=== PATIENT | male | born 1955 | race Caucasian/White ===

== ENCOUNTER 2020-03-17 09:44 | Observation (INO) | payer MEDICARE, SELFPAY ==
[2020-03-17] VITALS (9 sets, daily range): BP systolic 127–152; BP diastolic 69–90; PULSE 78–94; RESP 18–22; TEMP 36.3–37.2; O2SAT 97–100
--- NOTE | ~2020-03-17 | CT_ITS ---
EXAMINATION: CT brain wo con EXAM DATE: 03/18/2020 16:52 INDICATION: Intractable headache. TECHNIQUE: Spiral CT of the head was performed without contrast. Axial, coronal and sagittal images were reviewed. The dose-length product (DLP) for this examination was 605.33 mGy-cm. The exposure w as tailored according to patient size, and iterative reconstruction (ASIR) was used as additional dos e reduction technique. There is no prior study for comparison. FINDINGS: There is no acute intraparenchymal hemorrhage. No evidence of intraparenchymal brain mass lesion. No evidence of acute infarction. There is no mass effect or midline shift. The ventricles are normal in size. There are no extra-axial collections. There are no acute calvarial fractures. T he orbits are unremarkable. Soft tissue is unremarkable. The visualized sinuses and mastoid air rasheed ls are well aerated. IMPRESSION: 1. Unremarkable head CT examination. Reviewed, dictated and finalized at location A.
--- NOTE | ~2020-03-17 | CT_ITS ---
EXAMINATION: CT abdomen pelvis w con DATE: 03/21/2020 12:23 INDICATION: Abdominal pain and nausea TECHNIQUE: Computed tomography (CT) of the abdomen and pelvis was performed with 100 mL Omnipaque-350 intravenous contrast. Automated exposure control and iterative reconstruction technique were employe d. The dose-length product was 780.40 mGy-cm. COMPARISON: 03/20/2020 FINDINGS: Emphysema at the lung bases diffuse bronchial wall thickening. No pneumonia, pulmonary edema or other pulmonary infiltrates. Heart size is normal. No pericardial or pleural effusion. Liver, gallbladder, spleen, pancreas, bilateral adrenal glands and right kidney are normal. 1.5 cm left renal cyst. Agai n seen is edematous-appearing wall thickening involving the second and third portion of the duodenum. Mild small amount of nonloculated retroperitoneal fluid extending caudally from the duodenum along t he right pararenal space. The more distal small bowel is normal. Normal appendix. There is mild colon ic diverticulosis with a sigmoid predominance. There is no adjacent inflammatory change to suggest d iverticulitis. Excreted contrast within the bladder likely related related to the earlier contrast-en hanced brain and carotid CT angiogram. No free intraperitoneal gas or fluid. No pathologically enlarg ed abdominal or pelvic lymphadenopathy. Fat-containing umbilical hernia measuring up to 4.5 cm in max imal diameter. Additional small fat-containing left inguinal hernia. Moderate to severe lumbar spondy losis. IMPRESSION: 1. Persistent edematous duodenal wall thickening consistent with duodenitis which could be infectious or inflammatory in etiology differential would include reactive edema related to acute interstitial pancreatitis. 2. Emphysema. 3. Mild diverticulosis. Reviewed, dictated and finalized at location A. IMPRESSION: 1. Persistent edematous duodenal wall thickening consistent with duodenitis whi ch could be infectious or inflammatory in etiology differential would include r eactive edema related to acute interstitial pancreatitis. 2. Emphysema. 3. Mild diverticulosis.
--- NOTE | ~2020-03-17 | US_ITS ---
EXAMINATION: US venous doppler [facility] DATE: 03/18/2020 11:12 INDICATION: Lower limb edema. TECHNIQUE: Grayscale ultrasound images without and with compression and Doppler ultrasound images of the bilateral lower extremity veins were obtained. COMPARISON: None. FINDINGS: The visualized portions of right common femoral vein, profunda (deep) femoral vein, femoral vein, pop liteal vein, posterior tibial veins, and greater saphenous vein outflow are patent. The visualized portions of left common femoral vein, profunda femoral vein, femoral vein, popliteal v ein, peroneal veins, posterior tibial veins, and greater saphenous vein outflow are patent. IMPRESSION: 1. No deep venous thrombosis. Reviewed, dictated and finalized at location A.
--- NOTE | ~2020-03-17 | XR_ITS ---
XR chest 1V portable 03/17/2020 10:43 Indication: Shortness of breath. COPD. Procedure: AP portable chest Comparison: Comparison to multiple prior studies sequentially, with oldest reviewed study dated 06/22. Findings: Heart size normal. No focal air space disease, pulmonary edema, pleural effusion or suspect ed pneumothorax. No acute osseous abnormality. The lungs are hyperinflated which is consistent with, but not diagnostic of chronic obstructive pulmo nary disease. Impression: 1: No acute cardiopulmonary disease. Reviewed, dictated and finalized at location A. Impression: 1: No acute cardiopulmonary disease.
--- NOTE | ~2020-03-17 | XR_ITS ---
EXAMINATION: XR abdomen/kub 1V DATE: 03/20/2020 05:54 INDICATION: Nausea. Abdominal distention. TECHNIQUE: A supine view of the abdomen was obtained. COMPARISON: Abdomen radiographs 03/18/2020 FINDINGS: There are no dilated loops of bowel. There is a paucity of stool in the colon. There is no visible urolithiasis. IMPRESSION: 1. Nonobstructive bowel gas pattern. Reviewed, dictated and finalized at location A.
--- NOTE | ~2020-03-17 | XR_ITS ---
EXAMINATION: XR abdomen obstructive series DATE: 03/18/2020 13:07 INDICATION: Abdominal distention and pain TECHNIQUE: Supine and upright views of the abdomen. FINDINGS: No prior studies for comparison. The visualized lung parenchyma is normal.. There is a nonobstructive bowel gas pattern. Gas and stool are seen throughout the colon to the level of the rectum. There is no free air. IMPRESSION: 1. No acute abdominal abnormality. Reviewed, dictated and finalized at location A.
--- NOTE | ~2020-03-17 | CT_ITS ---
EXAMINATION: CT abdomen pelvis wo con DATE: 03/20/2020 10:16 INDICATION: Persistent abdominal pain TECHNIQUE: Computed tomography (CT) of the abdomen and pelvis was performed without intravenous contr ast. The dose-length product (DLP) was 601.44 mGy-cm. Automated exposure control and iterative recons truction technique were employed. COMPARISON: None FINDINGS: There is moderate emphysema of the visualized lung bases. There is persistent but improved bronchial wall thickening in the left lower lobe, consistent with resolving pneumonia. The heart size is normal. Within the limitations of noncontrast examination, the liver, spleen, pancreas, gallbladd er, and adrenal glands are normal. The right kidney is unremarkable. There is a 1.2 cm cyst in the le ft kidney. There appears to be mild wall thickening involving the second/third portion of the duodenu m. A small amount of ascites tracks in the retroperitoneum. No pathologically enlarged abdominal or p elvic lymph nodes are identified. There is no free intraperitoneal gas or evidence of bowel obstructi on. A moderate volume of colonic stool is present. There is calcified atherosclerosis of the aorta an d many of the other arteries. There is a fat-containing umbilical hernia. Moderate to severe lumbar s pondylosis is noted. The bladder is distended. IMPRESSION: 1. Apparent mild wall thickening of the duodenum which could reflect duodenitis, exam limited without intravenous contrast. Reviewed, dictated and finalized at location A. IMPRESSION: 1. Apparent mild wall thickening of the duodenum which could reflect duodenitis , exam limited without intravenous contrast.
--- NOTE | ~2020-03-17 | CT_ITS ---
EXAMINATION: CTA chest PE protocol DATE: 03/17/2020 11:59 CDT INDICATION: Shortness of breath. History of COPD. TECHNIQUE: Computed tomographic angiography (CTA) of the chest was performed with 100 mL Omnipaque-35 0 intravenous contrast. The dose-length product was 481.15 mGy-cm. Maximum intensity projection 3D-re constructions of the aorta and other arteries were constructed by the technologist on a separate work station. Automated exposure control and iterative reconstruction technique were employed. COMPARISON: CT dated 03/31/2017 FINDINGS: The study is technically adequate without evidence for pulmonary embolism. No significant p leural or pericardial effusion. Heart size normal. No thoracic lymphadenopathy. There is severe bullo us emphysema. There is left basilar atelectasis. No focal pneumonia. There is a left renal cyst. Othe rwise, upper abdomen is unremarkable. IMPRESSION: 1. No evidence for pulmonary embolism. No acute cardiopulmonary disease. 2: Severe emphysema. Reviewed, dictated and finalized at location A.
--- NOTE | ~2020-03-17 | CT_ITS ---
EXAMINATION: CTA brain carotid DATE: 03/20/2020 19:01 CDT INDICATION: Green headaches. Tremors. TECHNIQUE: Computed tomographic angiography (CTA) of the head was performed without and with 100 mL O mnipaque-350 intravenous contrast. CTA of the neck was performed with intravenous contrast. The dose- length product was 1634.82 mGy-cm. Maximum intensity projection and volume rendered 3D-reconstruction s were created by the technologist on a separate workstation. COMPARISON: CT dated 03/18/2020. FINDINGS: HEAD CTA: Brain parenchymal volume is normal. No acute intracranial hemorrhage, infarction, mass or m ass effect. No ventriculomegaly or midline shift. Basilar cisterns are patent. There is a dominant le ft vertebral artery. No evidence for significant intracranial stenosis or aneurysm. The anterior, mid dle and posterior cerebral arteries are relatively symmetric. NECK CTA: There is severe emphysema of the lung apices. Minimal atherosclerosis of the carotid bulb o n the left. No significant stenosis in either carotid artery. No evidence for carotid dissection. The re is normal contrast opacification of the external carotid arteries. No significant cervical lymphad enopathy. No significant abnormality of the mucosal or parapharyngeal spaces. There is 0% stenosis of the proximal right internal carotid artery relative to normal distal artery l umen diameter (NASCET criteria). There is 0% stenosis of the proximal left internal carotid artery re lative to normal distal artery lumen diameter. IMPRESSION: 1. No hemodynamically significant stenosis in either carotid artery. 2: No significant abnormality of the intracranial arteries. No evidence for significant stenosis or a neurysm. 3: Severe emphysema. 4: No acute intracranial abnormality. Reviewed, dictated and finalized at location A. IMPRESSION: 1. No hemodynamically significant stenosis in either carotid artery. 2: No significant abnormality of the intracranial arteries. No evidence for sig nificant stenosis or aneurysm. 3: Severe emphysema. 4: No acute intracranial abnormality.
--- NOTE | 2020-03-17 10:14 | ECG_ITS ---
Measurements Intervals [place] Rate: 83 P: 37 SD: 157 QRS: 166 QRSD: 106 T: 72 QT: 375 QTc: 441 Interpretive Statements SINUS RHYTHM RIGHT AXIS DEVIATION INCOMPLETE RIGHT BUNDLE BRANCH BLOCK BASELINE ARTIFACT- I, II, III, AVL, V1 BORDERLINE ECG Electronically Signed On 03-17-2020 10:39:59 CDT by Larry Watson D.O.
--- NOTE | 2020-03-17 10:15 | ED.SOB ---
HPI - SOB/Dyspnea General Chief Complaint: Shortness of Breath/Dyspnea Stated Complaint: SOB Source: RN notes reviewed History of Present Illness HPI Narrative: Patient presents emergency department from home for shortness of breath. Patient states he has a history of COPD and is chronically on oxygen at approximately 2 to 3 L nasal cannula. Patient states that over the past month he has had progressively worsening shortness of breath to the point where over the past 2 weeks has been able to get up and do anything because he becomes so dyspneic with exertion he states that sitting he does feel better he denies any fevers or chills chest pain abdominal pain. He states that he has a minimal cough that is nonproductive. He denies any tobacco use Related Data Home Medications Medication Instructions Recorded Confirmed azelastine-fluticasone 137 mcg-50 1 spray NASAL BID 02/18/20 02/18/20 mcg/spray nasal spray ipratropium 0.5 mg-albuterol 3 mg 3 ml INHALATION QID PRN 02/18/20 02/18/20 (2.5 mg base)/3 mL nebulization soln hydrochlorothiazide 03/17/20 Allergies Allergy/AdvReac Type Severity Reaction Status Date / Time No Known Allergies Allergy Verified 03/17/20 10:14 Review of Systems Review of Systems: Narrative: Gen.: Denies fevers or chills ENT: Denies congestion Respiratory: Reports shortness of breath CV: Denies chest pain or palpitations GI: Denies abdominal pain nausea, emesis or diarrhea Musculoskeletal: Denies back pain or muscle pain Neuro: Denies numbness, tingling, weakness or focal weakness Skin: Denies rash Except as documented, all other systems reviewed and negative [facility] Past Medical History Medical History (Updated 03/17/20 @ 14:27 by Benedict Mera DO) COPD (chronic obstructive pulmonary disease) Family History Family History (Updated 05/20/16 @ 23:21 by DOCTOR UNKNOWN) Sibling Patient's sister is in good health, Onset Age: 52 Patient's brother is in good health, Onset Age: 50 Mother Family history of diabetes mellitus in first degree relative, Onset Age: 68 Patient's mother is Social History Social History Smoking status: Former smoker Smoking end date: 10/23/09 Alcohol intake: never Gender identity (if verbalized by the patient): Male Exam Narrative: Exam Narrative: APPEARANCE: No acute distress, nontoxic, resting in bed EYES: EOMI HEENT: Normocephalic, atraumatic, OMM RESPIRATORY: No respiratory distress decreased breath sounds at the bilateral lung swann, no rhonchi or rales CARDIOVASCULAR: Regular rate and rhythm without murmurs rubs or gallops. ABDOMINAL: Soft, nontender, nondistended, no rebound or guarding MUSCULOSKELETAl: Moves all extremities. No clubbing, cyanosis or edema. NEURO: Awake and alert. Following commands, speech normal, no focal deficits SKIN:: Warm, dry. No rashes lesions or abrasions PSYCHIATRIC: Normal affect/mood, Course Course Emergency Course: Patient was walking pulse ox in ED becomes very short of breath with getting up and ambulating will admit at this time Discussed with BLOGS MANAGER Rosalba presentation work-up agrees with admission at this time Discussed with patient and family results of workup and diagnosis. Discussed need for admission. Patient and family understand and agree to current treatment plan Vital Signs Vital signs: Vital Signs Temperature 98.9 F 03/17/20 10:09 Pulse Rate 84 03/17/20 10:09 Respiratory Rate 22 H 03/17/20 10:09 Blood Pressure 134/75 03/17/20 10:09 Pulse Oximetry 99 03/17/20 10:09 Temperature 98.9 F 03/17/20 10:09 Pulse Rate 78 03/17/20 14:18 Respiratory Rate 20 03/17/20 14:18 Blood Pressure 127/78 03/17/20 14:18 Pulse Oximetry 99 03/17/20 10:13 MDM - SOB/Dyspnea Lab Data Result diagrams: 03/17/20 10:38 03/17/20 10:38 Labs: Lab Results 03/17/20 0
[2020-03-17] MEDS: methylPREDNISolone SOD SUCC 125 MG VIAL IV PUSH (10:20)
[2020-03-17 10:33] LABS: Alveolar/Arterial O2 Gradient 25.6 mmHg; Base Excess ABG 11.1 mEq/l (+/-2.0); Fractional Inspired Oxygen 32 %; HCO3 ABG 37.5 mEq/l (22.0-26.0); Oxygen Saturation ABG 98.8 % (95.0-100.0); Oxyhemoglobin 97.7 % THb (90.0-100.0); PCO2 ABG 56.3 mmHg (35.0-45.0); PO2 ABG 136.7 mmHg (80.0-100.0); PO2 FiO2 Ratio Arterial Blood 4.27 %; Total Hemoglobin 13.7 g/dL (12.0-18.0); pH ABG 7.441 (7.350-7.450)
[2020-03-17 10:34] LABS: Device NASAL CANNULA; Modified Allen's Test Pass; Site Drawn RIGHT RADIAL
[2020-03-17 10:44] LABS: Basophils Percent Auto 0.3 % (0.2-1.2); Eosinophils Absolute Auto 0.2 K/mm3 (0-0.3); Eosinophils Percent Auto 1.5 % (0-4.4); Hemoglobin 13.6 g/dL (14.0-18.0); Immature Granulocyte Absolute 0.02 K/mm3 (0.00-0.031); Immature Granulocyte Percent A 0.2 % (0-0.5); Lymphocytes Absolute Auto 2.07 K/mm3 (0.9-3.2); Lymphocytes Percent Auto 16.1 % (18.3-44.2); Mean Corpuscular HGB Conc 32.4 g/dl (32-36); Mean Corpuscular Hemoglobin 28.7 pg (26-34); Mean Corpuscular Volume 88.6 fl (80-100); Mean Platelet Volume 9.3 fl (7.4-10.4); Monocytes Absolute Auto 0.9 K/mm3 (0.1-0.6); Monocytes Percent Auto 7.2 % (2.6-8.5); Neutrophils Absolute Auto 9.6 K/mm3 (1.3-6.7); Neutrophils Percent Auto 74.7 % (45.5-73.1); Platelet Count Result 281 k/mm3 (150-375); Red Blood Count 4.74 M/mm3 (4.6-6.20); Red Cell Distribution Width 13.3 % (11.5-14.5); White Blood Count 12.9 K/mm3 (4.5-10.0)
[2020-03-17 10:55] LABS: Partial Thromboplastin Time 26.5 SECONDS (22.3-36.8); Prothrombin Time 13.1 Seconds (11.1-14.7)
[2020-03-17 11:03] LABS: Blood Urea Nitrogen 8 mg/dL (9-20); Carbon Dioxide > 40 mmol/L (22-30); Chloride 89 mmol/L (98-107); Estimated CRCL calculation 88 ml/min; Estimated Glomerular Filt Rate > 60; Glucose 127 mg/dL (75-110); Potassium 2.9 mmol/L (3.4-5.0); Sodium 135 mmol/L (137-145)
[2020-03-17 11:10] LABS: NT Pro B Type Natriuretic Pept 30 PG/ML (5-100); Troponin I < 0.012 ng/mL (0.000-0.034)
[2020-03-17] MEDS: POTASSIUM CHLORIDE 20 MEQ TABLET 40 MEQ PO (11:15)
[2020-03-17 11:23] LABS: Magnesium 1.9 mg/dL (1.6-2.3)
[2020-03-17] MEDS: ALBUTEROL SULFATE NEB 2.5 MG/0.5 ML INH 5 MG INHALATION (14:02)
[2020-03-17] MEDS: IPRATROPIUM BR 0.02% INH SOLN 0.5 MG/2.5 ML VIAL INHALATION (14:02)
--- NOTE | 2020-03-17 16:48 | ADMGEN ---
This patient, Raimundo Johnson, was admitted to [facility] Surg Room 330-01. Patient/family oriented to hospital policies and general routines including ID bracelet, bed and alarms, visiting hours, pain management, procedures, bathroom and other care routines, personal items, smoking policy, room service/diet, and visiting hours. Valuables list has been completed. Information on how to activate the Rapid Response Team has been discussed. Patient/Family are encouraged to report perceived risks to care and to ask questions if they do not understand what they are told or what they should do.
[2020-03-17] MEDS: methylPREDNISolone SOD SUCC 125 MG VIAL 60 MG IV PUSH ×2 (18:14→22:23)
[2020-03-18] VITALS (15 sets, daily range): BP systolic 120–157; BP diastolic 69–88; PULSE 64–108; RESP 16–22; TEMP 36.1–36.9; O2SAT 92–100
--- NOTE | 2020-03-18 00:13 | PM.IMHP ---
H&P: HPI History of Present Illness Chief complaint: AE COPD Narrative: Raimundo Johnson is a 64 year old male who has a history of COPD. He has had a pulmonary function test by Dr. Dailey in the past that she was a has severe COPD. The patient has been using his inhalers as necessary. He is typically on oxygen about 2 L per nasal cannula. The patient stated that near the end of his smoking habit he was smoking 2-3 packs of cigarettes a day. The patient stated he typically does not go outside of his home and has not been out in several months. He states that he has a gentleman that comes in at night in bring some groceries and sleeps there in his house and then leads in the morning. He has not had any fever or chills. As med effect he states that the man that lives in his house with him he really ever sees him. The patient mostly stays at home. The patient came to the emergency room for shortness of breath. Patient is chronically on oxygen. Patient has been getting progressively worsened shortness of breath over the last couple weeks. He became very dyspneic upon exertion. He stated that he has been having some edema to his right leg but this is been going on for months. He has no complaints of any discomfort his right leg. Did have a CTA that was read as no evidence of pulmonary embolism. No acute cardiopulmonary disease. Severe emphysema. Chest x-ray was read as no acute cardiopulmonary disease. The patient was swabbed for covid 19. Although the patient has not had any fever. The patient stated that he always has a dry hacky cough. As a matter fact he has a hernia due to coughing so much. The patient stated he he does not go to the physician very often. Rather than saying that he has been diagnosed with COPD he states that the doctor has told him that he has this condition. The patient quit smoking several years ago. His white count is 12.9. Patient CO2 was greater than 40 on his basic metabolic panel. His potassium was 2.9. The patient was given [place] for discomfort, Solu-Medrol, potassium, and albuterol and Atrovent inhalers. The patient stated that he started to feel somewhat better however got worse again when he started talk to much. Patient complained of having a headache and was given Fioricet. Date of service 03/17/2020 Review of Systems Review of Systems: All systems reviewed & are unremarkable except as noted in HPI and below Constitutional: Constitutional: Reports as per HPI and Reports no additional constitutional complaints Eyes: Eyes: Reports as per HPI and Reports no additional eye complaints ENT: Reports system reviewed and no additional complaints, except as documented and Reports Normal hearing present Cardiovascular: Cardiovascular: Reports no additional cardiovascular complaints Respiratory: Respiratory: Reports no additional respiratory complaints and Reports no additional respiratory complaints Gastrointestinal: Gastrointestinal: Reports as per HPI and Reports no additional gastrointestinal complaints Musculoskeletal: Musculoskeletal: Reports no additional musculoskeletal complaints Integumentary/Breasts: Skin/Breast: Reports system reviewed and no additional complaints, except as docu and Reports as per HPI Neurologic: Reports system reviewed and no additional complaints, except as documented, Reports as per HPI and Reports Normal hearing present Psychiatric: Psychiatric: Reports no additional psychiatric complaints and Reports as per HPI Endocrine: Endocrine: Reports no additional endocrine complaints Hematologic/Lymphatic: Hematologic/Lymphatic: Reports no additional hematologic/lymphatic complaints Allergic/Immunologic: Allergic/Immunologic: Reports no additional allergic/immunologic complaints [facility] Past Medical History Medical History (Updated 03/18/20 @ 00:20 by Rosalba Rodriguez NP) COPD (chronic obstructive pulmonary disease) Migraines Surgical History Surgical History (Updated
[2020-03-18 01:11] LABS: Blood Urea Nitrogen 12 mg/dL (9-20); Calcium 9.3 mg/dL (8.4-10.2); Carbon Dioxide 38 mmol/L (22-30); Chloride 91 mmol/L (98-107); Estimated CRCL calculation 99 ml/min; Estimated Glomerular Filt Rate > 60; Glucose 136 mg/dL (75-110); Potassium 4.1 mmol/L (3.4-5.0); Sodium 134 mmol/L (137-145)
[2020-03-18] MEDS: MELATONIN 3 MG TABLET PO ×2 (01:46→20:28)
[2020-03-18] MEDS: methylPREDNISolone SOD SUCC 125 MG VIAL 60 MG IV PUSH ×2 (05:08→11:37)
[2020-03-18 05:59] LABS: Basophils Percent Auto 0.1 % (0.2-1.2); Hematocrit 41.1 % (42.0-52.0); Hemoglobin 13.3 g/dL (14.0-18.0); Immature Granulocyte Absolute 0.07 K/mm3 (0.00-0.031); Immature Granulocyte Percent A 0.5 % (0-0.5); Lymphocytes Absolute Auto 1.13 K/mm3 (0.9-3.2); Lymphocytes Percent Auto 7.9 % (18.3-44.2); Mean Corpuscular HGB Conc 32.4 g/dl (32-36); Mean Corpuscular Hemoglobin 28.9 pg (26-34); Mean Corpuscular Volume 89.3 fl (80-100); Mean Platelet Volume 9.4 fl (7.4-10.4); Monocytes Absolute Auto 0.4 K/mm3 (0.1-0.6); Neutrophils Absolute Auto 12.7 K/mm3 (1.3-6.7); Neutrophils Percent Auto 88.5 % (45.5-73.1); Platelet Count Result 285 k/mm3 (150-375); Red Cell Distribution Width 13.2 % (11.5-14.5); White Blood Count 14.3 K/mm3 (4.5-10.0)
[2020-03-18 06:07] LABS: Blood Urea Nitrogen 13 mg/dL (9-20); Calcium 9.2 mg/dL (8.4-10.2); Carbon Dioxide > 40 mmol/L (22-30); Chloride 90 mmol/L (98-107); Estimated CRCL calculation 99 ml/min; Estimated Glomerular Filt Rate > 60; Glucose 139 mg/dL (75-110); Potassium 4.2 mmol/L (3.4-5.0); Sodium 134 mmol/L (137-145)
--- NOTE | 2020-03-18 06:23 | ECG_ITS ---
Measurements Intervals [place] Rate: 104 P: 77 [place]: 163 QRS: 96 QRSD: 100 T: 67 QT: 352 QTc: 465 Interpretive Statements SINUS TACHYCARDIA ATRIAL COUPLET AND ATRIAL PREMATURE COMPLEX RIGHT AXIS DEVIATION POOR R WAVE PROGRESSION, ANTERIOR LEADS BASELINE ARTIFACT- I, II, III, AVL, V1-V3 ABNORMAL ECG Electronically Signed On 03-18-2020 7:06:11 CDT by Larry Watson D.O.
--- NOTE | 2020-03-18 06:36 | PC.NURSE ---
0627- called to room by patient c/o midsternal chest pain with tightness at level 10. VSS 89-16-139/86. 02 sat 99% on 3 liters/NC. Dr Mani butterfield and status report given. Rapid response called. 0628- Nitro given SL. Pain at level 10 0629- rapid response team here - 0630-Chest pain at level 5. Patient states of feeling better with no c/o SOB at this time. BP 171/79- 96-02 sat 98% on 3 liters.
--- NOTE | 2020-03-18 06:43 | PC.NURSE ---
EKG completed and rev iewed by Dr Singleton - lab here to draw troponin.
--- NOTE | 2020-03-18 06:44 | PM.EVENT ---
Event Note Event Note Event Note: RAPID RESPONSE NOTE This is a 64 year old male who is being treated for possible COVID-19 infection and who suddenly developed 10/10 midsternal chest pain this morning. Rapid Response was called by nursing staff. The patient was given 1 nitroglycerin SL and EKG was obtained. EKG demonstrated sinus tachycardia w/ HR 104. No ST segment elevation or depression on my read. On my arrival to bedside the patient states that his chest pain has improved significantly and his pain is now less than 5/10. He denies any shortness of breath or other symptoms. Troponin is pending. Telemetry is ordered. The patient has no previous history of cardiac disease.
[2020-03-18 06:55] LABS: Troponin I < 0.012 ng/mL (0.000-0.034)
[2020-03-18] MEDS: ENOXAPARIN 40 MG/0.4 ML SYRINGE SUB-Q (07:45)
--- NOTE | 2020-03-18 12:36 | PM.IMPN ---
Progress Note: A&P Assessment and Plan (1) COPD with acute exacerbation: Code(s): J44.1 - Chronic obstructive pulmonary disease with (acute) exacerbation Status: Acute Assessment and Plan: ----CTA shows no current infection but severe emphysema. Continue with albuterol inhalers and Solu-Medrol, now decreased to 40 mg every 12 hours. Leukocytosis likely due to steroids. For some reason, his oxygen was increased to 6L. He does not need this much oxygen and I have asked the nurse to keep his oxygen from 89-92. While in the room he had the oxygen off because it was burning his nose and his O2 sat was 94. He said he always feels short of breath. He said he is allergic to our plastic tubes and uses vinyl to being at home. I called [facility] and they are unable to do humidified oxygen until his COVID-19 test comes back. I have ordered ayr to help as well. His COVID-19 test should come back soon and I will order some humidity for him. It does not appear that he has any symptoms of COVID-19. He might have a bit of anxiety as well, will order Xanax p.r.n.. He also says he has not slept in days. He takes Fioricet quite often, probably worsening his sleep. Will do melatonin tonight. Would benefit from seeing a counselor or psychiatrist outpatient. He sees Dr. Dailey, pulmonology for his respiratory needs. (2) Suspected COVID-19 virus infection: Code(s): Z20.828 - Contact with and (suspected) exposure to other viral communicable diseases Status: Acute Assessment and Plan: ------Patient is in isolation in being tested. He does not have any fever or chills. He has not been outside of his home. Likely will be neg. (3) Migraines: Code(s): G43.909 - Migraine, unspecified, not intractable, without status migrainosus Status: Chronic Assessment and Plan: -----he has a significant migraine today and seems to be intractable. He said the Fioricet helped a little bit yesterday but he continues to have migraine symptoms and is using a face covering to shield the light. His neuro exam appears to be normal. I will give him ketorolac once now, continue the p.r.n. Fioricet, obtain a head CT, and consult Neurology since it is very distressing to the patient. (4) Peripheral edema: Code(s): R60.9 - Edema, unspecified Status: Acute Assessment and Plan: -----no blood clot noted. Will continue hydrochlorothiazide. . (5) Abdominal distension: Code(s): R14.0 - Abdominal distension (gaseous) Status: Acute Assessment and Plan: -----will obtain KUB. Patient has distension but not much pain. He says he battles constipation very regularly and rarely has bowel movements. Time Spent With Patient Time with patient: 25 - 35 minutes Subjective Date/time seen: 03/18/20 12:36 Interval history: Pt is a 64 year old male here for COPD exacerbation. Patient was seen today and states that he is having a lot of burning in his nose from the oxygen. He also has complaints of a migraine that has not gone away. He said he has these migraines very frequently and takes Fioricet pretty regularly at home. He says light makes it worse. This is been going on for years. He denies any numbness, tingling or weakness on any part of his body. He says he feels very short of breath as well. He also has complaints of abdominal distension and constipation that is been going on for a long time as well. He says he has no history of anxiety, depression, or mental illness. With that being said, he has never heard of anxiety and does not know what it means. Review of Systems Review of Systems: All systems reviewed & are unremarkable except as noted in HPI and below Exam Narrative: Exam Narrative: General: Well developed well nourished patient resting in the chair in [facility] HEENT: normocephalic, no lesions on the tongue or throat. No swelling. Neck: supple Neuro: Al
[2020-03-18] MEDS: KETOROLAC 30 MG/ML VIAL (*BKC) IV PUSH (13:31)
[2020-03-18 14:16] LABS: SARS-CoV-2 RNA PCR Negative
--- NOTE | 2020-03-18 14:45 | WPDNEURCNPN ---
Assessment and Plan Assessment and plan (1) Migraines: Code(s): G43.909 - Migraine, unspecified, not intractable, without status migrainosus Status: Chronic (2) COPD with acute exacerbation: Code(s): J44.1 - Chronic obstructive pulmonary disease with (acute) exacerbation Status: Acute (3) COPD (chronic obstructive pulmonary disease): Code(s): J44.9 - Chronic obstructive pulmonary disease, unspecified Status: Acute (4) Chronic respiratory failure: Qualifiers: Respiratory failure complication: hypoxia and hypercapnia Qualified Code(s): J96.11 - Chronic respiratory failure with hypoxia; J96.12 - Chronic respiratory failure with hypercapnia Code(s): J96.10 - Chronic respiratory failure, unspecified whether with hypoxia or hypercapnia Status: Acute Additional Plan patient has migraine are the same he has suffered from for past many years he wants to go to sleep at this point which is appropriate he has been taking Fioricet judiciously I thing in needs to be continued to comfort him and if need be then any further testing will be done otherwise is not necessary at this time Consult date: 03/18/20 Time Seen: 14:00 HPI: Raimundo Johnson is a 64 year old male home I have been consulted for acute exacerbation of his underlying chronic migraine headaches which he has been suffering from several years is primarily admitted because of his respiratory issues which have been outlined quite well in the initial history and physical examination he feels that the headaches are worse because of his oxygen needs and also respiratory illness he is COVID negative at this point denies any change in the character of the headache denies any lateralizing paresthesias he is photophobic and phonophobia can would like to go to sleep as he has not had any much of sleep due to respiratory issues in the previous few days he denies any fever chills sore throat nausea or vomiting he does have shortness of breath and is on nasal cannula oxygen Review of Systems Review of Systems: All systems reviewed & are unremarkable except as noted in HPI and below PMFSH Past Medical History Medical History COPD (chronic obstructive pulmonary disease) Migraines Surgical History Surgical History No pertinent past surgical history Family History Family History Sibling Patient's sister is in good health, Onset Age: 52 Patient's brother is in good health, Onset Age: 50 Mother Family history of diabetes mellitus in first degree relative, Onset Age: 68 Patient's mother is Social History Social History Social History: The patient is and has 1 son. He does not have a durable power tax associate attorney for healthcare and desires to be a full code. The patient is disabled. He owns his own home. 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 He is chronically on oxygen at 2 L per nasal cannula. He has a roommate that sleeps in his house during the night. He smoked marijuana in the past but does not use any illicit drugs or alcohol. Smoking packs per day: 3 Smoking cigarettes per day: 60.0 Smoking status: Former smoker Tobacco type: cigarettes Smoking end date: 11/06/08 Alcohol intake: never Substance use: former Living arrangements: with friend(s) Occupation/Education: other Gender identity (if verbalized by the patient): Male Spiritual care concerns: No Meds Home Medications and Allergies Home Medications Medication Instructions Recorded Confirmed Type tphnidi-hukpwrdmbz-ONB-caffeine 30 1 cap PO Q4-6H PRN #60 cap 02/12/20 03/17/20 Rx mg-50 mg-325 mg-40 mg capsule albuterol sulfate 90 mcg/actuation 2 inhalation INHALATION Q4-6H PRN 01/22
[2020-03-18] MEDS: hydroCHLOROthiazide 25 MG TABLET PO (17:03)
[2020-03-18] MEDS: IPRATROPIUM BR 0.02% INH SOLN 0.5 MG/2.5 ML VIAL INHALATION (20:05)
[2020-03-18] MEDS: ALBUTEROL SULFATE NEB 2.5 MG/0.5 ML INH 5 MG INHALATION (20:05)
[2020-03-18] MEDS: SODIUM CHLORIDE NASAL GEL 14.1 GM 1 APPLIC NASAL (20:27)
[2020-03-18] MEDS: methylPREDNISolone SOD SUCC 40 MG VIAL IV PUSH (20:28)
[2020-03-19] VITALS (19 sets, daily range): BP systolic 124–144; BP diastolic 64–77; PULSE 72–102; RESP 18–26; TEMP 36.7–37.6; O2SAT 90–96
[2020-03-19] MEDS: CALCIUM CARBONATE (TUMS) 500 MG (200 MG ELEMENTAL) PO (01:33)
[2020-03-19] MEDS: IPRATROPIUM BR 0.02% INH SOLN 0.5 MG/2.5 ML VIAL INHALATION ×4 (01:48→19:56)
[2020-03-19] MEDS: ALBUTEROL SULFATE NEB 2.5 MG/0.5 ML INH 5 MG INHALATION ×4 (01:48→19:56)
[2020-03-19 06:13] LABS: Hematocrit 40.3 % (42.0-52.0); Hemoglobin 13.2 g/dL (14.0-18.0); Mean Corpuscular HGB Conc 32.8 g/dl (32-36); Mean Corpuscular Hemoglobin 28.9 pg (26-34); Mean Corpuscular Volume 88.4 fl (80-100); Mean Platelet Volume 10.3 fl (7.4-10.4); Platelet Count Result 233 k/mm3 (150-375); Red Blood Count 4.56 M/mm3 (4.6-6.20); Red Cell Distribution Width 13.4 % (11.5-14.5); White Blood Count 22.9 K/mm3 (4.5-10.0)
[2020-03-19 06:42] LABS: Potassium 3.5 mmol/L (3.4-5.0)
[2020-03-19 06:45] LABS: Blood Urea Nitrogen 27 mg/dL (9-20); Calcium 9.1 mg/dL (8.4-10.2); Carbon Dioxide 35 mmol/L (22-30); Chloride 88 mmol/L (98-107); Estimated CRCL calculation 99 ml/min; Estimated Glomerular Filt Rate > 60; Glucose 125 mg/dL (75-110); Sodium 131 mmol/L (137-145)
[2020-03-19 07:51] LABS: Thyroid Stimulating Hormone Reflex 0.472 uIU/mL (0.465-4.68)
[2020-03-19] MEDS: methylPREDNISolone SOD SUCC 40 MG VIAL IV PUSH (08:42)
[2020-03-19] MEDS: ENOXAPARIN 40 MG/0.4 ML SYRINGE SUB-Q (08:42)
[2020-03-19] MEDS: hydroCHLOROthiazide 25 MG TABLET PO (08:42)
--- NOTE | 2020-03-19 10:24 | PM.IMPN ---
Progress Note: A&P Assessment and Plan (1) COPD with acute exacerbation: Code(s): J44.1 - Chronic obstructive pulmonary disease with (acute) exacerbation Status: Acute Assessment and Plan: ----CTA shows no current infection but severe emphysema. Will continue with breathing treatments And doxycycline has been added this morning since he has a low-grade fever. Leukocytosis likely worse due to steroids. He is not having any hypoxia, at his baseline O2, and not complaining of any shortness of breath so we will change his steroids from IV to oral. Patient is improving he keeps improving he may be able to discharge in 1-2 days. (2) Migraines: Code(s): G43.909 - Migraine, unspecified, not intractable, without status migrainosus Status: Chronic Assessment and Plan: -----migraine from yesterday has improved. Will continue p.r.n. Fioricet. It was likely worsened with nitro yesterday. Head CT is normal. Follow-up with Neurology outpatient since he has such frequent headaches. (3) Peripheral edema: Code(s): R60.9 - Edema, unspecified Status: Acute Assessment and Plan: -----no blood clot noted. Will continue hydrochlorothiazide. . (4) Abdominal distension: Code(s): R14.0 - Abdominal distension (gaseous) Status: Acute Assessment and Plan: -----KUB normal, less distended today. Likely normal body habitus (5) Anxiety: Code(s): F41.9 - Anxiety disorder, unspecified Status: Acute Assessment and Plan: -----patient has significant anxiety and has improved with Xanax p.r.n.. Obviously, this is not the drug of choice for long-term care. I will start BuSpar at this time but he will likely need an SSRI outpatient. He sees Dr. Whipple and I will let him know about that at discharge. (6) Hyponatremia: Code(s): E87.1 - Hypo-osmolality and hyponatremia Status: Acute Assessment and Plan: -----last sodium 131. No confusion noted. He is back on his hydrochlorothiazide and if it is low tomorrow this will be stopped. Will trend Subjective Date/time seen: 03/19/20 10:24 Interval history: Pt is a 64 year old male here for COPD exacerbation. Patient was seen today and doing much better than he was yesterday. He said he is not having any shortness of breath or cough. He has not walked around very much so he is unsure about dyspnea on exertion. He had some diarrhea yesterday but has not had any today. His nose, neck and mouth feel much better with a yr and humidity for his oxygen. He is still feeling a little anxious but the Xanax improved since that. He does not have a headache today. More chest pain Exam Narrative: Exam Narrative: General: Well developed well nourished patient resting in the chair in NAD HEENT: normocephalic, no lesions on the tongue or throat. No swelling. Neck: supple Neuro: Alert and oriented x4. CN 2-12 intact. UE and LE 5/ CV:RRR. Telemetry reviewed, no significant abnormalities. He does have some sinus tachycardia up to 120 but not unexpected with his severe lung disease Resp:Decreased breath sounds, no wheezing or rhonchi Abd: Distended. No pain to palpation. Positive bowel sounds Extremities: right leg 1+ edema. Left normal. No pain to palpation. Objective Data Vital Signs Vital Signs: Vital Signs - 24 hr 03/18/20 12:00 03/18/20 14:00 03/18/20 16:00 Temperature 97.1 F L Pulse Rate 108 H 64 79 Respiratory Rate 22 H Blood Pressure 154/69 H Pulse Oximetry 100 03/18/20 20:00 03/18/20 20:10 03/18/20 20:17 Temperature Pulse Rate 104 H 100 102 H Respiratory Rate 22 H 22 H Blood Pressure Pulse Oximetry 92 03/18/20 20:19 03/18/20 20:20 03/18/20 22:00 Temperature 98.4 F Pulse Rate 102 H 93 Respiratory Rate 22 H 22 H Blood Pressure 120/87 Pulse Oximetry 93 96 03/19/20 00:00 03/19/20 01:51 03/19/20 02:00 Temperature 98.
[2020-03-19] MEDS: DOXYCYCLINE HYCLATE 100 MG TABLET PO ×2 (10:48→20:31)
[2020-03-19] MEDS: BISMUTH SUBSALICYLATE 262 MG CHEWABLE TABLET 524 MG PO ×2 (15:07→22:45)
--- NOTE | 2020-03-19 15:53 | PCPTNOTE ---
Attempted PT evaluation. Pt requests coming back tomorrow secondary to tiredness and upset stomach. Will try again tomorrow.
[2020-03-19] MEDS: MELATONIN 3 MG TABLET PO (20:31)
[2020-03-19] MEDS: busPIRone HCL 2.5 MG, busPIRone HCL 5 MG 7.5 MG PO (20:31)
[2020-03-19] MEDS: ACETAMINOPHEN 325 MG TABLET 650 MG PO (20:34)
[2020-03-19] MEDS: SODIUM CHLORIDE NASAL GEL 14.1 GM 1 APPLIC NASAL (21:30)
[2020-03-20] VITALS (12 sets, daily range): BP systolic 115–170; BP diastolic 55–78; PULSE 88–112; RESP 16–22; TEMP 36.7–36.8; O2SAT 91–96
[2020-03-20] MEDS: IPRATROPIUM BR 0.02% INH SOLN 0.5 MG/2.5 ML VIAL INHALATION ×4 (01:14→19:43)
[2020-03-20] MEDS: ALBUTEROL SULFATE NEB 2.5 MG/0.5 ML INH 5 MG INHALATION ×4 (01:14→19:43)
[2020-03-20] MEDS: BELLADONNA ALK/PHENOB ELIX 10 ML, MAG HYDROX/ALUMINUM HYD/SIMETH 30 ML, LIDOCAINE HCL 2... PO (03:00)
[2020-03-20] MEDS: PANTOPRAZOLE SODIUM IV 40 MG VIAL IV PUSH (03:05)
[2020-03-20] MEDS: MAG HYDROX/AL HYDROX/SIMETH 30 ML UDC (03:05)
[2020-03-20 05:58] LABS: Basophils Percent Auto 0.1 % (0.2-1.2); Eosinophils Percent Auto 0.1 % (0-4.4); Hematocrit 40.3 % (42.0-52.0); Hemoglobin 13.1 g/dL (14.0-18.0); Immature Granulocyte Absolute 0.06 K/mm3 (0.00-0.031); Immature Granulocyte Percent A 0.4 % (0-0.5); Lymphocytes Absolute Auto 1.69 K/mm3 (0.9-3.2); Lymphocytes Percent Auto 10.3 % (18.3-44.2); Mean Corpuscular HGB Conc 32.5 g/dl (32-36); Mean Corpuscular Hemoglobin 28.5 pg (26-34); Mean Corpuscular Volume 87.6 fl (80-100); Mean Platelet Volume 9.8 fl (7.4-10.4); Monocytes Absolute Auto 1.6 K/mm3 (0.1-0.6); Monocytes Percent Auto 9.6 % (2.6-8.5); Neutrophils Absolute Auto 13.1 K/mm3 (1.3-6.7); Neutrophils Percent Auto 79.5 % (45.5-73.1); Platelet Count Result 281 k/mm3 (150-375); Red Cell Distribution Width 13.7 % (11.5-14.5); White Blood Count 16.4 K/mm3 (4.5-10.0)
[2020-03-20 06:00] LABS: Blood Urea Nitrogen 17 mg/dL (9-20); Calcium 8.7 mg/dL (8.4-10.2); Carbon Dioxide 38 mmol/L (22-30); Chloride 85 mmol/L (98-107); Estimated CRCL calculation 88 ml/min; Estimated Glomerular Filt Rate > 60; Glucose 134 mg/dL (75-110); Potassium 2.9 mmol/L (3.4-5.0); Sodium 130 mmol/L (137-145)
[2020-03-20] MEDS: ACETAMINOPHEN 325 MG TABLET 650 MG PO (08:43)
[2020-03-20] MEDS: POTASSIUM CHLORIDE 20 MEQ TABLET 40 MEQ PO (08:45)
[2020-03-20] MEDS: predniSONE 20 MG TABLET 40 MG PO (08:45)
[2020-03-20] MEDS: busPIRone HCL 2.5 MG, busPIRone HCL 5 MG 7.5 MG PO ×2 (08:45→21:33)
[2020-03-20] MEDS: DOXYCYCLINE HYCLATE 100 MG TABLET PO ×2 (08:47→21:17)
[2020-03-20] MEDS: ENOXAPARIN 40 MG/0.4 ML SYRINGE SUB-Q (08:49)
--- NOTE | 2020-03-20 11:45 | PM.IMPN ---
Progress Note: A&P Assessment and Plan (1) COPD with acute exacerbation: Code(s): J44.1 - Chronic obstructive pulmonary disease with (acute) exacerbation Status: Acute Assessment and Plan: ----CTA shows no current infection but severe emphysema. Will continue with breathing treatments and doxycycline. Leukocytosis improving and likely elevated due to steroids. He is not having any additional hypoxia, at his baseline O2, and not complaining of any worsening shortness of breath. Continue oral steroids. Patient is improving he keeps improving he may be able to discharge in 1-2 days. (2) Migraines: Code(s): G43.909 - Migraine, unspecified, not intractable, without status migrainosus Status: Chronic Assessment and Plan: -----No additional issues with his chronic migraines. Will continue p.r.n. Fioricet Head CT is normal. Follow-up with Neurology outpatient since he has such frequent headaches. (3) Peripheral edema: Code(s): R60.9 - Edema, unspecified Status: Acute Assessment and Plan: -----no blood clot noted. hctz stopped d/t hyponatremia. . (4) Abdominal distension: Code(s): R14.0 - Abdominal distension (gaseous) Status: Acute Assessment and Plan: -----KUB normal but bladder was distended. Straight cath got 600mls out and he is feeling much better. flomax started. (5) Anxiety: Code(s): F41.9 - Anxiety disorder, unspecified Status: Acute Assessment and Plan: -----patient has significant anxiety and has improved with Xanax p.r.n.. Obviously, this is not the drug of choice for long-term care. I will start BuSpar at this time but he will likely need an SSRI outpatient. I called Dr. mathew about this and he is going to f/u with him outpt. Will give the patient buspar at discharge. (6) Hyponatremia: Code(s): E87.1 - Hypo-osmolality and hyponatremia Status: Acute Assessment and Plan: -----last sodium 130. No confusion noted. HCTZ stopped. (7) Duodenitis: Code(s): K29.80 - Duodenitis without bleeding Status: Acute Assessment and Plan: -----Could be the cause of his stomach pain along with his bladder distention. Will add flagyl. Advance diet as tolerated. He has not had any diarrhea. Subjective Date/time seen: 03/20/20 11:45 Interval history: Pt is a 64 year old male here for COPD exacerbation. Patient was seen today and has some complaints of abdominal pain and distension. He says he has this abdominal pain from time to time. He also mentions that he has issues with urinating and has been worse since he has been in the hospital. He is having some nausea but no vomiting. He denies chest pain or leg swelling. His shortness of breath is unchanged from his baseline Exam Narrative: Exam Narrative: General: Well developed well nourished patient resting in the chair in NAD HEENT: normocephalic, no lesions on the tongue or throat. No swelling. Neck: supple Neuro: Alert and oriented x4. CN 2-12 intact. UE and LE 5/5 CV:RRR. Resp:Decreased breath sounds, no wheezing or rhonchi Abd: Distended. No pain to palpation. Positive bowel sounds Extremities: right leg 1+ edema. Left normal. No pain to palpation. Objective Data Vital Signs Vital Signs: Vital Signs - 24 hr 03/19/20 14:01 03/19/20 14:09 03/19/20 14:11 Temperature 98.2 F Pulse Rate 90 88 92 Respiratory Rate 20 18 20 Blood Pressure 138/66 Pulse Oximetry 96 03/19/20 17:52 03/19/20 19:57 03/19/20 19:58 Temperature 98.2 F Pulse Rate 102 H 72 Respiratory Rate 22 H 18 Blood Pressure 127/68 Pulse Oximetry 93 94 03/19/20 20:00 03/19/20 20:10 03/19/20 22:00 Temperature 98.1 F Pulse Rate 72 76 99 Respiratory Rate 20 18 22 H Blood Pressure 144/64 H Pulse Oximetry 93 93 03/20/20 01:16 03/20/20 01:26 03/20/20 02:00 Temperature 98.2 F Pulse Rate 88 93 91 Respir
[2020-03-20] MEDS: metroNIDAZOLE 250 MG TABLET 500 MG PO ×2 (15:53→21:17)
[2020-03-20] MEDS: TAMSULOSIN HCL 0.4 MG CAPSULE PO (15:53)
[2020-03-20] MEDS: BISMUTH SUBSALICYLATE 262 MG CHEWABLE TABLET 524 MG PO (15:55)
--- NOTE | 2020-03-20 15:55 | WPDNEUROPN ---
Progress Note: A&P Assessment and Plan (1) Duodenitis: Code(s): K29.80 - Duodenitis without bleeding Status: Acute (2) Hyponatremia: Code(s): E87.1 - Hypo-osmolality and hyponatremia Status: Acute (3) Anxiety: Code(s): F41.9 - Anxiety disorder, unspecified Status: Acute (4) Abdominal distension: Code(s): R14.0 - Abdominal distension (gaseous) Status: Acute (5) Peripheral edema: Code(s): R60.9 - Edema, unspecified Status: Acute (6) Hernia: Code(s): K46.9 - Unspecified abdominal hernia without obstruction or gangrene Status: Acute (7) Migraines: Code(s): G43.909 - Migraine, unspecified, not intractable, without status migrainosus Status: Chronic (8) COPD with acute exacerbation: Code(s): J44.1 - Chronic obstructive pulmonary disease with (acute) exacerbation Status: Acute (9) COPD (chronic obstructive pulmonary disease): Code(s): J44.9 - Chronic obstructive pulmonary disease, unspecified Status: Acute (10) Former smoker: Code(s): Z87.891 - Personal history of nicotine dependence Status: Acute (11) Rhinitis: Qualifiers: Rhinitis type: unspecified Qualified Code(s): J31.0 - Chronic rhinitis Code(s): J31.0 - Chronic rhinitis Status: Acute (12) Chronic respiratory failure: Qualifiers: Respiratory failure complication: hypoxia and hypercapnia Qualified Code(s): J96.11 - Chronic respiratory failure with hypoxia; J96.12 - Chronic respiratory failure with hypercapnia Code(s): J96.10 - Chronic respiratory failure, unspecified whether with hypoxia or hypercapnia Status: Acute (13) Anisocoria: Code(s): H57.02 - Anisocoria Status: Acute Additional Plan I will order the CTA of the brain because of anisocoria rest of the management as before Review of Systems Review of Systems: All systems reviewed & are unremarkable except as noted in HPI and below Neurologic: Comments: does have a tremor more than the upper extremity which is not typically a parkinsonian tremor however he mentions that he however recall for how Exam Const: General: comfortable and no acute distress HENMT: General nose exam: Normal nares present Mouth: Yes moist mucous membranes Eyes: General: appearance normal, both eyes and all related structures Other: The right pupil is 5 millimeter, left is 4 millimeter both reacting and full extraocular movements Neck: Neck: supple and no JVD Resp: Other: bilateral rhonchi Cardio: Rate: regular rate Rhythm: regular rhythm GI: Auscultation: normal bowel sounds Neuro: Other: patient is awake and alert well oriented time place and person he does have a tremor of the left upper extremity more so than the upper extremity which she says that he had it for quite some time he does not have any rigidity and there is no lateraliz Extrem: General: normal to inspection Psych: Mental Status: mental status grossly normal Objective Data Vital Signs Vital Signs: Vital Signs - 24 hr 03/19/20 17:52 03/19/20 19:57 03/19/20 19:58 Temperature 36.8 C Pulse Rate 102 H 72 Respiratory Rate 22 H 18 Blood Pressure 127/68 Pulse Oximetry 93 94 03/19/20 20:00 03/19/20 20:10 03/19/20 22:00 Temperature 36.7 C Pulse Rate 72 76 99 Respiratory Rate 20 18 22 H Blood Pressure 144/64 H Pulse Oximetry 93 93 03/20/20 01:16 03/20/20 01:26 03/20/20 02:00 Temperature 36.8 C Pulse Rate 88 93 91 Respiratory Rate 18 18 22 H Blood Pressure 144/66 H Pulse Oximetry 96 03/20/20 06:00 03/20/20 07:53 03/20/20 08:05 Temperature 36.7 C Pulse Rate 104 H 101 H 92 Respiratory Rate 22 H 18 18 Blood Pressure 153/77 H Pulse Oximetry 93 91 03/20/20 13:54 03/20/20 14:04 Temperature Pulse Rate 96 92 Respiratory Rate 20 20 Blood Pressure Pulse Oximetry Intake/Output Intake/Output: Intake & Outpu
[2020-03-20] MEDS: MELATONIN 3 MG TABLET PO (21:17)
[2020-03-20] MEDS: SODIUM CHLORIDE NASAL GEL 14.1 GM 1 APPLIC NASAL (21:18)
[2020-03-21] VITALS (10 sets, daily range): BP systolic 129–147; BP diastolic 54–77; PULSE 87–105; RESP 18–22; TEMP 36.7–36.9; O2SAT 92–98
[2020-03-21] MEDS: IPRATROPIUM BR 0.02% INH SOLN 0.5 MG/2.5 ML VIAL INHALATION ×4 (01:39→19:37)
[2020-03-21] MEDS: ALBUTEROL SULFATE NEB 2.5 MG/0.5 ML INH 5 MG INHALATION ×4 (01:39→19:37)
[2020-03-21] MEDS: BISMUTH SUBSALICYLATE 262 MG CHEWABLE TABLET 524 MG PO ×2 (05:38→07:58)
[2020-03-21] MEDS: metroNIDAZOLE 250 MG TABLET 500 MG PO ×3 (05:38→21:57)
[2020-03-21] MEDS: DOXYCYCLINE HYCLATE 100 MG TABLET PO ×2 (07:58→21:57)
[2020-03-21] MEDS: busPIRone HCL 2.5 MG, busPIRone HCL 5 MG 7.5 MG PO ×2 (07:58→21:56)
[2020-03-21] MEDS: predniSONE 20 MG TABLET 40 MG PO (07:59)
[2020-03-21 08:04] LABS: Hematocrit 37.6 % (42.0-52.0); Hemoglobin 12.2 g/dL (14.0-18.0); Mean Corpuscular HGB Conc 32.4 g/dl (32-36); Mean Corpuscular Hemoglobin 28.3 pg (26-34); Mean Corpuscular Volume 87.2 fl (80-100); Mean Platelet Volume 9.4 fl (7.4-10.4); Platelet Count Result 238 k/mm3 (150-375); Red Blood Count 4.31 M/mm3 (4.6-6.20); Red Cell Distribution Width 13.6 % (11.5-14.5); White Blood Count 17.4 K/mm3 (4.5-10.0)
[2020-03-21 08:18] LABS: Alanine Aminotransferase 39 U/L (4-50); Albumin Level 3.9 g/dL (3.5-5.1); Alkaline Phosphatase 92 U/L (38-126); Aspartate Amino Transferase 30 U/L (17-59); Bilirubin,Total 0.4 mg/dL (0.2-1.3); Blood Urea Nitrogen 13 mg/dL (9-20); Calcium 8.6 mg/dL (8.4-10.2); Carbon Dioxide > 40 mmol/L (22-30); Chloride 88 mmol/L (98-107); Estimated CRCL calculation 88 ml/min; Estimated Glomerular Filt Rate > 60; Glucose 149 mg/dL (75-110); Potassium 3.1 mmol/L (3.4-5.0); Sodium 131 mmol/L (137-145)
--- NOTE | 2020-03-21 11:41 | PM.IMPN ---
Progress Note: A&P Assessment and Plan (1) COPD with acute exacerbation: Code(s): J44.1 - Chronic obstructive pulmonary disease with (acute) exacerbation Status: Acute Assessment and Plan: ----CTA shows no current infection but severe emphysema. Will continue with breathing treatments and doxycycline. Leukocytosis elevated, likely due to steroids. The steroids will be decreased to 30 mg daily today. He is not having any additional hypoxia, at his baseline O2, and not complaining of any worsening shortness of breath. Continue oral steroids. Patient is improving he keeps improving he may be able to discharge in 1-2 days. (2) Migraines: Code(s): G43.909 - Migraine, unspecified, not intractable, without status migrainosus Status: Chronic Assessment and Plan: -----No additional issues with his chronic migraines. Will continue p.r.n. Fioricet Head CT and CTA is normal. Follow-up with Neurology outpatient since he has such frequent headaches. (3) Peripheral edema: Code(s): R60.9 - Edema, unspecified Status: Acute Assessment and Plan: -----no blood clot noted. hctz stopped d/t hyponatremia. . (4) Abdominal distension: Code(s): R14.0 - Abdominal distension (gaseous) Status: Acute Assessment and Plan: -----improved today, likely a combination of retaining urine and GI issues. (5) Anxiety: Code(s): F41.9 - Anxiety disorder, unspecified Status: Acute Assessment and Plan: -----patient has significant anxiety and has improved with Xanax p.r.n.. This is not the drug of choice for long-term care. Continue BuSpar at this time but he will likely need an SSRI outpatient. I called Dr. mathew about this and he is going to f/u with him outpt. Will give the patient buspar at discharge. (6) Hyponatremia: Code(s): E87.1 - Hypo-osmolality and hyponatremia Status: Acute Assessment and Plan: -----last sodium 131. No confusion noted. HCTZ stopped. (7) Duodenitis: Code(s): K29.80 - Duodenitis without bleeding Status: Acute Assessment and Plan: -----Could be the cause of his stomach pain along with his bladder distention. Patient still having significant nausea and abdominal pain so I will repeat the CT scan with contrast this time. Will continue the Flagyl. Ppi started. Advance diet as tolerated. He has not had any diarrhea. Subjective Date/time seen: 03/21/20 11:41 Interval history: Patient is a 64-year-old male here for her COPD exacerbation and abdominal pain. Patient was seen today and states that he did not sleep over night any still having significant abdominal pain had he has never had before. He said he is very nauseous and any time he eats or drinks, acute upset. He has not had any vomiting. He still says that he feels a little constipated, no diarrhea. His bloating is much better sitting in the chair but laying down he feels like his abdomen is more bloated. He is urinating with these today. He is very anxious about going home. His headache has resolved Exam Narrative: Exam Narrative: General: Well developed well nourished patient resting in the chair in NAD HEENT: normocephalic, no lesions on the tongue or throat. No swelling. Neck: supple Neuro: Alert and oriented x4. CN 2-12 intact. UE and LE 5/5 CV:RRR. Resp:Decreased breath sounds, no wheezing or rhonchi Abd: Soft, nondistended today. Pain to palpation left lower quadrant. Positive bowel sounds Extremities: right leg 1+ edema. Left normal. No pain to palpation. Objective Data Vital Signs Vital Signs: Vital Signs - 24 hr 03/20/20 13:54 03/20/20 14:00 03/20/20 14:04 Temperature 98.1 F Pulse Rate 96 95 92 Respiratory Rate 20 16 20 Blood Pressure 170/78 H Pulse Oximetry 93 03/20/20 19:46 03/20/20 19:54 03/20/20 22:00 Temperature 98.2 F Pulse Rate 100 98 112 H Respiratory R
[2020-03-21] MEDS: IBUPROFEN 400 MG TABLET PO (13:49)
[2020-03-21] MEDS: PANTOPRAZOLE 40 MG TABLET PO ×2 (13:50→21:57)
[2020-03-21 15:22] LABS: Lipase 97 U/L (23-300)
[2020-03-21] MEDS: POTASSIUM CHLORIDE 20 MEQ TABLET 40 MEQ PO (16:12)
--- NOTE | 2020-03-21 16:52 | WPDNEUROPN ---
Progress Note: A&P Assessment and Plan (1) Anisocoria: Code(s): H57.02 - Anisocoria Status: Acute (2) Duodenitis: Code(s): K29.80 - Duodenitis without bleeding Status: Acute (3) Anxiety: Code(s): F41.9 - Anxiety disorder, unspecified Status: Acute (4) Migraines: Code(s): G43.909 - Migraine, unspecified, not intractable, without status migrainosus Status: Chronic (5) COPD with acute exacerbation: Code(s): J44.1 - Chronic obstructive pulmonary disease with (acute) exacerbation Status: Acute (6) Chronic respiratory failure: Qualifiers: Respiratory failure complication: hypoxia and hypercapnia Qualified Code(s): J96.11 - Chronic respiratory failure with hypoxia; J96.12 - Chronic respiratory failure with hypercapnia Code(s): J96.10 - Chronic respiratory failure, unspecified whether with hypoxia or hypercapnia Status: Acute Additional Plan for tremor continues the primidone rest of the medical management as before Review of Systems Review of Systems: All systems reviewed & are unremarkable except as noted in HPI and below Exam Const: General: comfortable and no acute distress HENMT: General nose exam: Normal nares present Mouth: Yes moist mucous membranes Eyes: Other: the anisocoria noted is present and is most likely physiologic Neck: Neck: supple and no JVD Resp: Effort & Inspection: normal respiratory effort Auscultation: clear to auscultation bilaterally Other: the rhonchi asthma are better Cardio: Rate: regular rate Rhythm: regular rhythm GI: Auscultation: normal bowel sounds Neuro: Other: patient's neurological examination is nonfocal and apart from the weakness he has had which also has improved there are no signs of lateralizing deficits Extrem: General: normal to inspection Psych: Mental Status: mental status grossly normal Objective Data Vital Signs Vital Signs: Vital Signs - 24 hr 03/20/20 19:46 03/20/20 19:54 03/20/20 22:00 Temperature 36.8 C Pulse Rate 100 98 112 H Respiratory Rate 20 20 22 H Blood Pressure 115/55 L Pulse Oximetry 92 03/21/20 01:40 03/21/20 01:46 03/21/20 06:00 Temperature 36.9 C Pulse Rate 87 93 105 H Respiratory Rate 20 20 20 Blood Pressure 129/54 L Pulse Oximetry 92 03/21/20 07:29 03/21/20 07:40 03/21/20 13:57 Temperature Pulse Rate 88 91 95 Respiratory Rate 18 18 18 Blood Pressure Pulse Oximetry 95 03/21/20 14:00 Temperature 36.7 C Pulse Rate 92 Respiratory Rate 18 Blood Pressure 134/65 Pulse Oximetry 98 Intake/Output Intake/Output: Intake & Output 03/18/20 03/19/20 03/20/20 03/21/20 23:59 23:59 23:59 23:59 Intake Total 460 1580 1510 540 Output Total 921 781 5291 Balance -240 980 309 540 Meds/Results Medications: Active Medications Generic Name Dose Route Start Last Admin Trade Name Freq PRN Reason Stop Dose Admin Acetaminophen 650 mg 03/19/20 10:21 03/20/20 08:43 Tylenol Tablet PO 650 mg Q4H PRN Administration Pain Albuterol 2 puff 03/18/20 00:24 Proventil Hfa INHALATION QIDRT PRN Shortness Of Breath Albuterol 5 mg 03/18/20 14:00 03/21/20 13:56 Albuterol Sulf Neb 2.5mg/0.5ml INHALATION 5 mg Q6HRT JOSHUA Administration Alprazolam 0.25 mg 03/21/20 11:35 Xanax PO TID PRN Anxiety Bismuth Subsalicylate 524 mg 03/19/20 10:22 03/21/20 07:58 Pepto-Bismol Chewable Tablet PO 524 mg Q1H PRN Administration Abdominal Cramping Budesonide/Formoterol Fumarate 2 puff 03/18/20 20:00 03/21/20 07:36 Symbicort 160-4.5 Mcg (*Sp) Inhaler INHALATION 2 puff Q12HRT JOSHUA Administration Buspirone HCl 2.5 mg/ 7.5 mg 03/19/20 21:00 03/21/20 07:58 Buspirone HCl 5 mg PO 7.5 mg Q12HR JOSHUA Administration Butalbital/Aspirin/Caffeine 1 cap 03/19/20 10:23 03/21/20 00:10 Fioricet Capsule PO 1 cap Q4H PRN Administration headache D
[2020-03-21] MEDS: ALPRAZOLAM 0.25 MG TABLET PO (21:50)
[2020-03-21] MEDS: PRIMIDONE 50 MG TABLET PO (21:57)
[2020-03-21] MEDS: SODIUM CHLORIDE NASAL GEL 14.1 GM 1 APPLIC NASAL (21:57)
[2020-03-21] MEDS: MELATONIN 3 MG TABLET 6 MG PO (21:57)
[2020-03-22] VITALS (12 sets, daily range): BP systolic 101–140; BP diastolic 51–73; PULSE 64–105; RESP 16–24; TEMP 36.4–36.8; O2SAT 94–100
[2020-03-22] MEDS: IPRATROPIUM BR 0.02% INH SOLN 0.5 MG/2.5 ML VIAL INHALATION ×3 (01:55→14:05)
[2020-03-22] MEDS: ALBUTEROL SULFATE NEB 2.5 MG/0.5 ML INH 5 MG INHALATION ×3 (01:55→14:05)
[2020-03-22] MEDS: metroNIDAZOLE 250 MG TABLET 500 MG PO ×3 (05:36→22:00)
[2020-03-22 05:57] LABS: Add Urine Microscopic? YES; Appearance Urine Clear (Clear); Bacteria Urine Trace /hpf; Bilirubin Urine Negative (Negative); Blood Urine 1+ (Negative); Color Urine Yellow (Yellow); Glucose Urine UA Negative (Negative); Ketones Urine Negative (Negative); Leukocyte Esterase Ur Trace LEU/UL (Negative); Nitrate Urine Negative (Negative); Protein Urine Negative (Negative); Squamous Epithelial Cell Urine Few /hpf (Few); Urobilinogen Urine Negative mg/dL (<2.0)
[2020-03-22 06:11] LABS: Specific Grav Ur 1.054 (1.001-1.035)
[2020-03-22 06:18] LABS: Basophils Percent Auto 0.1 % (0.2-1.2); Eosinophils Absolute Auto 0.1 K/mm3 (0-0.3); Eosinophils Percent Auto 0.5 % (0-4.4); Hematocrit 38.3 % (42.0-52.0); Hemoglobin 12.5 g/dL (14.0-18.0); Immature Granulocyte Percent A 0.5 % (0-0.5); Lymphocytes Percent Auto 10.9 % (18.3-44.2); Mean Corpuscular HGB Conc 32.6 g/dl (32-36); Mean Corpuscular Hemoglobin 28.3 pg (26-34); Mean Corpuscular Volume 86.8 fl (80-100); Mean Platelet Volume 9.9 fl (7.4-10.4); Monocytes Absolute Auto 1.3 K/mm3 (0.1-0.6); Neutrophils Absolute Auto 14.8 K/mm3 (1.3-6.7); Platelet Count Result 276 k/mm3 (150-375); Red Blood Count 4.41 M/mm3 (4.6-6.20); Red Cell Distribution Width 13.5 % (11.5-14.5); White Blood Count 18.3 K/mm3 (4.5-10.0)
[2020-03-22 06:39] LABS: Alanine Aminotransferase 42 U/L (4-50); Alkaline Phosphatase 88 U/L (38-126); Aspartate Amino Transferase 30 U/L (17-59); Bilirubin,Total 0.5 mg/dL (0.2-1.3); Blood Urea Nitrogen 12 mg/dL (9-20); Calcium 8.9 mg/dL (8.4-10.2); Carbon Dioxide 33 mmol/L (22-30); Chloride 88 mmol/L (98-107); Estimated CRCL calculation 88 ml/min; Estimated Glomerular Filt Rate > 60; Glucose 119 mg/dL (75-110); Potassium 3.2 mmol/L (3.4-5.0); Sodium 130 mmol/L (137-145)
[2020-03-22] MEDS: POTASSIUM CHLORIDE 20 MEQ TABLET 40 MEQ PO (08:10)
[2020-03-22] MEDS: BISMUTH SUBSALICYLATE 262 MG CHEWABLE TABLET 524 MG PO (08:12)
[2020-03-22] MEDS: PANTOPRAZOLE 40 MG TABLET PO ×2 (08:12→22:00)
[2020-03-22] MEDS: busPIRone HCL 2.5 MG, busPIRone HCL 5 MG 7.5 MG PO ×2 (08:12→22:00)
[2020-03-22] MEDS: predniSONE 10 MG TABLET 30 MG PO (08:13)
[2020-03-22] MEDS: ACETAMINOPHEN 325 MG TABLET 650 MG PO (08:15)
[2020-03-22] MEDS: SODIUM CHLORIDE NASAL GEL 14.1 GM 1 APPLIC NASAL (10:18)
[2020-03-22] MEDS: ALPRAZOLAM 0.25 MG TABLET PO ×2 (10:22→18:02)
--- NOTE | 2020-03-22 15:01 | PM.IMPN ---
Progress Note: A&P Assessment and Plan (1) COPD with acute exacerbation: Code(s): J44.1 - Chronic obstructive pulmonary disease with (acute) exacerbation Status: Acute Assessment and Plan: ----CTA shows no current infection but severe emphysema. Will continue with breathing treatments and abx switched to levaquin d/t possible GI infection. Leukocytosis a little worse today but pt on steroids. The steroids will continue to be decreased. He is not having any additional hypoxia, at his baseline O2, and not complaining of any worsening shortness of breath. Patient is improving he keeps improving he may be able to discharge tomorrow. (2) Migraines: Code(s): G43.909 - Migraine, unspecified, not intractable, without status migrainosus Status: Chronic Assessment and Plan: -----No additional issues with his chronic migraines. Will continue p.r.n. Fioricet Head CT and CTA is normal. Follow-up with Neurology outpatient since he has such frequent headaches. (3) Peripheral edema: Code(s): R60.9 - Edema, unspecified Status: Acute Assessment and Plan: -----no blood clot noted. hctz stopped d/t hyponatremia. . (4) Abdominal distension: Code(s): R14.0 - Abdominal distension (gaseous) Status: Acute Assessment and Plan: -----improved today, likely a combination of retaining urine and GI issues. (5) Anxiety: Code(s): F41.9 - Anxiety disorder, unspecified Status: Acute Assessment and Plan: -----patient has significant anxiety and has improved with Xanax p.r.n.. This is not the drug of choice for long-term care. Continue BuSpar at this time but he will likely need an SSRI outpatient. I called Dr. mathew about this and he is going to f/u with him outpt. Will give the patient buspar at discharge. (6) Hyponatremia: Code(s): E87.1 - Hypo-osmolality and hyponatremia Status: Acute Assessment and Plan: -----last sodium 130. No confusion noted. HCTZ stopped. (7) Duodenitis: Code(s): K29.80 - Duodenitis without bleeding Status: Acute Assessment and Plan: -----Could be the cause of his stomach pain along with his bladder distention. CT shows possible duodneal wall thickness. Plan for an EGD today. Continue abx and PPI. (8) Hypokalemia: Code(s): E87.6 - Hypokalemia Status: Acute Assessment and Plan: -----Will replace again today. Mag to be drawn with tomorrows labs. (9) Paresthesia: Code(s): R20.2 - Paresthesia of skin Status: Acute Assessment and Plan: -----Pt has complaints of this around his lips at times. likely d/t nebs and anxiety. No lesions or cynosis noted. He says its worse when he is 'riled up'. Will check b12, mag and electrolytes tomorrow am. Subjective Date/time seen: 03/22/20 15:01 Interval history: Pt is a 64 y/o male here for COPD exercerbation and N/V. pt was seen today and says he is doing much better with clear liquids. he has still had some nausea but no vomiting. His headache improved. He had some diarrhea this morning which is new. He feels like there is some numbness around his mouth at times and thinks its worse when he is upset and SOB. He also thinks the breathing tx makes it worse and would like to stop them. No CP. Exam Narrative: Exam Narrative: General: Well developed well nourished patient resting in the chair in NAD HEENT: normocephalic, no lesions on the tongue or throat. No swelling. Neck: supple Neuro: Alert and oriented x4. CN 2-12 intact. UE and LE 5/5 CV:RRR. Resp:Decreased breath sounds, no wheezing or rhonchi Abd: Soft, nondistended today. Pain to palpation to the epigastric area. Positive bowel sounds Extremities: right leg 1+ edema. Left normal. No pain to palpation. Objective Data Vital Signs Vital Signs: Vital Signs - 24 hr 03/21/20 19:38 03/21/20 19:47 03/21/20 21:
--- NOTE | 2020-03-22 15:13 | WPDANESEPPF ---
Anes - Initial Pre Proc Eval Procedure: EGD Date/Time: 03/22/20 15:13 Surgeon: Ana Pre Op Diagnosis: AE COPD Patient Data Age: 64 Gender: M Height: 1.8 m Weight: 86.18 kg Last Vital Signs Temp 36.7 C 03/22/20 14:00 Pulse 84 03/22/20 14:05 Resp 20 03/22/20 14:05 BP 130/52 L 03/22/20 14:00 Pulse Ox 95 03/22/20 14:00 Allergies Allergy/AdvReac Type Severity Reaction Status Date / Time No Known Allergies Allergy Verified 03/17/20 10:14 Home Medications Medication Instructions Recorded Confirmed Type [id number]-JSH-caffeine 30 1 cap PO Q4-6H PRN #60 cap 02/12/20 03/17/20 Rx mg-50 mg-325 mg-40 mg capsule albuterol sulfate 90 mcg/actuation 2 inhalation INHALATION Q4-6H PRN 02/18/20 03/17/20 Rx aerosol inhaler #8.5 gm azelastine-fluticasone 137 mcg-50 1 spray NASAL BID 02/18/20 03/17/20 History mcg/spray nasal spray ipratropium 0.5 mg-albuterol 3 mg 3 ml INHALATION QID PRN 02/18/20 03/17/20 History (2.5 mg base)/3 mL nebulization soln hydrochlorothiazide 25 mg PO DAILY 03/17/20 03/17/20 History Laboratory Tests 03/21/20 03/22/20 03/22/20 14:57 05:34 05:43 WBC 18.3 K/mm3 H K/mm3 (4.5-10.0) RBC 4.41 M/mm3 L M/mm3 (4.6-6.20) Hgb 12.5 g/dL L g/dL (14.0-18.0) Hct 38.3 % L % (42.0-52.0) MCV 86.8 fl fl (80-100) MCH 28.3 pg pg (26-34) MCHC 32.6 g/dl g/dl (32-36) RDW 13.5 % % (11.5-14.5) Plt Count 276 k/mm3 k/mm3 (150-375) MPV 9.9 fl fl (7.4-10.4) Immature Gran % (Auto) 0.5 % % (0-0.5) Neut % (Auto) 81.0 % H % (45.5-73.1) Lymph % (Auto) 10.9 % L % (18.3-44.2) [place] % (Auto) 7.0 % % (2.6-8.5) Eos % (Auto) 0.5 % % (0-4.4) Baso % (Auto) 0.1 % L % (0.2-1.2) Lymph # (Auto) 2.00 K/mm3 K/mm3 (0.9-3.2) [place] # (Auto) 1.3 K/mm3 H K/mm3 (0.1-0.6) Eos # (Auto) 0.1 K/mm3 K/mm3 (0-0.3) Baso # (Auto) 0.0 K/mm3 K/mm3 (0.0-0.1) Abs Immat Gran (auto) 0.10 K/mm3 H K/mm3 (0.00-0.031) Absolute Neuts (auto) 14.8 K/mm3 H K/mm3 (1.3-6.7) Absolute Nucleated RBC 0.0 K/mm3 K/mm3 (0.0-0.012) Nucleated RBC % 0.0 % % (0.0-0.2) Sodium Potassium Chloride Carbon Dioxide BUN Creatinine Estim Creat Clear Calc Estimated GFR Glucose Calcium Total Bilirubin Direct Bilirubin AST ALT Alkaline Phosphatase C-Reactive Protein Total Protein Albumin Lipase 97 U/L U/L (23-300) Urine Color Yellow (Yellow) Urine Appearance Clear (Clear) Urine pH 7.0 (5.0-9.0) Ur Specific [place] 1.054 H (1.001-1.035) Urine Protein Negative mg/dL mg/dL (Negative) Urine Glucose (UA) Negative mg/dL mg/dL (Negative) Urine Ketones Negative mg/dL mg/dL (Negative) Ur Blood (Man) 1+ H (Negative) Urine Nitrate Negative (Negative) Urine Bilirubin Negative (Negative) Urine Urobilinogen Negative mg/dL mg/dL (<2.0) Leukocyte Esterase Rfl Trace SHAWNA/UL H SHAWNA/UL (Negative) Urine RBC 3-5 /hpf H /hpf (0-2) Urine WBC 4-6 /hpf H /hpf Ur Squamous Epith Cells Few /hpf /hpf (Few) Urine Bacteria Trace /hpf /hpf 03/22/20 05:43 WBC RBC Hgb Hct MCV MCH MCHC RDW Plt Count MPV Immature Gran % (Auto) Neut % (Auto) Lymph % (Auto) [place] % (Auto) Eos % (Auto) Baso % (Auto) Lymph # (Auto) [place] # (Auto) Eos # (Auto) Baso # (Auto)
[2020-03-22] MEDS: LACTATED RINGERS 1,000 ML 150 ML IV CONT (16:40)
--- NOTE | 2020-03-22 16:49 | SUR.OPER ---
pt transported to endoscopy via pt bed, pt on o2 nc, complaining of sob and no air, o2 tank found to be empty, pt nc changed to wall o2 at 3l, pt feels air immediately. hob elevated, anesthesia in room,
--- NOTE | 2020-03-22 16:54 | CONS_ITS ---
DATE OF CONSULTATION: 03/22/2020 HISTORY OF PRESENT ILLNESS: A 64-year-old male with history of COPD and migraine headaches, who was admitted with shortness of breath and COPD exacerbation. I am now asked to provide GI evaluation at the request of the hospitalist service for abdominal pain and bloating. Primary care provider is Dr. Luiz Whipple. The patient states that he has had bloating for approximately 1 month that is worse since his hospitalization. He has some epigastric discomfort and intermittent nausea, but without vomiting. He has had poor appetite and has had some loose stools since this hospitalization. He otherwise denies heartburn, loss of weight, constipation, hematochezia, melena, fever, jaundice, scleral icterus, dark urine, light stools, itching, hot or cold intolerance, chest pain, shortness of breath at rest, hematuria, dysuria, new cough or visual changes, easy bruising, tingling of the skin, bone pain, or tremors. No endocarditis risk factors. ALLERGIES: NO KNOWN DRUG ALLERGIES. MEDICATIONS: Outpatient medicines include hydrochlorothiazide and as needed inhaler. SOCIAL HISTORY: Ex-smoker, nondrinker. FAMILY HISTORY: Negative for GI malignancy. The patient has never had colonoscopy. PHYSICAL EXAMINATION: GENERAL: Slender male, appears older than his stated age. He has no lower extremity edema, jaundice, spider angioma, palmar erythema. HEENT: Skull is normocephalic, atraumatic. Pupils nonicteric. Oropharynx clear. NECK: Supple without thyromegaly. LUNGS: Clear to auscultation. Bibasilar crackles. HEART: Rate and rhythm regular. S1, S2 normal. ABDOMEN: Normoactive bowel sounds. Soft, nontender, nonrigid, nondistended without hepatosplenomegaly or masses. RECTAL: Deferred. NEUROLOGIC: Conscious and alert x3. LABORATORY DATA: Today hemoglobin 13, hematocrit 38, white count of 18. LFTs are normal. CRP is 5. On March 21, hemoglobin 12, hematocrit 38, white count of 17. LFTs are normal. Lipase is 97. CT scan of the abdomen and pelvis with IV contrast shows wall thickening in the second and third duodenum, which is consistent with noncontrast CT scan done, 03/20, which shows the same thing. On March 17, hematocrit 42, white count of 13. INR is 1, PTT 27. COVID-19 is negative. ASSESSMENT AND PLAN: Epigastric pain, nausea, bloating, anorexia, abnormal imaging digestive. I doubt, patient has acute duodenitis and most likely represents underfilling since no oral contrast on either exam. The patient likely has some gastroparesis and may have some dyspepsia related to steroid use and hospitalization. To get definitive diagnosis, we will perform upper endoscopy and afterwards we will consider addition of acid suppression and motility agents such as Reglan. The procedure of upper endoscopy, its indications, alternatives of barium studies, and risks including perforation, bleeding, infection, reaction to medication as well as possible need for bladder surgery were discussed with the patient. He voices understanding and agrees to proceed and provided informed consent. Thank you for allowing me to share in the care of this patient. Further recommendations will follow endoscopy. BETITO MCCALLUM M.D. [phone] CC:? Luiz Whipple M.D. HANDS AND DIAL INSPECTOR HANDS AND DIAL INSPECTOR D Josue MT: [place]
--- NOTE | 2020-03-22 17:05 | PM.PROC ---
Procedure Note - Detailed Date of procedure: 03/22/20 Pre-op diagnosis: AE COPD Epigastric pain, nausea, bloating, anorexia, abnormal imaging digestive. Post-op diagnosis: other (Duodenal ulcers. Gastric biopsy for JONAH. Duodenal biopsy for pathology. Increased gastric residual.) Procedure performed: EGD Implants: None. Anesthesia: MAC Surgeon: Jude Perez MD Estimated blood loss (mL): 0 Drains: No Complications: No immediate complications Condition: stable Disposition: floor Findings: JUDE PEREZ MD, FACG, FACP UPPER ENDOSCOPY 03-22-2020 INDICATION: Epigastric pain, nausea, bloating, anorexia, abnormal imaging digestive. POST-OP: Duodenal ulcers. Gastric biopsy for JONAH. Duodenal biopsy for pathology. Increased gastric residual 175 cc. SEDATION: Per anesthesia With the patient in the supine position, the [employer] upper endoscope was used to easily intubate the patient?s esophagus and advanced to the third portion of the duodenum. Careful inspection of the mucosa was made upon insertion and withdrawal of the endoscope with retroflexion in the stomach. FINDINGS: Esophagus: SC Jx at 35 cm. Esophagus is normal. No esophagitis, stricture, mass or Ziegler?s. Stomach: Fundus, body and antrum normal. Gastric residual increased @ 175 cc. Biopsies taken throughout the stomach for JONAH. No ulceration, erosion, inflammation, AVM or malignancy. Duodenum: Had shallow, raw, serpiginous/geographic ulcers in the bulb, second and third portion. Biopsies were taken from the edge and center of the ulcers. No complications, blood loss or implants. ASSESSMENT AND PLAN: A. Epigastric pain, nausea, bloating, anorexia, abnormal imaging digestive: - Partially due to Duodenal ulcers - Gastric biopsy for JONAH; If H. pylori positive will treat - Duodenal biopsy for pathology; concern for NSAIDS, CMV, HSV and IBD - Continue PPI - Avoid aspirin or NSAIDS - COnsider repeat EGD in 8-10 weeks B. Increased gastric residual 175 cc: - Likely decrease gastric emptying - Add Reglan (ordered) Jude Perez M.D. [phone]
[2020-03-22] MEDS: METOCLOPRAMIDE HCL INJ 10 MG/2 ML VIAL IV PUSH (18:04)
[2020-03-22] MEDS: ALBUTEROL SULFATE (*SP) AEROSOL 1 PUFF 2 PUFF INHALATION (19:57)
[2020-03-22] MEDS: PRIMIDONE 50 MG TABLET PO (22:00)
[2020-03-22] MEDS: MELATONIN 3 MG TABLET 6 MG PO (22:00)
[2020-03-23] MEDS: METOCLOPRAMIDE HCL INJ 10 MG/2 ML VIAL IV PUSH ×5 (00:15→23:47)
[2020-03-23] MEDS: ALBUTEROL SULFATE NEB 2.5 MG/0.5 ML INH 5 MG INHALATION (03:00)
[2020-03-23] MEDS: IPRATROPIUM BR 0.02% INH SOLN 0.5 MG/2.5 ML VIAL INHALATION (03:00)
[2020-03-23 03:01] VITALS: PULSE 90; RESP 20
[2020-03-23 03:12] VITALS: PULSE 92; RESP 20
[2020-03-23] MEDS: metroNIDAZOLE 250 MG TABLET 500 MG PO ×3 (06:20→21:17)
[2020-03-23 06:24] VITALS: BP 132/58; PULSE 86; RESP 18; TEMP 36.9; O2SAT 98
[2020-03-23 06:26] LABS: Basophils Percent Auto 0.1 % (0.2-1.2); Eosinophils Absolute Auto 0.1 K/mm3 (0-0.3); Eosinophils Percent Auto 0.6 % (0-4.4); Hematocrit 36.2 % (42.0-52.0); Hemoglobin 11.6 g/dL (14.0-18.0); Immature Granulocyte Absolute 0.07 K/mm3 (0.00-0.031); Immature Granulocyte Percent A 0.4 % (0-0.5); Lymphocytes Absolute Auto 1.87 K/mm3 (0.9-3.2); Mean Corpuscular Hemoglobin 28.4 pg (26-34); Mean Corpuscular Volume 88.5 fl (80-100); Monocytes Absolute Auto 1.2 K/mm3 (0.1-0.6); Monocytes Percent Auto 7.9 % (2.6-8.5); Neutrophils Absolute Auto 12.3 K/mm3 (1.3-6.7); Platelet Count Result 270 k/mm3 (150-375); Red Blood Count 4.09 M/mm3 (4.6-6.20); Red Cell Distribution Width 13.8 % (11.5-14.5); White Blood Count 15.6 K/mm3 (4.5-10.0)
[2020-03-23 06:35] LABS: Blood Urea Nitrogen 10 mg/dL (9-20); Calcium 8.3 mg/dL (8.4-10.2); Carbon Dioxide 34 mmol/L (22-30); Chloride 92 mmol/L (98-107); Estimated CRCL calculation 88 ml/min; Estimated Glomerular Filt Rate > 60; Glucose 105 mg/dL (75-110); Magnesium 1.9 mg/dL (1.6-2.3); Phosphorus 4.1 mg/dL (2.5-4.5); Potassium 3.5 mmol/L (3.4-5.0); Sodium 131 mmol/L (137-145)
[2020-03-23 07:39] LABS: Folic Acid 11.5 ng/mL (2.76->20)
[2020-03-23] MEDS: CYANOCOBALAMIN INJ 1,000 MCG/ML VIAL 1000 MCG IM (08:28)
[2020-03-23] MEDS: PANTOPRAZOLE 40 MG TABLET PO ×2 (08:29→21:17)
[2020-03-23] MEDS: ENOXAPARIN 40 MG/0.4 ML SYRINGE SUB-Q (08:29)
[2020-03-23] MEDS: predniSONE 10 MG TABLET 30 MG PO (08:30)
[2020-03-23] MEDS: busPIRone HCL 2.5 MG, busPIRone HCL 5 MG 7.5 MG PO ×2 (08:30→21:16)
[2020-03-23] MEDS: ALBUTEROL SULFATE (*SP) AEROSOL 1 PUFF 2 PUFF INHALATION ×3 (08:44→20:32)
[2020-03-23 08:51] VITALS: O2SAT 91
--- NOTE | 2020-03-23 10:22 | PM.IMPN ---
Progress Note: A&P Assessment and Plan (1) Duodenal ulcer: Code(s): K26.9 - Duodenal ulcer, unspecified as acute or chronic, without hemorrhage or perforation Status: Acute Assessment and Plan: -----patient had an EGD 03/22 which showed multiple serpiginous duodenal ulcers. I spoke to Dr. katie mejias who says they look a little different than the typical ulcer so he took a biopsy. He is concerned for possible CMV, HSV or IBD. He is also tested for H pylori but I have not got the results back yet. Will continue PPI therapy and wean steroids quickly. He had decreased gastric emptying so Reglan was added as well. Will monitor for EPS. (2) COPD with acute exacerbation: Code(s): J44.1 - Chronic obstructive pulmonary disease with (acute) exacerbation Status: Acute Assessment and Plan: ----CTA shows no current infection but severe emphysema. Will continue with breathing treatments and abx switched to levaquin d/t possible GI infection. White blood cell count still elevated, likely due to steroids but with the increasing diarrhea, will test for infectious diarrhea. The steroids will continue to be decreased. He is not having any additional hypoxia, at his baseline O2, and not complaining of any worsening shortness of breath. (3) Migraines: Code(s): G43.909 - Migraine, unspecified, not intractable, without status migrainosus Status: Chronic Assessment and Plan: -----No additional issues with his chronic migraines. Will continue p.r.n. Fioricet Head CT and CTA is normal. Follow-up with Neurology outpatient since he has such frequent headaches. (4) Peripheral edema: Code(s): R60.9 - Edema, unspecified Status: Acute Assessment and Plan: -----no blood clot noted. hctz stopped d/t hyponatremia. . (5) Abdominal distension: Code(s): R14.0 - Abdominal distension (gaseous) Status: Acute Assessment and Plan: -----improved today, likely a combination of retaining urine, decreased gastric emptying and GI issues. (6) Anxiety: Code(s): F41.9 - Anxiety disorder, unspecified Status: Acute Assessment and Plan: -----patient has significant anxiety and has improved with Xanax p.r.n.. This is not the drug of choice for long-term care. Continue BuSpar at this time but he will likely need an SSRI outpatient. I called Dr. mathew about this and he is going to f/u with him outpt and likely add an SSRI. Will give the patient buspar at discharge. (7) Hyponatremia: Code(s): E87.1 - Hypo-osmolality and hyponatremia Status: Acute Assessment and Plan: -----last sodium 131. No confusion noted. HCTZ stopped. (8) Duodenitis: Code(s): K29.80 - Duodenitis without bleeding Status: Acute Assessment and Plan: -----see above. Continue abx, await bx. (9) Hypokalemia: Code(s): E87.6 - Hypokalemia Status: Acute Assessment and Plan: -----WNL today. (10) Paresthesia: Code(s): R20.2 - Paresthesia of skin Status: Acute Assessment and Plan: -----Pt has complaints of this around his lips at times. likely d/t nebs and anxiety. No lesions or cynosis noted. He says its worse when he is 'riled up'. B12 low, supplemented. (11) Leukocytosis: Code(s): D72.829 - Elevated white blood cell count, unspecified Status: Acute Assessment and Plan: -----likely due to steroids but cannot rule out infectious diarrhea since he has had increasing diarrhea. Will add probiotic and get stool cultures. Subjective Date/time seen: 03/23/20 10:22 Interval history: Pt is a 64 y/o male here for COPD exercerbation, duodenal ulcers, diarrhea who was seen today. Patient states that he is having increased diarrhea that has been going on for couple days. He had 3-4 episodes yesterday and again today. He describes this as liquid
--- NOTE | 2020-03-23 11:55 | P.PNAN_ITS ---
Anes - Prog Note Post-Op Date/Time: 03/23/20 11:55 Cardiovascular status: normal Respiratory status: normal Airway patency: baseline Mental status: baseline Post-Op hydration status: normal Vital Signs: Last Vital Signs Temp 36.9 C 03/23/20 06:24 Pulse 86 03/23/20 06:24 Resp 18 03/23/20 06:24 BP 132/58 L 03/23/20 06:24 Pulse Ox 91 03/23/20 08:51 Pain Score (VAS): 0/10. Patient resting up to chair at time of assessment, appears comfortable. I/O: Intake & Output 03/22/20 03/23/20 03/23/20 23:59 07:59 15:59 Intake Total 550 200 Balance 550 200 Laboratory Tests 03/23/20 05:35 03/23/20 05:35 03/23/20 03/23/20 05:35 05:35 WBC 15.6 H RBC 4.09 L Hgb 11.6 L Hct 36.2 L MCV 88.5 MCH 28.4 MCHC 32.0 RDW 13.8 Plt Count 270 MPV 10.0 Immature Gran % (Auto) 0.4 Neut % (Auto) 79.0 H Lymph % (Auto) 12.0 L [place] % (Auto) 7.9 Eos % (Auto) 0.6 Baso % (Auto) 0.1 L Lymph # (Auto) 1.87 [place] # (Auto) 1.2 H Eos # (Auto) 0.1 Baso # (Auto) 0.0 Abs Immat Gran (auto) 0.07 H Absolute Neuts (auto) 12.3 H Absolute Nucleated RBC 0.0 Nucleated RBC % 0.0 Sodium 131 L Potassium 3.5 Chloride 92 L Carbon Dioxide 34 H BUN 10 Creatinine 0.80 Estim Creat Clear Calc 88 Estimated GFR > 60 Glucose 105 Calcium 8.3 L Phosphorus 4.1 Magnesium 1.9 Vitamin B12 302.0 Folate 11.5 Post-procedural complaints: none Patient Feedback: Patient satisfied with anesthetic care.
[2020-03-23] MEDS: SACCHAROMYCES BOULARDII 250 MG CAPSULE PO ×2 (13:25→17:20)
[2020-03-23 14:00] VITALS: BP 132/75; PULSE 89; RESP 20; TEMP 37.1; O2SAT 98
--- NOTE | 2020-03-23 20:59 | WPDGIPROGNO ---
Progress Note: A&P Additional Plan GI Ana 23 Mar 2020 Had 3-5 liquid BM with one episode of incontinence. Abdominal discomfort improved and nausea resolved. Alesia po VSS soft/mild distention/NT Hct 36. B12 302, folate 12 ASSESSMENT AND PLAN: A. Epigastric pain, nausea, bloating, anorexia, abnormal imaging digestive: - Partially due to Duodenal ulcers - JONAH negative - Duodenal biopsy for pathology; concern for NSAIDS, CMV, HSV and IBD pending - Continue PPI - Avoid aspirin or NSAIDS - Consider repeat EGD in 8-10 weeks B. Increased gastric residual 175 cc: - Likely decrease gastric emptying - Add Reglan (ordered) C. Diarrhea: - Was present before hospitalization - May be slightly improving - If present in am please check stool studies - If this persists will consider colonoscopy prior to discharge (patient has never had one) Will discuss with Primary service in am Jude Perez M.D. [phone] Subjective Date/time seen: 03/23/20 20:59 Objective Data Vital Signs Vital Signs: Vital Signs - 24 hr 03/22/20 22:40 03/23/20 03:01 03/23/20 03:12 Temperature 36.4 C Pulse Rate 83 90 92 Respiratory Rate 24 H 20 20 Blood Pressure 118/51 L Pulse Oximetry 100 03/23/20 06:24 03/23/20 08:51 03/23/20 14:00 Temperature 36.9 C 37.1 C Pulse Rate 86 89 Respiratory Rate 18 20 Blood Pressure 132/58 L 132/75 Pulse Oximetry 98 91 98 Intake/Output Intake/Output: Intake & Output 03/20/20 03/21/20 03/22/20 03/23/20 23:59 23:59 23:59 23:59 Intake Total 8124 125 6004 800 Output Total 1201 150 350 Balance 907 231 2489 450 Meds/Results Medications: Active Medications Generic Name Dose Route Start Last Admin Trade Name Freq PRN Reason Stop Dose Admin Acetaminophen 650 mg 03/19/20 10:21 03/22/20 08:15 Tylenol Tablet PO 650 mg Q4H PRN Administration Pain Albuterol 5 mg 03/22/20 15:12 03/23/20 03:00 Albuterol Sulf Neb 2.5mg/0.5ml INHALATION 5 mg Q6HRT PRN Administration shortness of breath Albuterol 2 puff 03/22/20 16:00 03/23/20 20:32 Proventil Hfa INHALATION 2 puff QIDRT JOSHUA Administration Alprazolam 0.25 mg 03/21/20 17:12 03/22/20 18:02 Xanax PO 0.25 mg TID PRN Administration Anxiety Bismuth Subsalicylate 524 mg 03/19/20 10:22 03/22/20 08:12 Pepto-Bismol Chewable Tablet PO 524 mg Q1H PRN Administration Abdominal Cramping Budesonide/Formoterol Fumarate 2 puff 03/18/20 20:00 03/23/20 20:31 Symbicort 160-4.5 Mcg (*Sp) Inhaler INHALATION 2 puff Q12HRT JOSHUA Administration Buspirone HCl 2.5 mg/ 7.5 mg 03/19/20 21:00 03/23/20 08:30 Buspirone HCl 5 mg PO 7.5 mg Q12HR [facility] Administration Butalbital/Aspirin/Caffeine 1 cap 03/19/20 10:23 03/23/20 15:54 Fioricet Capsule PO 1 cap Q4H PRN Administration headache Cyanocobalamin 1,000 mcg 03/24/20 09:00 Vitamin B-12 Tab PO QAM [facility] Enoxaparin Sodium 40 mg 03/18/20 09:00 03/23/20 08:29 Lovenox SUB-Q 40 mg DAILY [facility] Administration Ibuprofen 400 mg 03/20/20 11:43 03/21/20 13:49 Motrin PO 400 mg Q6H PRN Administration pain--alternate w/ tylenol Ipratropium [place] 0.5 mg 03/22/20 15:12 03/23/20 03:00 Atrovent Neb INHALATION 0.5 mg Q6HRT PRN Administration shortness of breath Levofloxacin 500 mg 03/22/20 09:00 03/23/20 08:31 Levaquin Tab PO 500 mg DAILY [facility] Administration Melatonin 6 mg 03/21/20 11:35 03/22/20 22:00 Melatonin PO 6 mg HS JOSHUA Administration Metoclopramide HCl 10 mg 03/22/20 18:00 03/23/20 17:20 Reglan IV PUSH 10 mg Q6HR JOSHUA Administration Metronidazole 500 mg 03/20/20 14:00 03/23/20 15:47 Flagyl PO 500 mg Q8HR JOSHUA Administration Nitroglycerin 0.4 mg 03/18/20 06:28 Nitrostat Subl 0.4 Mg (1/150) SUBLINGUAL Q5MIN PRN Chest Pain Pantoprazole Sodium 40 mg 03/21/20 21:00 03/23/20 08:29 Protonix PO 40 mg
[2020-03-23] MEDS: PRIMIDONE 50 MG TABLET PO (21:17)
[2020-03-23] MEDS: MELATONIN 3 MG TABLET 6 MG PO (21:17)
[2020-03-23] MEDS: SODIUM CHLORIDE NASAL GEL 14.1 GM 1 APPLIC NASAL (21:18)
[2020-03-23 22:00] VITALS: BP 134/69; PULSE 89; RESP 20; TEMP 37.2; O2SAT 97
[2020-03-24] MEDS: ALPRAZOLAM 0.25 MG TABLET PO (03:13)
[2020-03-24] MEDS: metroNIDAZOLE 250 MG TABLET 500 MG PO ×2 (05:22→15:03)
[2020-03-24] MEDS: METOCLOPRAMIDE HCL INJ 10 MG/2 ML VIAL IV PUSH (05:23)
[2020-03-24] MEDS: ACETAMINOPHEN 325 MG TABLET 650 MG PO (05:23)
[2020-03-24 06:00] VITALS: BP 134/68; PULSE 86; RESP 20; TEMP 37.4; O2SAT 97
[2020-03-24 06:07] LABS: Basophils Percent Auto 0.1 % (0.2-1.2); Eosinophils Absolute Auto 0.1 K/mm3 (0-0.3); Eosinophils Percent Auto 0.8 % (0-4.4); Hematocrit 37.4 % (42.0-52.0); Hemoglobin 11.9 g/dL (14.0-18.0); Immature Granulocyte Absolute 0.08 K/mm3 (0.00-0.031); Immature Granulocyte Percent A 0.5 % (0-0.5); Lymphocytes Absolute Auto 2.03 K/mm3 (0.9-3.2); Lymphocytes Percent Auto 13.3 % (18.3-44.2); Mean Corpuscular HGB Conc 31.8 g/dl (32-36); Mean Corpuscular Hemoglobin 28.3 pg (26-34); Monocytes Absolute Auto 1.3 K/mm3 (0.1-0.6); Monocytes Percent Auto 8.3 % (2.6-8.5); Neutrophils Absolute Auto 11.7 K/mm3 (1.3-6.7); Platelet Count Result 272 k/mm3 (150-375); Red Cell Distribution Width 13.7 % (11.5-14.5); White Blood Count 15.2 K/mm3 (4.5-10.0)
[2020-03-24 06:25] LABS: Blood Urea Nitrogen 9 mg/dL (9-20); Calcium 8.4 mg/dL (8.4-10.2); Carbon Dioxide 32 mmol/L (22-30); Chloride 93 mmol/L (98-107); Estimated CRCL calculation 88 ml/min; Estimated Glomerular Filt Rate > 60; Glucose 89 mg/dL (75-110); Potassium 3.7 mmol/L (3.4-5.0); Sodium 131 mmol/L (137-145)
[2020-03-24] MEDS: ALBUTEROL SULFATE (*SP) AEROSOL 1 PUFF 2 PUFF INHALATION ×4 (08:43→16:58)
[2020-03-24] MEDS: TAMSULOSIN HCL 0.4 MG CAPSULE PO (08:53)
[2020-03-24] MEDS: SACCHAROMYCES BOULARDII 250 MG CAPSULE PO ×2 (08:54→15:03)
[2020-03-24] MEDS: predniSONE 10 MG TABLET 30 MG PO (08:55)
[2020-03-24] MEDS: busPIRone HCL 2.5 MG, busPIRone HCL 5 MG 7.5 MG PO (08:56)
[2020-03-24] MEDS: CYANOCOBALAMIN 1,000 MCG TABLET 1000 MCG PO (08:57)
[2020-03-24] MEDS: ENOXAPARIN 40 MG/0.4 ML SYRINGE SUB-Q (08:57)
[2020-03-24] MEDS: PANTOPRAZOLE 40 MG TABLET PO (08:57)
--- NOTE | 2020-03-24 13:25 | CONS_ITS ---
DATE OF CONSULTATION: 03/17/2020 HISTORY OF PRESENT ILLNESS: A 64-year-old has been admitted to [facility] with the ongoing diagnoses: 1. Migraine. 2. Chronic obstructive pulmonary disease and acute exacerbation. 3. Chronic respiratory failure. The patient was seen by Dr. Kimberli Jimenez on 03/18/2020 for Accu-Cheks of his chronic recurrent migraines, which were getting more severe and more frequent. The patient was definitely COVID negative. Former smoker, never alcohol drinker. Evaluation during the hospitalization included the GI consultation also for the abdominal discomfort with the documentation of duodenal ulcer for which the Gastroenterology suggested to avoid aspirin or NSAID. Also has the documentation of decreased gastric emptying for which Raglan has been ordered. Diarrhea was somewhat improving. Neurologically, he has remained stable. PHYSICAL EXAMINATION: GENERAL: He has been documented to have anisocoria also and most recent examination has revealed him to be awake, alert, cooperative, in no obvious acute distress. HEENT: Head normocephalic with no cranial bruit. Ear, nose, throat exam normal. NECK: Supple. HEART: Regular. LUNGS: Clear. ABDOMEN: Soft. NEUROLOGICAL: Normal mental status. Normal speech. Pupils round, regular. Parks of vision full. Extraocular movements full. Face symmetrical. Tongue midline. Motor examination revealed him to have no drift of one side or other side. Reflexes symmetrical. Plantars are downgoing. The pertinent imaging process procedures includes head and neck CTA with documentation of no hemodynamically significant stenosis in either carotid artery. No evidence of fluid stenosis or aneurysm, except severe emphysema and head CT scan has been documented negative. He did have a Doppler studies, which were negative for the venous thrombosis in the lower extremities. Neurologically, he is clear with the diagnosis of migraine and can follow in the office as an outpatient. His present medications include particularly BuSpar, melatonin, and p.r.n. medication of Fiorinal in addition to the alprazolam. GABE SHAY M.D. BRAND COORDINATOR BRAND COORDINATOR D I MT: [place]
[2020-03-24 14:37] VITALS: BP 128/70; PULSE 105; RESP 16; TEMP 36.5; O2SAT 97
--- NOTE | 2020-03-24 17:56 | PM.DS ---
DS: Admitting Diagnosis Admitting Diagnosis Admitting Diagnosis: Chronic obstructive pulmonary disease with (acute) exacerbation DS: Discharge Diagnosis Discharge Diagnosis (1) Duodenal ulcer: Code(s): K26.9 - Duodenal ulcer, unspecified as acute or chronic, without hemorrhage or perforation Status: Acute Assessment and Plan: -----patient had an EGD 03/22 which showed multiple serpiginous duodenal ulcers. Dr. pierce thought they look a little different than the typical ulcer , He was concerned for possible CMV, HSV or IBD(pathology benign, no atypical cells). He is also. Will continue PPI therapy and wean steroids quickly(20 for 3 days and 10 for 2 days on discharge). He had decreased gastric emptying at EGD also but was not sent home on Reglan . Hopefully this will improve once ulcers treated (2) COPD with acute exacerbation: Code(s): J44.1 - Chronic obstructive pulmonary disease with (acute) exacerbation Status: Acute Assessment and Plan: ----CTA shows no current infection but severe emphysema. continue steroids and inhalers at home. Received antibiotics while here also. White blood cell count still elevated, but trending down likely due to steroids The steroids will continue to be decreased as above. He is not having any additional hypoxia, at his baseline O2, and not complaining of any worsening shortness of breath. (3) Migraines: Code(s): G43.909 - Migraine, unspecified, not intractable, without status migrainosus Status: Chronic Assessment and Plan: -----No additional issues with his chronic migraines. Will continue p.r.n. Fioricet Head CT and CTA is normal. Follow-up with Neurology outpatient since he has such frequent headaches. (4) Peripheral edema: Code(s): R60.9 - Edema, unspecified Status: Acute Assessment and Plan: -----no blood clot noted. hctz stopped d/t hyponatremia. And resume to discharge sodium 131 will have basic metabolic profile drawn in 1 week . (5) Abdominal distension: Code(s): R14.0 - Abdominal distension (gaseous) Status: Acute Assessment and Plan: -----improved today, likely a combination of retaining urine, decreased gastric emptying and GI issues. Tamsulosin on discharge also. Emptying bladder well (6) Anxiety: Code(s): F41.9 - Anxiety disorder, unspecified Status: Acute Assessment and Plan: -----patient has significant anxiety and has improved with Xanax p.r.n.. This is not the drug of choice for long-term care. t he will likely need an SSRI outpatient. Dr. mathew was contacted about this and he is going to f/u with him outpt and likely add an SSRI. (7) Hyponatremia: Code(s): E87.1 - Hypo-osmolality and hyponatremia Status: Acute Assessment and Plan: -----last sodium 131. No confusion noted. HCTZ while inpatient and resumed at discharge. (8) Leukocytosis: Code(s): D72.829 - Elevated white blood cell count, unspecified Status: Acute Assessment and Plan: -----likely due to steroids but cannot rule out infectious diarrhea since he has had diarrhea. BC metronidazole here and will discharge on 500 Q 8 hours total of 7 days treatment. GI felt if diarrhea persists would be a candidate for colonoscope also. DS: Summary Hospital Course Hospital Course: 64-year-old white male with COPD admitted with abdominal bloating diarrhea and COPD exacerbation. Treated with updrafts and steroids and respiratory status improved. EGD on 03/22 revealed duodenitis and duodenal ulcers. Placed on PPI which he will continue. Very anxious individual follow with primary care for possible SSRI Has some urinary retention and tamsulosin was added to his medication regime also Seen in consultation by neurology for his chronic migraines and CT negative will follow-up with Neurology outpatient Time Spent with Patient
== END 2020-03-24 18:40 | disposition home health service (06) ==
LOC: ANHED 14:32 → ANH3MEDSUR 03-18 08:07
PROVIDERS: Family Medicine; Internal Medicine Gastroenterology; Nurse Practitioner; Physician Assistant; Admitting Provider Family Medicine; Emergency Provider Emergency Medicine; PCP Family Medicine; Visit Provider Internal Medicine
PROC: 0DJ08ZZ Inspection of Upper Intestinal Tract, Via Natural or Artificial Opening Endoscopic (ICD-10-PCS; CPT 43235; principal; 2020-03-22 16:10)
DX: K26.9 Duodenal ulcer, unspecified as acute or chronic, without hemorrhage or perforation (principal); K29.80 Duodenitis without bleeding; K46.9 Unspecified abdominal hernia without obstruction or gangrene; J44.1 Chronic obstructive pulmonary disease with (acute) exacerbation; J96.12 Chronic respiratory failure with hypercapnia; J96.11 Chronic respiratory failure with hypoxia; D72.829 Elevated white blood cell count, unspecified; E87.1 Hypo-osmolality and hyponatremia; E87.6 Hypokalemia; F41.9 Anxiety disorder, unspecified; G43.909 Migraine, unspecified, not intractable, without status migrainosus; H57.02 Anisocoria; J31.0 Chronic rhinitis; R60.9 Edema, unspecified; R19.7 Diarrhea, unspecified; R41.0 Disorientation, unspecified; R20.2 Paresthesia of skin; R33.9 Retention of urine, unspecified; Z87.891 Personal history of nicotine dependence; Z99.81 Dependence on supplemental oxygen; Z20.828 Contact with and (suspected) exposure to other viral communicable diseases
CPT/HCPCS: 43235; 36415; 36600; 70450; 70496; 70498; 71045; 71275; 74018; 74019; 74176; 74177; 80048; 80076; 81001; 82607; 82746; 82805; 83690; 83735; 83880; 84100; 84443; 84484; 85025; 85027; 85610; 85730; 86140; 87081; 87635; 88305; 93005; 93970; 94640; 96361; 96372; 96374; 96375; 96376; 97161; 97165; 99285; A9270; C9113; C9803; G0378; J1650; J1885; J2704; J2765; J2920; J2930; J3420; J7120; J7512; Q9967; U0003

== ENCOUNTER 2020-04-10 15:24 | Inpatient (IN) | payer MEDICARE, SELFPAY ==
[2020-04-10] VITALS (14 sets, daily range): BP systolic 134–155; BP diastolic 61–93; PULSE 79–110; RESP 18–30; TEMP 36.3–36.7; O2SAT 88–100; BMI 25.3; BMI 26.1
--- NOTE | ~2020-04-10 | XR_ITS ---
EXAMINATION: XR chest 1V portable DATE: 04/10/2020 16:52 INDICATION: COPD presenting with dyspnea TECHNIQUE: frontal view of the chest was obtained. COMPARISON: Chest radiograph and CT dated 03/17/2020 FINDINGS: Again seen is hyperexpansion of the lungs with increased lucency and architectural distortion at the upper lung zones consistent with moderate to severe emphysema better appreciated on CT. Minimal left basilar atelectasis. No pulmonary edema, pleural effusion or pneumothorax. The cardiomediastinal silh ouette is normal. IMPRESSION: 1. Emphysema with minimal left basilar atelectasis. Reviewed, dictated and finalized at location A.
[2020-04-10] MEDS: LORAZEPAM INJ 2 MG/ML VIAL 0.5 MG IV PUSH (15:38)
[2020-04-10] MEDS: methylPREDNISolone SOD SUCC 125 MG VIAL IV PUSH (15:39)
[2020-04-10] MEDS: IPRATROPIUM BR 0.02% INH SOLN 0.5 MG/2.5 ML VIAL INHALATION ×2 (15:51→19:46)
[2020-04-10] MEDS: ALBUTEROL SULFATE NEB 2.5 MG/0.5 ML INH 5 MG INHALATION ×2 (15:51→19:46)
[2020-04-10 15:52] LABS: Fractional Inspired Oxygen 32 %; HCO3 ABG 37.6 mEq/l (22.0-26.0); Oxygen Content ABG 18.3 %vol (16.0-22.0); Oxygen Saturation ABG 93.9 % (95.0-100.0); Oxyhemoglobin 92.9 % THb (90.0-100.0); PO2 ABG 72.2 mmHg (80.0-100.0); PO2 FiO2 Ratio Arterial Blood 2.26 %; pH ABG 7.386 (7.350-7.450)
[2020-04-10 15:54] LABS: Device NASAL CANNULA; Modified Allen's Test Pass; PCO2 ABG 64.1 mmHg (35.0-45.0); Site Drawn RIGHT RADIAL
[2020-04-10 16:20] LABS: Basophils Percent Auto 0.3 % (0.2-1.2); Eosinophils Percent Auto 0.1 % (0-4.4); Hematocrit 39.5 % (42.0-52.0); Immature Granulocyte Absolute 0.03 K/mm3 (0.00-0.031); Immature Granulocyte Percent A 0.3 % (0-0.5); Lymphocytes Absolute Auto 0.58 K/mm3 (0.9-3.2); Lymphocytes Percent Auto 6.3 % (18.3-44.2); Mean Corpuscular HGB Conc 32.9 g/dl (32-36); Mean Corpuscular Hemoglobin 28.4 pg (26-34); Mean Corpuscular Volume 86.4 fl (80-100); Mean Platelet Volume 9.6 fl (7.4-10.4); Monocytes Absolute Auto 0.4 K/mm3 (0.1-0.6); Monocytes Percent Auto 4.5 % (2.6-8.5); Neutrophils Absolute Auto 8.1 K/mm3 (1.3-6.7); Neutrophils Percent Auto 88.5 % (45.5-73.1); Platelet Count Result 238 k/mm3 (150-375); Red Blood Count 4.57 M/mm3 (4.6-6.20); Red Cell Distribution Width 13.3 % (11.5-14.5); White Blood Count 9.1 K/mm3 (4.5-10.0)
[2020-04-10 16:30] LABS: INR 1.1; Prothrombin Time 13.9 Seconds (11.1-14.7)
[2020-04-10 16:31] LABS: Partial Thromboplastin Time 25.5 SECONDS (22.3-36.8)
[2020-04-10 16:32] LABS: Lactic Acid Reflex 0.8 mmol/L (0.7-2.1)
[2020-04-10 16:33] LABS: Alanine Aminotransferase 126 U/L (4-50); Albumin Level 4.1 g/dL (3.5-5.1); Alkaline Phosphatase 97 U/L (38-126); Aspartate Amino Transferase 54 U/L (17-59); Bilirubin,Total 0.6 mg/dL (0.2-1.3); Blood Urea Nitrogen 15 mg/dL (9-20); Calcium 8.9 mg/dL (8.4-10.2); Carbon Dioxide 38 mmol/L (22-30); Chloride 85 mmol/L (98-107); Estimated CRCL calculation 97 ml/min; Estimated Glomerular Filt Rate > 60; Glucose 120 mg/dL (75-110); Potassium 3.5 mmol/L (3.4-5.0); Sodium 131 mmol/L (137-145)
[2020-04-10 16:44] LABS: Troponin I < 0.012 ng/mL (0.000-0.034)
--- NOTE | 2020-04-10 17:22 | ED.GENADULT ---
HPI - General Adult General Chief complaint: Anxiety Stated complaint: sob Source: RN notes reviewed History of Present Illness HPI narrative: Patient presents emergency department from home for shortness of breath. Patient states he has COPD and is chronically on 3 L nasal cannula at all times. States has been more short of breath over the past 2 days. States that he has been taking his medications as prescribed. Denies any fevers or chills or cough. States he does feel tight across his chest with hard time taking a deep breath. Related Data Home Medications Medication Instructions Recorded Confirmed azelastine-fluticasone 137 mcg-50 1 spray NASAL BID 02/18/20 03/17/20 mcg/spray nasal spray ipratropium 0.5 mg-albuterol 3 mg 3 ml INHALATION QID PRN 02/18/20 03/17/20 (2.5 mg base)/3 mL nebulization soln hydrochlorothiazide 25 mg PO DAILY 03/17/20 03/17/20 Allergies Allergy/AdvReac Type Severity Reaction Status Date / Time No Known Allergies Allergy Verified 03/17/20 10:14 Review of Systems Review of Systems: Narrative: Gen.: Denies fevers or chills Eyes: Denies eye pain or visual change ENT: Denies congestion Respiratory: Reports shortness of breath CV: Denies chest pain or palpitations GI: Denies abdominal pain nausea, emesis or diarrhea Musculoskeletal: Denies back pain or muscle pain Neuro: Denies numbness, tingling, weakness or focal weakness Skin: Denies rash Except as documented, all other systems reviewed and negative [facility] [place] Past Medical History Medical History COPD (chronic obstructive pulmonary disease) Migraines Social History Social History Social History: The patient is and has 1 son. 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 The patient is disabled. He owns his own home. The patient used to rebuild [employer] before he became disabled. He is chronically on oxygen at 2 L per nasal cannula. He has a roommate that sleeps in his house during the night. He smoked marijuana in the past but does not use any illicit drugs or alcohol. Smoking packs per day: 3 Smoking cigarettes per day: 60.0 Smoking status: Former smoker Tobacco type: cigarettes Smoking end date: 11/06/08 Alcohol intake: never Substance use: former Gender identity (if verbalized by the patient): Male Spiritual care concerns: No Exam Narrative: Exam Narrative: APPEARANCE: Anxious in appearance, moderate respiratory distress, speaking short phrases EYES: EOMI HEENT: Normocephalic, atraumatic, OMM RESPIRATORY: moderate respiratory distress, wheezing the bilateral upper lung swann decreased breath sounds in the bases no rhonchi CARDIOVASCULAR: Regular rate and rhythm without murmurs rubs or gallops. ABDOMINAL: Soft, nontender, nondistended, no rebound or guarding MUSCULOSKELETAl: Moves all extremities. No clubbing, cyanosis or edema. NEURO: Awake and alert. Following commands, speech normal, no focal deficits SKIN:: Warm, dry. No rashes lesions or abrasions PSYCHIATRIC: Anxious in appearance Course Course Emergency Course: Discussed with JOSSIE Navarrete for Dr. Moreno presentation work-up agrees with admission at this time Discussed with patient and family results of workup and diagnosis. Discussed need for admission. Patient and family understand and agree to current treatment plan patient remains awake and alert x3 Vital Signs Vital signs: Vital Signs Temperature 98.0 F 04/10/20 15:23 Pulse Rate 110 H 04/10/20 15:23 Respiratory Rate 28 H 04/10/20 15:23 Blood Pressure 154/78 H 04/10/20 15:23 Pulse Oximetry 94 04/10/20 15:23 Temperature 98.0 F 04/10/20 15:23 Pulse Rate 92 04/10/20 16:18 Respiratory Rate 26 H 04/10/20 16:18 Blood Pressure 154/78 H 04/10/20 15:23 Pulse Oximetry 92 04/10/20 16:18 Medi
--- NOTE | 2020-04-10 17:25 | ECG_ITS ---
Measurements Intervals [place] Rate: 76 P: 16 [place]: 187 QRS: 59 QRSD: 93 T: 52 QT: 371 QTc: 417 Interpretive Statements SINUS RHYTHM BASELINE ARTIFACT- I, II, III, AVF NORMAL ECG Electronically Signed On 04-11-2020 6:59:22 CDT by Larry Watson D.O.
[2020-04-10 17:31] LABS: Alveolar/Arterial O2 Gradient 140.5 mmHg; Base Excess ABG 9.6 mEq/l (+/-2.0); Fractional Inspired Oxygen 40 %; HCO3 ABG 36.6 mEq/l (22.0-26.0); Oxygen Content ABG 18.2 %vol (16.0-22.0); Oxygen Saturation ABG 94.8 % (95.0-100.0); Oxyhemoglobin 93.7 % THb (90.0-100.0); PO2 ABG 75.6 mmHg (80.0-100.0); PO2 FiO2 Ratio Arterial Blood 1.89 %; Total Hemoglobin 13.8 g/dL (12.0-18.0); pH ABG 7.403 (7.350-7.450)
[2020-04-10 17:33] LABS: Device BIPAP; Modified Allen's Test Pass; PCO2 ABG 60.1 mmHg (35.0-45.0); Site Drawn RIGHT RADIAL
[2020-04-10 17:34] LABS: Expiratory Pressure 6 cmH2O; Inspiratory Pressure 12 cmH2O
--- NOTE | 2020-04-10 19:53 | PC.NURSE ---
This patient, Raimundo Johnson, was admitted to IMU Room 231-01 at 1931. Patient/family oriented to hospital policies and general routines including ID bracelet, bed and alarms, visiting hours, pain management, procedures, bathroom and other care routines, personal items, smoking policy, room service/diet, and visiting hours. Valuables list has been completed. Information on how to activate the Rapid Response Team has been discussed. Patient/Family are encouraged to report perceived risks to care and to ask questions if they do not understand what they are told or what they should do.
--- NOTE | 2020-04-10 20:01 | PM.IMHP ---
H&P: HPI History of Present Illness Chief complaint: allergic reaction? 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 He believed he was having an allergic reaction at home to his oxygen tubing. He experienced burning across his face where his oxygen tubing was touching and believed that he might have had some swelling in his mouth. He also believed that his pulse oximeter at home was registering in the 80s. He reports having a productive cough yesterday although today he denies any significant coughing. The patient describes having a brief episode of chest discomfort this morning at rest which has resolved. On arrival to the ER today the patient was found to be tachypneic and tachycardic. His oxygen saturation was 94% on 3L of oxygen which is what he normally uses at home. ABG was obtained which demonstrated a PO2 of 75.6 but was compensated with a pH of 7.4. The patient was initiated on Bipap. On my encounter with the patient tonight he currently denies any rashes, fevers, coughing, swelling, shortness of breath, difficulty breathing, chest pain, anxiety, abdominal pain, dysuria, hematuria, nausea, vomiting, diarrhea or rectal bleeding. he also denies any significant LE swelling. The patient admits to me that he believes he was having an anxiety attack today. He has Review of Systems Review of Systems: All systems reviewed & are unremarkable except as noted in HPI and below PMFSH Past Medical History Medical History (Updated 04/11/20 @ 04:42 by Amando Singleton MD) COPD (chronic obstructive pulmonary disease) H/O: HTN (hypertension) Migraines PUD (peptic ulcer disease) Surgical History Surgical History No pertinent past surgical history Family History Family History Sibling Patient's sister is in good health, Onset Age: 52 Patient's brother is in good health, Onset Age: 50 Mother Family history of diabetes mellitus in first degree relative, Onset Age: 68 Patient's mother is Social History Social History Social History: The patient is and has 1 son. 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 The patient is disabled. He owns his own home. The patient used to rebuild [employer] before he became disabled. He is chronically on oxygen at 2 L per nasal cannula. He has a roommate that sleeps in his house during the night. He smoked marijuana in the past but does not use any illicit drugs or alcohol. Smoking packs per day: 1 Smoking cigarettes per day: 20.0 Years smoked: 35 Smoking pack-years: 35.00 Smoking status: Former smoker Tobacco type: cigarettes Smoking end date: 11/06/08 Alcohol intake: former Substance use: former Substance use type: marijuana Last use: 10 years ago Gender identity (if verbalized by the patient): Male Spiritual care concerns: No Meds Home Medications and Allergies Home Medications Medication Instructions Recorded Confirmed Type zcqbpzl-onbobutymw-CMR-caffeine 30 1 cap PO Q4-6H PRN #60 cap 02/12/20 04/10/20 Rx mg-50 mg-325 mg-40 mg capsule albuterol sulfate 90 mcg/actuation 2 inhalation INHALATION Q4-6H PRN 02/18/20 04/10/20 Rx aerosol inhaler #8.5 gm ipratropium 0.5 mg-albuterol 3 mg 3 ml INHALATION QID PRN 02/18/20 04/10/20 History (2.5 mg base)/3 mL nebulization soln hydrochlorothiazide 25 mg PO DAILY 03/17/20 04/10/20 History pantoprazole [Protonix] 40 mg PO HS 42 Days #42 tablet 03/24/20 04/10/20 Rx tamsulosin 0.4 mg PO QAM #30 cap 03/24/20 04/10/20 Rx prednisone 10 mg PO DAILY 04/10/20
[2020-04-10] MEDS: PANTOPRAZOLE 40 MG TABLET PO (22:37)
[2020-04-10] MEDS: SODIUM CHLORIDE NASAL GEL 14.1 GM 1 APPLIC NASAL (22:37)
[2020-04-10] MEDS: methylPREDNISolone SOD SUCC 125 MG VIAL 60 MG IV PUSH (22:39)
[2020-04-11] VITALS (11 sets, daily range): BP systolic 134–148; BP diastolic 57–79; PULSE 65–109; RESP 20–26; TEMP 35.7–36.3; O2SAT 88–100
[2020-04-11] MEDS: IPRATROPIUM BR 0.02% INH SOLN 0.5 MG/2.5 ML VIAL INHALATION ×2 (02:31→08:07)
[2020-04-11] MEDS: ALBUTEROL SULFATE NEB 2.5 MG/0.5 ML INH 5 MG INHALATION ×2 (02:31→08:07)
[2020-04-11 05:11] LABS: Basophils Percent Auto 0.1 % (0.2-1.2); Hematocrit 40.6 % (42.0-52.0); Hemoglobin 13.4 g/dL (14.0-18.0); Immature Granulocyte Absolute 0.03 K/mm3 (0.00-0.031); Immature Granulocyte Percent A 0.4 % (0-0.5); Lymphocytes Absolute Auto 0.49 K/mm3 (0.9-3.2); Lymphocytes Percent Auto 5.9 % (18.3-44.2); Mean Corpuscular Hemoglobin 28.2 pg (26-34); Mean Corpuscular Volume 85.3 fl (80-100); Mean Platelet Volume 9.4 fl (7.4-10.4); Monocytes Absolute Auto 0.3 K/mm3 (0.1-0.6); Monocytes Percent Auto 3.5 % (2.6-8.5); Neutrophils Absolute Auto 7.5 K/mm3 (1.3-6.7); Neutrophils Percent Auto 90.1 % (45.5-73.1); Platelet Count Result 227 k/mm3 (150-375); Red Blood Count 4.76 M/mm3 (4.6-6.20); Red Cell Distribution Width 13.2 % (11.5-14.5); White Blood Count 8.4 K/mm3 (4.5-10.0)
[2020-04-11 05:27] LABS: Alanine Aminotransferase 120 U/L (4-50); Albumin Level 4.2 g/dL (3.5-5.1); Alkaline Phosphatase 96 U/L (38-126); Aspartate Amino Transferase 51 U/L (17-59); Bilirubin,Total 0.4 mg/dL (0.2-1.3); Blood Urea Nitrogen 19 mg/dL (9-20); Calcium 9.2 mg/dL (8.4-10.2); Carbon Dioxide 38 mmol/L (22-30); Chloride 86 mmol/L (98-107); Estimated CRCL calculation 90 ml/min; Estimated Glomerular Filt Rate > 60; Glucose 164 mg/dL (75-110); Potassium 3.5 mmol/L (3.4-5.0); Sodium 130 mmol/L (137-145)
--- NOTE | 2020-04-11 06:06 | PC.NURSE ---
PATIENT WITH ANXIETY AND FREQUENTLY ON THE CALL LIGHT FOR NO SIGNIFICANT REASON. VERY DIFFICULT TO COMPREHEND PLAN OF CARE. PATIENT IS REFUSING HIS SOLUMEDROL THIS AM, STATES IT MAKES HIM DIZZY. DOESN'T WANT OXYGEN TITRATED DESPITE AN ORDER TO KEEP O2 SATS GREATER THAN 90%. TAKES O2 OFF TO SEE IF THIS NURSE WILL NOTICE AND COME IN TO THE ROOM. CONTINUING TO REINFORCE PLAN OF CARE AND REASON FOR ADMISSION.
--- NOTE | 2020-04-11 06:13 | PC.NURSE ---
PATIENT NOW DEMANDING HIS OXYGEN BE TURNED BACK DOWN TO 3L FROM 5L. STATES I JUST CAN'T STAND IT! O2 TITRATED BACK DOWN TO 3L. WILL CONTNUE TO FOLLOW O2 SATS CLOSELY.
[2020-04-11] MEDS: hydroCHLOROthiazide 25 MG TABLET PO (08:15)
[2020-04-11] MEDS: TAMSULOSIN HCL 0.4 MG CAPSULE PO (08:15)
--- NOTE | 2020-04-11 17:17 | PM.DS ---
DS: Admitting Diagnosis Admitting Diagnosis Admitting Diagnosis: Anxiety disorder, unspecified DS: Discharge Diagnosis Discharge Diagnosis (1) Anxiety: Code(s): F41.9 - Anxiety disorder, unspecified Status: Resolved Assessment and Plan: The patient appears to have had acute anxiety as he believed he might have been having a panic attack secondary to a possible allergic reaction. Currently he has no symptoms of allergy and no longer has any anxiety. He denies any significant shortness of breath or other discomfort at this time. (2) COPD exacerbation: Code(s): J44.1 - Chronic obstructive pulmonary disease with (acute) exacerbation Status: Acute Assessment and Plan: Possible Mild COPD exacerbation. The patient does not appear to be in any distress whatsoever. His ABG has always been compensated. He received IV steroids in the emergency room and this a.m. is refusing further steroid treatment which I do not feel he actually needs so IV steroids were discontinued and he will continue his usual 10 mg daily home dose. (3) Chronic respiratory failure: Qualifiers: Respiratory failure complication: hypoxia and hypercapnia Qualified Code(s): J96.11 - Chronic respiratory failure with hypoxia; J96.12 - Chronic respiratory failure with hypercapnia Code(s): J96.10 - Chronic respiratory failure, unspecified whether with hypoxia or hypercapnia Status: Chronic Assessment and Plan: The patient is back on his home oxygen of 3L/min and in no acute distress. Saturating normally (4) Chronic anemia: Code(s): D64.9 - Anemia, unspecified Status: Chronic Assessment and Plan: Likely anemia of chronic disease. No signs of acute blood loss at this time. Hemoglobin higher than his previous hospitalization where he had the peptic ulcer disease Continue PPI. (5) H/O: HTN (hypertension): Code(s): Z86.79 - Personal history of other diseases of the circulatory system Status: Chronic Assessment and Plan: Resume home HCTz. And follow-up with primary care DS: Summary Hospital Course Hospital Course: 64-year-old hypertensive white male with COPD chronic respiratory failure on 3 L nasal cannula at home presented to the emergency room with complaints of shortness of breath and fear that he was having allergic reaction to his nasal cannula tubing. He was in no respiratory distress with good saturation and compensated blood gases. Chest x-ray revealed no infiltrates and he had no fever chills or increased cough. He was treated with updraft treatments given its Solu-Medrol x1 reassured and his symptoms all subsided. He + monitored overnight with no further deterioration able to be discharged home on the . He will resume his usual home medications and follow-up with primary care Dr. Whipple within the next 1-2 weeks Time Spent with Patient Time attestation: Total time spent providing and/or coordinating discharge services: 35 minutes Exam Narrative: Exam Narrative: Condition on discharge blood pressure 1 46/56 pulse is 86 regular respirations 18-20 per minute saturating 94% on his usual 3 L nasal cannula afebrile Lungs clear prolonged expiratory phase no evidence of wheezing or consolidation CV regular no murmurs or gallops Abdomen is soft nontender Extremities without edema distal pulses 1+ Neuro alert oriented with no focal deficits DS: Data Data Completed and Pending Labs on day of discharge: Labs from last 24 hours 04/11/20 04/11/20 04/10/20 04:57 04:57 17:25 WBC 8.4 RBC 4.76 Hgb 13.4 L Hct 40.6 L MCV 85.3 MCH 28.2 MCHC 33.0 RDW 13.2 Plt Count 227 MPV 9.4 Immature Gran % (Auto) 0.4 Neut % (Auto) 90.1 H Lymph % (Auto) 5.9 L [place] % (Auto) 3.5 Eos % (Auto) 0.0 Baso % (Auto) 0.1 L Lymph # (Auto) 0.49 L [place] # (Auto) 0.3 Eos # (Auto) 0.0 Baso # (Auto) 0.0 Abs Immat Gran (auto)
== END 2020-04-11 13:01 | disposition home or self-care (01) | DRG 191 ==
LOC: ANHED 17:36 → ANHIMU 20:10
PROVIDERS: Admitting Provider Family Medicine; Emergency Provider Emergency Medicine; PCP Family Medicine; Visit Provider Internal Medicine
DX: J44.1 Chronic obstructive pulmonary disease with (acute) exacerbation (principal); J96.11 Chronic respiratory failure with hypoxia; J96.12 Chronic respiratory failure with hypercapnia; F41.9 Anxiety disorder, unspecified; I10 Essential (primary) hypertension; D63.8 Anemia in other chronic diseases classified elsewhere; G43.909 Migraine, unspecified, not intractable, without status migrainosus; Z91.09 Other allergy status, other than to drugs and biological substances; Z99.81 Dependence on supplemental oxygen; Z79.899 Other long term (current) drug therapy; Z87.11 Personal history of peptic ulcer disease; Z87.891 Personal history of nicotine dependence
CPT/HCPCS: 36415; 36600; 71045; 80053; 82805; 83605; 84484; 85025; 85610; 85730; 87040; 93005; 94002; 94640; 96374; 96375; 99291; A9270; J2060; J2930

== ENCOUNTER 2020-04-14 21:02 | Inpatient (IN) | payer MEDICARE, SELFPAY ==
--- NOTE | ~2020-04-14 | XR_ITS ---
EXAMINATION: XR chest 1V portable DATE: 04/15/2020 06:18 INDICATION: Shortness of breath TECHNIQUE: frontal view of the chest was obtained. COMPARISON: Chest radiograph dated 04/14/2020 FINDINGS: Mild hyperexpansion of lungs consistent with moderate emphysema which is better appreciated on CT reece ed 03/20/2020. Mild streaky opacities at the left lung base and favor atelectasis over pneumonia. No p leural effusion or pneumothorax. The cardiomediastinal silhouette is normal. IMPRESSION: 1. Emphysema. 2. Mild left basilar opacities and favor atelectasis over pneumonia. Reviewed, dictated and finalized at location A.
--- NOTE | ~2020-04-14 | CT_ITS ---
EXAMINATION: CT abdomen pelvis wo con DATE: 04/23/2020 14:55 INDICATION: Leukocytosis, history of duodenitis and duodenal ulcers TECHNIQUE: Computed tomography (CT) of the abdomen and pelvis was performed without intravenous contr ast. The dose-length product (DLP) was 414.86 mGy-cm. Automated exposure control and iterative recons truction technique were employed. COMPARISON: 03/21/2020 FINDINGS: There is moderate emphysema of the visualized lung bases. The heart size is normal. The cornel er, spleen, pancreas, gallbladder, and adrenal glands are normal. The right kidney is unremarkable. T here is a 1.5 cm cyst of the left kidney. Although limited by the absence of intravenous contrast, th e previously described duodenal thickening and inflammation appears to be essentially resolved. No pa thologically enlarged abdominal or pelvic lymph nodes are identified. There is calcified atherosclero sis of the aorta and many of the other arteries. The appendix is normal. There is no free intraperito victor hugo gas or evidence of bowel obstruction. There are fat-containing umbilical and left inguinal herni as. There is severe lumbar spondylosis. IMPRESSION: 1. Apparent interval resolution of previously described duodenal inflammatory change, evaluation some what limited by the absence of intravenous contrast. No acute findings seen. Reviewed, dictated and finalized at location A. IMPRESSION: 1. Apparent interval resolution of previously described duodenal inflammatory c hange, evaluation somewhat limited by the absence of intravenous contrast. No a cute findings seen.
--- NOTE | ~2020-04-14 | CT_ITS ---
EXAMINATION: CTA chest PE protocol EXAM DATE: 04/15/2020 15:34 INDICATION: Dyspnea, elevated d-dimer. TECHNIQUE: Spiral CTA of the chest (pulmonary arteries) was performed with 100 cc Omnipaque 350 intr avenous contrast injection. Images were acquired during the pulmonary arterial phase. Coronal maxi mum intensity projection 3D-reconstructions were created by the technologist on dedicated workstation . Axial, coronal and sagittal reformatted images were reviewed. The dose-length product (DLP) for t his examination was 586.43 mGy-cm. The exposure was tailored according to patient size (auto mA exp osure control), and iterative reconstruction (ASIR) was used as additional dose reduction technique. Comparison is made to prior examination from 03/17/2020. FINDINGS: There are no pulmonary emboli in the 1st through 3rd order (central and interlobar) pulmon sammy arteries. Some loss of attenuation in the segmental pulmonary arteries due to respiratory motion , but no intraluminal filling defects suspected. There is moderate to severe emphysema again noted. No thoracic aortic dissection. There is an aberrant right subclavian artery, congenital finding. The lungs are clear. There are no pleural or pericardial effusions. Tracheobronchial tree is patent. There is no mediastinal, hilar or axillary lymphadenopathy. There is no pneumothorax. Heart nor mal in size. There is mild coronary arterial calcification, arterial sclerosis. Upper abdomen is u nremarkable. There is mild thoracic spondylosis without osteoblastic or osteolytic lesions identifi ed. IMPRESSION: 1. No central pulmonary emboli. Some limitations in segmental vessels from respiratory motion, but n o pulmonary emboli suspected. 2. Moderate to severe emphysema. Reviewed, dictated and finalized at location A. IMPRESSION: 1. No central pulmonary emboli. Some limitations in segmental vessels from res piratory motion, but no pulmonary emboli suspected. 2. Moderate to severe emphysema.
--- NOTE | ~2020-04-14 | XR_ITS ---
EXAMINATION: XR chest 2V DATE: 04/19/2020 14:44 INDICATION: Worsening breath sounds, recent aspiration TECHNIQUE: AP and lateral views of the chest are obtained. COMPARISON: 04/15/2020 FINDINGS: The lungs are hyperinflated but free of acute opacities. There is no pleural effusion or pn eumothorax. The cardiomediastinal silhouette is normal. There is moderate thoracic spondylosis. IMPRESSION: 1. Hyperinflation without acute cardiopulmonary abnormality. Reviewed, dictated and finalized at location A.
--- NOTE | ~2020-04-14 | XR_ITS ---
EXAMINATION: XR chest 2V DATE: 04/22/2020 10:31 INDICATION: Worsening shortness of breath. Increasing crackles. TECHNIQUE: frontal and lateral views of the chest were obtained. COMPARISON: Chest radiograph dated 04/19/2020 FINDINGS: Emphysema with increased lucency and architectural distortion in the upper lung zones and retrosterna l clear space. No focal airspace opacities, edema, pleural effusion or pneumothorax. The cardiomedias tinal silhouette is normal. Mild thoracic spondylosis. IMPRESSION: 1. Emphysema. No acute cardiopulmonary disease. Reviewed, dictated and finalized at location A.
--- NOTE | ~2020-04-14 | US_ITS ---
EXAMINATION: US venous doppler LE EXAM DATE: 04/15/2020 15:59 INDICATION: Elevated d-dimer, recent hospitalization. TECHNIQUE: Multiple grayscale, color flow and Doppler images of the lower extremity deep venous syste ms bilaterally were obtained and reviewed. Comparison is made to prior examination from 03/18/2020. FINDINGS: Right side: The right common femoral, femoral and profunda veins demonstrate normal color flow, respi ratory variation, augmentation and compressibility. Compressibility, color flow confirmed within the right popliteal, posterior tibial, peroneal, and greater saphenous veins. Left side: The left common femoral, femoral and profunda veins demonstrate normal color flow, respira tory variation, augmentation and compressibility. Compressibility, color flow confirmed within the l eft popliteal, posterior tibial, peroneal, and greater saphenous veins. IMPRESSION: 1. No lower extremity deep venous thrombosis bilaterally. Reviewed, dictated and finalized at location A.
--- NOTE | ~2020-04-14 | XR_ITS ---
EXAMINATION: XR chest 1V portable INDICATION: Shortness of breath TECHNIQUE: Portable AP chest at 2300 hours COMPARISON: 04/10/2020 FINDINGS: The lungs are hyperinflated but free of acute opacities. There is no pleural effusion or pn eumothorax. The cardiomediastinal silhouette is normal. IMPRESSION: 1. No acute cardiopulmonary abnormality. Reviewed, dictated and finalized at location A.
[2020-04-14 20:57] VITALS: BP 154/73; PULSE 115; RESP 22; TEMP 36.8; O2SAT 98
[2020-04-14 21:06] VITALS: PULSE 115
--- NOTE | 2020-04-14 21:07 | ECG_ITS ---
Measurements Intervals [place] Rate: 114 P: 79 [place]: 165 QRS: 87 QRSD: 94 T: 51 QT: 290 QTc: 400 Interpretive Statements SINUS TACHYCARDIA ATRIAL PREMATURE COMPLEX POSSIBLE RIGHT ATRIAL ENLARGEMENT BORDERLINE R WAVE PROGRESSION, ANTERIOR LEADS BASELINE ARTIFACT- I, II, III, AVR, AVL, AVF, V1-V6 ABNORMAL ECG Electronically Signed On 04-14-2020 21:56:26 CDT by Larry Watson D.O.
[2020-04-14 21:29] LABS: Basophils Percent Auto 0.3 % (0.2-1.2); Eosinophils Absolute Auto 0.1 K/mm3 (0-0.3); Eosinophils Percent Auto 1.1 % (0-4.4); Hematocrit 43.7 % (42.0-52.0); Hemoglobin 14.1 g/dL (14.0-18.0); Immature Granulocyte Absolute 0.05 K/mm3 (0.00-0.031); Immature Granulocyte Percent A 0.4 % (0-0.5); Lymphocytes Absolute Auto 1.42 K/mm3 (0.9-3.2); Lymphocytes Percent Auto 11.7 % (18.3-44.2); Mean Corpuscular HGB Conc 32.3 g/dl (32-36); Mean Corpuscular Hemoglobin 28.5 pg (26-34); Mean Corpuscular Volume 88.5 fl (80-100); Mean Platelet Volume 9.8 fl (7.4-10.4); Monocytes Percent Auto 8.6 % (2.6-8.5); Neutrophils Absolute Auto 9.4 K/mm3 (1.3-6.7); Neutrophils Percent Auto 77.9 % (45.5-73.1); Platelet Count Result 237 k/mm3 (150-375); Red Blood Count 4.94 M/mm3 (4.6-6.20); Red Cell Distribution Width 13.4 % (11.5-14.5); White Blood Count 12.1 K/mm3 (4.5-10.0)
[2020-04-14 21:32] VITALS: BP 124/78; PULSE 114; RESP 24; O2SAT 97
[2020-04-14] MEDS: LORAZEPAM INJ 2 MG/ML VIAL 0.5 MG IV PUSH (21:32)
[2020-04-14 21:39] LABS: Lactic Acid Reflex 0.8 mmol/L (0.7-2.1)
[2020-04-14 21:43] LABS: Blood Urea Nitrogen 13 mg/dL (9-20); Calcium 9.2 mg/dL (8.4-10.2); Carbon Dioxide > 40 mmol/L (22-30); Chloride 85 mmol/L (98-107); Estimated CRCL calculation 104 ml/min; Estimated Glomerular Filt Rate > 60; Glucose 103 mg/dL (75-110); Potassium 3.4 mmol/L (3.4-5.0); Sodium 132 mmol/L (137-145)
[2020-04-14 22:05] LABS: Alveolar/Arterial O2 Gradient 38.4 mmHg; Base Excess ABG 10.6 mEq/l (+/-2.0); Carboxyhemoglobin 0.3 % THb (0-2.0); Fractional Inspired Oxygen 28 %; Methemoglobin ABG 0.4 %THb (0-1.5); Oxygen Content ABG 18.2 %vol (16.0-22.0); Oxygen Saturation ABG 91.9 % (95.0-100.0); Oxyhemoglobin 91.1 % THb (90.0-100.0); PO2 ABG 69.6 mmHg (80.0-100.0); PO2 FiO2 Ratio Arterial Blood 2.49 %; Reduced Hemoglobin 8.2 %THb (0-5.0); Total Hemoglobin 14.2 g/dL (12.0-18.0)
[2020-04-14 22:08] LABS: Device NASAL CANNULA; Modified Allen's Test Pass; PCO2 ABG 77.7 mmHg (35.0-45.0); Site Drawn LEFT RADIAL
[2020-04-14 23:07] VITALS: BP 118/81; PULSE 110; RESP 25; O2SAT 93
[2020-04-14 23:09] VITALS: PULSE 108; RESP 19; O2SAT 97
[2020-04-15] VITALS (25 sets, daily range): BP systolic 114–165; BP diastolic 61–88; PULSE 95–117; RESP 18–31; TEMP 35.7–37.1; O2SAT 93–99; BMI 27.6
--- NOTE | 2020-04-15 00:02 | ED.SOB ---
HPI - SOB/Dyspnea General Chief Complaint: Shortness of Breath/Dyspnea Stated Complaint: DIFF BREATHING History of Present Illness HPI Narrative: Patient is a 64-year-old male who presents ER with shortness of breath. Patient has history of COPD and wears 3 L of oxygen chronically. He reports he has a oxygen condenser in the regulator may be broken. He attached new tubing to the condenser and states that instead of giving condensed air he gave him higher flow oxygen through his nose like when he is in the hospital. He reports this created a sensation of burning in his lungs and shortness of breath. He also caused burning sensations to his head. Denies anxiety or chest pain. No fevers or chills or sweats. No new productive cough. Related Data Home Medications Medication Instructions Recorded Confirmed ipratropium 0.5 mg-albuterol 3 mg 3 ml INHALATION QID PRN 02/18/20 04/15/20 (2.5 mg base)/3 mL nebulization soln hydrochlorothiazide 25 mg PO DAILY 03/17/20 04/15/20 prednisone 10 mg PO DAILY 04/10/20 04/15/20 Allergies Allergy/AdvReac Type Severity Reaction Status Date / Time No Known Allergies Allergy Verified 04/14/20 21:07 Review of Systems Review of Systems: All systems reviewed & are unremarkable except as noted in HPI and below PMFSH Past Medical History Medical History COPD (chronic obstructive pulmonary disease) H/O: HTN (hypertension) Migraines PUD (peptic ulcer disease) Surgical History Surgical History No pertinent past surgical history Family History Family History Sibling Patient's sister is in good health, Onset Age: 52 Patient's brother is in good health, Onset Age: 50 Mother Family history of diabetes mellitus in first degree relative, Onset Age: 68 Patient's mother is Social History Social History Social History: The patient is and has 1 son. He does not have a durable power insurance defense attorney for healthcare and desires to be a full code. The patient is disabled. He owns his own home. The patient used to rebuild [employer] before he became disabled. He is chronically on oxygen at 2 L per nasal cannula. He has a roommate that sleeps in his house during the night. He smoked marijuana in the past but does not use any illicit drugs or alcohol. Smoking packs per day: 1 Smoking cigarettes per day: 20.0 Years smoked: 35 Smoking pack-years: 35.00 Smoking status: Former smoker Tobacco type: cigarettes Smoking end date: 11/06/08 Alcohol intake: former Substance use: former Substance use type: marijuana Gender identity (if verbalized by the patient): Male Spiritual care concerns: No Exam Narrative: Exam Narrative: GENERAL: Ill and anxious-appearing, well-nourished, and in mild distress. HEAD: Normocephalic, atraumatic. EYES: PERRL and EOMI. ENT: Mucous membranes moist. CHEST: Clear to auscultation. Mild respiratory distress. HEART: Tachycardic and regular. Normal peripheral pulses. ABDOMEN: Soft, nontender, nondistended. EXTREMITIES: Normal range of motion. No edema. SKIN: Warm, dry, no rash. NEURO: Alert and oriented x3. Course Course Emergency Course: Patient with hypercapnia. Placed on BiPAP and he is much more comfortable. Admit for observation. Vital Signs Vital signs: Vital Signs Temperature 98.2 F 04/14/20 20:57 Pulse Rate 115 H 04/14/20 20:57 Respiratory Rate 22 H 04/14/20 20:57 Blood Pressure 154/73 H 04/14/20 20:57 Pulse Oximetry 98 04/14/20 20:57 Temperature 98.6 F 04/15/20 16:00 Pulse Rate 112 H 04/15/20 18:00 Respiratory Rate 20 04/15/20 16:00 Blood Pressure 131/61 04/15/20 16:00 Pulse Oximetry 96 04/15/20 16:00 MDM - SOB/Dyspnea Lab Data Result diagr
[2020-04-15 00:31] LABS: Alveolar/Arterial O2 Gradient 108.8 mmHg; Base Excess ABG 9.1 mEq/l (+/-2.0); Carboxyhemoglobin 0.5 % THb (0-2.0); Fractional Inspired Oxygen 40 %; HCO3 ABG 38.2 mEq/l (22.0-26.0); Methemoglobin ABG 0.4 %THb (0-1.5); Oxygen Content ABG 18.9 %vol (16.0-22.0); Oxygen Saturation ABG 95.9 % (95.0-100.0); PO2 ABG 89.7 mmHg (80.0-100.0); PO2 FiO2 Ratio Arterial Blood 2.24 %; Reduced Hemoglobin 4.1 %THb (0-5.0); Total Hemoglobin 14.1 g/dL (12.0-18.0); pH ABG 7.323 (7.350-7.450)
[2020-04-15 00:33] LABS: PCO2 ABG 75.4 mmHg (35.0-45.0)
--- NOTE | 2020-04-15 01:39 | ADMGEN ---
This patient, Raimundo Johnson, was admitted to IMU Room 210-01. Patient/family oriented to hospital policies and general routines including ID bracelet, bed and alarms, visiting hours, pain management, procedures, bathroom and other care routines, personal items, smoking policy, room service/diet, and visiting hours. Valuables list has been completed. Information on how to activate the Rapid Response Team has been discussed. Patient/Family are encouraged to report perceived risks to care and to ask questions if they do not understand what they are told or what they should do.
--- NOTE | 2020-04-15 03:16 | PM.IMHP ---
H&P: HPI History of Present Illness Chief complaint: burning in his lungs+ Narrative: This is a 64 year old male with known COPD and chronic respiratory failure on 3L of oxygen at home at all times who was just discharged from the hospital four days ago after he was admitted for respiratory distress related to anxiety and hypercapnia. The pateint states that since he has been home he has had difficulty breathing. He began to experience symptoms very similar to his last admission when he believed he was having an allergic reaction to his oxygen tubing. He also reports coughing up chunks . Tonight he put on his oxygen and immediately felt a burning fire in his lungs. He complains he couldn't get enough air and firmly believes he was again having an allergic reaction at home to his oxygen tubing. The patient was evaluated in the ER and found to be anxious, tachypneic and ABG demonstrated hypercapnia. The patient was initiated on Bipap and we have been asked to admit him once more for his respiratory distress and hypercapnia. On my encounter with the patient marcel he currently denies any rashes, fevers, swelling, chest pain, abdominal pain, dysuria, hematuria, nausea, vomiting, diarrhea or rectal bleeding. He also denies any significant LE swelling. The patient appears very anxious. Review of Systems Review of Systems: All systems reviewed & are unremarkable except as noted in HPI and below PMFSH Past Medical History Medical History COPD (chronic obstructive pulmonary disease) H/O: HTN (hypertension) Migraines PUD (peptic ulcer disease) Surgical History Surgical History No pertinent past surgical history Family History Family History Sibling Patient's sister is in good health, Onset Age: 52 Patient's brother is in good health, Onset Age: 50 Mother Family history of diabetes mellitus in first degree relative, Onset Age: 68 Patient's mother is Social History Social History Social History: The patient is and has 1 son. He does not have a durable power security threat analyst for healthcare and desires to be a full code. The patient is disabled. He owns his own home. The patient used to rebuild [employer] before he became disabled. He is chronically on oxygen at 2 L per nasal cannula. He has a roommate that sleeps in his house during the night. He smoked marijuana in the past but does not use any illicit drugs or alcohol. Smoking packs per day: 1 Smoking cigarettes per day: 20.0 Years smoked: 35 Smoking pack-years: 35.00 Smoking status: Former smoker Tobacco type: cigarettes Smoking end date: 11/06/08 Alcohol intake: former Substance use: former Substance use type: marijuana Gender identity (if verbalized by the patient): Male Spiritual care concerns: No Meds Home Medications and Allergies Home Medications Medication Instructions Recorded Confirmed Type vnhsmiz-kocunxvkae-WEK-caffeine 30 1 cap PO Q4-6H PRN #60 cap 02/12/20 04/15/20 Rx mg-50 mg-325 mg-40 mg capsule albuterol sulfate 90 mcg/actuation 2 inhalation INHALATION Q4-6H PRN 02/18/20 04/15/20 Rx aerosol inhaler #8.5 gm ipratropium 0.5 mg-albuterol 3 mg 3 ml INHALATION QID PRN 02/18/20 04/15/20 History (2.5 mg base)/3 mL nebulization soln hydrochlorothiazide 25 mg PO DAILY 03/17/20 04/15/20 History pantoprazole [Protonix] 40 mg PO HS 42 Days #42 tablet 03/24/20 04/15/20 Rx tamsulosin 0.4 mg PO QAM #30 cap 03/24/20 04/15/20 Rx prednisone 10 mg PO DAILY 04/10/20 04/15/20 History Allergies Allergy/AdvReac Type Severity Reaction Status Date / Time No Known Allergies Allergy Verified 04/14/20 21:07 Vital Signs Vital Signs - 24 hr 04/14/20 20:57 04/14/20 21:06 04/14
[2020-04-15] MEDS: LORAZEPAM 0.5 MG TABLET PO ×2 (04:40→21:37)
[2020-04-15 05:22] LABS: Basophils Percent Auto 0.3 % (0.2-1.2); Eosinophils Absolute Auto 0.2 K/mm3 (0-0.3); Hematocrit 44.4 % (42.0-52.0); Immature Granulocyte Absolute 0.04 K/mm3 (0.00-0.031); Immature Granulocyte Percent A 0.3 % (0-0.5); Lymphocytes Percent Auto 13.7 % (18.3-44.2); Mean Corpuscular HGB Conc 31.5 g/dl (32-36); Mean Corpuscular Hemoglobin 27.8 pg (26-34); Mean Corpuscular Volume 88.3 fl (80-100); Monocytes Percent Auto 8.7 % (2.6-8.5); Neutrophils Absolute Auto 8.7 K/mm3 (1.3-6.7); Platelet Count Result 205 k/mm3 (150-375); Red Blood Count 5.03 M/mm3 (4.6-6.20); Red Cell Distribution Width 13.2 % (11.5-14.5); White Blood Count 11.7 K/mm3 (4.5-10.0)
[2020-04-15 05:35] LABS: Blood Urea Nitrogen 14 mg/dL (9-20); Calcium 8.8 mg/dL (8.4-10.2); Carbon Dioxide 38 mmol/L (22-30); Chloride 86 mmol/L (98-107); Estimated CRCL calculation 107 ml/min; Estimated Glomerular Filt Rate > 60; Glucose 89 mg/dL (75-110); Magnesium 1.8 mg/dL (1.6-2.3); Potassium 3.6 mmol/L (3.4-5.0); Sodium 131 mmol/L (137-145)
[2020-04-15 05:38] LABS: Alveolar/Arterial O2 Gradient 49.9 mmHg; Base Excess ABG 11.8 mEq/l (+/-2.0); Device VENTURI MASK; Fractional Inspired Oxygen 30 %; HCO3 ABG 41.3 mEq/l (22.0-26.0); Oxygen Content ABG 18.5 %vol (16.0-22.0); Oxygen Saturation ABG 92.6 % (95.0-100.0); Oxyhemoglobin 92.4 % THb (90.0-100.0); PCO2 ABG 78.7 mmHg (35.0-45.0); PO2 ABG 71.5 mmHg (80.0-100.0); PO2 FiO2 Ratio Arterial Blood 2.38 %; Site Drawn LEFT BRACHIAL; Total Hemoglobin 14.2 g/dL (12.0-18.0); pH ABG 7.338 (7.350-7.450)
[2020-04-15] MEDS: TAMSULOSIN HCL 0.4 MG CAPSULE PO (07:34)
[2020-04-15] MEDS: hydroCHLOROthiazide 25 MG TABLET PO (07:34)
[2020-04-15] MEDS: CODEINE SULFATE 30 MG TABLET PO (09:31)
[2020-04-15] MEDS: predniSONE 10 MG TABLET 60 MG PO (09:34)
[2020-04-15 09:49] LABS: D Dimer 3.15 ug/mL (<0.48)
--- NOTE | 2020-04-15 09:56 | PM.IMPN ---
Progress Note: A&P Assessment and Plan (1) Acute respiratory failure with hypercapnia: Code(s): J96.02 - Acute respiratory failure with hypercapnia Status: Acute Assessment and Plan: -----patient's ABG shows acute respiratory failure and he is acidotic. He was placed on a BiPAP when I got into the room it was not on and he was sleeping with an elevated respiratory rate. He says he does not like the BiPAP but I explained him the importance and he is going to tried again. He understands that if he does not comply with the BiPAP he will need to be intubated. I spoke to the nurse who is going to reapply the BiPAP and we will check a ABG in 2 hours. No infection suspected at this time. It is possible that the patient is over oxygenating at home causing him to retain CO2. He is very anxious and likes to keep his oxygen up. I have explained to him that it is okay for him to be a 89-92 but he does not feel this way. Since this is his 3rd admission in 1 month, I will consult pulmonology. He may qualify for a trilogy set at home. (2) COPD (chronic obstructive pulmonary disease): Qualifiers: COPD type: unspecified COPD Qualified Code(s): J44.9 - Chronic obstructive pulmonary disease, unspecified Code(s): J44.9 - Chronic obstructive pulmonary disease, unspecified Status: Acute Assessment and Plan: ------continue steroids at this time. He had a little lung sounds but they were just now giving him his oral steroids. He may need IV steroids but I will reassess him later this afternoon. I will continue Protonix b.i.d. since he does have a duodenal ulcer (3) Leukocytosis: Code(s): D72.829 - Elevated white blood cell count, unspecified Status: Acute Assessment and Plan: ------Likely secondary to recent steroid use. Monitor CBCd. (4) H/O: HTN (hypertension): Code(s): Z86.79 - Personal history of other diseases of the circulatory system Status: Chronic Assessment and Plan: -----last blood pressure 115/64. Continue home antihypertensives. PRN hydralazine w/ parameters. (5) Anxiety: Code(s): F41.9 - Anxiety disorder, unspecified Status: Acute Assessment and Plan: -----PRN ativan PO. Will continue BuSpar that he had last stay. Time Spent With Patient Time with patient: 25 - 35 minutes Subjective Date/time seen: 04/15/20 09:56 Interval history: Pt is a 64-year-old male here for respiratory failure. Patient was seen today and states he is feeling better than when he came in. He says he still feels short of breath. He says he does not like taking in the steroids because he thinks it makes his heart race. I talked to him about his significant lung disease and that we will monitor him on the riding coach. The patient states he is not having any chest pain. He has a slight headache which is his normal chronic headaches. He is eating and drinking okay and 8 most of his breakfast. He does not like using the BiPAP and when I walked into the room he was sleeping without it. I talked to him about how important it is to continue the BiPAP or he may need to be intubated. He said he will eat a little bit more fits breakfast and but the BiPAP back on. The nurse was at bedside and reassured the patient as well. Review of Systems Review of Systems: All systems reviewed & are unremarkable except as noted in HPI and below Exam Narrative: Exam Narrative: General: Well developed well nourished patient resting in bed in no acute distress with 3 L of oxygen applied HEENT: normocephalic Neck: supple Neuro: Alert and oriented x 4. Cranial nerves 2-12 intact. Equal strength upper lower extremities 5/5 CV:RRR. Telemetry shows occasional sinus tachycardia up to 140 Resp: Patient had an elevated respiratory rate 32 when I walked into the room when he was sleeping. He had no conversational dyspnea but had very min
[2020-04-15 12:53] LABS: Alveolar/Arterial O2 Gradient 107.1 mmHg; Base Excess ABG 12.9 mEq/l (+/-2.0); Fractional Inspired Oxygen 40 %; Oxygen Content ABG 19.1 %vol (16.0-22.0); Oxygen Saturation ABG 96.3 % (95.0-100.0); Oxyhemoglobin 95.9 % THb (90.0-100.0); PO2 ABG 90.9 mmHg (80.0-100.0); PO2 FiO2 Ratio Arterial Blood 2.27 %; Total Hemoglobin 14.1 g/dL (12.0-18.0); pH ABG 7.361 (7.350-7.450)
[2020-04-15 12:56] LABS: Device BIPAP; Expiratory Pressure 8 cmH2O; Inspiratory Pressure 16 cmH2O; Modified Allen's Test Pass; PCO2 ABG 75.8 mmHg (35.0-45.0); Site Drawn LEFT RADIAL
[2020-04-15] MEDS: busPIRone HCL 2.5 MG, busPIRone HCL 5 MG 7.5 MG PO ×2 (12:58→21:05)
--- NOTE | 2020-04-15 13:42 | PM.CNPUL ---
History of Present Illness History of Present Illness Consult date: 04/16/20 Requesting physician: Meera Hargrove PA-C Chief complaint: Hypercapnia Narrative: Thank you for the consult. Date 04/15/2020 see job #[id number] A/P: 1. acute on chronic hypercapnic hypoxemic respiratory failure 2. severe COPD 3. equipment issues: oxygen tubing appears old discolored and he is having some issues with odors and burning with using it 4. severe anxiety which complicates his treatment; he is a bit paranoid and distrustful, crying; nobody is helping me and he wants his O2 tubing sent for analysis; this is not a service we can offer, however it can be replaced and new type may work better for him. [facility] Past Medical History Medical History COPD (chronic obstructive pulmonary disease) H/O: HTN (hypertension) Migraines PUD (peptic ulcer disease) Surgical History Surgical History No pertinent past surgical history Family History Family History Sibling Patient's sister is in good health, Onset Age: 52 Patient's brother is in good health, Onset Age: 50 Mother Family history of diabetes mellitus in first degree relative, Onset Age: 68 Patient's mother is Social History Social History Social History: The patient is and has 1 son. He does not have a durable power lamp wirer for healthcare and desires to be a full code. The patient is disabled. He owns his own home. The patient used to rebuild [employer] before he became disabled. He is chronically on oxygen at 2 L per nasal cannula. He has a roommate that sleeps in his house during the night. He smoked marijuana in the past but does not use any illicit drugs or alcohol. Smoking packs per day: 1 Smoking cigarettes per day: 20.0 Years smoked: 35 Smoking pack-years: 35.00 Smoking status: Former smoker Tobacco type: cigarettes Smoking end date: 11/06/08 Alcohol intake: former Substance use: former Substance use type: marijuana Gender identity (if verbalized by the patient): Male Spiritual care concerns: No Meds Home Medications and Allergies Home Medications Medication Instructions Recorded Confirmed Type puryhvd-efeemhyumb-RXQ-caffeine 30 1 cap PO Q4-6H PRN #60 cap 02/12/20 04/15/20 Rx mg-50 mg-325 mg-40 mg capsule albuterol sulfate 90 mcg/actuation 2 inhalation INHALATION Q4-6H PRN 02/18/20 04/15/20 Rx aerosol inhaler #8.5 gm ipratropium 0.5 mg-albuterol 3 mg 3 ml INHALATION QID PRN 02/18/20 04/15/20 History (2.5 mg base)/3 mL nebulization soln hydrochlorothiazide 25 mg PO DAILY 03/17/20 04/15/20 History pantoprazole [Protonix] 40 mg PO HS 42 Days #42 tablet 03/24/20 04/15/20 Rx tamsulosin 0.4 mg PO QAM #30 cap 03/24/20 04/15/20 Rx prednisone 10 mg PO DAILY 04/10/20 04/15/20 History Allergies Allergy/AdvReac Type Severity Reaction Status Date / Time No Known Allergies Allergy Verified 04/14/20 21:07 Vital Signs Vital Signs - 24 hr 04/14/20 20:57 04/14/20 21:06 04/14/20 21:32 Temperature 36.8 C Pulse Rate 115 H 115 H 114 H Respiratory Rate 22 H 24 H Blood Pressure 154/73 H 124/78 Pulse Oximetry 98 97 04/14/20 23:07 04/14/20 23:09 04/15/20 00:30 Temperature Pulse Rate 110 H 108 H 113 H Respiratory Rate 25 H 19 29 H Blood Pressure 118/81 Pulse Oximetry 93 97 93 04/15/20 01:07 04/15/20 01:42 04/15/20 02:00 Temperature 36.4 C Pulse Rate 106 H 114 H 110 H Respiratory Rate 25 H 22 H Blood Pressure 114/88 163/73 H Pulse Oximetry 97 98 04/15/20 04:00 04/15/20 05:00 04/15/20 06:00 Temperature 36.7 C Pulse Rate 95 109 H 104 H Respiratory Rate 24 H Blood Pressure 150/63 H Pulse Oximetry 99 04/15/20 07:42 04/15/20 07:48 04/15
[2020-04-15] MEDS: PANTOPRAZOLE 40 MG TABLET PO ×2 (14:32→21:05)
[2020-04-16] VITALS (26 sets, daily range): BP systolic 101–135; BP diastolic 53–78; PULSE 79–113; RESP 19–24; TEMP 35.8–37; O2SAT 93–96
[2020-04-16 05:22] LABS: Hemoglobin 13.1 g/dL (14.0-18.0); Mean Corpuscular HGB Conc 32.8 g/dl (32-36); Mean Corpuscular Hemoglobin 28.6 pg (26-34); Mean Corpuscular Volume 87.3 fl (80-100); Mean Platelet Volume 9.7 fl (7.4-10.4); Platelet Count Result 226 k/mm3 (150-375); Red Blood Count 4.58 M/mm3 (4.6-6.20); White Blood Count 13.3 K/mm3 (4.5-10.0)
[2020-04-16 06:06] LABS: Blood Urea Nitrogen 14 mg/dL (9-20); CRP 8.2 mg/dL (<1.0); Carbon Dioxide > 40 mmol/L (22-30); Chloride 84 mmol/L (98-107); Estimated CRCL calculation 107 ml/min; Estimated Glomerular Filt Rate > 60; Glucose 105 mg/dL (75-110); Lactate Dehydrogenase 365 U/L (313-618); Potassium 3.3 mmol/L (3.4-5.0); Sodium 132 mmol/L (137-145)
[2020-04-16 06:36] LABS: Hepatitis B Surface Antigen Negative (Negative)
[2020-04-16 06:42] LABS: HAV RESULT Negative (Negative); Hepatitis B Core IgM Result Negative (Negative)
[2020-04-16 06:53] LABS: Hepatitis C Virus Antibody Negative (Negative)
[2020-04-16] MEDS: POTASSIUM CHLORIDE 20 MEQ TABLET 40 MEQ PO (07:47)
[2020-04-16] MEDS: predniSONE 10 MG TABLET 60 MG PO (07:48)
[2020-04-16] MEDS: busPIRone HCL 2.5 MG, busPIRone HCL 5 MG 7.5 MG PO ×2 (07:48→21:10)
[2020-04-16] MEDS: PANTOPRAZOLE 40 MG TABLET PO ×2 (07:49→17:06)
[2020-04-16] MEDS: TAMSULOSIN HCL 0.4 MG CAPSULE PO (07:49)
[2020-04-16] MEDS: hydroCHLOROthiazide 25 MG TABLET PO (07:49)
--- NOTE | 2020-04-16 08:14 | PM.IMPN ---
Progress Note: A&P Assessment and Plan (1) Acute respiratory failure with hypercapnia: Code(s): J96.02 - Acute respiratory failure with hypercapnia Status: Acute Assessment and Plan: -----patient is not wearing the BiPAP as requested and he understands that this could lead to intubation. patient's ABG yesterday have improved since admission but his CO2 is still elevated but compensated. I am going to redraw one this morning to see where we are at since he is not wearing the bipap. His lungs still sound tight, continue steroids. His RR is much better today and he has no conversational dyspnea or retractions at this time. It is possible that the patient is over oxygenating at home causing him to retain CO2. He is very anxious and likes to keep his oxygen up. I have explained to him that it is okay for him to be a 89-92 but he does not feel this way. Pt has scheduled xopenex treatments but no symbicort ordered. May consider Pulmicort? Will await pulms recs. (2) COPD (chronic obstructive pulmonary disease): Qualifiers: COPD type: unspecified COPD Qualified Code(s): J44.9 - Chronic obstructive pulmonary disease, unspecified Code(s): J44.9 - Chronic obstructive pulmonary disease, unspecified Status: Acute Assessment and Plan: ------continue steroids at this time. See above. (3) Leukocytosis: Code(s): D72.829 - Elevated white blood cell count, unspecified Status: Acute Assessment and Plan: ------Likely secondary to recent steroid use. Monitor CBCd. (4) H/O: HTN (hypertension): Code(s): Z86.79 - Personal history of other diseases of the circulatory system Status: Chronic Assessment and Plan: -----last blood pressure 135/78. Continue home antihypertensives. PRN hydralazine w/ parameters. (5) Anxiety: Code(s): F41.9 - Anxiety disorder, unspecified Status: Acute Assessment and Plan: -----PRN ativan PO. Will continue BuSpar that he had last stay. Subjective Date/time seen: 04/16/20 08:14 Interval history: Pt is a 64-year-old male here for respiratory failure. Patient was seen today with nursing staff and has complaints about the BiPAP. He says it is not comfortable and he does not want to wear it. I talked to him extensively about the reason for the BiPAP to avoid intubation. He seems to understand the consequences of not wearing the BiPAP. He is to wear this any time he is sleeping and depending on his ABG, he may need to wear it again today. The patient does not like taking the steroids because he says it makes him feel funny and his heart race. He denies chest pain, fevers, chills, nausea, vomiting, or leg swelling Exam Narrative: Exam Narrative: General: Well developed well nourished patient resting in bed in no acute distress with 3 L of oxygen applied HEENT: normocephalic Neck: supple Neuro: Alert and oriented x 4. Cranial nerves 2-12 intact. Equal strength upper lower extremities 5/5 CV:RRR. Telemetry shows occasional sinus tachycardia, current rate 98. He shows some desaturations down to 75 at night. Resp: No conversational dyspnea or retractions. Respiratory rate normal. Minimal lung sounds. Abd: Soft, non distended. No pain to palpation. Positive bowel sounds Extremities: No swelling, erythema, or pain to palpation. Objective Data Vital Signs Vital Signs: Vital Signs - 24 hr 04/15/20 09:25 04/15/20 10:00 04/15/20 10:57 Temperature Pulse Rate 99 104 H 112 H Respiratory Rate 24 H Blood Pressure Pulse Oximetry 98 98 04/15/20 12:00 04/15/20 13:24 04/15/20 14:00 Temperature 97.9 F Pulse Rate 97 104 H 110 H Respiratory Rate 26 H 20 Blood Pressure 135/73 Pulse Oximetry 98 98 04/15/20 16:00 04/15/20 18:00 04/15/20 20:00 Temperature 98.6 F Pulse Rate 117 H 112 H 110 H Respiratory Rate 20 Blood Pressure 131/61 Pulse Oximetry 96
[2020-04-16 08:49] LABS: Alveolar/Arterial O2 Gradient 89.3 mmHg; Base Excess ABG 14.7 mEq/l (+/-2.0); Carboxyhemoglobin 0.2 % THb (0-2.0); Fractional Inspired Oxygen 30 %; HCO3 ABG 40.6 mEq/l (22.0-26.0); Methemoglobin ABG 0.4 %THb (0-1.5); Oxygen Content ABG 17.6 %vol (16.0-22.0); Oxygen Saturation ABG 92.4 % (95.0-100.0); Oxyhemoglobin 91.9 % THb (90.0-100.0); PCO2 ABG 54.6 mmHg (35.0-45.0); PO2 ABG 60.4 mmHg (80.0-100.0); PO2 FiO2 Ratio Arterial Blood 2.01 %; Reduced Hemoglobin 7.5 %THb (0-5.0); Total Hemoglobin 13.6 g/dL (12.0-18.0); pH ABG 7.489 (7.350-7.450)
[2020-04-16 08:50] LABS: Device NASAL CANNULA; Modified Allen's Test Pass; Site Drawn LEFT RADIAL
[2020-04-16 08:51] LABS: Liters per Minute 2.5 LPM
--- NOTE | 2020-04-16 08:58 | P.CDI_ITS ---
CDI Query Clarification Request - COPD with acute exacerbation documented by EDP - Dr Singleton documented r/o mild COPD exacerbation - Daily prednisone dose increased from 10mg to 60mg - No further mention of COPD exacerbation Please clarify if COPD is: * Exacerbated * Stable * Unable to determine
--- NOTE | 2020-04-16 12:33 | PM.PNPUL ---
Progress Note: A&P Assessment and Plan (1) COPD exacerbation: Code(s): J44.1 - Chronic obstructive pulmonary disease with (acute) exacerbation Status: Acute Assessment and Plan: - change interval of Xopenex to 1.25 mg Q4h - add ipratropium 0.5 mg Q4h - add pulmicort nebs. 0.5 mg bid and d/c symbicort - d/c prednisone and start solumedrol 60 mg IV Q6h (2) Acute respiratory failure with hypercapnia: Code(s): J96.02 - Acute respiratory failure with hypercapnia Status: Acute Assessment and Plan: Pt is at high risk for intubation given that he's refusing to wear BIPAP. I have changed the settings to 12/4 incase he agrees with back rate of 16. Titrate FiO2 to keep sats > 88%. If he becomes lethargic he may need to be moved to ICU and intubated. ABG's Q12h for the next 1-2 days is recommended. Time Spent With Patient Time with patient: 25 - 35 minutes Subjective Date/time seen: 04/16/20 12:33 Interval history: Pt with severe COPD admitted win acute on chronic hypercapnic respiatory failure. Today he is very anxious, short of breath, can't get comfortable. He was just moved back into bed from bathroom. I instructed him to go back on the BIPAP but he is refusing. He's acting a bit confused as well. Blood gas from this morning appears to be over corrected hypercapnia with acute respiratory alkalosis on top of chronic hypercapnea. Review of Systems Review of Systems: All systems reviewed & are unremarkable except as noted in HPI and below Exam Const: General: in distress and uncomfortable Eyes: General: appearance normal, both eyes and all related structures Neck: Neck: supple and no JVD Resp: Auscultation: no crackles, no rales, no rhonchi, no wheezes and diminished lung sounds Other: No significant air movement Cardio: Rate: tachycardic Rhythm: regular rhythm GI: Auscultation: normal bowel sounds Skin: General skin exam: normal color and no rashes or lesions noted Neuro: Cognition (Neuro): abnormal cognition Extrem: General: normal to inspection, no edema and no pedal edema Psych: Affect: Anxious affect present Objective Data Vital Signs Vital Signs: Vital Signs - 24 hr 04/15/20 13:24 04/15/20 14:00 04/15/20 16:00 Temperature 37.0 C Pulse Rate 104 H 110 H 117 H Respiratory Rate 20 20 Blood Pressure 131/61 Pulse Oximetry 98 96 04/15/20 18:00 04/15/20 20:00 04/15/20 20:07 Temperature 36.8 C Pulse Rate 112 H 110 H 112 H Respiratory Rate 24 H Blood Pressure 165/66 H Pulse Oximetry 93 04/15/20 22:00 04/15/20 22:30 04/15/20 22:37 Temperature Pulse Rate 105 H 104 H 101 H Respiratory Rate 31 H 22 H Blood Pressure Pulse Oximetry 96 04/15/20 22:47 04/15/20 23:27 04/16/20 00:00 Temperature 35.7 C L Pulse Rate 100 105 H 101 H Respiratory Rate 22 H 18 Blood Pressure 128/75 Pulse Oximetry 96 04/16/20 02:00 04/16/20 02:14 04/16/20 02:17 Temperature Pulse Rate 79 94 80 Respiratory Rate 20 20 Blood Pressure Pulse Oximetry 94 04/16/20 03:35 04/16/20 04:00 04/16/20 06:00 Temperature 35.8 C L Pulse Rate 83 86 82 Respiratory Rate 19 Blood Pressure 135/78 Pulse Oximetry 95 04/16/20 07:25 04/16/20 07:41 04/16/20 08:00 Temperature 36.8 C Pulse Rate 99 99 105 H Respiratory Rate 20 22 H Blood Pressure 126/67 Pulse Oximetry 96 93 04/16/20 10:00 04/16/20 11:57 04/16/20 12:00 Temperature 37.0 C Pulse Rate 104 H 96 111 H Respiratory Rate 24 H 24 H Blood Pressure 130/56 L Pulse Oximetry 95 93 Intake/Output Intake/Output: Intake & Output 04/13/20 04/14/20 04/15/20 04/16/20 23:59 23:59 23:59 23:59 Intake Total 535 690 Output Total 775 Balance -240 690 Meds/Results Medications: Active Medications Generic Name Dose Route Start Last Admin Trade Name Freq PRN Reason Stop Dose Admin Acetaminophen 650 mg 04/15/20 00:15 Tylenol Tablet PO Q4H PRN Mild
[2020-04-16] MEDS: methylPREDNISolone SOD SUCC 125 MG VIAL 60 MG IV PUSH ×2 (13:45→17:06)
[2020-04-16] MEDS: IPRATROPIUM BR 0.02% INH SOLN 0.5 MG/2.5 ML VIAL INHALATION ×2 (14:04→20:28)
--- NOTE | 2020-04-16 14:04 | PC.NURSE ---
Patient complaints of not being able to breathe, oxygen saturation 95% on 2.5L nasal cannula. Called respiratory therapy to administer nebulizer treatment. Refusing breathing treatment from respiratory therapist. States will hold my breath til I cannot breathe. Wouldn't allow us to put nebulizer on face. Patients current saturation on 2.5L nasal cannula 96% at 1406.
--- NOTE | 2020-04-16 14:46 | CONS_ITS ---
DATE OF CONSULTATION: 04/15/2020 REASON FOR CONSULTATION: Meera Hargrove consulted me to see this patient for recurrent hypercapnic-hypoxemic respiratory failure, shortness of breath. HISTORY: This patient is a 64-year-old gentleman, known to our practice, his last visit was in 2019. He has been admitted 3 times in the last month with similar complaints, increasing shortness of breath with hypercapnia. He traditionally uses more oxygen than needed. He keeps his saturation in the high 90% range. He has had difficulties using oxygen at home, stating that when he has used some new oxygen tubing, he has felt fire-like burning in his lungs and his head. He said that there were flames coming out from his head and chest. He is extremely anxious at baseline and does not take any controlling medicine for this. At the last discharge, he was prescribed BuSpar, but he is not using it. The patient has a long history of smoking, 35-pack year history and quit in November 06, 2008. The patient says that he feels that he is allergic to the oxygen. He was started on BiPAP when he is in less respiratory distress. He does not want to use it. The patient told me he never plans to use any device like that at home. His blood gases are significant for a baseline hypercapnia and he would be a good candidate for a noninvasive positive-pressure device, but says there is no way that he would use this at home. He has not had fevers, change in his sputum production, nausea, vomiting, or diarrhea. He has not been around any contacts with COVID. He lives with a roommate named, Ren. The patient's son, Tom also comes over to help. ALLERGIES: NO LISTED DRUG ALLERGIES. HOME MEDICATIONS: 1. Codeine with butalbital. 2. Aspirin and caffeine 30 mg, 50 mg, 325 mg, 40 mg 1 daily. 3. Albuterol rescue inhaler 2 puffs q.4 hours p.r.n., shortness of breath. 4. Nebulizer with DuoNeb 3 times a day to 4 times a day p.r.n., shortness of breath. 5. Hydrochlorothiazide 25 mg a day. 6. Pantoprazole 40 mg h.s. 7. Tamsulosin 0.4 mg daily. 8. Prednisone 10 mg a day. PAST MEDICAL HISTORY: 1. Chronic respiratory failure on oxygen for many years. He cannot remember how long. He does have hypercapnia-hypoxemia. 2. Hypertension. 3. Migraine headaches. 4. Peptic ulcer disease. PAST SURGICAL HISTORY: No pertinent surgical history. FAMILY HISTORY: He has 2 siblings in their 50s in good health. Mother , cause is not known. REVIEW OF SYSTEMS: The patient has not had any change in his weight. He is constantly short of breath. He feels anxious. The remainder of the 14-point review of systems is negative, except for recent ankle swelling. PHYSICAL EXAMINATION: VITAL SIGNS: Height 1.75 m, weight 88.6 kg, BMI is 28.8 kg/metered square, temperature is 37.1 Celsius normal, pulse rate 112, sinus tachycardia, respiratory rate 24, blood pressure 115/64, saturation 98% on 40% oxygen. GENERAL: This is a 64-year-old man who appears chronically ill. He is alert and oriented. He is quite anxious. He is cooperative. Speech is clear. HEENT: His pupils are equal and reactive to light. He does not have sinus tenderness. He has moist oral membranes. NECK: Supple. RESPIRATORY EXAM: Reveals equal expansion with hyperinflation, diminished breath sounds. No wheezes, crackles, or rhonchi. CARDIOVASCULAR: Tachycardic, regular S1, S2 without a murmur or gallop. GASTROINTESTINAL: Active bowel sounds. Soft, nontender. EXTREMITIES: 1+ edema both ankles. No clubbing or cyanosis. SKIN: Warm and dry. NEUROLOGIC: Reveals that he is able to position himself in bed, follows commands. He does appear anxious. He is tearful when he describes how much pain he is in and he is begging for something to relieve his pain. H
--- NOTE | 2020-04-16 14:58 | PCRCNOTE ---
1600 respiratory tx will not be given/too close to last tx
[2020-04-16 18:30] LABS: Alveolar/Arterial O2 Gradient 93.9 mmHg; Base Excess ABG 13.8 mEq/l (+/-2.0); Fractional Inspired Oxygen 30 %; HCO3 ABG 38.7 mEq/l (22.0-26.0); Oxygen Content ABG 17.8 %vol (16.0-22.0); Oxygen Saturation ABG 93.7 % (95.0-100.0); Oxyhemoglobin 92.7 % THb (90.0-100.0); PCO2 ABG 48.8 mmHg (35.0-45.0); PO2 ABG 62.7 mmHg (80.0-100.0); PO2 FiO2 Ratio Arterial Blood 2.09 %; Total Hemoglobin 13.7 g/dL (12.0-18.0)
[2020-04-16 18:32] LABS: Device NASAL CANNULA; Liters per Minute 2.5 LPM; Modified Allen's Test Pass; Site Drawn LEFT RADIAL; pH ABG 7.517 (7.350-7.450)
[2020-04-16] MEDS: BUDESONIDE RESPULE NEB 0.5 MG/2 ML AMP INHALATION (20:28)
[2020-04-17] VITALS (27 sets, daily range): BP systolic 100–122; BP diastolic 47–67; PULSE 63–128; RESP 16–22; TEMP 36.2–37.1; O2SAT 93–99
[2020-04-17] MEDS: IPRATROPIUM BR 0.02% INH SOLN 0.5 MG/2.5 ML VIAL INHALATION ×6 (00:03→20:06)
[2020-04-17] MEDS: methylPREDNISolone SOD SUCC 125 MG VIAL 60 MG IV PUSH ×3 (01:05→11:39)
[2020-04-17 04:52] LABS: Hematocrit 36.3 % (42.0-52.0); Hemoglobin 12.1 g/dL (14.0-18.0); Mean Corpuscular HGB Conc 33.3 g/dl (32-36); Mean Corpuscular Hemoglobin 28.5 pg (26-34); Mean Corpuscular Volume 85.4 fl (80-100); Mean Platelet Volume 10.3 fl (7.4-10.4); Platelet Count Result 244 k/mm3 (150-375); Red Blood Count 4.25 M/mm3 (4.6-6.20); Red Cell Distribution Width 13.1 % (11.5-14.5); White Blood Count 11.2 K/mm3 (4.5-10.0)
[2020-04-17 05:22] LABS: Alanine Aminotransferase 72 U/L (4-50); Albumin Level 3.6 g/dL (3.5-5.1); Alkaline Phosphatase 87 U/L (38-126); Aspartate Amino Transferase 33 U/L (17-59); Bilirubin,Total 0.3 mg/dL (0.2-1.3); Blood Urea Nitrogen 18 mg/dL (9-20); Carbon Dioxide > 40 mmol/L (22-30); Chloride 86 mmol/L (98-107); Estimated CRCL calculation 93 ml/min; Estimated Glomerular Filt Rate > 60; Glucose 186 mg/dL (75-110); Potassium 3.2 mmol/L (3.4-5.0); Sodium 133 mmol/L (137-145)
--- NOTE | 2020-04-17 06:41 | PCRCNOTE ---
Patient refused his 0500 ABG stating he just wanted to get some sleep. Patient said he did not mind if an ABG was ordered later in the day.
[2020-04-17] MEDS: BUDESONIDE RESPULE NEB 0.5 MG/2 ML AMP INHALATION (07:34)
[2020-04-17] MEDS: hydroCHLOROthiazide 25 MG TABLET PO (08:19)
[2020-04-17] MEDS: POTASSIUM CHLORIDE 20 MEQ TABLET 40 MEQ PO (08:19)
[2020-04-17] MEDS: busPIRone HCL 2.5 MG, busPIRone HCL 5 MG 7.5 MG PO (08:19)
[2020-04-17] MEDS: TAMSULOSIN HCL 0.4 MG CAPSULE PO (08:20)
[2020-04-17] MEDS: PANTOPRAZOLE 40 MG TABLET PO ×2 (08:20→18:26)
[2020-04-17 11:46] LABS: Alveolar/Arterial O2 Gradient 108.4 mmHg; Base Excess ABG 12.7 mEq/l (+/-2.0); Carboxyhemoglobin 0.3 % THb (0-2.0); Fractional Inspired Oxygen 32 %; HCO3 ABG 37.1 mEq/l (22.0-26.0); Methemoglobin ABG 0.3 %THb (0-1.5); Oxygen Content ABG 17.5 %vol (16.0-22.0); Oxygen Saturation ABG 94.8 % (95.0-100.0); PCO2 ABG 45.8 mmHg (35.0-45.0); PO2 ABG 66.2 mmHg (80.0-100.0); PO2 FiO2 Ratio Arterial Blood 2.07 %; Reduced Hemoglobin 6.4 %THb (0-5.0); Total Hemoglobin 13.4 g/dL (12.0-18.0)
[2020-04-17 11:48] LABS: Device NASAL CANNULA; Modified Allen's Test Pass; Site Drawn RIGHT RADIAL; pH ABG 7.526 (7.350-7.450)
--- NOTE | 2020-04-17 13:45 | PC.NURSE ---
While helping patient to the restroom, the patient had his dentures in his lap. When he stood up from his bed, his dentures hit the floor and split into two. Patient insistent on having dentures super-glued back together. Patient instructed/educated that this is not a practice we provide and to follow up with dentist post discharge.
--- NOTE | 2020-04-17 15:44 | PM.IMPN ---
Progress Note: A&P Assessment and Plan (1) Acute respiratory failure with hypercapnia: Code(s): J96.02 - Acute respiratory failure with hypercapnia Status: Acute Assessment and Plan: -----Patients co2 is better but now alkalotic. His bicarb is trending down. His bipap was adjusted by pulmonology but looks like it may need to be adjusted further. The nurse is going contact pulmonology for further settings. His lungs sound a little better today. His RR is better today and he has no conversational dyspnea or retractions at this time. It is possible that the patient is over oxygenating at home causing him to retain CO2. He is very anxious and likes to keep his oxygen up. I have explained to him that it is okay for him to be a 89-92 but he does not feel this way. Pt has scheduled xopenex treatments but no symbicort ordered. Continue Pulmicort. Patient now on IV steroids per pulmonology. (2) COPD (chronic obstructive pulmonary disease): Qualifiers: COPD type: unspecified COPD Qualified Code(s): J44.9 - Chronic obstructive pulmonary disease, unspecified Code(s): J44.9 - Chronic obstructive pulmonary disease, unspecified Status: Acute Assessment and Plan: ------continue steroids at this time. See above. (3) Leukocytosis: Code(s): D72.829 - Elevated white blood cell count, unspecified Status: Acute Assessment and Plan: ------Likely secondary to recent steroid use. Monitor CBCd. (4) H/O: HTN (hypertension): Code(s): Z86.79 - Personal history of other diseases of the circulatory system Status: Chronic Assessment and Plan: -----last blood pressure 119/63. Continue home antihypertensives. PRN hydralazine w/ parameters. (5) Anxiety: Code(s): F41.9 - Anxiety disorder, unspecified Status: Acute Assessment and Plan: -----PRN ativan PO. Will continue BuSpar that he had last stay. Subjective Date/time seen: 04/17/20 15:44 Interval history: Pt with severe COPD admitted with acute on chronic hypercapnic respiatory failure. Today he is anxious and we had a long discussion about the plan of care. He is worried about his o2 equipment. He does not feel SOB at the time of my exam. He further denies CP,fevers, chills, abdominal pain, leg swelling, nausea or vomiting. Exam Narrative: Exam Narrative: General: Well developed well nourished patient resting in bed in no acute distress with 3 L of oxygen applied HEENT: normocephalic Neck: supple Neuro: Alert and oriented x 4. Cranial nerves 2-12 intact. Equal strength upper lower extremities 5/5 CV:RRR. Telemetry shows occasional sinus tachycardia, current rate 100 Resp: No conversational dyspnea or retractions. Respiratory rate normal. Decreased lung sounds but better compared to yesterday. Abd: Soft, non distended. No pain to palpation. Positive bowel sounds Extremities: No swelling, erythema, or pain to palpation. Objective Data Vital Signs Vital Signs: Vital Signs - 24 hr 04/16/20 16:00 04/16/20 17:30 04/16/20 17:41 Temperature 98.3 F Pulse Rate 107 H 111 H 113 H Respiratory Rate 24 H Blood Pressure 101/66 Pulse Oximetry 95 04/16/20 20:00 04/16/20 20:28 04/16/20 20:46 Temperature 97 F L Pulse Rate 100 104 H 111 H Respiratory Rate 20 20 20 Blood Pressure 120/53 L Pulse Oximetry 94 04/16/20 20:48 04/16/20 22:00 04/17/20 00:00 Temperature 98 F Pulse Rate 103 H 102 H 100 Respiratory Rate 20 22 H Blood Pressure 109/62 Pulse Oximetry 93 96 04/17/20 00:03 04/17/20 00:19 04/17/20 02:00 Temperature Pulse Rate 94 97 86 Respiratory Rate 20 20 Blood Pressure Pulse Oximetry 04/17/20 03:55 04/17/20 04:00 04/17/20 04:04 Temperature 98.7 F Pulse Rate 91 90 93 Respiratory Rate 20 22 H 20 Blood Pressure 115/56 L Pulse Oximetry 95 04/17/20 06:00 04/17/20 07:37 04/17/20 07:48 Temperatur
--- NOTE | 2020-04-17 17:16 | PM.PNPUL ---
Progress Note: A&P Assessment and Plan (1) COPD exacerbation: Code(s): J44.1 - Chronic obstructive pulmonary disease with (acute) exacerbation Status: Acute Assessment and Plan: - maintain Xopenex to 1.25 mg Q4h - continue ipratropium 0.5 mg Q4h - continue pulmicort nebs. 0.5 mg bid and d/c symbicort - decrease solumedrol 40 mg IV Q6h from 60 mg q 6h - add nasal saline spray for crusted blood in his nose - increase Buspar to 15 mg Q 12 hours from 7.5 mg (2) Acute respiratory failure with hypercapnia: Code(s): J96.02 - Acute respiratory failure with hypercapnia Status: Acute Assessment and Plan: Pt is at high risk for intubation given that he's refusing to wear BIPAP. I have changed the settings to 12/4 incase he agrees with back rate of 16. Titrate FiO2 to keep sats > 88%. If he becomes lethargic he may need to be moved to ICU and intubated. ABG's Q12h for the next 1-2 days is recommended. Subjective Date/time seen: 04/17/20 17:16 Interval history: Pt with severe COPD admitted win acute on chronic hypercapnic respiatory failure. Today he is very anxious, short of breath, can't get comfortable. He was just moved back into bed from bathroom. I instructed him to go back on the BIPAP but he is refusing. He's acting a bit confused as well. Blood gas from this morning appears to be over corrected hypercapnia with acute respiratory alkalosis on top of chronic hypercapnea. He is worried about an area that he can feel under his skin; it is his xiphoid. He wants to know why is it there all the sudden. It has been there his whole life. He is anxious, has been without sleep for several days. He is paranoid, pleasant. He wants the O2 tubing from home analyzed for zeolite. This is not an option. He said that his tubing was exposed to light today and went from brown to clear. He has it in his plastic bag, does not want me to get it out to look. Review of Systems Review of Systems: All systems reviewed & are unremarkable except as noted in HPI and below Exam Const: General: in distress and uncomfortable Eyes: General: appearance normal, both eyes and all related structures Neck: Neck: supple and no JVD Resp: Auscultation: no crackles, no rales, no rhonchi, no wheezes and diminished lung sounds Other: No significant air movement Cardio: Rate: tachycardic Rhythm: regular rhythm GI: Auscultation: normal bowel sounds Skin: General skin exam: normal color and no rashes or lesions noted Neuro: Cognition (Neuro): abnormal cognition Extrem: General: normal to inspection, no edema and no pedal edema Psych: Affect: Anxious affect present Objective Data Vital Signs Vital Signs: Vital Signs - 24 hr 04/16/20 17:30 04/16/20 17:41 04/16/20 20:00 Temperature 36.8 C 36.1 C L Pulse Rate 111 H 113 H 100 Respiratory Rate 24 H 20 Blood Pressure 101/66 120/53 L Pulse Oximetry 95 94 04/16/20 20:28 04/16/20 20:46 04/16/20 20:48 Temperature Pulse Rate 104 H 111 H 103 H Respiratory Rate 20 20 20 Blood Pressure Pulse Oximetry 93 04/16/20 22:00 04/17/20 00:00 04/17/20 00:03 Temperature 36.6 C Pulse Rate 102 H 100 94 Respiratory Rate 22 H 20 Blood Pressure 109/62 Pulse Oximetry 96 04/17/20 00:19 04/17/20 02:00 04/17/20 03:55 Temperature Pulse Rate 97 86 91 Respiratory Rate 20 20 Blood Pressure Pulse Oximetry 04/17/20 04:00 04/17/20 04:04 04/17/20 06:00 Temperature 37.1 C Pulse Rate 90 93 94 Respiratory Rate 22 H 20 Blood Pressure 115/56 L Pulse Oximetry 95 04/17/20 07:37 04/17/20 07:48 04/17/20 08:00 Temperature 36.3 C L Pulse Rate 90 94 94 Respiratory Rate 20 20 16 Blood Pressure 122/58 L Pulse Oximetry 93 99 04/17/20 10:11 04/17/20 11:31 04/17/20 11:38 Temperature Pulse Rate 103 H 63 95 Respiratory Rate 20 20 Blood Pressure Pulse Oximetry 04/17/20 11:56 04/17/20 12:00 04/17/20 14:14 Temperature 36.6 C
[2020-04-17] MEDS: methylPREDNISolone SOD SUCC 40 MG VIAL IV PUSH ×2 (18:38→23:49)
[2020-04-17] MEDS: SALINE 0.65% NAS SOLN 44 ML BTL 1 SPRAY NASAL (18:38)
[2020-04-17] MEDS: busPIRone HCL 5 MG TABLET 15 MG PO (20:24)
[2020-04-18] VITALS (27 sets, daily range): BP systolic 103–125; BP diastolic 58–77; PULSE 87–118; RESP 18–22; TEMP 36.2–36.8; O2SAT 92–98
[2020-04-18] MEDS: BUDESONIDE RESPULE NEB 0.5 MG/2 ML AMP INHALATION ×3 (00:46→20:08)
[2020-04-18] MEDS: IPRATROPIUM BR 0.02% INH SOLN 0.5 MG/2.5 ML VIAL INHALATION ×6 (00:46→23:56)
[2020-04-18 04:14] LABS: Hematocrit 36.6 % (42.0-52.0); Mean Corpuscular HGB Conc 32.8 g/dl (32-36); Mean Corpuscular Hemoglobin 28.5 pg (26-34); Mean Corpuscular Volume 86.9 fl (80-100); Platelet Count Result 247 k/mm3 (150-375); Red Blood Count 4.21 M/mm3 (4.6-6.20); Red Cell Distribution Width 13.8 % (11.5-14.5); White Blood Count 17.8 K/mm3 (4.5-10.0)
[2020-04-18 04:30] LABS: Blood Urea Nitrogen 20 mg/dL (9-20); Calcium 9.1 mg/dL (8.4-10.2); Carbon Dioxide > 40 mmol/L (22-30); Chloride 90 mmol/L (98-107); Estimated CRCL calculation 82 ml/min; Estimated Glomerular Filt Rate > 60; Glucose 150 mg/dL (75-110); Magnesium 1.9 mg/dL (1.6-2.3); Potassium 3.5 mmol/L (3.4-5.0); Sodium 132 mmol/L (137-145)
[2020-04-18] MEDS: methylPREDNISolone SOD SUCC 40 MG VIAL IV PUSH ×2 (06:29→17:04)
[2020-04-18 08:10] LABS: Alveolar/Arterial O2 Gradient 98.2 mmHg; Base Excess ABG 13.8 mEq/l (+/-2.0); Carboxyhemoglobin 0.3 % THb (0-2.0); Fractional Inspired Oxygen 32 %; HCO3 ABG 38.9 mEq/l (22.0-26.0); Methemoglobin ABG 0.4 %THb (0-1.5); Oxygen Content ABG 17.7 %vol (16.0-22.0); Oxygen Saturation ABG 95.4 % (95.0-100.0); Oxyhemoglobin 93.9 % THb (90.0-100.0); PCO2 ABG 50.1 mmHg (35.0-45.0); PO2 ABG 71.3 mmHg (80.0-100.0); PO2 FiO2 Ratio Arterial Blood 2.23 %; Reduced Hemoglobin 5.4 %THb (0-5.0); Total Hemoglobin 13.4 g/dL (12.0-18.0); pH ABG 7.508 (7.350-7.450)
[2020-04-18 08:11] LABS: Device NASAL CANNULA; Site Drawn LEFT BRACHIAL
[2020-04-18] MEDS: PANTOPRAZOLE 40 MG TABLET PO ×2 (08:44→17:04)
[2020-04-18] MEDS: busPIRone HCL 5 MG TABLET 15 MG PO ×2 (08:44→20:43)
[2020-04-18] MEDS: hydroCHLOROthiazide 25 MG TABLET PO (08:44)
[2020-04-18] MEDS: TAMSULOSIN HCL 0.4 MG CAPSULE PO (08:44)
--- NOTE | 2020-04-18 09:12 | PM.IMPN ---
Progress Note: A&P Assessment and Plan (1) Acute respiratory failure with hypercapnia: Code(s): J96.02 - Acute respiratory failure with hypercapnia Status: Acute Assessment and Plan: -----the patient refused the BiPAP last night. His CO2 is slightly worse but is actually at his baseline now. His pH is still alkalotic but is trending down. He may need adjustments to his BiPAP since he is alkalotic and his bicarb is high. His baseline CO2 is 55-65 but he got down to 45 with little over correction which I think is why he is alkalotic. This will likely regularly as his bicarb will start to decrease. Overall, the patient is doing better. He did have an aspiration event but recovered well. I am going to decrease his steroids to 40 mg q.12 in hopes that we can get him to oral steroids tomorrow. Hoping we can discharge him tomorrow if he continues to improve. Pt has scheduled xopenex and Pulmicort. (2) COPD (chronic obstructive pulmonary disease): Qualifiers: COPD type: unspecified COPD Qualified Code(s): J44.9 - Chronic obstructive pulmonary disease, unspecified Code(s): J44.9 - Chronic obstructive pulmonary disease, unspecified Status: Acute Assessment and Plan: ------continue steroids at this time. See above. (3) Leukocytosis: Code(s): D72.829 - Elevated white blood cell count, unspecified Status: Acute Assessment and Plan: ------Likely secondary to recent steroid use. Monitor CBCd. (4) H/O: HTN (hypertension): Code(s): Z86.79 - Personal history of other diseases of the circulatory system Status: Chronic Assessment and Plan: -----last blood pressure 115/77. Continue home antihypertensives. PRN hydralazine w/ parameters. (5) Anxiety: Code(s): F41.9 - Anxiety disorder, unspecified Status: Acute Assessment and Plan: -----PRN ativan PO. Will continue BuSpar that he had last stay. Additional Plan Subjective Date/time seen: 04/18/20 09:12 Interval history: Pt with severe COPD admitted with acute on chronic hypercapnic respiatory failure. Patient was seen today and states he choked on some of his toast today. He said he thought it was softer and did not have his dentures in and he ended up aspirating a little. He has been coughing more since then and his heart rates up but he denies chest pain or real shortness of breath. He does not usually choke on food. He predicts that he will have about 3 bowel movements today. His last bowel movement was solid. He is eating and drinking okay without issue. No swelling in his legs nausea, vomiting, fevers or chills. Exam Narrative: Exam Narrative: General: Well developed well nourished patient resting in bed in no acute distress with 3 L of oxygen applied HEENT: normocephalic Neck: supple Neuro: Alert and oriented x 4. Cranial nerves 2-12 intact. Equal strength upper lower extremities 5/5 CV: Patient has sinus tachycardia today after a choking episode rate of 120. It appears regular without any abnormalities. Resp: No conversational dyspnea or retractions. Respiratory rate normal. Decreased lung sounds but stable. No rhonchi or wheezing Abd: Soft, non distended. No pain to palpation. Positive bowel sounds Extremities: No swelling, erythema, or pain to palpation. Objective Data Vital Signs Vital Signs: Vital Signs - 24 hr 04/17/20 10:11 04/17/20 11:31 04/17/20 11:38 Temperature Pulse Rate 103 H 63 95 Respiratory Rate 20 20 Blood Pressure Pulse Oximetry 04/17/20 11:56 04/17/20 12:00 04/17/20 14:14 Temperature 98 F Pulse Rate 106 H 107 H 96 Respiratory Rate 18 Blood Pressure 119/63 Pulse Oximetry 96 04/17/20 16:00 04/17/20 16:35 04/17/20 16:45 Temperature 97.9 F Pulse Rate 95 98 105 H Respiratory Rate 18 20 20 Blood Pressure 103/67 Pulse Oximetry 99 04/17/20 18:36 04/17/20 19:51
--- NOTE | 2020-04-18 13:32 | PM.PNPUL ---
Progress Note: A&P Assessment and Plan (1) COPD exacerbation: Code(s): J44.1 - Chronic obstructive pulmonary disease with (acute) exacerbation Status: Acute Assessment and Plan: - agree with wean systemic steroids. I would recommend slowly weaning over 7-10 days in this case - should go home on Spiriva Respimat 2.5 mcg 2 puffs daily with Symbicort 160/4.5 mcg 2 puffs bid via chamber device - compliance should be monitored at home given his mental illness (2) Acute respiratory failure with hypercapnia: Code(s): J96.02 - Acute respiratory failure with hypercapnia Status: Acute Assessment and Plan: Doing much better than a few days ago. He is less short of breath and more coherent although still has delusions which is probably chronic. 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 The BIPAP settings is not likely contributing to his over correction given that he has woren BIPAP in three days. - The patient will likely not be compliant with BIPAP and hence I would not recommend a home NIV device (3) Delusion: Code(s): F22 - Delusional disorders Status: Acute Assessment and Plan: Delusions seem to be chronic. He describes fire coming out of his oxygen tubing dirt in his tubing and says that dirt and fire are being pumped into his head I'd recommend Psychiatry consult to see if he has underlying schizoaffective disorder or psyhzophrenia. This may affect his compliance with COPD treatment. Subjective Date/time seen: 04/18/20 13:32 Interval history: Doing much better than a few days ago. He is less short of breath and more coherent although still has delusions which is probably chronic. 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 The BIPAP settings is not likely contributing to his over correction given that he has woren BIPAP in three days. Review of Systems Review of Systems: All systems reviewed & are unremarkable except as noted in HPI and below Exam Const: General: comfortable and no acute distress Eyes: General: appearance normal, both eyes and all related structures Neck: Neck: supple and no JVD Resp: Auscultation: no crackles, no rales, no rhonchi, wheezes and diminished lung sounds Other: improved air movement when compared to a couple of days ago. Cardio: Rate: tachycardic Rhythm: regular rhythm GI: Auscultation: normal bowel sounds Skin: General skin exam: normal color and no rashes or lesions noted Neuro: Cognition (Neuro): abnormal cognition Extrem: General: normal to inspection, no edema and no pedal edema Psych: Affect: normal affect Other: delusions. Objective Data Vital Signs Vital Signs: Vital Signs - 24 hr 04/17/20 14:14 04/17/20 16:00 04/17/20 16:35 Temperature 36.6 C Pulse Rate 96 95 98 Respiratory Rate 18 20 Blood Pressure 103/67 Pulse Oximetry 99 04/17/20 16:45 04/17/20 18:36 04/17/20 19:51 Temperature 36.5 C Pulse Rate 105 H 115 H 99 Respiratory Rate 20 20 Blood Pressure 108/47 L Pulse Oximetry 93 04/17/20 20:00 04/17/20 20:07 04/17/20 20:15 Temperature Pulse Rate 99 91 99 Respiratory Rate 20 20 20 Blood Pressure Pulse Oximetry 93 04/17/20 22:00 04/17/20 23:48 04/18/20 00:00 Temperature 36.2 C L Pulse Rate 128 H 110 H 110 H Respiratory Rate 18 18 Blood Pressure 100/60 Pulse Oximetry 94 93 04/18/20 00:46 04/18/20 00:57 04/18/20 02:00 Temperature Pulse Rate 106 H 99 99 Respiratory Rate 20 20 Blood Pressure Pulse Oximetry 92 04/18/20 04:00 04/18/20 06:00 04/18/20 07:54 Temperature 36.2 C L Pulse Rate 94 99 Respiratory Rate 22 H Blood Pressure 115/58 L Pulse Oximetry 94 93 04/18/20 07:55 04/18/20 08:00 04/18/20 08:15 Temperature 36.6 C Pulse Ra
[2020-04-19] VITALS (26 sets, daily range): BP systolic 116–136; BP diastolic 62–80; PULSE 81–135; RESP 18–25; TEMP 35.8–36.5; O2SAT 91–97
[2020-04-19] MEDS: SALINE 0.65% NAS SOLN 44 ML BTL 1 SPRAY NASAL (03:27)
[2020-04-19] MEDS: IPRATROPIUM BR 0.02% INH SOLN 0.5 MG/2.5 ML VIAL INHALATION ×5 (03:50→23:55)
[2020-04-19] MEDS: methylPREDNISolone SOD SUCC 40 MG VIAL IV PUSH (06:02)
[2020-04-19 06:34] LABS: Hematocrit 38.1 % (42.0-52.0); Hemoglobin 12.2 g/dL (14.0-18.0); Mean Corpuscular Hemoglobin 28.2 pg (26-34); Platelet Count Result 230 k/mm3 (150-375); Red Blood Count 4.33 M/mm3 (4.6-6.20); Red Cell Distribution Width 13.8 % (11.5-14.5); White Blood Count 16.7 K/mm3 (4.5-10.0)
[2020-04-19 06:47] LABS: Blood Urea Nitrogen 20 mg/dL (9-20); Calcium 8.8 mg/dL (8.4-10.2); Carbon Dioxide 39 mmol/L (22-30); Chloride 90 mmol/L (98-107); Estimated CRCL calculation 108 ml/min; Estimated Glomerular Filt Rate > 60; Glucose 117 mg/dL (75-110); Potassium 3.6 mmol/L (3.4-5.0); Sodium 133 mmol/L (137-145)
[2020-04-19] MEDS: BUDESONIDE RESPULE NEB 0.5 MG/2 ML AMP INHALATION ×2 (07:38→19:41)
[2020-04-19] MEDS: LORAZEPAM 0.5 MG TABLET PO ×2 (08:43→17:35)
[2020-04-19] MEDS: TAMSULOSIN HCL 0.4 MG CAPSULE PO (08:44)
[2020-04-19] MEDS: hydroCHLOROthiazide 25 MG TABLET PO (08:45)
[2020-04-19] MEDS: busPIRone HCL 5 MG TABLET 15 MG PO ×2 (08:45→21:43)
[2020-04-19] MEDS: PANTOPRAZOLE 40 MG TABLET PO ×2 (08:45→18:17)
--- NOTE | 2020-04-19 10:27 | PM.IMPN ---
Progress Note: A&P Assessment and Plan (1) Acute respiratory failure with hypercapnia: Code(s): J96.02 - Acute respiratory failure with hypercapnia Status: Acute Assessment and Plan: -----Pt appears a bit worse today and has an elevated respiratory rate and heart rate. He had an aspiration event yesterday which may have caused some pneumonitis or start of an infection. CXR reviewed with no change. Will place back on high dose IV steroids and doxy added. Spoke with pulmonology about the plan of care. pt is still having alkolosis due to a quick correction of his Co2. His bicarb will likely trend back down to regulate but pt won't wear the bipap so his co2 may increase as well--thus gradually improving his alkolosis. (2) COPD (chronic obstructive pulmonary disease): Qualifiers: COPD type: unspecified COPD Qualified Code(s): J44.9 - Chronic obstructive pulmonary disease, unspecified Code(s): J44.9 - Chronic obstructive pulmonary disease, unspecified Status: Acute Assessment and Plan: ------continue steroids at this time. See above. (3) Leukocytosis: Code(s): D72.829 - Elevated white blood cell count, unspecified Status: Acute Assessment and Plan: ------Likely secondary to recent steroid use. Monitor CBCd. (4) H/O: HTN (hypertension): Code(s): Z86.79 - Personal history of other diseases of the circulatory system Status: Chronic Assessment and Plan: -----last blood pressure 130/80. Continue home antihypertensives. PRN hydralazine w/ parameters. (5) Anxiety: Code(s): F41.9 - Anxiety disorder, unspecified Status: Acute Assessment and Plan: -----PRN ativan PO. Will continue BuSpar that he had last stay. Pt has exhibited signs of paranoia and this may be causing him not to comply with treatment. Seroquel started. Additional Plan Subjective Date/time seen: 04/19/20 10:27 Interval history: Late entry-Pt with severe COPD admitted with acute on chronic hypercapnic respiatory failure. Pt was seen today and is feeling more SOB and anxious. he has not choked on any more food since the day prior. He denies nausea, vomiting, fevers, chills, abdominal pain, chest pain, or leg swelling. Exam Narrative: Exam Narrative: General: Well developed well nourished patient resting in bed in no acute distress with 3 L of oxygen applied HEENT: normocephalic Neck: supple Neuro: Alert and oriented x 4. Cranial nerves 2-12 intact. Equal strength upper lower extremities 5/5 CV: HR 120, tele shows sinus tachycardia. Resp: No conversational dyspnea or retractions but elevated respiratory rate. Decreased lung sounds but stable. No rhonchi or wheezing Abd: Soft, non distended. No pain to palpation. Positive bowel sounds Extremities: No swelling, erythema, or pain to palpation. Objective Data Vital Signs Vital Signs: Vital Signs - 24 hr 04/19/20 10:00 04/19/20 12:00 04/19/20 13:00 Temperature 96.5 F L Pulse Rate 118 H 128 H 135 H Respiratory Rate 24 H 24 H Blood Pressure 130/80 Pulse Oximetry 91 04/19/20 13:19 04/19/20 14:00 04/19/20 16:00 Temperature 97.0 F L Pulse Rate 123 H 112 H 113 H Respiratory Rate 24 H 18 Blood Pressure 116/74 Pulse Oximetry 94 04/19/20 19:44 04/19/20 19:50 04/19/20 20:00 Temperature Pulse Rate 111 H 108 H 125 H Respiratory Rate 20 24 H Blood Pressure Pulse Oximetry 04/19/20 21:38 04/19/20 22:21 04/19/20 23:50 Temperature 97.5 F L Pulse Rate 118 H 119 H 112 H Respiratory Rate 20 20 22 H Blood Pressure 136/78 Pulse Oximetry 92 94 95 04/20/20 00:00 04/20/20 00:44 04/20/20 01:21 Temperature Pulse Rate 97 125 H 114 H Respiratory Rate 24 H 24 H Blood Pressure Pulse Oximetry 91 92 04/20/20 02:02 04/20/20 04:00 04/20/20 06:28 Temperature 97.1 F L Pulse Rate 112 H 111 H 120 H Respiratory Rate 22 H Blood Pres
--- NOTE | 2020-04-19 11:22 | PM.PNPUL ---
Progress Note: A&P Assessment and Plan (1) COPD exacerbation: Code(s): J44.1 - Chronic obstructive pulmonary disease with (acute) exacerbation Status: Acute Assessment and Plan: - agree with increasing solumedrol back up to 60 mg IV Q6h - hold off on dishcarge for atleast another 48-72 hours - should go home on Spiriva Respimat 2.5 mcg 2 puffs daily with Symbicort 160/4.5 mcg 2 puffs bid via chamber device - compliance should be monitored at home given his mental illness (2) Acute respiratory failure with hypercapnia: Code(s): J96.02 - Acute respiratory failure with hypercapnia Status: Acute Assessment and Plan: Doing much better than a few days ago. He is less short of breath and more coherent although still has delusions which is probably chronic. 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 The BIPAP settings is not likely contributing to his over correction given that he has woren BIPAP in three days. - The patient will likely not be compliant with BIPAP and hence I would not recommend a home NIV device (3) Delusion: Code(s): F22 - Delusional disorders Status: Acute Assessment and Plan: Delusions seem to be chronic. He describes fire coming out of his oxygen tubing dirt in his tubing and says that dirt and fire are being pumped into his head I'd recommend Psychiatry consult to see if he has underlying schizoaffective disorder or psyhzophrenia. This may affect his compliance with COPD treatment. Agree with starting low dose Seroquel at 25-50 mg PO QHS. The systemic steroids is undoubtedly adding to his psychosis but they are necessary now with his severe COPD exacerbation. Subjective Date/time seen: 04/19/20 11:22 Interval history: Feeling more short of breath. Still having delusions of fire coming out of BIPAP and oxygen concentrator and fire is going in his lungs and brain. Review of Systems Review of Systems: All systems reviewed & are unremarkable except as noted in HPI and below Exam Const: General: comfortable and no acute distress Eyes: General: appearance normal, both eyes and all related structures Neck: Neck: supple and no JVD Resp: Auscultation: no crackles, no rales, no rhonchi, wheezes and diminished lung sounds Other: improved air movement when compared to a couple of days ago. Cardio: Rate: tachycardic Rhythm: regular rhythm GI: Auscultation: normal bowel sounds Skin: General skin exam: normal color and no rashes or lesions noted Neuro: Cognition (Neuro): abnormal cognition Extrem: General: normal to inspection, no edema and no pedal edema Psych: Affect: normal affect Other: delusions. Objective Data Vital Signs Vital Signs: Vital Signs - 24 hr 04/18/20 11:57 04/18/20 12:00 04/18/20 13:04 Temperature 36.8 C Pulse Rate 95 95 115 H Respiratory Rate 18 20 Blood Pressure 111/60 Pulse Oximetry 98 94 04/18/20 13:15 04/18/20 14:02 04/18/20 16:00 Temperature 36.6 C Pulse Rate 110 H 118 H 107 H Respiratory Rate 20 22 H Blood Pressure 125/58 L Pulse Oximetry 96 04/18/20 16:11 04/18/20 16:20 04/18/20 18:18 Temperature Pulse Rate 111 H 104 H 94 Respiratory Rate 20 20 Blood Pressure Pulse Oximetry 04/18/20 19:51 04/18/20 20:00 04/18/20 20:08 Temperature 36.6 C Pulse Rate 102 H 96 96 Respiratory Rate 20 20 20 Blood Pressure 103/69 Pulse Oximetry 96 96 04/18/20 20:18 04/18/20 21:57 04/18/20 22:56 Temperature 36.2 C L Pulse Rate 96 99 88 Respiratory Rate 20 20 Blood Pressure 113/64 Pulse Oximetry 96 97 04/18/20 23:59 04/19/20 00:00 04/19/20 00:02 Temperature Pulse Rate 87 81 Respiratory Rate 20 20 Blood Pressure Pulse Oximetry 97 96 04/19/20 00:05 04/19/20 01:35 04/19/20 03:47 Temperature 36.5 C Pulse Rate 85 82 103 H Respiratory Rate 20 20 Blo
[2020-04-19] MEDS: methylPREDNISolone SOD SUCC 125 MG VIAL 60 MG IV PUSH ×2 (12:45→18:17)
[2020-04-19] MEDS: AMOXICILLIN/CLAVULANATE K 500-125 MG TAB 1 TABLET PO ×2 (13:08→21:44)
--- NOTE | 2020-04-19 14:17 | PC.NURSE ---
This patient, Raimundo Johnson, was transferred to [facility] on 04/19/20 at 1400. Personal belongings sent with patient. Report given to Matt. Appropriate documentation sent with patient.
--- NOTE | 2020-04-19 14:22 | PC.NURSE ---
This patient, Raimundo Johnson, was received from [facility] on 04/19/20 at 1400. Personal belongings list checked and signed. Patient/family oriented to unit policies and routines
[2020-04-19] MEDS: QUEtiapine FUMARATE 25 MG TABLET PO (21:43)
[2020-04-20] VITALS (23 sets, daily range): BP systolic 112–122; BP diastolic 60–78; PULSE 87–126; RESP 16–24; TEMP 36.2–36.9; O2SAT 90–95
--- NOTE | 2020-04-20 02:02 | PCRCNOTE ---
Respiratory therapy at bedside multiple times to place and adjust NPPV at 02:00 patient request NPPV off and placed back on nasal cannula at 3L
[2020-04-20 05:31] LABS: Blood Urea Nitrogen 21 mg/dL (9-20); Calcium 9.2 mg/dL (8.4-10.2); Carbon Dioxide 39 mmol/L (22-30); Chloride 90 mmol/L (98-107); Estimated CRCL calculation 108 ml/min; Estimated Glomerular Filt Rate > 60; Glucose 134 mg/dL (75-110); Sodium 133 mmol/L (137-145)
[2020-04-20] MEDS: AMOXICILLIN/CLAVULANATE K 500-125 MG TAB 1 TABLET PO ×3 (06:49→21:22)
[2020-04-20] MEDS: methylPREDNISolone SOD SUCC 125 MG VIAL 60 MG IV PUSH ×2 (06:49→17:41)
--- NOTE | 2020-04-20 08:00 | ECG_ITS ---
Measurements Intervals [place] Rate: 104 P: 79 LA: 138 QRS: 66 QRSD: 98 T: 42 QT: 337 QTc: 445 Interpretive Statements SINUS TACHYCARDIA ATRIAL PREMATURE COMPLEX INCOMPLETE RIGHT BUNDLE BRANCH BLOCK BORDERLINE ST ABNORMALITY- INFERIOR LEADS ABNORMAL ECG Electronically Signed On 04-20-2020 9:37:09 CDT by Larry Watson D.O.
[2020-04-20] MEDS: IPRATROPIUM BR 0.02% INH SOLN 0.5 MG/2.5 ML VIAL INHALATION ×2 (08:24→12:12)
[2020-04-20] MEDS: PANTOPRAZOLE 40 MG TABLET PO ×2 (08:32→17:41)
[2020-04-20] MEDS: busPIRone HCL 5 MG TABLET 15 MG PO ×2 (08:32→21:22)
[2020-04-20] MEDS: hydroCHLOROthiazide 25 MG TABLET PO (08:32)
[2020-04-20] MEDS: TAMSULOSIN HCL 0.4 MG CAPSULE PO (08:32)
[2020-04-20] MEDS: BUDESONIDE RESPULE NEB 0.5 MG/2 ML AMP INHALATION ×2 (08:37→20:06)
[2020-04-20 09:23] LABS: Device NON-INVASIVE VENT; Modified Allen's Test Pass; Site Drawn RIGHT RADIAL
[2020-04-20 09:24] LABS: Non-Invasive Expiratory Pressure 8 CMH2O; Non-Invasive Inspiratory Pressure 16 CMH2O; Non-Invasive Vent Rate 15 /MIN
--- NOTE | 2020-04-20 12:29 | PM.PNPUL ---
Progress Note: A&P Assessment and Plan (1) COPD exacerbation: Code(s): J44.1 - Chronic obstructive pulmonary disease with (acute) exacerbation Status: Acute Assessment and Plan: - agree with increasing solumedrol back up to 60 mg IV Q6h - hold off on discharge for at least another 24-48 hours - should go home on Spiriva Respimat 2.5 mcg 2 puffs daily with Symbicort 160/4.5 mcg 2 puffs bid via chamber device - compliance should be monitored at home given his mental illness (2) Acute respiratory failure with hypercapnia: Code(s): J96.02 - Acute respiratory failure with hypercapnia Status: Acute Assessment and Plan: Doing much better than a few days ago. He is less short of breath and more coherent although still has delusions which is probably chronic. 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 The BIPAP settings is not likely contributing to his over correction given that he has woren BIPAP in three days. - The patient will likely not be compliant with BIPAP and hence I would not recommend a home NIV device. (3) Delusion: Code(s): F22 - Delusional disorders Status: Acute Assessment and Plan: Delusions seem to be chronic. He describes fire coming out of his oxygen tubing dirt in his tubing and says that dirt and fire are being pumped into his head It would be great to have a Psychiatry consult to see if he has underlying schizoaffective disorder or psyhzophrenia. This may affect his compliance with COPD treatment. This is not always availabe as an inpatient. He has started low dose Seroquel at 25-50 mg PO QHS. The systemic steroids is undoubtedly adding to his psychosis but they are necessary now with his severe COPD exacerbation. (4) Urinary retention: Code(s): R33.9 - Retention of urine, unspecified Status: Acute Assessment and Plan: He states that he is getting Carlton soon; acute urinary retention may be due to ipratropium nebs Q 4 hours. Will stop and see if urinary retention and constipation get better. He may also need Niralax and Colace for constipation. Subjective Date/time seen: 04/20/20 12:29 Interval history: This 64 yo man is seen in follow up for COPD exacerbation; continues to feel more short of breath. Still having delusions of fire coming out of BIPAP and oxygen concentrator and fire is going in his lungs and brain. He started Seroquel last night, low dose He complains of being constipated, and has urinary retention that is requiring a Carlton catheter to be placed. These both may be due to the ipratropium treatments. Will stop the ipratropium nebs Q 4 hours. He is going to get the Carlton soon. I offered some meds for bowel regimen; he does not want suppository but will take oral meds. He asked me to call his sister Ricco, . She says that he has been thinking abnormally for a long time, and hse thinks that the patient's son Dorian should be the POA for healthcare decisions. She also agrees taht he needs psych evaluation, and he had had heavy worship thoughts for years, now worse. He has a history of GI Ulcers. Review of Systems Review of Systems: All systems reviewed & are unremarkable except as noted in HPI and below Exam Const: General: comfortable, no acute distress (no respiratory distress) and anxious Eyes: General: appearance normal, both eyes and all related structures Neck: Neck: supple and no JVD Resp: Auscultation: no crackles, no rales, no rhonchi, wheezes and diminished lung sounds Other: hyperinflated, decreased breath sounds Cardio: Rate: tachycardic
[2020-04-20] MEDS: BISACODYL 5 MG TABLET EC PO (14:04)
[2020-04-20] MEDS: polyethylene glycoL 3350 17 GM POWD.PACK PO (14:04)
--- NOTE | 2020-04-20 15:04 | PM.IMPN ---
Progress Note: A&P Assessment and Plan (1) Acute respiratory failure with hypercapnia: Code(s): J96.02 - Acute respiratory failure with hypercapnia Status: Acute Assessment and Plan: -----patient has severe lung disease and is not progressing with current treatment. The high dose of steroids is causing significant anxiety and tachycardia and has been adjusted down. He has tight lung sounds and breathing treatments do not appear to be opening up his lungs. Chest x-ray does not show any acute infiltrates. He was started on antibiotics 04/19 after an aspiration event that led to his worsening. This was a single aspiration event and he has not been choking or aspirating routinely. At this time we can continue level butyrate all, Pulmicort, Augmentin, methylprednisone, and monitoring. Pulmonology is on board (2) COPD (chronic obstructive pulmonary disease): Qualifiers: COPD type: unspecified COPD Qualified Code(s): J44.9 - Chronic obstructive pulmonary disease, unspecified Code(s): J44.9 - Chronic obstructive pulmonary disease, unspecified Status: Acute Assessment and Plan: ------continue steroids at this time. See above. (3) Leukocytosis: Code(s): D72.829 - Elevated white blood cell count, unspecified Status: Acute Assessment and Plan: ------Likely secondary to recent steroid use. Monitor CBCd. (4) H/O: HTN (hypertension): Code(s): Z86.79 - Personal history of other diseases of the circulatory system Status: Chronic Assessment and Plan: -----last blood pressure 112/60 Continue home antihypertensives. PRN hydralazine w/ parameters. (5) Anxiety: Code(s): F41.9 - Anxiety disorder, unspecified Status: Acute Assessment and Plan: -----patient has significant anxiety which the IV steroids are not helping. He was started on BuSpar his last stay and restarted again this stay. He was also started on Ativan and has been taking this. Because of his significant anxiety and paranoia, Seroquel was started last night. I would suggest trying this for a few days and if he continues to be paranoid or anxious may be increasing the dose or the frequency. The patient has not been sleeping very well because of steroids which can make this worse. He said he finally slept well with Seroquel last night. Hopefully he will improve in the next few days. QTC is 445--increased from admission. This is borderline and will be checked tomorrow. Continue telemetry monitoring. (6) Constipation: Code(s): K59.00 - Constipation, unspecified Status: Acute Assessment and Plan: -----Will order bowel regimen. (7) Urinary retention: Code(s): R33.9 - Retention of urine, unspecified Status: Acute Assessment and Plan: -----Straight cath x 1 and continue flomax. Hopefully once he increases his activity he will regulate more. (8) Sinus tachycardia: Code(s): R00.0 - Tachycardia, unspecified Status: Acute Assessment and Plan: -----Likely d/t anxiety, lung disease, and high level of steroids. Ekg reviewed, will obtain echo. Additional Plan Subjective Date/time seen: 04/20/20 15:04 Interval history: Patient is a 64-year-old male here for respiratory failure. Patient was seen today and still very anxious. He was receiving a breathing treatment and said he is feeling a bit better. He says most of his shortness of breath is when he gets up and moves. He is continuously watching his pulse ox and we talked about not obsessing over a number and going off his symptoms. Patient does exhibit some paranoia but is not a harm to himself or others. He denies chest pain, nausea, vomiting or further aspiration. He has had some urinary retention and constipation. Exam Narrative: Exam Narrative: General: Well developed well nourished patient resting in bed in no acute d
--- NOTE | 2020-04-20 16:51 | PCRCNOTE ---
PT SAID HE DID NOT WANT A TREATMENT RIGHT NOW WE MAY TRY BACK AGAIN LATER VIVIAN
[2020-04-20] MEDS: CODEINE SULFATE 30 MG TABLET PO (17:41)
[2020-04-20] MEDS: QUEtiapine FUMARATE 25 MG TABLET PO (21:22)
[2020-04-21] VITALS (18 sets, daily range): BP systolic 103–140; BP diastolic 55–85; PULSE 59–121; RESP 12–28; TEMP 36–36.6; O2SAT 91–96
--- NOTE | 2020-04-21 | ECHO_ITS ---
Patient Info Name: Raimundo Johnson Age: 64 years : 1955 Gender: Male Ht: 69 in Wt: 217 lbs BSA: 2.22 m2 HR: 121 bpm BP: 122 / 72 mmHg Heart Rhythm: Tachycardia Technical Quality: Fair Exam Date: 04/21/2020 9:34 AM Exam Location: [facility] Pul[facility] Patient Status: Inpatient Admit Date: 04/15/2020 Staff Ordering Physician: Meera Hargrove PA-C Associate Professor Of Biology: Hugo Steele RDCS Attending Provider: Crystal Landrum PA-C Referring Physician: Delvin GREGORY; Exam Type: CA echo doppler color flow Study Info Indications R00.0 - Tachycardia, unspecified Complete two-dimensional, color flow and Doppler transthoracic echocardiogram is performed. History/Risk Factors Respiratory failure; COPD, HTN, SOB/PHILLIPS. Summary 1. Left ventricular chamber dimension is normal. 2. Left ventricular systolic function is hyperdynamic, estimated at >70%. 3. The left ventricular diastolic function is grade I diastolic dysfunction. 4. E/e' 7 is not elevated. 5. HR is in 107-137 bpm during acquisition of images. 6. Right ventricular chamber dimension is moderately enlarged. 7. Right atrial chamber dimension is mildly enlarged. 8. There is trace tricuspid valve regurgitation. 9. Severe pulmonary hypertension, estimated pulmonary arterial systolic pressure is 80 mmHg. Left Ventricle E/e' 7 is not elevated. HR is in 107-137 bpm during acquisition of images. Left ventricular chamber dimension is normal. Left ventricular systolic function is hyperdynamic, estimated at >70%. The left ventricular diastolic function is grade I diastolic dysfunction. Right Ventricle Right ventricular chamber dimension is moderately enlarged. Right ventricular systolic function is normal. Left Atria Left atrial chamber dimension is normal. Right Atria Right atrial chamber dimension is mildly enlarged. Aortic Valve Cannot determine number of aortic valve leaflets. The aortic valve is not well visualized. There is no aortic valve stenosis. There is no aortic valve regurgitation. Pulmonic Valve There is no pulmonic valve stenosis. Mitral Valve There is no mitral valve stenosis. There is no mitral valve regurgitation. Tricuspid Valve There is trace tricuspid valve regurgitation. Severe pulmonary hypertension, estimated pulmonary arterial systolic pressure is 80 mmHg. Pericardium/Pleural There is no pericardial effusion. Inferior Vena Cava Normal inferior vena cava with >50% collapse upon inspiration consistent with normal right atrial pressure, 5 mmHg. Aorta The aortic root size at the sinus of Valsalva is normal. Left Ventricular Outflow Tract Name Value Normal LVOT 2D LVOT Diameter 2.1 cm LVOT Doppler LVOT Peak Gradient 6 mmHg LVOT Mean Gradient 3 mmHg LVOT VTI 17 cm LVOT VTI/AV VTI Ratio 0.9 LVOT Stroke Volume 58 ml LVOT CO 6.6 l/min LVOT CI 3.0 l/min/m2 Mitral Valve
[2020-04-21] MEDS: LORAZEPAM 0.5 MG TABLET PO (00:57)
--- NOTE | 2020-04-21 06:03 | PC.NURSE ---
PT REFUSES TO USE URINAL TO MEASURE URINE
[2020-04-21 06:04] LABS: Basophils Absolute Auto 0.1 K/mm3 (0.0-0.1); Basophils Percent Auto 0.3 % (0.2-1.2); Hematocrit 42.7 % (42.0-52.0); Hemoglobin 13.7 g/dL (14.0-18.0); Immature Granulocyte Absolute 0.34 K/mm3 (0.00-0.031); Immature Granulocyte Percent A 1.6 % (0-0.5); Lymphocytes Absolute Auto 0.88 K/mm3 (0.9-3.2); Mean Corpuscular HGB Conc 32.1 g/dl (32-36); Mean Corpuscular Hemoglobin 28.4 pg (26-34); Mean Corpuscular Volume 88.4 fl (80-100); Mean Platelet Volume 10.2 fl (7.4-10.4); Monocytes Absolute Auto 1.1 K/mm3 (0.1-0.6); Monocytes Percent Auto 5.1 % (2.6-8.5); Neutrophils Absolute Auto 19.5 K/mm3 (1.3-6.7); Platelet Count Result 234 k/mm3 (150-375); Red Blood Count 4.83 M/mm3 (4.6-6.20); Red Cell Distribution Width 14.1 % (11.5-14.5); White Blood Count 21.9 K/mm3 (4.5-10.0)
[2020-04-21] MEDS: AMOXICILLIN/CLAVULANATE K 500-125 MG TAB 1 TABLET PO ×3 (06:15→21:10)
[2020-04-21] MEDS: methylPREDNISolone SOD SUCC 125 MG VIAL 60 MG IV PUSH ×2 (06:15→17:10)
[2020-04-21 06:20] LABS: Blood Urea Nitrogen 21 mg/dL (9-20); Calcium 9.2 mg/dL (8.4-10.2); Carbon Dioxide 38 mmol/L (22-30); Chloride 91 mmol/L (98-107); Estimated CRCL calculation 108 ml/min; Estimated Glomerular Filt Rate > 60; Glucose 132 mg/dL (75-110); Magnesium 1.9 mg/dL (1.6-2.3); Phosphorus 4.1 mg/dL (2.5-4.5); Sodium 134 mmol/L (137-145)
[2020-04-21 07:09] LABS: Thyroid Stimulating Hormone Reflex 0.451 uIU/mL (0.465-4.68)
--- NOTE | 2020-04-21 08:00 | ECG_ITS ---
Measurements Intervals [place] Rate: 107 P: 84 HI: 152 QRS: 85 QRSD: 96 T: 55 QT: 321 QTc: 429 Interpretive Statements SINUS TACHYCARDIA INCOMPLETE RIGHT BUNDLE BRANCH BLOCK DELAYED PRECORDIAL R/S TRANSITION BORDERLINE ST ABNORMALITY- ANTEROLAT/INF LEADS BASELINE WANDER- II, III, V2-V4 ABNORMAL ECG Electronically Signed On 04-21-2020 10:28:07 CDT by Larry Watson D.O.
[2020-04-21] MEDS: BUDESONIDE RESPULE NEB 0.5 MG/2 ML AMP INHALATION ×2 (08:29→20:34)
[2020-04-21 09:04] LABS: Free T4 Free Thyroxine Reflex 1.07 ng/dL (0.78-2.19)
[2020-04-21] MEDS: TAMSULOSIN HCL 0.4 MG CAPSULE PO (09:22)
[2020-04-21] MEDS: busPIRone HCL 5 MG TABLET 15 MG PO ×2 (09:22→21:10)
[2020-04-21] MEDS: BISACODYL 5 MG TABLET EC PO (09:22)
[2020-04-21] MEDS: PANTOPRAZOLE 40 MG TABLET PO ×2 (09:22→17:11)
[2020-04-21] MEDS: SALINE 0.65% NAS SOLN 44 ML BTL 1 SPRAY NASAL (09:22)
[2020-04-21] MEDS: hydroCHLOROthiazide 25 MG TABLET PO (09:22)
[2020-04-21] MEDS: polyethylene glycoL 3350 17 GM POWD.PACK PO (09:22)
[2020-04-21 10:39] LABS: Total Triiodothyronine (T3) 0.97 NG/ML (0.97-1.69)
--- NOTE | 2020-04-21 15:54 | PM.PNPUL ---
Progress Note: A&P Assessment and Plan (1) COPD exacerbation: Code(s): J44.1 - Chronic obstructive pulmonary disease with (acute) exacerbation Status: Acute Assessment and Plan: - continue to wean solumedrol 40 mg IV Q 12 hour - hold off on discharge for at least another 48 hours; will be the goal. - should go home on Spiriva Respimat 2.5 mcg 2 puffs daily with Symbicort 160/4.5 mcg 2 puffs bid via chamber device - compliance should be monitored at home given his mental illness - try to improve his sleep with higher dose of Seroquel 50 mg tonight; his QT is ok. He needs a psychiatrist. I am at my limit of being able to manage his bad thoughts. (2) Acute respiratory failure with hypercapnia: Code(s): J96.02 - Acute respiratory failure with hypercapnia Status: Acute Assessment and Plan: Doing much better than a few days ago. He is less short of breath and more coherent although still has delusions which is probably chronic. 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 The BIPAP settings is not likely contributing to his over correction given that he has woren BIPAP in three days. - The patient will likely not be compliant with BIPAP and hence I would not recommend a home NIV device. (3) Delusion: Code(s): F22 - Delusional disorders Status: Acute Assessment and Plan: Delusions seem to be chronic. He describes fire coming out of his oxygen tubing dirt in his tubing and says that dirt and fire are being pumped into his head It would be great to have a Psychiatry consult to see if he has underlying schizoaffective disorder or psyhzophrenia. This may affect his compliance with COPD treatment. This is not always availabe as an inpatient. He has started low dose Seroquel at 25-50 mg PO QHS. The systemic steroids is undoubtedly adding to his psychosis but they are necessary now with his severe COPD exacerbation. (4) Urinary retention: Code(s): R33.9 - Retention of urine, unspecified Status: Acute Assessment and Plan: catheter in and out yesterday; acute urinary retention may be due to ipratropium nebs Q 4 hours. Will stop and see if urinary retention and constipation get better. He may also need Miralax and Colace for constipation. (5) Leukocytosis: Code(s): D72.829 - Elevated white blood cell count, unspecified Status: Acute Assessment and Plan: Up to 21.9 K; he is on Augmentin, will repeat CXR tomorrow. (6) Pulmonary hypertension: Code(s): I27.20 - Pulmonary hypertension, unspecified Status: Acute Assessment and Plan: Echo 04/21 shows RVSP 80 mm Hg, most of this may be due to COPD with hypoxemia. Old echo 03/01/2018 = no pulmonary hypertension, RVSP 19 mm Hg. No RV enlargement. Subjective Date/time seen: 04/21/20 15:54 Interval history: This 64 yo man is seen in follow up for COPD exacerbation; continues to feel short of breath, worse with exertion. Still having delusions of fire coming out of BIPAP and oxygen concentrator and fire is going in his lungs and brain. Really anxious although he did get 4-5 hours of sleep last night with Seroquel 25 mg. Convinced that zeolite from the O2 tubing is being inhaled into his lungs and causing his symptoms. 04/19 : He started Seroquel 2 nights ago, low dose 04/20 : Had a catheter in and out yesterday for acute urinary retention. Stopped ipratropium nebs 2*/2 acute urinary retention + constipatio
--- NOTE | 2020-04-21 15:57 | PM.IMPN ---
Progress Note: A&P Assessment and Plan (1) COPD (chronic obstructive pulmonary disease): Qualifiers: COPD type: COPD with acute exacerbation Qualified Code(s): J44.1 - Chronic obstructive pulmonary disease with (acute) exacerbation Code(s): J44.9 - Chronic obstructive pulmonary disease, unspecified Status: Acute Assessment and Plan: Patient notes SOB is improving slightly. Patient seen with Dr Dailey and spoke with son, Dorian. Appreciate Dr Dailey's input. Today he remains on IV solu-medrol. Will decrease to 40mg Q12. Continue pulmicort and Xopenex nebs. Also on augmentin. (2) Acute and chronic respiratory failure: Qualifiers: Respiratory failure complication: hypoxia and hypercapnia Qualified Code(s): J96.21 - Acute and chronic respiratory failure with hypoxia; J96.22 - Acute and chronic respiratory failure with hypercapnia Code(s): J96.20 - Acute and chronic respiratory failure, unspecified whether with hypoxia or hypercapnia Status: Acute Assessment and Plan: Appreciate pulmonology input. See above. Tolerating 3L O2 today. (3) Pulmonary hypertension: Code(s): I27.20 - Pulmonary hypertension, unspecified Status: Acute Assessment and Plan: Noted on echocardiogram and likely related to long-standing COPD. Continue treatment above. (4) Leukocytosis: Qualifiers: Leukocytosis type: unspecified Qualified Code(s): D72.829 - Elevated white blood cell count, unspecified Code(s): D72.829 - Elevated white blood cell count, unspecified Status: Acute Assessment and Plan: May be related to high doses of steroids, will monitor. (5) Delusion: Code(s): F22 - Delusional disorders Status: Acute Assessment and Plan: He has made comments about dirt in the oxygen tubing, oxygen tubing on fire and causing fire in his mind . Family agrees noticing these odd conversations. He will benefit from psych evaluation outpatient. For now, hopefully improving his sleep and decreasing steroids will help. Seroquel increased for this evening to 50mg. Will monitor. Today he is not in danger of hurting himself or others. (6) Anxiety: Code(s): F41.9 - Anxiety disorder, unspecified Status: Acute Assessment and Plan: See above. Continued on Buspar which was started last admission. (7) Urinary retention: Code(s): R33.9 - Retention of urine, unspecified Status: Acute Assessment and Plan: Required straight cath yesterday. Will monitor. Continue flomax. Ipratropium stopped. (8) Sinus tachycardia: Code(s): R00.0 - Tachycardia, unspecified Status: Acute Assessment and Plan: [place] to be related to anxiety, lung disease, and high level of steroids. Echocardiogram reviewed. (9) Hypertension: Qualifiers: Hypertension type: essential hypertension Qualified Code(s): I10 - Essential (primary) hypertension Code(s): I10 - Essential (primary) hypertension Status: Chronic Assessment and Plan: Continue home HCTZ. Subjective Date/time seen: 04/21/20 1600 Interval history: Mr. Johnson is a 64yo M admitted for acute on chronic respiratory failure with COPD. He is anxious. He has made comments about his concerns with the oxygen tubing creating fire in his mind . He reports getting a little more sleep last night, around 4 to 5 hours. He denies chest pain. Notes his breathing feels worse with walking. No nausea or vomiting, tolerating PO intake. Review of Systems Review of Systems: Narrative: Twelve systems were reviewed with pertinent positives and negatives as per HPI. Exam Narrative
[2020-04-21] MEDS: QUEtiapine FUMARATE 25 MG TABLET 50 MG PO (21:20)
[2020-04-22] VITALS (17 sets, daily range): BP systolic 130–144; BP diastolic 71–77; PULSE 60–129; RESP 20–24; TEMP 36.1–36.2; O2SAT 89–93
[2020-04-22] MEDS: LORAZEPAM 0.5 MG TABLET PO ×2 (00:09→20:50)
[2020-04-22] MEDS: ACETAMINOPHEN 325 MG TABLET 650 MG PO ×2 (00:11→21:39)
[2020-04-22 05:39] LABS: Basophils Absolute Auto 0.1 K/mm3 (0.0-0.1); Basophils Percent Auto 0.5 % (0.2-1.2); Hematocrit 39.8 % (42.0-52.0); Hemoglobin 12.8 g/dL (14.0-18.0); Immature Granulocyte Absolute 0.58 K/mm3 (0.00-0.031); Immature Granulocyte Percent A 2.3 % (0-0.5); Lymphocytes Absolute Auto 1.02 K/mm3 (0.9-3.2); Mean Corpuscular HGB Conc 32.2 g/dl (32-36); Mean Corpuscular Hemoglobin 28.5 pg (26-34); Mean Corpuscular Volume 88.6 fl (80-100); Mean Platelet Volume 10.5 fl (7.4-10.4); Monocytes Absolute Auto 1.4 K/mm3 (0.1-0.6); Monocytes Percent Auto 5.7 % (2.6-8.5); Neutrophils Percent Auto 87.5 % (45.5-73.1); Platelet Count Result 222 k/mm3 (150-375); Red Blood Count 4.49 M/mm3 (4.6-6.20); Red Cell Distribution Width 14.3 % (11.5-14.5); White Blood Count 25.2 K/mm3 (4.5-10.0)
[2020-04-22 05:52] LABS: Blood Urea Nitrogen 23 mg/dL (9-20); Calcium 8.8 mg/dL (8.4-10.2); Carbon Dioxide 34 mmol/L (22-30); Chloride 92 mmol/L (98-107); Estimated CRCL calculation 107 ml/min; Estimated Glomerular Filt Rate > 60; Glucose 122 mg/dL (75-110); Phosphorus 4.3 mg/dL (2.5-4.5); Sodium 135 mmol/L (137-145)
[2020-04-22] MEDS: AMOXICILLIN/CLAVULANATE K 500-125 MG TAB 1 TABLET PO ×3 (06:36→20:50)
[2020-04-22] MEDS: methylPREDNISolone SOD SUCC 40 MG VIAL IV PUSH ×2 (06:36→18:29)
[2020-04-22] MEDS: BUDESONIDE RESPULE NEB 0.5 MG/2 ML AMP INHALATION ×2 (08:13→20:23)
[2020-04-22] MEDS: BISACODYL 5 MG TABLET EC PO (10:05)
[2020-04-22] MEDS: busPIRone HCL 5 MG TABLET 15 MG PO ×2 (10:05→20:50)
[2020-04-22] MEDS: hydroCHLOROthiazide 25 MG TABLET PO (10:06)
[2020-04-22] MEDS: PANTOPRAZOLE 40 MG TABLET PO ×2 (10:06→18:29)
[2020-04-22] MEDS: TAMSULOSIN HCL 0.4 MG CAPSULE PO (10:06)
--- NOTE | 2020-04-22 11:27 | PCNWS ---
Weekly nutritional screen. Patient is tolerating current diet with adequate intake. No weight loss reported. No nutritional needs at this time.
--- NOTE | 2020-04-22 14:12 | PM.IMPN ---
Progress Note: A&P Assessment and Plan (1) COPD (chronic obstructive pulmonary disease): Qualifiers: COPD type: COPD with acute exacerbation Qualified Code(s): J44.1 - Chronic obstructive pulmonary disease with (acute) exacerbation Code(s): J44.9 - Chronic obstructive pulmonary disease, unspecified Status: Acute Assessment and Plan: Continue IV solu-medrol at lower dose today - 40mg q12 and plan to transition to oral prednisone tomorrow AM. Continue pulmicort and Xopenex nebs. Also on Augmentin. Appreciate Dr Dailey's recommendations. (2) Acute and chronic respiratory failure: Qualifiers: Respiratory failure complication: hypoxia and hypercapnia Qualified Code(s): J96.21 - Acute and chronic respiratory failure with hypoxia; J96.22 - Acute and chronic respiratory failure with hypercapnia Code(s): J96.20 - Acute and chronic respiratory failure, unspecified whether with hypoxia or hypercapnia Status: Acute Assessment and Plan: Appreciate pulmonology input. See above. Tolerating 3L O2 today. (3) Pulmonary hypertension: Code(s): I27.20 - Pulmonary hypertension, unspecified Status: Acute Assessment and Plan: Noted on echocardiogram and likely related to long-standing COPD. Continue treatment above. (4) Leukocytosis: Qualifiers: Leukocytosis type: unspecified Qualified Code(s): D72.829 - Elevated white blood cell count, unspecified Code(s): D72.829 - Elevated white blood cell count, unspecified Status: Acute Assessment and Plan: May be related to high doses of steroids, will monitor. Will order UA. No abdominal pain, nausea, or vomiting. (5) Delusion: Code(s): F22 - Delusional disorders Status: Acute Assessment and Plan: He has made comments about dirt in the oxygen tubing, oxygen tubing on fire and causing fire in his mind . Family agrees noticing these odd conversations. He will benefit from psych evaluation outpatient. For now, hopefully improving his sleep and decreasing steroids will help. Continue with seroquel 50mg tonight. Will monitor. Today he is not in danger of hurting himself or others. (6) Anxiety: Code(s): F41.9 - Anxiety disorder, unspecified Status: Acute Assessment and Plan: See above. Continued on Buspar which was started last admission. (7) Urinary retention: Code(s): R33.9 - Retention of urine, unspecified Status: Acute Assessment and Plan: Required straight cath earlier in admission. Will monitor. Continue flomax. Ipratropium stopped. Unmeasured voids are charted. (8) Sinus tachycardia: Code(s): R00.0 - Tachycardia, unspecified Status: Acute Assessment and Plan: [place] to be related to anxiety, lung disease, and high level of steroids. Echocardiogram reviewed. (9) Hypertension: Qualifiers: Hypertension type: essential hypertension Qualified Code(s): I10 - Essential (primary) hypertension Code(s): I10 - Essential (primary) hypertension Status: Chronic Assessment and Plan: Last BP 144/77. Continue home HCTZ and monitor BP. Subjective Date/time seen: 04/22/20 1330 Interval history: Mr. Johnson is a 64yo M admitted for acute on chronic respiratory failure with COPD. He is anxious++. He was able to sleep a little more last night but is frustrated that he was woken up this morning and noted he has not been able to catch his breath since then . He denies chest pain. Describes he feels more short of breath with walking. He tolerated some breakfast without nausea or vomiting. He voices concerns about a chemical circulating in
--- NOTE | 2020-04-22 16:19 | PM.PNPUL ---
Progress Note: A&P Assessment and Plan (1) COPD exacerbation: Code(s): J44.1 - Chronic obstructive pulmonary disease with (acute) exacerbation Status: Acute Assessment and Plan: - continue to wean steroids, and follow WBC. - hold off on discharge, - should go home on Spiriva Respimat 2.5 mcg 2 puffs daily with Symbicort 160/4.5 mcg 2 puffs bid via chamber device - compliance should be monitored at home given his mental illness - Continue to improve sleep with Seroquel 50 mg. - needs pxych evaluatiomn (2) Acute respiratory failure with hypercapnia: Code(s): J96.02 - Acute respiratory failure with hypercapnia Status: Acute Assessment and Plan: Doing much better than a few days ago. He is less short of breath and more coherent although still has delusions which is probably chronic. 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 The BIPAP settings is not likely contributing to his over correction given that he has woren BIPAP in three days. - The patient will likely not be compliant with BIPAP, will not pursue. (3) Delusion: Code(s): F22 - Delusional disorders Status: Acute Assessment and Plan: - Delusions seem to be chronic. He describes fire coming out of his oxygen tubing dirt in his tubing and says that dirt and fire are being pumped into his head - needs Psychiatry consult to see if he has underlying schizoaffective disorder or schizophrenia This may affect his compliance with COPD treatment. - Seroquel 50 mg HS. The systemic steroids is undoubtedly adding to his psychosis but they are necessary now with his severe COPD exacerbation. (4) Urinary retention: Code(s): R33.9 - Retention of urine, unspecified Status: Acute Assessment and Plan: catheter in and out 04/20; acute urinary retention may be due to ipratropium nebs Q 4 hours. Will stop and see if urinary retention and constipation get better. Miralax and Colace for constipation. (5) Leukocytosis: Qualifiers: Leukocytosis type: unspecified Qualified Code(s): D72.829 - Elevated white blood cell count, unspecified Code(s): D72.829 - Elevated white blood cell count, unspecified Status: Acute Assessment and Plan: Up to 25.2 K; he is on Augmentin, CXR stable (6) Pulmonary hypertension: Code(s): I27.20 - Pulmonary hypertension, unspecified Status: Acute Assessment and Plan: Echo 04/21 shows RVSP 80 mm Hg, most of this may be due to COPD with hypoxemia. Old echo 03/01/2018 = no pulmonary hypertension, RVSP 19 mm Hg. No RV enlargement. Subjective Date/time seen: 04/22/20 16:19 Interval history: This 64 yo man is seen in follow up for COPD exacerbation; continues to feel short of breath, worse with exertion. Intermittent delusions of fire coming out of BIPAP and oxygen concentrator and fire is going in his lungs and brain. Less Anxious. Sleppt better. 04/19 : He started Seroquel at night 25 mg 04/20 : Had a catheter in and out for acute urinary retention. Stopped ipratropium nebs 2*/2 acute urinary retention + constipation. spoke to his sister Ricco, ; he has been thinking abnormally for a long time, need psych eval 04/21 : slept better last night; 4-5 hours. WBC higher 21.9k; has been 11 K and rising, and he is on Augmentin. echo today = severe pulmonary hypertension, RVSP 80 mmHg, enlarged RV. spoke with his s
[2020-04-22] MEDS: QUEtiapine FUMARATE 25 MG TABLET 50 MG PO (20:49)
[2020-04-23] VITALS (18 sets, daily range): BP systolic 107–133; BP diastolic 65–83; PULSE 90–128; RESP 18–24; TEMP 36.3–37; O2SAT 91–93
[2020-04-23] MEDS: ONDANSETRON INJ 4 MG/2 ML VIAL IV PUSH (03:00)
[2020-04-23] MEDS: LORAZEPAM 0.5 MG TABLET PO ×4 (03:08→21:36)
[2020-04-23] MEDS: MORPHINE SULFATE 4 MG/ML INJ IV PUSH (04:24)
[2020-04-23 05:00] LABS: Basophils Absolute Auto 0.2 K/mm3 (0.0-0.1); Basophils Percent Auto 0.6 % (0.2-1.2); Hematocrit 42.7 % (42.0-52.0); Hemoglobin 13.5 g/dL (14.0-18.0); Immature Granulocyte Absolute 0.87 K/mm3 (0.00-0.031); Immature Granulocyte Percent A 3.4 % (0-0.5); Lymphocytes Absolute Auto 0.77 K/mm3 (0.9-3.2); Mean Corpuscular HGB Conc 31.6 g/dl (32-36); Mean Corpuscular Volume 88.4 fl (80-100); Mean Platelet Volume 10.1 fl (7.4-10.4); Monocytes Absolute Auto 1.5 K/mm3 (0.1-0.6); Monocytes Percent Auto 5.6 % (2.6-8.5); Neutrophils Absolute Auto 22.6 K/mm3 (1.3-6.7); Neutrophils Percent Auto 87.4 % (45.5-73.1); Platelet Count Result 231 k/mm3 (150-375); Red Blood Count 4.83 M/mm3 (4.6-6.20); Red Cell Distribution Width 14.4 % (11.5-14.5); White Blood Count 25.9 K/mm3 (4.5-10.0)
[2020-04-23 05:15] LABS: Blood Urea Nitrogen 18 mg/dL (9-20); Calcium 8.8 mg/dL (8.4-10.2); Carbon Dioxide 36 mmol/L (22-30); Chloride 91 mmol/L (98-107); Estimated CRCL calculation 93 ml/min; Estimated Glomerular Filt Rate > 60; Glucose 146 mg/dL (75-110); Magnesium 1.9 mg/dL (1.6-2.3); Potassium 4.4 mmol/L (3.4-5.0); Sodium 136 mmol/L (137-145)
[2020-04-23] MEDS: AMOXICILLIN/CLAVULANATE K 500-125 MG TAB 1 TABLET PO ×3 (06:46→21:35)
[2020-04-23 07:58] LABS: Add Urine Microscopic? NO; Appearance Urine Clear (Clear); Bilirubin Urine Negative (Negative); Blood Urine Negative (Negative); Color Urine Yellow (Yellow); Glucose Urine UA Negative (Negative); Ketones Urine Negative (Negative); Leukocyte Esterase Ur Negative LEU/UL (Negative); Nitrate Urine Negative (Negative); Protein Urine Negative (Negative); Specific Grav Ur 1.014 (1.001-1.035); Urobilinogen Urine Negative mg/dL (<2.0)
[2020-04-23] MEDS: hydroCHLOROthiazide 25 MG TABLET PO (08:55)
[2020-04-23] MEDS: busPIRone HCL 5 MG TABLET 15 MG PO ×2 (08:55→21:35)
[2020-04-23] MEDS: predniSONE 20 MG TABLET 60 MG PO (08:55)
[2020-04-23] MEDS: PANTOPRAZOLE 40 MG TABLET PO ×2 (08:56→17:07)
[2020-04-23] MEDS: TAMSULOSIN HCL 0.4 MG CAPSULE PO (08:56)
[2020-04-23] MEDS: BUDESONIDE RESPULE NEB 0.5 MG/2 ML AMP INHALATION ×2 (09:04→21:00)
--- NOTE | 2020-04-23 14:52 | PM.IMPN ---
Progress Note: A&P Assessment and Plan (1) COPD (chronic obstructive pulmonary disease): Qualifiers: COPD type: COPD with acute exacerbation Qualified Code(s): J44.1 - Chronic obstructive pulmonary disease with (acute) exacerbation Code(s): J44.9 - Chronic obstructive pulmonary disease, unspecified Status: Acute Assessment and Plan: Transitioned to oral prednisone today. Continue pulmicort and Xopenex nebs. Also on Augmentin (day 5). Appreciate Dr Dailey's recommendations. Discharge tomorrow. (2) Acute and chronic respiratory failure: Qualifiers: Respiratory failure complication: hypoxia and hypercapnia Qualified Code(s): J96.21 - Acute and chronic respiratory failure with hypoxia; J96.22 - Acute and chronic respiratory failure with hypercapnia Code(s): J96.20 - Acute and chronic respiratory failure, unspecified whether with hypoxia or hypercapnia Status: Acute Assessment and Plan: Appreciate pulmonology input. See above. Tolerating 3L O2 today. (3) Pulmonary hypertension: Code(s): I27.20 - Pulmonary hypertension, unspecified Status: Acute Assessment and Plan: Noted on echocardiogram and likely related to long-standing COPD. Continue treatment above. (4) Leukocytosis: Qualifiers: Leukocytosis type: unspecified Qualified Code(s): D72.829 - Elevated white blood cell count, unspecified Code(s): D72.829 - Elevated white blood cell count, unspecified Status: Acute Assessment and Plan: May be related to high doses of steroids, will monitor. UA is normal. No abdominal pain, nausea, or vomiting. CT abd/pel is normal. No other infectious process is suspected at this time. (5) Delusion: Code(s): F22 - Delusional disorders Status: Acute Assessment and Plan: He has made comments about oxygen tubing on fire, zeolite from the oxygen tubing causing fire in his mind . He exhibits signs of paranoia. Family agrees noticing these odd conversations. He will benefit from psych evaluation outpatient. For now, hopefully improving his sleep and decreasing steroids will help. Continue with seroquel 50mg tonight and xanax PRN. Will monitor. Today he is not in danger of hurting himself or others. (6) Anxiety: Code(s): F41.9 - Anxiety disorder, unspecified Status: Acute Assessment and Plan: See above. Continued on Buspar which was started last admission and xanax PRN. (7) Urinary retention: Code(s): R33.9 - Retention of urine, unspecified Status: Acute Assessment and Plan: Required straight cath earlier in admission. Will monitor. Continue flomax. Ipratropium stopped. Unmeasured voids are charted. (8) Sinus tachycardia: Code(s): R00.0 - Tachycardia, unspecified Status: Acute Assessment and Plan: [place] to be related to anxiety, lung disease, and high level of steroids. Echocardiogram reviewed. (9) Hypertension: Qualifiers: Hypertension type: essential hypertension Qualified Code(s): I10 - Essential (primary) hypertension Code(s): I10 - Essential (primary) hypertension Status: Chronic Assessment and Plan: Stable. Last BP 128/30. Continue home HCTZ and monitor BP. Subjective Date/time seen: 04/23/20 1300 Interval history: Mr. Johnson is a 64yo M admitted for acute on chronic respiratory failure with COPD. He is anxious++. He reports being able to sleep a little more off and on last night. He denies chest pain. He feels more short of breath with walking. He reports his abdomen is sore from shots but I am not sure that he has had any injected medications. Denies ab
--- NOTE | 2020-04-23 15:26 | PCRCNOTE ---
Pt off floor/went to CT
[2020-04-23] MEDS: QUEtiapine FUMARATE 25 MG TABLET 50 MG PO (21:34)
[2020-04-23] MEDS: ACETAMINOPHEN 325 MG TABLET 650 MG PO (21:35)
[2020-04-24] VITALS (14 sets, daily range): BP systolic 104; BP diastolic 69; PULSE 91–122; RESP 16–20; TEMP 36.7; O2SAT 87–95
[2020-04-24] MEDS: AMOXICILLIN/CLAVULANATE K 500-125 MG TAB 1 TABLET PO ×2 (05:12→13:58)
[2020-04-24] MEDS: LORAZEPAM 0.5 MG TABLET PO ×2 (05:12→11:04)
[2020-04-24 05:45] LABS: Basophils Absolute Auto 0.1 K/mm3 (0.0-0.1); Basophils Percent Auto 0.6 % (0.2-1.2); Hematocrit 39.4 % (42.0-52.0); Hemoglobin 12.4 g/dL (14.0-18.0); Immature Granulocyte Absolute 1.09 K/mm3 (0.00-0.031); Immature Granulocyte Percent A 5.3 % (0-0.5); Lymphocytes Absolute Auto 1.34 K/mm3 (0.9-3.2); Lymphocytes Percent Auto 6.5 % (18.3-44.2); Mean Corpuscular HGB Conc 31.5 g/dl (32-36); Mean Corpuscular Hemoglobin 28.3 pg (26-34); Mean Platelet Volume 10.7 fl (7.4-10.4); Monocytes Absolute Auto 1.6 K/mm3 (0.1-0.6); Monocytes Percent Auto 7.5 % (2.6-8.5); Neutrophils Absolute Auto 16.6 K/mm3 (1.3-6.7); Neutrophils Percent Auto 80.1 % (45.5-73.1); Platelet Count Result 196 k/mm3 (150-375); Red Blood Count 4.38 M/mm3 (4.6-6.20); Red Cell Distribution Width 14.3 % (11.5-14.5); White Blood Count 20.7 K/mm3 (4.5-10.0)
[2020-04-24 06:06] LABS: Blood Urea Nitrogen 21 mg/dL (9-20); Calcium 8.4 mg/dL (8.4-10.2); Carbon Dioxide > 40 mmol/L (22-30); Chloride 89 mmol/L (98-107); Estimated CRCL calculation 93 ml/min; Estimated Glomerular Filt Rate > 60; Glucose 110 mg/dL (75-110); Potassium 3.9 mmol/L (3.4-5.0); Sodium 134 mmol/L (137-145)
[2020-04-24] MEDS: BUDESONIDE RESPULE NEB 0.5 MG/2 ML AMP INHALATION (07:38)
[2020-04-24] MEDS: busPIRone HCL 5 MG TABLET 15 MG PO (09:09)
[2020-04-24] MEDS: TAMSULOSIN HCL 0.4 MG CAPSULE PO (09:09)
[2020-04-24] MEDS: predniSONE 20 MG TABLET 60 MG PO (09:09)
[2020-04-24] MEDS: PANTOPRAZOLE 40 MG TABLET PO (09:09)
[2020-04-24] MEDS: hydroCHLOROthiazide 25 MG TABLET PO (09:09)
[2020-04-24] MEDS: ACETAMINOPHEN 325 MG TABLET 650 MG PO (09:10)
--- NOTE | 2020-04-24 10:12 | PM.DS ---
DS: Admitting Diagnosis Admitting Diagnosis Admitting Diagnosis: Acute respiratory failure with hypercapnia DS: Discharge Diagnosis Discharge Diagnosis (1) COPD (chronic obstructive pulmonary disease): Qualifiers: COPD type: COPD with acute exacerbation Qualified Code(s): J44.1 - Chronic obstructive pulmonary disease with (acute) exacerbation Code(s): J44.9 - Chronic obstructive pulmonary disease, unspecified Status: Acute Assessment and Plan: Date of Service 04/24/20 Mr. Johnson is a 64yo M with history of COPD, chronic respiratory failure on 3L/min O2 at home, hypertension, and anxiety ++ who presented to the ED for evaluation of shortness of breath. He was seen by his visual merchandising specialist, Dr Dailey, here at the hospital and treated for a COPD exacerbation. He treated with IV-solu medrol and eventually weaned down to oral prednisone. He was treated with bronchodilator therapy with nebulizers as well as a short course of oral Augmentin. He did experience some acute urinary retention which improved a bit once anti-cholinergic nebs were discontinued. He is noted to have sinus tachycardia which is felt to be related to steroids, nebs, and significant anxiety. Echocardiogram is detailed below and demonstrated severe pulmonary hypertension. Unfortunately, Mr Johnson suffers from severe anxiety which does not help his shortness of breath from his significant pulmonary disease. He is very concerned about inhaling zeolite, a mineral in his oxygen tubing, which was now circulating in his blood stream and causing fire in his mind . He described one of the staff members told me there's another patient here that had this happen too . He exhibits signs of paranoia. Patient did not sleep much. It is felt that systemic steroids and lack of sleep were contributing to his worsening anxiety and paranoia at the hospital. He was treated with Seroquel which helped him rest a bit, in addition to PRN Xanax. He is not likely to accept psychiatric treatment due to congregation fixations regarding mental illness, but he will benefit greatly from seeing psych outpatient. We discussed this and breathing/meditation techniques. Follow up with PCP. Overall his breathing was improved with the therapy outlined above. WBC elevated, may be in part related to steroids. No other infectious process is suspected, see below. He is hemodynamically stable for discharge 04/24/20 with instructions to follow up with PCP and Dr Dailey. Will avoid Spiriva Respimat for now due to urinary retention; discharged with Symbicort and prednisone taper. (2) Acute and chronic respiratory failure: Qualifiers: Respiratory failure complication: hypoxia and hypercapnia Qualified Code(s): J96.21 - Acute and chronic respiratory failure with hypoxia; J96.22 - Acute and chronic respiratory failure with hypercapnia Code(s): J96.20 - Acute and chronic respiratory failure, unspecified whether with hypoxia or hypercapnia Status: Acute Assessment and Plan: Tolerating 3L O2, his home requirement, day of discharge. (3) Pulmonary hypertension: Code(s): I27.20 - Pulmonary hypertension, unspecified Status: Acute Assessment and Plan: Noted on echocardiogram and likely related to long-standing COPD. (4) Leukocytosis: Qualifiers: Leukocytosis type: unspecified Qualified Code(s): D72.829 - Elevated white blood cell count, unspecified Code(s): D72.829 - Elevated white blood cell count, unspecified Status: Acute Assessment and Plan: May be related to high doses of steroids, will monitor. UA is normal. No abdominal pain, nausea, or vomiting. CT abd/pel is normal. No other infectious process is suspected at this time. (5) Delusion: Code(s): F22 - Delusional disorders Status: Acute [place]se
--- NOTE | 2020-04-24 12:15 | PM.PNPUL ---
Progress Note: A&P Assessment and Plan (1) COPD exacerbation: Code(s): J44.1 - Chronic obstructive pulmonary disease with (acute) exacerbation Status: Acute Assessment and Plan: - continue to wean steroids, and follow WBC. - hold off on discharge, - should go home on Spiriva Respimat 2.5 mcg 2 puffs daily with Symbicort 160/4.5 mcg 2 puffs bid via chamber device - compliance should be monitored at home given his mental illness - Continue to improve sleep with Seroquel 50 mg. - needs pxych evaluatiomn (2) Acute respiratory failure with hypercapnia: Code(s): J96.02 - Acute respiratory failure with hypercapnia Status: Acute Assessment and Plan: Doing much better than a few days ago. He is less short of breath and more coherent although still has delusions which is probably chronic. 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 The BIPAP settings is not likely contributing to his over correction given that he has woren BIPAP in three days. - The patient will likely not be compliant with BIPAP, will not pursue. (3) Delusion: Code(s): F22 - Delusional disorders Status: Acute Assessment and Plan: - Delusions seem to be chronic. He describes fire coming out of his oxygen tubing dirt in his tubing and says that dirt and fire are being pumped into his head - needs Psychiatry consult to see if he has underlying schizoaffective disorder or schizophrenia This may affect his compliance with COPD treatment. - Seroquel 50 mg HS. The systemic steroids is undoubtedly adding to his psychosis but they are necessary now with his severe COPD exacerbation. (4) Urinary retention: Code(s): R33.9 - Retention of urine, unspecified Status: Acute Assessment and Plan: catheter in and out 04/20; acute urinary retention may be due to ipratropium nebs Q 4 hours. Will stop and see if urinary retention and constipation get better. Miralax and Colace for constipation. (5) Leukocytosis: Qualifiers: Leukocytosis type: unspecified Qualified Code(s): D72.829 - Elevated white blood cell count, unspecified Code(s): D72.829 - Elevated white blood cell count, unspecified Status: Acute Assessment and Plan: Up to 25.2 K; he is on Augmentin, CXR stable (6) Pulmonary hypertension: Code(s): I27.20 - Pulmonary hypertension, unspecified Status: Acute Assessment and Plan: Echo 04/21 shows RVSP 80 mm Hg, most of this may be due to COPD with hypoxemia. Old echo 03/01/2018 = no pulmonary hypertension, RVSP 19 mm Hg. No RV enlargement. Subjective Date/time seen: 04/24/20 12:15 Interval history: This 64 yo man is seen in follow up for COPD exacerbation; Intermittent delusions of fire coming out of BIPAP and oxygen concentrator and fire is going in his lungs and brain. Less Anxious. Sleppt better. 04/19 : He started Seroquel at night 25 mg 04/20 : Had a catheter in and out for acute urinary retention. Stopped ipratropium nebs 2*/2 acute urinary retention + constipation. WBC higher 21.9k; has been 11 K and rising, and he is on Augmentin. echo today = severe pulmonary hypertension, RVSP 80 mmHg, enlarged RV. Dorian agrees with our observations about patient's paranoid thoughts, delusions; pt is not likely to accept the idea that he needs psychiatric treatment; nondenominational ideation,devil causes these issues. .
== END 2020-04-24 15:22 | disposition home health service (06) | DRG 190 ==
LOC: ANHED 04-15 00:12 → ANHIMU 04-15 00:31 → ANH2MED 04-21 07:07 → ANHIMU 04-27 13:37
PROVIDERS: Internal Medicine Critical Care Medicine; Physician Assistant; Admitting Provider Family Medicine; Emergency Provider Emergency Medicine; PCP Family Medicine; Visit Provider Physician Assistant
DX: J43.9 Emphysema, unspecified (principal); J96.21 Acute and chronic respiratory failure with hypoxia; J96.22 Acute and chronic respiratory failure with hypercapnia; E87.1 Hypo-osmolality and hyponatremia; E87.3 Alkalosis; I10 Essential (primary) hypertension; F41.9 Anxiety disorder, unspecified; I27.20 Pulmonary hypertension, unspecified; R33.9 Retention of urine, unspecified; K59.00 Constipation, unspecified; T48.6X5A Adverse effect of antiasthmatics, initial encounter; D72.829 Elevated white blood cell count, unspecified; T38.0X5A Adverse effect of glucocorticoids and synthetic analogues, initial encounter; R00.0 Tachycardia, unspecified; F22 Delusional disorders; Z99.81 Dependence on supplemental oxygen; Z87.11 Personal history of peptic ulcer disease; Z87.891 Personal history of nicotine dependence
CPT/HCPCS: 36415; 36600; 71045; 71046; 71275; 74176; 80048; 80074; 80076; 81003; 82375; 82728; 82805; 83050; 83605; 83615; 83735; 84100; 84439; 84443; 84480; 85025; 85027; 85380; 86140; 87040; 93005; 93306; 93970; 94002; 94003; 94640; 94660; 96374; 97161; 97165; 99285; A9270; G0378; J2060; J2270; J2405; J2920; J2930; J7512; Q9967

== ENCOUNTER 2020-04-30 02:21 | Emergency (ER) | payer MEDICARE, SELFPAY ==
[2020-04-30] VITALS (11 sets, daily range): BP systolic 104–137; BP diastolic 69–95; PULSE 96–110; RESP 16–28; TEMP 36.6–36.7; O2SAT 94–98
--- NOTE | ~2020-04-30 | XR_ITS ---
EXAMINATION: XR chest 2V DATE: 04/30/2020 03:02 INDICATION: Shortness of breath TECHNIQUE: frontal and lateral views of the chest were obtained. COMPARISON: Chest radiograph dated 04/22/2020 FINDINGS: Bronchiectasis and mild atelectasis at the bilateral lung bases. The cardiomediastinal silhouette is normal. Visualized bones and soft tissues are unremarkable. IMPRESSION: 1. Mild linear opacities at the bilateral lung bases most likely bronchiectasis and mild atelectasis. Reviewed, dictated and finalized at location A.
--- NOTE | 2020-04-30 02:32 | ECG_ITS ---
Measurements Intervals [place] Rate: 107 P: 75 WV: 147 QRS: 108 QRSD: 98 T: 62 QT: 339 QTc: 454 Interpretive Statements SINUS TACHYCARDIA INCOMPLETE RIGHT BUNDLE BRANCH BLOCK DELAYED PRECORDIAL R/S TRANSITION BASELINE ARTIFACT- I, II, AVR, AVL, V1 ABNORMAL ECG Electronically Signed On 04-30-2020 7:33:08 CDT by Larry Watson D.O.
--- NOTE | 2020-04-30 02:40 | ED.GENADULT ---
HPI - General Adult General Chief complaint: Shortness of Breath/Dyspnea Stated complaint: SOB/ anxiety Source: RN notes reviewed History of Present Illness HPI narrative: Patient presents emergency department from home via EMS for dyspnea. Patient with a history of COPD chronically on 3 L nasal cannula. Patient states this evening became more short of breath and had to turn his oxygen up to 6 L as well as given self nebulizer treatment. Patient states he became very anxious at that time as well. Patient does have a history of anxiety. Patient was recently discharged from [facility] emergency department. Home health is been currently evaluated the patient at home patient denies any fevers or chills chest pain abdominal pain nausea vomiting or any other symptoms Related Data Home Medications Medication Instructions Recorded Confirmed ipratropium 0.5 mg-albuterol 3 mg 3 ml INHALATION QID PRN 02/18/20 04/15/20 (2.5 mg base)/3 mL nebulization soln hydrochlorothiazide 25 mg PO DAILY 03/17/20 04/15/20 Allergies Allergy/AdvReac Type Severity Reaction Status Date / Time No Known Allergies Allergy Verified 04/30/20 02:37 Review of Systems Review of Systems: Narrative: Gen.: Denies fevers or chills Eyes: Denies eye pain or visual change ENT: Denies congestion Respiratory: See HPI CV: Denies chest pain or palpitations GI: Denies abdominal pain nausea, emesis or diarrhea denies burning, urgency, frequency or hematuria Musculoskeletal: Denies back pain or muscle pain Neuro: Denies numbness, tingling, weakness or focal weakness Skin: Denies rash Psych: Reports anxiety Except as documented, all other systems reviewed and negative [facility] Past Medical History Medical History COPD (chronic obstructive pulmonary disease) H/O: HTN (hypertension) Migraines PUD (peptic ulcer disease) Social History Social History Social History: The patient is and has 1 son. He does not have a durable power slag wheeler for healthcare and desires to be a full code. The patient is disabled. He owns his own home. The patient used to rebuild [employer] before he became disabled. He is chronically on oxygen at 2 L per nasal cannula. He has a roommate that sleeps in his house during the night. He smoked marijuana in the past but does not use any illicit drugs or alcohol. Smoking packs per day: 1 Smoking cigarettes per day: 20.0 Years smoked: 35 Smoking pack-years: 35.00 Smoking status: Former smoker Tobacco type: cigarettes Smoking end date: 11/06/08 Alcohol intake: former Substance use: former Substance use type: marijuana Gender identity (if verbalized by the patient): Male Spiritual care concerns: No Exam Narrative: Exam Narrative: APPEARANCE: No acute distress, nontoxic, resting in bed EYES: EOMI HEENT: Normocephalic, atraumatic, OMM RESPIRATORY: No respiratory distress decreased breath sounds bilateral lung bases, no rhonchi or rales CARDIOVASCULAR: Regular rate and rhythm without murmurs rubs or gallops. ABDOMINAL: Soft, nontender, nondistended, no rebound or guarding MUSCULOSKELETAl: Moves all extremities. No clubbing, cyanosis or edema. NEURO: Awake and alert. Following commands, speech normal, no focal deficits SKIN:: Warm, dry. No rashes lesions or abrasions PSYCHIATRIC: Normal affect/mood, Course Course Emergency Course: Reviewed old records Patient is remained observed in the ER remained stable. Will discharge at this time Discussed with patient results of workup and diagnosis. Discussed need for follow-up with primary care, proper use of medication, and reasons to return to the emergency department. Patient understands and agrees to current treatment plan Vital Signs Vital signs: Vital Signs Temperature 98.0 F 04/30/20 02:24 Pulse Rate 110 H 04/30/20 0
[2020-04-30 02:47] LABS: Basophils Percent Auto 0.2 % (0.2-1.2); Eosinophils Absolute Auto 0.1 K/mm3 (0-0.3); Eosinophils Percent Auto 0.4 % (0-4.4); Hematocrit 41.1 % (42.0-52.0); Hemoglobin 13.5 g/dL (14.0-18.0); Immature Granulocyte Absolute 0.11 K/mm3 (0.00-0.031); Immature Granulocyte Percent A 0.7 % (0-0.5); Lymphocytes Absolute Auto 1.36 K/mm3 (0.9-3.2); Lymphocytes Percent Auto 8.5 % (18.3-44.2); Mean Corpuscular HGB Conc 32.8 g/dl (32-36); Mean Corpuscular Hemoglobin 28.8 pg (26-34); Mean Corpuscular Volume 87.6 fl (80-100); Mean Platelet Volume 9.8 fl (7.4-10.4); Monocytes Absolute Auto 1.3 K/mm3 (0.1-0.6); Monocytes Percent Auto 8.1 % (2.6-8.5); Neutrophils Absolute Auto 13.2 K/mm3 (1.3-6.7); Neutrophils Percent Auto 82.1 % (45.5-73.1); Platelet Count Result 196 k/mm3 (150-375); Red Blood Count 4.69 M/mm3 (4.6-6.20); Red Cell Distribution Width 14.5 % (11.5-14.5); White Blood Count 16.1 K/mm3 (4.5-10.0)
[2020-04-30 02:50] LABS: Alveolar/Arterial O2 Gradient 96.5 mmHg; Base Excess ABG 7.8 mEq/l (+/-2.0); Device NASAL CANNULA; Fractional Inspired Oxygen 32 %; HCO3 ABG 33.3 mEq/l (22.0-26.0); Modified Allen's Test Pass; Oxygen Content ABG 18.7 %vol (16.0-22.0); Oxygen Saturation ABG 95.1 % (95.0-100.0); PCO2 ABG 49.7 mmHg (35.0-45.0); PO2 ABG 73.5 mmHg (80.0-100.0); Site Drawn RIGHT RADIAL; Total Hemoglobin 14.3 g/dL (12.0-18.0); pH ABG 7.444 (7.350-7.450)
[2020-04-30 02:59] LABS: Blood Urea Nitrogen 21 mg/dL (9-20); Calcium 8.3 mg/dL (8.4-10.2); Carbon Dioxide 37 mmol/L (22-30); Chloride 89 mmol/L (98-107); Estimated CRCL calculation 74 ml/min; Estimated Glomerular Filt Rate > 60; Glucose 126 mg/dL (75-110); Potassium 2.9 mmol/L (3.4-5.0); Sodium 132 mmol/L (137-145)
[2020-04-30] MEDS: POTASSIUM CHLORIDE 20 MEQ TABLET 40 MEQ PO (03:15)
--- NOTE | 2020-04-30 05:51 | PC.NURSE ---
Patient attempting to arrange ride home from ED --call placed to son, son saying that patient cant ride in his car as he smokes and patient is on 3L continous O2. Son trying to arrange something and will call back. Patient not wanting to take ambulance due to finances.
--- NOTE | 2020-04-30 06:27 | PC.NURSE ---
called [facility] to transport patient to home. ETA 60-90 minutes.
--- NOTE | 2020-04-30 06:32 | PC.NURSE ---
Spoke with Dorian Johnson-Son again, patient to go home by ambulance and he will meet them. Son states that patient has bottles of O2 and also has company coming today to install a different oxygen system than what patient has . Approx ETA for EMS is 6-0-90 min. Son is aware. Patient told plan, appears very worried and anxious which son had said was majority of patients problem
--- NOTE | 2020-04-30 07:48 | PC.NURSE ---
Assumed care of pt from Jordyn. Pt sitting on bed. waiting for transport
--- NOTE | 2020-04-30 09:33 | PC.NURSE ---
Pt calling out and asking for something to keep me awake
== END 2020-04-30 10:38 | disposition home or self-care (01) ==
PROVIDERS: Emergency Provider Emergency Medicine; PCP Family Medicine
DX: J44.9 Chronic obstructive pulmonary disease, unspecified (principal); Z99.81 Dependence on supplemental oxygen; I10 Essential (primary) hypertension; Z87.11 Personal history of peptic ulcer disease; Z87.891 Personal history of nicotine dependence; F41.9 Anxiety disorder, unspecified; R00.0 Tachycardia, unspecified; I45.10 Unspecified right bundle-branch block
CPT/HCPCS: 36415; 36600; 71046; 80048; 82805; 85025; 93005; 96374; 99284; A9270; J2060

== ENCOUNTER 2020-05-04 06:20 | Inpatient (IN) | payer MEDICARE, SELFPAY ==
[2020-05-04] VITALS (14 sets, daily range): BP systolic 95–132; BP diastolic 53–78; PULSE 64–103; RESP 14–24; TEMP 36.6–37.2; O2SAT 90–96; BMI 25.0
--- NOTE | ~2020-05-04 | CT_ITS ---
EXAMINATION: CTA chest PE protocol DATE: 05/04/2020 07:46 INDICATION: COPD presenting with shortness of breath TECHNIQUE: Computed tomography (CT) pulmonary angiogram of the chest was performed with 100 mL Omnipa que-350 intravenous contrast. Additional 3D reconstructions utilizing coronal maximum intensity proje ction (MIP) were performed. Automated exposure control and iterative reconstruction technique were em ployed. The dose-length product was 337.40 mGy-cm. COMPARISON: None FINDINGS: Adequate but suboptimal contrast opacification of the pulmonary arteries. There is mild streak artifa ct from dense contrast in the superior vena cava and right atrium. Mild to moderate scattered respira tory motion artifact. Together this reduces sensitivity in the smaller subsegmental pulmonary arterie s. Nonetheless there are extensive scattered central pulmonary arterial filling defects beginning at the bifurcations of both main pulmonary arteries and extending into each of the lobar pulmonary arter ies and many of the more peripheral segmental and subsegmental pulmonary arteries in the left lung. S evere emphysema. Subtle and thickening throughout the left lower lobe which could represent pulmonary edema, infarct or pneumonia. Mild symmetrical bronchiectasis with a few scattered mucous plugs at th e bilateral lower lungs. Heart size is normal. No pericardial effusion. The right ventricle appears l arger than the left with flattening of the ventricular septum suggesting right heart strain. Atherosc lerotic coronary artery calcifications. Thoracic aorta is normal in caliber with no dissection. 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 No pathologica lly enlarged thoracic lymphadenopathy. Mild thoracic spondylosis with severe disc height loss at C6-C 7. IMPRESSION: 1. Extensive bilateral pulmonary emboli with suggestion of some right heart strain. 2. New increased interstitial pattern in the left lower lung zone which could represent mild pulmonar y edema, infarct or pneumonia. 3. Emphysema with mild bronchiectasis with scattered mucous plugging in the lower lungs. Reviewed, dictated and finalized at location A. IMPRESSION: 1. Extensive bilateral pulmonary emboli with suggestion of some right heart str ain. 2. New increased interstitial pattern in the left lower lung zone which could r epresent mild pulmonary edema, infarct or pneumonia. 3. Emphysema with mild bronchiectasis with scattered mucous plugging in the low er lungs.
--- NOTE | ~2020-05-04 | XR_ITS ---
EXAMINATION: XR chest 1V portable DATE: 05/08/2020 22:43 INDICATION: Shortness of breath. TECHNIQUE: A single frontal view of the chest was obtained. COMPARISON: Chest single view 05/04/2020, chest CT 05/04/2020 FINDINGS: There are lucencies in the lungs, consistent with emphysema. There is mild atelectasis at t he lung bases. No pleural effusion or pneumothorax. The heart size is normal. IMPRESSION: 1. Mild atelectasis in the lower lung zones. 2. Emphysema. Reviewed, dictated and finalized at location A.
--- NOTE | ~2020-05-04 | XR_ITS ---
EXAMINATION: XR chest 1V DATE: 05/04/2020 07:17 INDICATION: Shortness of breath TECHNIQUE: frontal view of the chest was obtained. COMPARISON: Chest radiograph dated 04/30/[address] abdomen and pelvis dated 04/23/2020 FINDINGS: Mild bibasilar opacities, unchanged on the right and with interval increase on the left. Increased re lative lucency and architectural distortion in the upper lung zones consistent with emphysema. No ple ural effusion or pneumothorax. The cardiomediastinal silhouette is normal. IMPRESSION: 1. Increasing opacities at the left lung base which could represent atelectasis and/or pneumonia supe rimposed over emphysema and bibasilar bronchiectasis better appreciated on prior CT. Reviewed, dictated and finalized at location A. IMPRESSION: 1. Increasing opacities at the left lung base which could represent atelectasis and/or pneumonia superimposed over emphysema and bibasilar bronchiectasis bett er appreciated on prior CT.
--- NOTE | ~2020-05-04 | US_ITS ---
EXAMINATION: US venous doppler [facility] DATE: 05/04/2020 17:19 INDICATION: Acute pulmonary emboli. TECHNIQUE: Grayscale ultrasound images without and with compression and Doppler ultrasound images of the bilateral lower extremity veins were obtained. COMPARISON: Ultrasound 04/15/2020 FINDINGS: The visualized portions of right common femoral vein, profunda (deep) femoral vein, femoral vein, pop liteal vein, posterior tibial veins, and greater saphenous vein outflow are patent. There is thrombus in the right peroneal veins. The visualized portions of left common femoral vein, profunda femoral vein, femoral vein, and greater saphenous vein outflow are patent. There is thrombus in the left popliteal, posterior tibial, and pe roneal veins. IMPRESSION: 1. Deep vein thrombosis involving the right peroneal veins and left popliteal, posterior tibial, and peroneal veins. Reviewed, dictated and finalized at location A.
--- NOTE | ~2020-05-04 | CT_ITS ---
EXAMINATION: CT brain wo con DATE: 05/04/2020 07:10 INDICATION: Confused TECHNIQUE: Computed tomography (CT) of the head was performed without intravenous contrast. Sagittal and coronal reconstructions were performed. The mA was adjusted according to patient size. Iterative reconstruction technique was employed. The dose-length product was 605.33 mGy-cm. COMPARISON: head CT dated 03/20/2020 FINDINGS: No acute intracranial hemorrhage, acute infarction or abnormal extra axial fluid collection. Ventricl es are normal and symmetric. No mass/mass effect. Mild mucosal thickening the left ethmoid sinus. Chr onic small left mastoid effusion. The orbits are normal. IMPRESSION: 1. No acute intracranial process. Reviewed, dictated and finalized at location A.
--- NOTE | 2020-05-04 06:29 | ECG_ITS ---
Measurements Intervals [place] Rate: 100 P: 64 MT: 157 QRS: 99 QRSD: 89 T: 61 QT: 335 QTc: 433 Interpretive Statements SINUS TACHYCARDIA ATRIAL PREMATURE COMPLEX RIGHT AXIS DEVIATION LEFT ATRIAL ENLARGEMENT POOR R WAVE PROGRESSION, ANTERIOR LEADS ABNORMAL ECG Electronically Signed On 05-04-2020 6:46:30 CDT by Larry Watson D.O.
--- NOTE | 2020-05-04 06:33 | ED.SOB ---
HPI - SOB/Dyspnea General Chief Complaint: Shortness of Breath/Dyspnea <Tresa Sue MD - Last Filed: 05/04/20 06:45> Stated Complaint: copd <Tresa Sue MD - Last Filed: 05/04/20 06:45> Time Seen by Provider: 05/04/20 07:23 <Tresa Sue MD - Last Filed: 05/04/20 06:45> History of Present Illness HPI Narrative: Patient presents via EMS, for my brain is on fire . He has difficulty answering any questions. He will not tell me why he is here. When I asked if he has pain he just does not answer. His oxygen is low. I asked if he has schizophrenia and he said, what is that? <Tresa Sue MD - Last Filed: 05/04/20 06:45> Related Data Home Medications: Home Medications Medication Instructions Recorded Confirmed ipratropium 0.5 mg-albuterol 3 mg 3 ml INHALATION QID PRN 02/18/20 04/15/20 (2.5 mg base)/3 mL nebulization soln hydrochlorothiazide 25 mg PO DAILY 03/17/20 04/15/20 <Tresa Sue MD - Last Filed: 05/04/20 06:45> Allergies/Adverse Reactions: Allergies Allergy/AdvReac Type Severity Reaction Status Date / Time No Known Allergies Allergy Verified 05/04/20 06:30 <Tresa Sue MD - Last Filed: 05/04/20 06:45> Review of Systems Review of Systems: Narrative: Cannot get an accurate review of systems from the patient because he seems confused. <Tresa Sue MD - Last Filed: 05/04/20 06:45> [facility] Past Medical History Medical History: Medical History COPD (chronic obstructive pulmonary disease) H/O: HTN (hypertension) Migraines PUD (peptic ulcer disease) <Tresa Sue MD - Last Filed: 05/04/20 06:45> Social History Social History: Social History Social History: The patient is and has 1 son. He does not have a durable power digital composer for healthcare and desires to be a full code. The patient is disabled. He owns his own home. The patient used to rebuild [employer] before he became disabled. He is chronically on oxygen at 2 L per nasal cannula. He has a roommate that sleeps in his house during the night. He smoked marijuana in the past but does not use any illicit drugs or alcohol. Smoking packs per day: 1 Smoking cigarettes per day: 20.0 Years smoked: 35 Smoking pack-years: 35.00 Smoking status: Former smoker Tobacco type: cigarettes Smoking end date: 11/06/08 Alcohol intake: former Substance use: former Substance use type: marijuana Gender identity (if verbalized by the patient): Male Spiritual care concerns: No <Tresa Sue MD - Last Filed: 05/04/20 06:45> Exam Narrative: Exam Narrative: GENERAL: Disheveled confused, hypoxic, smiling, pleasant. HEAD: Normocephalic, atraumatic. EYES: PERRLA and EOMI. ENT: Nares clear, no rhinorrhea or epistaxis. Mucous membranes moist. NECK: Supple. CHEST: Clear to auscultation. No respiratory distress. HEART: Regular rate and rhythm. No murmur heard. Normal peripheral pulses. ABDOMEN: Soft, nontender, nondistended, normal active bowel sounds. EXTREMITIES: Normal range of motion. No edema. SKIN: Warm, dry, no rash. NEURO: No focal deficits. Alert. PSYCH: Normal mood and affect. <Tresa Sue MD - Last Filed: 05/04/20 06:45> Course Course Emergency Course: Patient lying in bed resting comfortably. Awake alert and oriented x3. He is received a liter and a half of IV fluid with good response in his blood pressure. His CTA shows pulmonary emboli. He has been started on heparin. Have contacted Dr. Frazier and patient be placed in IMU. Patient reports he wears 1 to 1-1/2 L of oxygen at home and is currently wearing 3 L. <Toñito Garcia MD - Last Filed: 05/04/20 09:24> Vital Signs Vital signs: Vital Signs Temperature 98.9 F 05/04/20 06:20 Pulse Rate 101 H 05/04/20 06:20 Respiratory Rate 20 05/04/20 06:20 Blood Pres
[2020-05-04] MEDS: SODIUM CHLORIDE 0.9% IV 1,000 ML 999 ML IV CONT ×2 (06:42→08:55)
--- NOTE | 2020-05-04 06:47 | PC.NURSE ---
PT REFUSES TO URINATE OR BE STRAIGHT CATHED AT THIS TIME. PT EDUCATION ON NEED FOR URINE SPECIMEN. VERBALIZES UNDERSTANDING. WILL CONTINUE TO MONITOR
[2020-05-04 06:52] LABS: Basophils Percent Auto 0.3 % (0.2-1.2); Eosinophils Absolute Auto 0.1 K/mm3 (0-0.3); Eosinophils Percent Auto 0.8 % (0-4.4); Hematocrit 37.9 % (42.0-52.0); Hemoglobin 12.4 g/dL (14.0-18.0); Immature Granulocyte Absolute 0.04 K/mm3 (0.00-0.031); Immature Granulocyte Percent A 0.4 % (0-0.5); Lymphocytes Absolute Auto 1.04 K/mm3 (0.9-3.2); Lymphocytes Percent Auto 11.3 % (18.3-44.2); Mean Corpuscular HGB Conc 32.7 g/dl (32-36); Mean Corpuscular Hemoglobin 28.1 pg (26-34); Mean Corpuscular Volume 85.9 fl (80-100); Monocytes Absolute Auto 0.6 K/mm3 (0.1-0.6); Monocytes Percent Auto 6.9 % (2.6-8.5); Neutrophils Absolute Auto 7.4 K/mm3 (1.3-6.7); Neutrophils Percent Auto 80.3 % (45.5-73.1); Platelet Count Result 174 k/mm3 (150-375); Red Blood Count 4.41 M/mm3 (4.6-6.20); Red Cell Distribution Width 13.9 % (11.5-14.5); White Blood Count 9.2 K/mm3 (4.5-10.0)
[2020-05-04 06:54] LABS: Alveolar/Arterial O2 Gradient 113.9 mmHg; Base Excess ABG 11.9 mEq/l (+/-2.0); Fractional Inspired Oxygen 32 %; HCO3 ABG 36.4 mEq/l (22.0-26.0); Oxygen Content ABG 16.3 %vol (16.0-22.0); Oxyhemoglobin 90.5 % THb (90.0-100.0); PCO2 ABG 46.3 mmHg (35.0-45.0); PO2 ABG 60.1 mmHg (80.0-100.0); PO2 FiO2 Ratio Arterial Blood 1.88 %; Total Hemoglobin 12.8 g/dL (12.0-18.0)
[2020-05-04 06:55] LABS: Device NASAL CANNULA; Site Drawn RIGHT BRACHIAL; pH ABG 7.513 (7.350-7.450)
[2020-05-04 07:04] LABS: Ethanol < 10 mg/dL (<10)
[2020-05-04 07:06] LABS: Alanine Aminotransferase 39 U/L (4-50); Albumin Level 3.7 g/dL (3.5-5.1); Alkaline Phosphatase 101 U/L (38-126); Aspartate Amino Transferase 32 U/L (17-59); Bilirubin,Total 1.3 mg/dL (0.2-1.3); Blood Urea Nitrogen 11 mg/dL (9-20); Calcium 8.3 mg/dL (8.4-10.2); Carbon Dioxide > 40 mmol/L (22-30); Chloride 82 mmol/L (98-107); Estimated Glomerular Filt Rate > 60; Glucose 107 mg/dL (75-110); Potassium 3.1 mmol/L (3.4-5.0); Sodium 130 mmol/L (137-145)
[2020-05-04 07:18] LABS: D Dimer 11.55 ug/mL (<0.48)
[2020-05-04 07:23] LABS: NT Pro B Type Natriuretic Pept 379 PG/ML (5-100); Troponin I 0.035 ng/mL (0.000-0.034)
--- NOTE | 2020-05-04 07:42 | PC.NURSE ---
pt continues to refuse to void in cup or urinal. pt refuses straight cath
[2020-05-04] MEDS: HEPARIN SODIUM 5,000 UNITS/ML VIAL 5500 UNITS IV PUSH (08:22)
--- NOTE | 2020-05-04 08:41 | PC.NURSE ---
pt now agreeable to cath. pt poor historian and inconsistent with home meds and medical hx.
[2020-05-04] MEDS: HEPARIN SOD/D5W 100 UNITS/ML 25,000 UNITS/250 ML BAG 13 UNITS IV CONT (08:55)
[2020-05-04 09:21] LABS: Add Urine Microscopic? YES; Appearance Urine Clear (Clear); Bacteria Urine Trace /hpf; Bilirubin Urine Negative (Negative); Blood Urine 1+ (Negative); Color Urine Yellow (Yellow); Glucose Urine UA Negative (Negative); Ketones Urine Trace mg/dL (Negative); Leukocyte Esterase Ur Negative LEU/UL (Negative); Mucus Urine Rare /lpf; Nitrate Urine Negative (Negative); Protein Urine Negative (Negative); Specific Grav Ur 1.019 (1.001-1.035); Squamous Epithelial Cell Urine Rare /hpf (Few); WBC Urine 0-3 /hpf
[2020-05-04 09:58] LABS: Amphetamine Screen Urine Negative (Negative); Barbiturate Screen Urine Positive (Negative); Benzodiazepines Screen Urine Negative (Negative); Cannabinoid Screen Urine Negative (Negative); Cocaine Screen Urine Negative (Negative); Methadone Screen Urine Negative (Negative); Opiate Screen Urine Positive (Negative); Phencyclidine Screen Urine Negative (Negative)
--- NOTE | 2020-05-04 11:27 | ADMGEN ---
This patient, Raimundo Johnson, was admitted to IMU Room 207-01. Patient/family oriented to hospital policies and general routines including ID bracelet, bed and alarms, visiting hours, pain management, procedures, bathroom and other care routines, personal items, smoking policy, room service/diet, and visiting hours. Valuables list has been completed. Information on how to activate the Rapid Response Team has been discussed. Patient/Family are encouraged to report perceived risks to care and to ask questions if they do not understand what they are told or what they should do.
[2020-05-04 12:53] LABS: Troponin I 0.031 ng/mL (0.000-0.034)
--- NOTE | 2020-05-04 15:29 | ECHO_ITS ---
Patient Info Name: Raimundo Johnson Age: 64 years : 1955 Gender: Male Ht: 69 in Wt: 170 lbs BSA: 1.95 m2 HR: 90 bpm BP: 125 / 66 mmHg Heart Rhythm: Sinus Rhythm Technical Quality: Fair Exam Date: 05/04/2020 4:01 PM Exam Location: [facility] Card Pulmonary Patient Status: Inpatient Admit Date: 05/04/2020 Staff Ordering Physician: Emmanuelle Sandra PA-C Screen Printing Press Operator: Hugo Steele RDCS Attending Provider: Shahid Frazier MD Referring Physician: Jocy REYES; Exam Type: CA echo doppler color flow Study Info Indications I26.99 - Other pulmonary embolism without acute cor pulmonale Complete two-dimensional, color flow and Doppler transthoracic echocardiogram is performed. History/Risk Factors Bilateral PEs w/ evidence of right heart strain on CT. Summary 1. Left ventricular chamber dimension is normal. 2. Left ventricular systolic function is normal, estimated at 65-70%. 3. The left ventricular diastolic function is normal. 4. E/e' 8 is minimally elevated. 5. Right ventricular systolic function is normal with normal TAPSE 2.1cm.. 6. There is trace tricuspid valve regurgitation. 7. Severe pulmonary hypertension, estimated pulmonary arterial systolic pressure is 61 mmHg. Left Ventricle E/e' 8 is minimally elevated. Left ventricular chamber dimension is normal. Left ventricular systolic function is normal, estimated at 65-70%. The left ventricular diastolic function is normal. Right Ventricle Right ventricular systolic function is normal with normal TAPSE 2.1cm.. Right ventricular chamber dimension is not well visualized. Left Atria Left atrial chamber dimension is normal. Right Atria Right atrial chamber dimension is normal. Aortic Valve The aortic valve is probable trileaflet. There is no aortic valve stenosis. There is no aortic valve regurgitation. Pulmonic Valve There is no pulmonic regurgitation. Mitral Valve There is no mitral valve stenosis. There is no mitral valve regurgitation. Tricuspid Valve There is trace tricuspid valve regurgitation. Severe pulmonary hypertension, estimated pulmonary arterial systolic pressure is 61 mmHg. Pericardium/Pleural There is no pericardial effusion. Inferior Vena Cava Normal inferior vena cava with >50% collapse upon inspiration consistent with normal right atrial pressure, 5 mmHg. Aorta The aortic root size at the sinus of Valsalva is normal. Left Ventricular Outflow Tract Name Value Normal LVOT 2D LVOT Diameter 2.1 cm LVOT Doppler LVOT Peak Gradient 5 mmHg LVOT Mean Gradient 3 mmHg LVOT VTI 16 cm LVOT VTI/AV VTI Ratio 0.7 LVOT Stroke Volume 57 ml LVOT CO 5.0 l/min LVOT CI 2.6 l/min/m2 Mitral Valve Name Value Normal
[2020-05-04 15:34] LABS: Partial Thromboplastin Time 69.4 SECONDS (22.3-36.8)
[2020-05-04 15:38] LABS: Troponin I 0.028 ng/mL (0.000-0.034)
[2020-05-04] MEDS: HEPARIN SODIUM 5,000 UNITS/ML VIAL 3000 UNITS IV PUSH (15:47)
[2020-05-04] MEDS: POTASSIUM CHLORIDE 20 MEQ TABLET 40 MEQ PO (17:21)
[2020-05-04] MEDS: PANTOPRAZOLE SOD SESQUIHYDRATE 20 MG TAB PO (20:07)
[2020-05-04] MEDS: busPIRone HCL 5 MG TABLET 15 MG PO (20:07)
--- NOTE | 2020-05-04 21:30 | PM.IMHP ---
H&P: HPI History of Present Illness Chief complaint: Shortness of breath. Narrative: Raimundo Johnson is a 64-year-old male with severe COPD on oxygen, chronic respiratory failure with hypoxia and hypercarbia, anxiety, hypertension, benign prostatic hyperplasia presented to the emergency department earlier today via EMS from home for evaluation of shortness of breath. He is not the greatest historian and as such some of this history is supplemented via a review of his electronic medical records. He denies underlying mental illness however he seems somewhat delusional and paranoid and throughout the interview, he perseverates on his oxygen supplementation, stating that he feels he is over oxygenated and that it is damaging his brain. He has had several hospitalizations recently with COPD exacerbations discharged on 04/24/2020. He was given a prescription for a prednisone taper of which he never filled and he actually brought in with him a bottle of prednisone prescribed in January of this year, with 30 pills remaining. He did not take the prednisone because apparently it makes his heart race and he decided that he was no longer going to take it. In any event, he is chronically short of breath and over the last couple of years he has become more and more sedentary to the point where he is now using on electric scooter at home. He does have a roommate that stays with him on occasion, and the roommate noticed more bizarre behavior from the patient this morning than what is typical and he call 911. The patient had removed his oxygen as he felt he was over oxygenated, and his SpO2 was 78% on room air. D-dimer was significantly elevated and a subsequent chest CTA demonstrated bilateral pulmonary emboli any was also found to have lower extremity DVTs. With further questioning, he denies edema, chest pain, and pleuritic pain. He cannot recall much of what happened this morning and deflects questions asked of him regarding that. At the time my evaluation he does not have any complaints but again, he continues to perseverate on his oxygen and feelings as though he is getting too much oxygen. He denies current chest pain, shortness of breath, pleuritic pain, and edema. Review of Systems Review of Systems: Narrative: Twelve systems were reviewed with pertinent positives and negatives as per HPI. He denies lightheadedness and dizziness. No headache. He occasionally has sinus congestion will use saline nasal spray. Rare epistaxis. He is edentulous and says that his dentures are broken. He sleeps in a recliner and it sounds as though he has occasional orthopnea. He denies lower extremity edema. No nausea or vomiting. He has frequent lower urinary tract symptoms suggestive of BPH including hesitancy, dribbling, and frequency. He was actually prescribed tamsulosin during his last hospitalization but has not filled that either. He has no history of underlying mental illness, as he really does not believe in that and will not be evaluated for such. He denies suicidal and homicidal ideations. No hallucinations. Except as documented, all other systems were reviewed and are negative. [facility] Past Medical History Medical History (Updated 05/04/20 @ 23:30 by Emmanuelle Sandra PA-C) Anxiety Benign prostatic hyperplasia Chronic obstructive pulmonary disease Chronic respiratory failure with hypoxia and hypercapnia On home oxygen. Essential hypertension Migraines Peptic ulcer disease (~02/2020) Duodenal ulcer on endoscopy on 03/22/2020. Surgical History Surgical History (Updated 05/04/20 @ 23:19 by Emmanuelle Sandra PA-C) No pertinent past surgical history Family History Family History Sibling Patient's sister is in good health, Onset Age: 52 Patient's brother is in good health, Onset Age: 50 Mother Family history of diabetes mellitus in first degree relative, Onset Age: 68 Patient's m
[2020-05-04 22:12] LABS: Partial Thromboplastin Time 101.1 SECONDS (22.3-36.8)
[2020-05-04 22:13] LABS: Alanine Aminotransferase 35 U/L (4-50); Albumin Level 3.3 g/dL (3.5-5.1); Alkaline Phosphatase 88 U/L (38-126); Aspartate Amino Transferase 32 U/L (17-59); Bilirubin,Total 0.7 mg/dL (0.2-1.3); Blood Urea Nitrogen 8 mg/dL (9-20); Calcium 7.9 mg/dL (8.4-10.2); Carbon Dioxide 35 mmol/L (22-30); Chloride 89 mmol/L (98-107); Estimated CRCL calculation 107 ml/min; Estimated Glomerular Filt Rate > 60; Glucose 99 mg/dL (75-110); Potassium 3.3 mmol/L (3.4-5.0); Sodium 131 mmol/L (137-145)
[2020-05-04] MEDS: POTASSIUM CHLORIDE 20 MEQ TABLET PO (23:53)
[2020-05-05] VITALS (12 sets, daily range): BP systolic 100–141; BP diastolic 49–75; PULSE 78–112; RESP 18–22; TEMP 36.4–36.9; O2SAT 90–96
[2020-05-05] MEDS: guaiFENesin 12 HR 600 MG TABCR PO ×3 (00:12→21:07)
[2020-05-05 04:33] LABS: Basophils Percent Auto 0.3 % (0.2-1.2); Eosinophils Absolute Auto 0.1 K/mm3 (0-0.3); Eosinophils Percent Auto 1.5 % (0-4.4); Hematocrit 33.2 % (42.0-52.0); Hemoglobin 10.9 g/dL (14.0-18.0); Immature Granulocyte Absolute 0.03 K/mm3 (0.00-0.031); Immature Granulocyte Percent A 0.4 % (0-0.5); Lymphocytes Absolute Auto 0.63 K/mm3 (0.9-3.2); Lymphocytes Percent Auto 9.3 % (18.3-44.2); Mean Corpuscular HGB Conc 32.8 g/dl (32-36); Mean Corpuscular Hemoglobin 28.3 pg (26-34); Mean Corpuscular Volume 86.2 fl (80-100); Mean Platelet Volume 9.1 fl (7.4-10.4); Monocytes Absolute Auto 0.5 K/mm3 (0.1-0.6); Monocytes Percent Auto 7.1 % (2.6-8.5); Neutrophils Absolute Auto 5.5 K/mm3 (1.3-6.7); Neutrophils Percent Auto 81.4 % (45.5-73.1); Platelet Count Result 170 k/mm3 (150-375); Red Blood Count 3.85 M/mm3 (4.6-6.20); Red Cell Distribution Width 13.9 % (11.5-14.5); White Blood Count 6.8 K/mm3 (4.5-10.0)
[2020-05-05 04:44] LABS: Partial Thromboplastin Time 46.3 SECONDS (22.3-36.8)
[2020-05-05 04:48] LABS: Blood Urea Nitrogen 7 mg/dL (9-20); Calcium 7.6 mg/dL (8.4-10.2); Carbon Dioxide 35 mmol/L (22-30); Chloride 91 mmol/L (98-107); Estimated CRCL calculation 107 ml/min; Estimated Glomerular Filt Rate > 60; Glucose 85 mg/dL (75-110); Potassium 3.5 mmol/L (3.4-5.0); Sodium 130 mmol/L (137-145)
[2020-05-05] MEDS: HEPARIN SOD/D5W 100 UNITS/ML 25,000 UNITS/250 ML BAG 17 UNITS IV CONT (05:05)
[2020-05-05] MEDS: HEPARIN SODIUM 5,000 UNITS/ML VIAL 5500 UNITS IV PUSH (05:06)
--- NOTE | 2020-05-05 07:53 | P.PNIM_ITS ---
Progress Note: A&P Assessment and Plan (1) Bilateral pulmonary embolism: Code(s): I26.99 - Other pulmonary embolism without acute cor pulmonale Status: Acute Assessment and Plan: * Extensive bilateral pulmonary emboli noted on chest CT with suggestion of right heart strain however he does have a history of severe pulmonary hypertension. * He has been started on a heparin drip. * We will have pulmonary to see him given the extensive PE and pulmonary hypertension which is most likely secondary to his underlying COPD. (2) Lower extremity deep venous thrombosis: Code(s): I82.409 - Acute embolism and thrombosis of unspecified deep veins of unspecified lower extremity Status: Acute Assessment and Plan: * Blood clot could be secondary to sedentary lifestyle, should be up to date with his cancer screening as outpatient. * He is on a heparin drip as detailed above. (3) Chronic respiratory failure with hypoxia and hypercapnia: Code(s): J96.11 - Chronic respiratory failure with hypoxia; J96.12 - Chronic respiratory failure with hypercapnia Status: Acute Assessment and Plan: * He is at his baseline oxygen requirement. * Unfortunately he thinks he is being poisoned by his oxygen and is not always compliant. (4) Chronic obstructive pulmonary disease: Code(s): J44.9 - Chronic obstructive pulmonary disease, unspecified Status: Acute Assessment and Plan: * Diffuse wheezing but seems to be near his baseline. * He is adamant that he will not take steroids. * Continue maintenance inhalers and rescue inhaler as needed. (5) Anxiety: Code(s): F41.9 - Anxiety disorder, unspecified Status: Acute Assessment and Plan: * Continue BuSpar. (6) Benign prostatic hyperplasia: Code(s): N40.0 - Benign prostatic hyperplasia without lower urinary tract symptoms Status: Acute Assessment and Plan: * Bladder is distended in likely he is retaining a significant amount of urine. * We discussed the importance of taking the tamsulosin that was prescribed at last visit. (7) Peptic ulcer disease: Onset Date: ~02/2020 Code(s): K27.9 - Peptic ulcer, site unspecified, unspecified as acute or chronic, without hemorrhage or perforation Status: Acute Assessment and Plan: * Duodenal ulcer noted on EGD in February 2020. * He denies any symptoms of such, but I think it would be prudent to start him back on Protonix as he is now on a heparin drip. (8) Electrolyte abnormality: Code(s): E87.8 - Other disorders of electrolyte and fluid balance, not elsewhere classified Status: Acute Assessment and Plan: * Including chronic hyponatremia (130s) and hypokalemia (3.1). * Likely secondary to hydrochlorothiazide, which we will hold for now as his blood pressures are stable. * Potassium will be replaced and monitored. (9) Anemia: Code(s): D64.9 - Anemia, unspecified Status: Acute Assessment and Plan: * No active bleeding,his Hb drop could be secondary to the IV fluids he received in the ER. * Continue to monitor for now. Subjective
--- NOTE | 2020-05-05 07:53 | PM.IMPN ---
Progress Note: A&P Assessment and Plan (1) Bilateral pulmonary embolism: Code(s): I26.99 - Other pulmonary embolism without acute cor pulmonale Status: Acute Assessment and Plan: Extensive bilateral pulmonary emboli noted on chest CT with suggestion of right heart strain however he does have a history of severe pulmonary hypertension. He has been started on a heparin drip. We will have pulmonary to see him given the extensive PE and pulmonary hypertension which is most likely secondary to his underlying COPD. (2) Lower extremity deep venous thrombosis: Code(s): I82.409 - Acute embolism and thrombosis of unspecified deep veins of unspecified lower extremity Status: Acute Assessment and Plan: Blood clot could be secondary to sedentary lifestyle, should be up to date with his cancer screening as outpatient. He is on a heparin drip as detailed above. (3) Chronic respiratory failure with hypoxia and hypercapnia: Code(s): J96.11 - Chronic respiratory failure with hypoxia; J96.12 - Chronic respiratory failure with hypercapnia Status: Acute Assessment and Plan: He is at his baseline oxygen requirement. Unfortunately he thinks he is being poisoned by his oxygen and is not always compliant. (4) Chronic obstructive pulmonary disease: Code(s): J44.9 - Chronic obstructive pulmonary disease, unspecified Status: Acute Assessment and Plan: Diffuse wheezing but seems to be near his baseline. He is adamant that he will not take steroids. Continue maintenance inhalers and rescue inhaler as needed. (5) Anxiety: Code(s): F41.9 - Anxiety disorder, unspecified Status: Acute Assessment and Plan: Continue BuSpar. (6) Benign prostatic hyperplasia: Code(s): N40.0 - Benign prostatic hyperplasia without lower urinary tract symptoms Status: Acute Assessment and Plan: Bladder is distended in likely he is retaining a significant amount of urine. We discussed the importance of taking the tamsulosin that was prescribed at last visit. (7) Peptic ulcer disease: Onset Date: ~02/2020 Code(s): K27.9 - Peptic ulcer, site unspecified, unspecified as acute or chronic, without hemorrhage or perforation Status: Acute Assessment and Plan: Duodenal ulcer noted on EGD in February 2020. He denies any symptoms of such, but I think it would be prudent to start him back on Protonix as he is now on a heparin drip. (8) Electrolyte abnormality: Code(s): E87.8 - Other disorders of electrolyte and fluid balance, not elsewhere classified Status: Acute Assessment and Plan: Including chronic hyponatremia (130s) and hypokalemia (3.1). Likely secondary to hydrochlorothiazide, which we will hold for now as his blood pressures are stable. Potassium will be replaced and monitored. (9) Anemia: Code(s): D64.9 - Anemia, unspecified Status: Acute Assessment and Plan: No active bleeding,his Hb drop could be secondary to the IV fluids he received in the ER. Continue to monitor for now. Subjective Date/time seen: Not in distress, c/o generalized pain, no chest pain. 05/05/20 07:53 Review of Systems Review of Systems: All systems reviewed & are unremarkable except as noted in HPI and below Exam Const: General: no acute distress HENMT: Mouth: Yes dry mucous membranes Neck: Neck: supple and no JVD Resp: Effort & Inspection: normal respiratory effort Auscultation: diminished lung sounds Cardio: Rate: regular rate Rhythm:
[2020-05-05] MEDS: TAMSULOSIN HCL 0.4 MG CAPSULE PO (08:27)
[2020-05-05] MEDS: busPIRone HCL 5 MG TABLET 15 MG PO ×2 (08:27→21:07)
[2020-05-05] MEDS: ACETAMINOPHEN 325 MG TABLET 650 MG PO (08:29)
[2020-05-05 11:16] LABS: Partial Thromboplastin Time 162.9 SECONDS (22.3-36.8)
--- NOTE | 2020-05-05 13:45 | PC.NURSE ---
This patient, Raimundo Johnson, was transferred to [[id number] ] on 05/05/20 at 1345. Personal belongings sent with patient. Belongings list checked and verified. Sent with patient. Report given to [MARY Andino @ [phone] ]. Appropriate documentation sent with patient. Oxygen on and Heparin infusing, no problems noted
--- NOTE | 2020-05-05 14:03 | PC.NURSE ---
This patient, Raimundo Johnson, was received from IMU on 05/05/20 at 1350. Personal belongings list checked and signed. Patient oriented to unit policies and routines
[2020-05-05 18:57] LABS: Partial Thromboplastin Time 96.1 SECONDS (22.3-36.8)
[2020-05-05] MEDS: PANTOPRAZOLE SOD SESQUIHYDRATE 20 MG TAB PO (21:07)
[2020-05-05] MEDS: MELATONIN 5 MG TABLET PO (21:16)
[2020-05-05] MEDS: HEPARIN SOD/D5W 100 UNITS/ML 25,000 UNITS/250 ML BAG 15 UNITS IV CONT (21:23)
[2020-05-06] VITALS (11 sets, daily range): BP systolic 103–112; BP diastolic 57–68; PULSE 61–101; RESP 18–22; TEMP 36.3–36.7; O2SAT 90–96
[2020-05-06] MEDS: IPRATROPIUM BR 0.02% INH SOLN 0.5 MG/2.5 ML VIAL (02:32)
[2020-05-06] MEDS: ALBUTEROL SULFATE NEB 2.5 MG/0.5 ML INH (02:33)
[2020-05-06 07:53] LABS: Basophils Percent Auto 0.3 % (0.2-1.2); Eosinophils Absolute Auto 0.2 K/mm3 (0-0.3); Eosinophils Percent Auto 2.1 % (0-4.4); Hematocrit 33.6 % (42.0-52.0); Hemoglobin 10.9 g/dL (14.0-18.0); Immature Granulocyte Absolute 0.04 K/mm3 (0.00-0.031); Immature Granulocyte Percent A 0.6 % (0-0.5); Lymphocytes Absolute Auto 0.64 K/mm3 (0.9-3.2); Lymphocytes Percent Auto 9.2 % (18.3-44.2); Mean Corpuscular HGB Conc 32.4 g/dl (32-36); Mean Corpuscular Volume 86.4 fl (80-100); Mean Platelet Volume 9.1 fl (7.4-10.4); Monocytes Absolute Auto 0.6 K/mm3 (0.1-0.6); Monocytes Percent Auto 8.4 % (2.6-8.5); Neutrophils Absolute Auto 5.6 K/mm3 (1.3-6.7); Neutrophils Percent Auto 79.4 % (45.5-73.1); Platelet Count Result 188 k/mm3 (150-375); Red Blood Count 3.89 M/mm3 (4.6-6.20)
[2020-05-06 08:10] LABS: Blood Urea Nitrogen 4 mg/dL (9-20); Calcium 7.9 mg/dL (8.4-10.2); Carbon Dioxide 36 mmol/L (22-30); Chloride 91 mmol/L (98-107); Estimated CRCL calculation 107 ml/min; Estimated Glomerular Filt Rate > 60; Glucose 103 mg/dL (75-110); Potassium 3.1 mmol/L (3.4-5.0); Sodium 132 mmol/L (137-145)
[2020-05-06] MEDS: TAMSULOSIN HCL 0.4 MG CAPSULE PO (08:47)
--- NOTE | 2020-05-06 11:21 | P.PNIM_ITS ---
Progress Note: A&P Assessment and Plan (1) Bilateral pulmonary embolism: Code(s): I26.99 - Other pulmonary embolism without acute cor pulmonale Status: Acute Assessment and Plan: * Extensive bilateral pulmonary emboli noted on chest CT with suggestion of right heart strain however he does have a history of severe pulmonary hypertension. * We will switch his therapy to eliquis 10 MG bid for 7 days then 5 mg BID. * We will have case management help confirm if his insurance covers eliquis, otherwise he will need to be started on warfarin. * We will have pulmonary to see him given the extensive PE and pulmonary hypertension which is most likely secondary to his underlying COPD or possible chronic PE?. (2) Lower extremity deep venous thrombosis: Code(s): I82.409 - Acute embolism and thrombosis of unspecified deep veins of unspecified lower extremity Status: Acute Assessment and Plan: * Blood clot could be secondary to sedentary lifestyle, should be up to date with his cancer screening as outpatient. * Will start eliquis tonight, stop heparin drip. * Start PT. (3) Chronic respiratory failure with hypoxia and hypercapnia: Code(s): J96.11 - Chronic respiratory failure with hypoxia; J96.12 - Chronic respiratory failure with hypercapnia Status: Acute Assessment and Plan: * He is at his baseline oxygen requirement. * Unfortunately he thinks he is being poisoned by his oxygen and is not always compliant. (4) Chronic obstructive pulmonary disease: Code(s): J44.9 - Chronic obstructive pulmonary disease, unspecified Status: Acute Assessment and Plan: * He is adamant that he will not take steroids. * Continue maintenance inhalers and rescue inhaler as needed. (5) Anxiety: Code(s): F41.9 - Anxiety disorder, unspecified Status: Acute Assessment and Plan: * Continue BuSpar. * He will need a referral to see psychiatry as outpatient. (6) Benign prostatic hyperplasia: Code(s): N40.0 - Benign prostatic hyperplasia without lower urinary tract symptoms Status: Acute Assessment and Plan: * We discussed the importance of taking the tamsulosin that was prescribed at last visit. (7) Peptic ulcer disease: Onset Date: ~02/2020 Code(s): K27.9 - Peptic ulcer, site unspecified, unspecified as acute or chronic, without hemorrhage or perforation Status: Acute Assessment and Plan: * Duodenal ulcer noted on EGD in February 2020. * He denies any symptoms of such, but I think it would be prudent to start him back on Protonix as he is now on anticoagulation. (8) Electrolyte abnormality: Code(s): E87.8 - Other disorders of electrolyte and fluid balance, not elsewhere classified Status: Acute Assessment and Plan: * Including chronic hyponatremia (132) and hypokalemia (3.1). * Likely secondary to hydrochlorothiazide, which we will hold for now as his blood pressures are stable. * Potassium will be replaced and monitored. (9) Anemia: Code(s): D64.9 - Anemia, unspecified Status: Acute Assessment and Plan: * No active ble
--- NOTE | 2020-05-06 11:21 | PM.IMPN ---
Progress Note: A&P Assessment and Plan (1) Bilateral pulmonary embolism: Code(s): I26.99 - Other pulmonary embolism without acute cor pulmonale Status: Acute Assessment and Plan: Extensive bilateral pulmonary emboli noted on chest CT with suggestion of right heart strain however he does have a history of severe pulmonary hypertension. We will switch his therapy to eliquis 10 MG bid for 7 days then 5 mg BID. We will have case management help confirm if his insurance covers eliquis, otherwise he will need to be started on warfarin. We will have pulmonary to see him given the extensive PE and pulmonary hypertension which is most likely secondary to his underlying COPD or possible chronic PE?. (2) Lower extremity deep venous thrombosis: Code(s): I82.409 - Acute embolism and thrombosis of unspecified deep veins of unspecified lower extremity Status: Acute Assessment and Plan: Blood clot could be secondary to sedentary lifestyle, should be up to date with his cancer screening as outpatient. Will start eliquis tonight, stop heparin drip. Start PT. (3) Chronic respiratory failure with hypoxia and hypercapnia: Code(s): J96.11 - Chronic respiratory failure with hypoxia; J96.12 - Chronic respiratory failure with hypercapnia Status: Acute Assessment and Plan: He is at his baseline oxygen requirement. Unfortunately he thinks he is being poisoned by his oxygen and is not always compliant. (4) Chronic obstructive pulmonary disease: Code(s): J44.9 - Chronic obstructive pulmonary disease, unspecified Status: Acute Assessment and Plan: He is adamant that he will not take steroids. Continue maintenance inhalers and rescue inhaler as needed. (5) Anxiety: Code(s): F41.9 - Anxiety disorder, unspecified Status: Acute Assessment and Plan: Continue BuSpar. He will need a referral to see psychiatry as outpatient. (6) Benign prostatic hyperplasia: Code(s): N40.0 - Benign prostatic hyperplasia without lower urinary tract symptoms Status: Acute Assessment and Plan: We discussed the importance of taking the tamsulosin that was prescribed at last visit. (7) Peptic ulcer disease: Onset Date: ~02/2020 Code(s): K27.9 - Peptic ulcer, site unspecified, unspecified as acute or chronic, without hemorrhage or perforation Status: Acute Assessment and Plan: Duodenal ulcer noted on EGD in February 2020. He denies any symptoms of such, but I think it would be prudent to start him back on Protonix as he is now on anticoagulation. (8) Electrolyte abnormality: Code(s): E87.8 - Other disorders of electrolyte and fluid balance, not elsewhere classified Status: Acute Assessment and Plan: Including chronic hyponatremia (132) and hypokalemia (3.1). Likely secondary to hydrochlorothiazide, which we will hold for now as his blood pressures are stable. Potassium will be replaced and monitored. (9) Anemia: Code(s): D64.9 - Anemia, unspecified Status: Acute Assessment and Plan: No active bleeding,his Hb drop could be secondary to the IV fluids he received in the ER. Continue to monitor for now. Subjective Date/time seen: No new complains, he remains anxious and somewhat paranoid about his treatment. 05/06/20 11:21 Review of Systems Review of Systems: All systems reviewed & are unremarkable except as noted in HPI and below Exam Const: General: comfortable and no acute distress Neck: Neck: supple and no JVD
[2020-05-06] MEDS: POTASSIUM CHLORIDE 20 MEQ PACKET (FOR LIQUID) 40 MEQ PO (17:46)
[2020-05-06] MEDS: PANTOPRAZOLE SOD SESQUIHYDRATE 20 MG TAB PO (22:02)
[2020-05-06] MEDS: APIXABAN 5 MG TABLET 10 MG PO (22:02)
[2020-05-06] MEDS: guaiFENesin 12 HR 600 MG TABCR PO (22:02)
[2020-05-06] MEDS: busPIRone HCL 5 MG TABLET 15 MG PO (22:02)
[2020-05-06] MEDS: MELATONIN 5 MG TABLET PO (22:03)
[2020-05-07] VITALS (11 sets, daily range): BP systolic 106–114; BP diastolic 61–63; PULSE 77–113; RESP 18–24; TEMP 36.6; O2SAT 93–96
[2020-05-07 06:24] LABS: Basophils Percent Auto 0.1 % (0.2-1.2); Eosinophils Absolute Auto 0.2 K/mm3 (0-0.3); Eosinophils Percent Auto 3.6 % (0-4.4); Hematocrit 36.2 % (42.0-52.0); Hemoglobin 11.7 g/dL (14.0-18.0); Immature Granulocyte Absolute 0.02 K/mm3 (0.00-0.031); Immature Granulocyte Percent A 0.3 % (0-0.5); Lymphocytes Absolute Auto 0.79 K/mm3 (0.9-3.2); Lymphocytes Percent Auto 11.8 % (18.3-44.2); Mean Corpuscular HGB Conc 32.3 g/dl (32-36); Mean Corpuscular Volume 86.6 fl (80-100); Mean Platelet Volume 9.1 fl (7.4-10.4); Monocytes Absolute Auto 0.5 K/mm3 (0.1-0.6); Monocytes Percent Auto 8.1 % (2.6-8.5); Neutrophils Absolute Auto 5.1 K/mm3 (1.3-6.7); Neutrophils Percent Auto 76.1 % (45.5-73.1); Platelet Count Result 199 k/mm3 (150-375); Red Blood Count 4.18 M/mm3 (4.6-6.20); Red Cell Distribution Width 14.1 % (11.5-14.5); White Blood Count 6.7 K/mm3 (4.5-10.0)
[2020-05-07 06:32] LABS: Partial Thromboplastin Time 32.8 SECONDS (22.3-36.8)
[2020-05-07 06:38] LABS: Blood Urea Nitrogen 3 mg/dL (9-20); Calcium 8.6 mg/dL (8.4-10.2); Carbon Dioxide 34 mmol/L (22-30); Chloride 93 mmol/L (98-107); Estimated CRCL calculation 107 ml/min; Estimated Glomerular Filt Rate > 60; Glucose 106 mg/dL (75-110); Potassium 3.9 mmol/L (3.4-5.0); Sodium 130 mmol/L (137-145)
--- NOTE | 2020-05-07 09:11 | PCPTNOTE ---
attempted PT evaluation ~9:00 and he had just received his breakfast. Unable to complete PT eval at this time.
[2020-05-07] MEDS: busPIRone HCL 5 MG TABLET 15 MG PO ×2 (09:55→20:59)
[2020-05-07] MEDS: APIXABAN 5 MG TABLET 10 MG PO ×2 (09:55→20:59)
[2020-05-07] MEDS: guaiFENesin 12 HR 600 MG TABCR PO (09:55)
[2020-05-07] MEDS: POTASSIUM CHLORIDE 20 MEQ PACKET (FOR LIQUID) 40 MEQ PO ×2 (09:55→17:57)
[2020-05-07] MEDS: TAMSULOSIN HCL 0.4 MG CAPSULE PO (09:56)
--- NOTE | 2020-05-07 10:12 | PM.IMPN ---
Progress Note: A&P Assessment and Plan (1) Bilateral pulmonary embolism: Code(s): I26.99 - Other pulmonary embolism without acute cor pulmonale Status: Acute Assessment and Plan: Extensive bilateral pulmonary emboli noted on chest CT with suggestion of right heart strain however he does have a history of severe pulmonary hypertension. We will switch his therapy to eliquis 10 MG bid for 7 days then 5 mg BID. Awaiting Pulmology consult Continue 2 liters of oxygen (2) Lower extremity deep venous thrombosis: Code(s): I82.409 - Acute embolism and thrombosis of unspecified deep veins of unspecified lower extremity Status: Acute Assessment and Plan: Continue eliquis Start PT. (3) Chronic respiratory failure with hypoxia and hypercapnia: Code(s): J96.11 - Chronic respiratory failure with hypoxia; J96.12 - Chronic respiratory failure with hypercapnia Status: Acute Assessment and Plan: He is at his baseline oxygen requirement. Continue 2 liters Pt is very anxious (4) Chronic obstructive pulmonary disease: Code(s): J44.9 - Chronic obstructive pulmonary disease, unspecified Status: Acute Assessment and Plan: Continue maintenance inhalers and rescue inhaler as needed. (5) Anxiety: Code(s): F41.9 - Anxiety disorder, unspecified Status: Acute Assessment and Plan: Continue BuSpar. He will need a referral to see psychiatry as outpatient. (6) Benign prostatic hyperplasia: Code(s): N40.0 - Benign prostatic hyperplasia without lower urinary tract symptoms Status: Acute Assessment and Plan: Pt adviced tamulosin (7) Peptic ulcer disease: Onset Date: ~02/2020 Code(s): K27.9 - Peptic ulcer, site unspecified, unspecified as acute or chronic, without hemorrhage or perforation Status: Acute Assessment and Plan: Duodenal ulcer noted on EGD in February 2020. Continue protonix (8) Electrolyte abnormality: Code(s): E87.8 - Other disorders of electrolyte and fluid balance, not elsewhere classified Status: Acute Assessment and Plan: Including chronic hyponatremia 130. (9) Anemia: Code(s): D64.9 - Anemia, unspecified Status: Acute Assessment and Plan: Continue to monitor for now. Subjective Date/time seen: 05/07/20 10:12 Interval history: 64M admitted with BL PE, Pt states he feels sob and is very anxious, unable to walk as he feels very weak, pt is currently on 2 liters of oxygen, states he could not take his eliquis as it stuck in his throat. Review of Systems Review of Systems: All systems reviewed & are unremarkable except as noted in HPI and below Exam Const: General: comfortable and no acute distress Resp: Effort & Inspection: normal respiratory effort Auscultation: clear to auscultation bilaterally Cardio: Rate: regular rate Rhythm: regular rhythm GI: Auscultation: normal bowel sounds Other: Soft, non distended. Urinary Catheter: Urinary Catheter: patent and draining Skin: General skin exam: no rashes or lesions noted Neuro: Speech: normal speech Motor exam (neuro): 5/5 motor strength present throughout and Normal motor muscle tone present throughout Sensory Exam: normal sensation Extrem: General: normal to inspection Psych: Affect: Anxious affect present Objective Data Vital Signs Vital Signs: Vital Signs - 24 hr 05/06/20 12:00 05/06/20 14:23 05/06/20 16:00 Temperature 36.7 C Pulse Rate 91 85 92 Respiratory Rate 20 Blood Pressure 104
[2020-05-07] MEDS: IPRATROPIUM BR 0.02% INH SOLN 0.5 MG/2.5 ML VIAL INHALATION ×2 (10:17→19:51)
[2020-05-07] MEDS: ALBUTEROL SULFATE NEB 2.5 MG/0.5 ML INH INHALATION ×2 (10:17→19:51)
[2020-05-07 11:02] LABS: Hematocrit 36.2 % (42.0-52.0); Hemoglobin 11.6 g/dL (14.0-18.0); Mean Corpuscular Hemoglobin 27.7 pg (26-34); Mean Corpuscular Volume 86.4 fl (80-100); Mean Platelet Volume 8.7 fl (7.4-10.4); Platelet Count Result 208 k/mm3 (150-375); Red Blood Count 4.19 M/mm3 (4.6-6.20); Red Cell Distribution Width 14.1 % (11.5-14.5); White Blood Count 6.9 K/mm3 (4.5-10.0)
[2020-05-07] MEDS: ALPRAZolam 0.25 MG TABLET PO ×2 (16:01→20:58)
--- NOTE | 2020-05-07 18:50 | PM.CNPUL ---
Assessment and Plan Assessment and plan (1) Bilateral pulmonary embolism: Code(s): I26.99 - Other pulmonary embolism without acute cor pulmonale Status: Acute Assessment and Plan: on CTA, now on Eliquis 10 nmg BID x a week and then 5 mg BID thereafter echo 05/04/2020 1. Left ventricular chamber dimension is normal. 2. Left ventricular systolic function is normal, estimated at 65-70%. 3. The left ventricular diastolic function is normal. 4. E/e' 8 is minimally elevated. 5. Right ventricular systolic function is normal with normal TAPSE 2.1cm.. 6. There is trace tricuspid valve regurgitation. 7. Severe pulmonary hypertension, estimated pulmonary arterial systolic pressure is 61 mmHg. (2) Lower extremity deep venous thrombosis: Code(s): I82.409 - Acute embolism and thrombosis of unspecified deep veins of unspecified lower extremity Status: Acute Assessment and Plan: 05/04/2020 LE dopplers Deep vein thrombosis involving the right peroneal veins and left popliteal, posterior tibial, and peroneal veins. (3) Chronic obstructive pulmonary disease: Code(s): J44.9 - Chronic obstructive pulmonary disease, unspecified Status: Acute Assessment and Plan: Bronchodilator therapy (4) Chronic respiratory failure with hypoxia and hypercapnia: Code(s): J96.11 - Chronic respiratory failure with hypoxia; J96.12 - Chronic respiratory failure with hypercapnia Status: Acute Assessment and Plan: Has been on home oxygen in the past currently on 2 L a minute (5) Anxiety: Code(s): F41.9 - Anxiety disorder, unspecified Status: Resolved Assessment and Plan: He has this at baseline with fluctuations worse while sick (6) Thought disorder: Code(s): R41.89 - Other symptoms and signs involving cognitive functions and awareness Status: Acute Assessment and Plan: He has had paranoid and delusional thoughts each of the last 3 admissions. On the previous admission was wearing 3 cannulas at once and talking about poison is in the nasal cannula that were burning his lungs and his head. This admission he is talking about cardiogenic oxygen. He saying the staff will help him. He feels that he is choking on his secretions. There is no evidence of him having difficulty with secretions this admission. He says that his oxygen tanks are blowing liquid oxygen way too fast and that he will be sick and return if he has sent home to quickly. This patient need psychiatric evaluation. Has buddhism delusions, says that people as psychiatric illness are possessed by the devil and should be cast out. He is not open to treatment or the idea that he has a problem. (7) Pulmonary hypertension: Code(s): I27.20 - Pulmonary hypertension, unspecified Status: Acute Assessment and Plan: Echo 05/04/severe pulmonary hypertension with RVSP 61 mmHg This is likely due to a combination of COPD chronic hypoxemic respiratory failure and new bilateral pulmonary emboli History of Present Illness History of Present Illness Consult date: 05/08/20 Requesting physician: Salo Coley MD Chief complaint: Shortness of breath. Narrative: Dr Stroud consulted me to see this patient for new diagnosis of bilateral PE and DVT, with chronic respiratory failure. He says that he feels better now than he did when he was readmitted. He had a (+) CTA with bilateral PE and LE DVT. He has had 2 doses of Eliquis, is on 2 L/min
[2020-05-07] MEDS: guaiFENesin 200 MG/10 ML UDC PO (20:58)
[2020-05-07] MEDS: PANTOPRAZOLE SOD SESQUIHYDRATE 20 MG TAB PO (20:59)
[2020-05-07] MEDS: MELATONIN 5 MG TABLET PO (21:00)
[2020-05-08] VITALS (13 sets, daily range): BP systolic 110–130; BP diastolic 57–75; PULSE 92–149; RESP 16–48; TEMP 36.2–36.8; O2SAT 85–94
[2020-05-08] MEDS: guaiFENesin 200 MG/10 ML UDC PO ×6 (00:39→23:43)
[2020-05-08 05:44] LABS: Basophils Percent Auto 0.3 % (0.2-1.2); Eosinophils Absolute Auto 0.4 K/mm3 (0-0.3); Eosinophils Percent Auto 6.1 % (0-4.4); Hematocrit 36.6 % (42.0-52.0); Hemoglobin 11.7 g/dL (14.0-18.0); Immature Granulocyte Absolute 0.03 K/mm3 (0.00-0.031); Immature Granulocyte Percent A 0.4 % (0-0.5); Lymphocytes Absolute Auto 0.78 K/mm3 (0.9-3.2); Lymphocytes Percent Auto 10.8 % (18.3-44.2); Mean Corpuscular Hemoglobin 27.9 pg (26-34); Mean Corpuscular Volume 87.4 fl (80-100); Monocytes Absolute Auto 0.6 K/mm3 (0.1-0.6); Monocytes Percent Auto 8.1 % (2.6-8.5); Neutrophils Absolute Auto 5.4 K/mm3 (1.3-6.7); Neutrophils Percent Auto 74.3 % (45.5-73.1); Platelet Count Result 231 k/mm3 (150-375); Red Blood Count 4.19 M/mm3 (4.6-6.20); Red Cell Distribution Width 14.3 % (11.5-14.5); White Blood Count 7.3 K/mm3 (4.5-10.0)
[2020-05-08 05:58] LABS: Alanine Aminotransferase 39 U/L (4-50); Albumin Level 3.2 g/dL (3.5-5.1); Alkaline Phosphatase 91 U/L (38-126); Aspartate Amino Transferase 44 U/L (17-59); Bilirubin,Total 0.4 mg/dL (0.2-1.3); Blood Urea Nitrogen 8 mg/dL (9-20); Calcium 8.6 mg/dL (8.4-10.2); Carbon Dioxide 32 mmol/L (22-30); Chloride 93 mmol/L (98-107); Estimated CRCL calculation 107 ml/min; Estimated Glomerular Filt Rate > 60; Glucose 111 mg/dL (75-110); Potassium 4.9 mmol/L (3.4-5.0); Sodium 130 mmol/L (137-145)
--- NOTE | 2020-05-08 08:53 | PCPTNOTE ---
The PT treatment was unable to be completed today due to patient refusal. Will continue per Plan of Care frequency and duration.
[2020-05-08] MEDS: POTASSIUM CHLORIDE 20 MEQ PACKET (FOR LIQUID) 40 MEQ PO ×2 (09:07→16:47)
[2020-05-08] MEDS: TAMSULOSIN HCL 0.4 MG CAPSULE PO (09:07)
[2020-05-08] MEDS: APIXABAN 5 MG TABLET 10 MG PO ×2 (09:07→22:46)
[2020-05-08] MEDS: busPIRone HCL 5 MG TABLET 15 MG PO ×2 (09:07→23:07)
[2020-05-08] MEDS: ALPRAZolam 0.25 MG TABLET PO ×3 (09:17→16:47)
--- NOTE | 2020-05-08 13:51 | PM.IMPN ---
Progress Note: A&P Assessment and Plan (1) Bilateral pulmonary embolism: Code(s): I26.99 - Other pulmonary embolism without acute cor pulmonale Status: Acute Assessment and Plan: Extensive bilateral pulmonary emboli noted on chest CT with suggestion of right heart strain however he does have a history of severe pulmonary hypertension. We will switch his therapy to eliquis 10 MG bid for 7 days then 5 mg BID. continue oxygen (2) Lower extremity deep venous thrombosis: Code(s): I82.409 - Acute embolism and thrombosis of unspecified deep veins of unspecified lower extremity Status: Acute Assessment and Plan: Continue eliquis Start PT. (3) Chronic respiratory failure with hypoxia and hypercapnia: Code(s): J96.11 - Chronic respiratory failure with hypoxia; J96.12 - Chronic respiratory failure with hypercapnia Status: Acute Assessment and Plan: He is at his baseline oxygen requirement. Continue 2 liters Pt is very anxious (4) Chronic obstructive pulmonary disease: Code(s): J44.9 - Chronic obstructive pulmonary disease, unspecified Status: Acute Assessment and Plan: Continue maintenance inhalers and rescue inhaler as needed. (5) Anxiety: Code(s): F41.9 - Anxiety disorder, unspecified Status: Acute Assessment and Plan: Continue BuSpar. He will need a referral to see psychiatry as outpatient. (6) Benign prostatic hyperplasia: Code(s): N40.0 - Benign prostatic hyperplasia without lower urinary tract symptoms Status: Acute Assessment and Plan: Pt adviced tamulosin (7) Peptic ulcer disease: Onset Date: ~02/2020 Code(s): K27.9 - Peptic ulcer, site unspecified, unspecified as acute or chronic, without hemorrhage or perforation Status: Acute Assessment and Plan: Duodenal ulcer noted on EGD in February 2020. Continue protonix (8) Electrolyte abnormality: Code(s): E87.8 - Other disorders of electrolyte and fluid balance, not elsewhere classified Status: Acute Assessment and Plan: Including chronic hyponatremia 130. (9) Anemia: Code(s): D64.9 - Anemia, unspecified Status: Acute Assessment and Plan: Continue to monitor for now. (10) Thought disorder: Code(s): R41.89 - Other symptoms and signs involving cognitive functions and awareness Status: Acute Assessment and Plan: Dr Dailey has noticed pt is very delusional today about oxygen, about staff and roman catholic - crisis has been contacted. Pt has contacted his PCP several times today. Subjective Date/time seen: 05/08/20 13:51 Interval history: 64M admitted with BL PE, Pt states he feels sob and is very anxious, unable to walk as he feels very weak, pt is very anxious in the room having a panic attack, later seen by DR Dailey, pt is very delusional and paranoid Review of Systems Review of Systems: All systems reviewed & are unremarkable except as noted in HPI and below Respiratory: Respiratory: Reports dyspnea Comments: hyperventilation Psychiatric: Psychiatric: Reports anxiety, Reports hopelessness, Reports irritability and Reports mood swings Exam Narrative: Exam Narrative: Hyperventilating in the room Resp: Effort & Inspection: other (hyperventilation ) Auscultation: no wheezes Cardio: Rate: regular rate Rhythm: regular rhythm GI: Inspection: normal to inspection GI Palp: No abdominal tenderness, No Guarding due to palpation present (GI) and No Hepatomegaly present Auscultation: normal
--- NOTE | 2020-05-08 13:56 | PM.PNPUL ---
Progress Note: A&P Assessment and Plan (1) Chronic respiratory failure with hypoxia and hypercapnia: Code(s): J96.11 - Chronic respiratory failure with hypoxia; J96.12 - Chronic respiratory failure with hypercapnia Status: Acute Assessment and Plan: Has been on home oxygen in the past currently on 2 L / minute. I spoke with Dr Corado regarding discharge plans. I believe that he is stable from a medical standpoint however he is of healing his discharge. He has irrational thoughts about his oxygen which will kill him. He is talking about cryo genic oxygen over power in him at home. He is in need of psychiatric care but there is no option for an inpatient consult. Our director of casework called [facility], a local psychiatric facility and the patient does not meet criteria for admission because he is not suicidal or homicidal. His main barrier to psychiatric care is his paranoia about receiving care. He has moravian delusions. Patient will stay another day will try to make some improved arrangements for him. He will continue to return to the hospital if we can't stabilize his thought disorder. (2) Bilateral pulmonary embolism: Code(s): I26.99 - Other pulmonary embolism without acute cor pulmonale Status: Acute Assessment and Plan: on CTA, now on Eliquis 10 nmg BID x a week and then 5 mg BID thereafter echo 05/04/2020 1. Left ventricular chamber dimension is normal. 2. Left ventricular systolic function is normal, estimated at 65-70%. 3. The left ventricular diastolic function is normal. 4. E/e' 8 is minimally elevated. 5. Right ventricular systolic function is normal with normal TAPSE 2.1cm.. 6. There is trace tricuspid valve regurgitation. 7. Severe pulmonary hypertension, estimated pulmonary arterial systolic pressure is 61 mmHg. (3) Lower extremity deep venous thrombosis: Code(s): I82.409 - Acute embolism and thrombosis of unspecified deep veins of unspecified lower extremity Status: Acute Assessment and Plan: 05/04/2020 LE dopplers Deep vein thrombosis involving the right peroneal veins and left popliteal, posterior tibial, and peroneal veins. (4) Chronic obstructive pulmonary disease: Code(s): J44.9 - Chronic obstructive pulmonary disease, unspecified Status: Acute Assessment and Plan: Bronchodilator therapy (5) Anxiety: Code(s): F41.9 - Anxiety disorder, unspecified Status: Resolved Assessment and Plan: He has this at baseline with fluctuations worse while sick (6) Thought disorder: Code(s): R41.89 - Other symptoms and signs involving cognitive functions and awareness Status: Acute Assessment and Plan: He has had paranoid and delusional thoughts each of the last 3 admissions. On the previous admission was wearing 3 cannulas at once and talking about poison is in the nasal cannula that were burning his lungs and his head. This admission he is talking about cardiogenic oxygen. He saying the staff will help him. He feels that he is choking on his secretions. There is no evidence of him having difficulty with secretions this admission. He says that his oxygen tanks are blowing liquid oxygen way too fast and that he will be sick and return if he has sent home to quickly. This patient need psychiatric evaluation. Has moravian delusions, says that people as psychiatric illness are possessed by the devil and should be cast out. He is not open to treatment or the idea that he has a problem. (7) Pulmonary hypertension: Code(s):
[2020-05-08] MEDS: IPRATROPIUM BR 0.02% INH SOLN 0.5 MG/2.5 ML VIAL INHALATION (20:34)
[2020-05-08 22:46] LABS: Alveolar/Arterial O2 Gradient 106.5 mmHg; Base Excess ABG 5.2 mEq/l (+/-2.0); Fractional Inspired Oxygen 32 %; HCO3 ABG 32.3 mEq/l (22.0-26.0); Oxygen Content ABG 15.6 %vol (16.0-22.0); Oxyhemoglobin 86.1 % THb (90.0-100.0); PCO2 ABG 58.7 mmHg (35.0-45.0); PO2 FiO2 Ratio Arterial Blood 1.66 %; Total Hemoglobin 12.9 g/dL (12.0-18.0); pH ABG 7.358 (7.350-7.450)
[2020-05-08 22:50] LABS: Device NASAL CANNULA; Modified Allen's Test Pass; Oxygen Saturation ABG 85.3 % (95.0-100.0); Site Drawn RIGHT RADIAL
[2020-05-08] MEDS: PANTOPRAZOLE SOD SESQUIHYDRATE 20 MG TAB PO (23:03)
[2020-05-08] MEDS: MELATONIN 5 MG TABLET PO (23:06)
--- NOTE | 2020-05-08 23:18 | PCRCNOTE ---
PT having increased WOB RN aware called PA. They ordered ABG pt has a low pao2. PA want's to keep spo2 around 90%.
--- NOTE | 2020-05-08 23:43 | PC.NURSE ---
Med pass exceeded 2 hours in total. Pt was very short of breath and required multiple breaks between medications.
[2020-05-09] MEDS: guaiFENesin 200 MG/10 ML UDC PO ×2 (04:58→10:14)
[2020-05-09 07:45] VITALS: BP 149/83; PULSE 111; RESP 18; TEMP 36.3; O2SAT 91
[2020-05-09 08:39] VITALS: PULSE 102; O2SAT 92
[2020-05-09 08:40] VITALS: PULSE 102; RESP 30
[2020-05-09] MEDS: APIXABAN 5 MG TABLET 10 MG PO (10:12)
[2020-05-09] MEDS: busPIRone HCL 5 MG TABLET 15 MG PO (10:12)
[2020-05-09] MEDS: ALPRAZolam 0.25 MG TABLET PO (10:12)
[2020-05-09] MEDS: TAMSULOSIN HCL 0.4 MG CAPSULE PO (10:13)
[2020-05-09 12:03] VITALS: BP 96/59; PULSE 110; RESP 26; O2SAT 91
[2020-05-09 12:37] VITALS: BP 101/58; PULSE 99; RESP 24; O2SAT 92
--- NOTE | 2020-05-09 14:09 | PM.PNPUL ---
Progress Note: A&P Assessment and Plan (1) Chronic respiratory failure with hypoxia and hypercapnia: Code(s): J96.11 - Chronic respiratory failure with hypoxia; J96.12 - Chronic respiratory failure with hypercapnia Status: Acute Assessment and Plan: Has been on home oxygen in the past currently on 2 L / minute. I spoke with Dr Corado regarding discharge plans. I believe that he is stable from a medical standpoint however he is having psychiatric problems and due to his delusions is very resistant to having help for this. He is appealing his discharge. He says that he is not willing to go home yet. He has irrational thoughts about his oxygen which he says will kill him. He is talking about 'cryogenic oxygen' which will over power him at home. He is in need of psychiatric care but there is no option for an inpatient consult. Our case briefer called [facility], a local psychiatric facility and the patient does not meet criteria for admission because he is not suicidal or homicidal. His main barrier to psychiatric care is his paranoia about receiving care. He has presybeterian delusions. Patient will stay another day will try to make some improved arrangements for him. He will most certainly continue to return to the hospital if his psychiatric issues are not addressed. He is stable from medical standpoint. (2) Bilateral pulmonary embolism: Code(s): I26.99 - Other pulmonary embolism without acute cor pulmonale Status: Acute Assessment and Plan: on CTA, now on Eliquis 10 nmg BID x a week and then 5 mg BID thereafter echo 05/04/2020 1. Left ventricular chamber dimension is normal. 2. Left ventricular systolic function is normal, estimated at 65-70%. 3. The left ventricular diastolic function is normal. 4. E/e' 8 is minimally elevated. 5. Right ventricular systolic function is normal with normal TAPSE 2.1cm.. 6. There is trace tricuspid valve regurgitation. 7. Severe pulmonary hypertension, estimated pulmonary arterial systolic pressure is 61 mmHg. (3) Lower extremity deep venous thrombosis: Code(s): I82.409 - Acute embolism and thrombosis of unspecified deep veins of unspecified lower extremity Status: Acute Assessment and Plan: 05/04/2020 LE dopplers Deep vein thrombosis involving the right peroneal veins and left popliteal, posterior tibial, and peroneal veins. (4) Chronic obstructive pulmonary disease: Code(s): J44.9 - Chronic obstructive pulmonary disease, unspecified Status: Acute Assessment and Plan: Bronchodilator therapy (5) Anxiety: Code(s): F41.9 - Anxiety disorder, unspecified Status: Resolved Assessment and Plan: He has this at baseline with fluctuations worse while sick (6) Thought disorder: Code(s): R41.89 - Other symptoms and signs involving cognitive functions and awareness Status: Acute Assessment and Plan: He has had paranoid and delusional thoughts each of the last 3 admissions. On the previous admission was wearing 3 cannulas at once and talking about poison is in the nasal cannula that were burning his lungs and his head. This admission he is talking about cardiogenic oxygen. He saying the staff will help him. He feels that he is choking on his secretions. There is no evidence of him having difficulty with secretions this admission. He says that his oxygen tanks are blowing liquid oxygen way too fast and that he will be sick and return if he has sent home to quickly. This patient need psychiatric evaluation. Has presybeterian delusions, says that people as psychiatric illness are po
[2020-05-09 14:18] VITALS: BP 110/65; PULSE 100; RESP 23; TEMP 36.6; O2SAT 92
--- NOTE | 2020-05-09 14:44 | P.DS_ITS ---
DS: Admitting Diagnosis Admitting Diagnosis Admitting Diagnosis: Other pulmonary embolism without acute cor pulmonale DS: Discharge Diagnosis Discharge Diagnosis (1) Bilateral pulmonary embolism: Code(s): I26.99 - Other pulmonary embolism without acute cor pulmonale Status: Acute Assessment and Plan: * Extensive bilateral pulmonary emboli noted on chest CT with suggestion of right heart strain however he does have a history of severe pulmonary hypertension. * Pt will go eliquis 10 MG bid for 7 days then 5 mg BID. * Continue oxygen (2) Lower extremity deep venous thrombosis: Code(s): I82.409 - Acute embolism and thrombosis of unspecified deep veins of unspecified lower extremity Status: Acute Assessment and Plan: * Continue eliquis * Pt had PT while in the hospital. And HH with PT at discharge. (3) Chronic respiratory failure with hypoxia and hypercapnia: Code(s): J96.11 - Chronic respiratory failure with hypoxia; J96.12 - Chronic respiratory failure with hypercapnia Status: Acute Assessment and Plan: * He is at his baseline oxygen requirement. * Continue 2 liters * Pt is very anxious discharged on xanax script (4) Chronic obstructive pulmonary disease: Code(s): J44.9 - Chronic obstructive pulmonary disease, unspecified Status: Acute Assessment and Plan: * Continue maintenance inhalers and rescue inhaler as needed. (5) Anxiety: Code(s): F41.9 - Anxiety disorder, unspecified Status: Acute Assessment and Plan: * Continue BuSpar. * He will need a referral to see psychiatry as outpatient.[facility] for anxiety and paranoid management. (6) Benign prostatic hyperplasia: Code(s): N40.0 - Benign prostatic hyperplasia without lower urinary tract symptoms Status: Acute Assessment and Plan: * Pt adviced tamulosin (7) Peptic ulcer disease: Onset Date: ~02/2020 Code(s): K27.9 - Peptic ulcer, site unspecified, unspecified as acute or chronic, without hemorrhage or perforation Status: Acute Assessment and Plan: * Duodenal ulcer noted on EGD in February 2020. * Continue protonix (8) Electrolyte abnormality: Code(s): E87.8 - Other disorders of electrolyte and fluid balance, not elsewhere classified Status: Acute Assessment and Plan: * Including chronic hyponatremia 130. (9) Anemia: Code(s): D64.9 - Anemia, unspecified Status: Resolved Assessment and Plan: * Hb is 11.3 (10) Thought disorder: Code(s): R41.89 - Other symptoms and signs involving cognitive functions and awareness Status: Acute Assessment and Plan: Dr Dailey has noticed pt is very delusional yesterday about oxygen, about staff and mandaeism - crisis has been contacted. Crisis advice out patient follow up. No thought disorder on day of discharge. NO SI or HI or thoughts. DS: Summary Time Spent with Patient Time attestation: Total time spent providing and/or coordinating discharge services: 40 minutes on day of dischrage Exam Con
--- NOTE | 2020-05-09 14:44 | PM.DS ---
DS: Admitting Diagnosis Admitting Diagnosis Admitting Diagnosis: Other pulmonary embolism without acute cor pulmonale DS: Discharge Diagnosis Discharge Diagnosis (1) Bilateral pulmonary embolism: Code(s): I26.99 - Other pulmonary embolism without acute cor pulmonale Status: Acute Assessment and Plan: Extensive bilateral pulmonary emboli noted on chest CT with suggestion of right heart strain however he does have a history of severe pulmonary hypertension. Pt will go eliquis 10 MG bid for 7 days then 5 mg BID. Continue oxygen (2) Lower extremity deep venous thrombosis: Code(s): I82.409 - Acute embolism and thrombosis of unspecified deep veins of unspecified lower extremity Status: Acute Assessment and Plan: Continue eliquis Pt had PT while in the hospital. And HH with PT at discharge. (3) Chronic respiratory failure with hypoxia and hypercapnia: Code(s): J96.11 - Chronic respiratory failure with hypoxia; J96.12 - Chronic respiratory failure with hypercapnia Status: Acute Assessment and Plan: He is at his baseline oxygen requirement. Continue 2 liters Pt is very anxious discharged on xanax script (4) Chronic obstructive pulmonary disease: Code(s): J44.9 - Chronic obstructive pulmonary disease, unspecified Status: Acute Assessment and Plan: Continue maintenance inhalers and rescue inhaler as needed. (5) Anxiety: Code(s): F41.9 - Anxiety disorder, unspecified Status: Acute Assessment and Plan: Continue BuSpar. He will need a referral to see psychiatry as outpatient.[facility] [place] [facility] for anxiety and paranoid management. (6) Benign prostatic hyperplasia: Code(s): N40.0 - Benign prostatic hyperplasia without lower urinary tract symptoms Status: Acute Assessment and Plan: Pt adviced tamulosin (7) Peptic ulcer disease: Onset Date: ~02/2020 Code(s): K27.9 - Peptic ulcer, site unspecified, unspecified as acute or chronic, without hemorrhage or perforation Status: Acute Assessment and Plan: Duodenal ulcer noted on EGD in February 2020. Continue protonix (8) Electrolyte abnormality: Code(s): E87.8 - Other disorders of electrolyte and fluid balance, not elsewhere classified Status: Acute Assessment and Plan: Including chronic hyponatremia 130. (9) Anemia: Code(s): D64.9 - Anemia, unspecified Status: Resolved Assessment and Plan: Hb is 11.3 (10) Thought disorder: Code(s): R41.89 - Other symptoms and signs involving cognitive functions and awareness Status: Acute Assessment and Plan: Dr Dailey has noticed pt is very delusional yesterday about oxygen, about staff and orthodox - crisis has been contacted. Crisis advice out patient follow up. No thought disorder on day of discharge. NO SI or HI or thoughts. DS: Summary Time Spent with Patient Time attestation: Total time spent providing and/or coordinating discharge services: 40 minutes on day of dischrage Exam Const: General: comfortable and no acute distress Resp: Effort & Inspection: normal respiratory effort Auscultation: clear to auscultation bilaterally and no wheezes Cardio: Rate: regular rate Rhythm: regular rhythm GI: Inspection: normal to inspection Auscultation: normal bowel sounds Other: Soft, non distended. Skin: General skin exam: no rashes or lesions noted Neuro: Speech: normal speech Motor exam (neuro): 5/5 motor strength present throughout and Normal motor muscle
== END 2020-05-09 15:00 | disposition home health service (06) | DRG 176 ==
LOC: ANHED 09:24 → ANHIMU 23:15 → ANH2MED 05-05 14:40 → ANHIMU 05-11 16:49
PROVIDERS: Emergency Medicine; Family Medicine; Internal Medicine; Nurse Practitioner; Physician Assistant; Admitting Provider Internal Medicine; Emergency Provider Emergency Medicine; PCP Family Medicine; Visit Provider Hospitalist
DX: I26.99 Other pulmonary embolism without acute cor pulmonale (principal); J96.12 Chronic respiratory failure with hypercapnia; J96.11 Chronic respiratory failure with hypoxia; I82.442 Acute embolism and thrombosis of left tibial vein; I82.432 Acute embolism and thrombosis of left popliteal vein; I82.453 Acute embolism and thrombosis of peroneal vein, bilateral; E87.1 Hypo-osmolality and hyponatremia; J44.9 Chronic obstructive pulmonary disease, unspecified; F41.9 Anxiety disorder, unspecified; F60.0 Paranoid personality disorder; F22 Delusional disorders; N40.0 Benign prostatic hyperplasia without lower urinary tract symptoms; K27.9 Peptic ulcer, site unspecified, unspecified as acute or chronic, without hemorrhage or perforation
CPT/HCPCS: 36415; 36600; 70450; 71045; 71275; 80048; 80053; 80076; 80307; 81001; 82805; 83735; 83880; 84484; 85025; 85027; 85380; 85730; 93005; 93306; 93970; 94640; 96361; 96365; 96366; 96376; 97110; 97116; 97161; 97165; 97535; 99291; A9270; J1644; J7030; Q9967

== ENCOUNTER 2020-06-17 16:50 | Outpatient (NON) | payer MEDICARE, SELFPAY ==
[2020-06-17 18:02] LABS: Add Urine Microscopic? NO; Appearance Urine Clear (Clear); Bilirubin Urine Negative (Negative); Blood Urine Negative (Negative); Color Urine Yellow (Yellow); Glucose Urine UA Negative (Negative); Ketones Urine Negative (Negative); Leukocyte Esterase Ur Negative LEU/UL (NEGATIVE); Nitrate Urine Negative (Negative); Protein Urine Negative (Negative); Specific Grav Ur 1.017 (1.001-1.035); Urobilinogen Urine Negative mg/dL (<2.0)
== END 2020-06-17 16:51 ==
PROVIDERS: PCP Family Medicine; Visit Provider Family Medicine
DX: I26.99 Other pulmonary embolism without acute cor pulmonale (principal); I82.443 Acute embolism and thrombosis of tibial vein, bilateral; I82.442 Acute embolism and thrombosis of left tibial vein; I82.432 Acute embolism and thrombosis of left popliteal vein
CPT/HCPCS: 81003; 87086; 87088

== ENCOUNTER 2020-08-25 15:11 | Emergency (ER) | payer MEDICARE, SELFPAY ==
[2020-08-25] VITALS (25 sets, daily range): BP systolic 99–156; BP diastolic 52–82; PULSE 84–112; RESP 10–21; TEMP 35.9; O2SAT 93–100
--- NOTE | ~2020-08-25 | XR_ITS ---
EXAMINATION: XR chest 2V DATE: 08/25/2020 15:41 INDICATION: Shortness of breath. Chest tightness. TECHNIQUE: Frontal and lateral views of the chest were obtained. COMPARISON: Chest single view 05/08/2020, chest CT 05/04/2020 FINDINGS: The lungs are hyperexpanded with lucencies, consistent with emphysema. There is mild scarri ng in left lower lung zone. No pleural effusion or pneumothorax. The heart size is normal. IMPRESSION: 1. Severe emphysema. Reviewed, dictated and finalized at location A. MAKER MACHINE IMPRESSION: 1. Severe emphysema.
--- NOTE | 2020-08-25 15:23 | ECG_ITS ---
Measurements Intervals [place] Rate: 98 P: 85 GA: 171 QRS: 95 QRSD: 100 T: 59 QT: 318 QTc: 408 Interpretive Statements SINUS RHYTHM RIGHT AXIS DEVIATION BORDERLINE R WAVE PROGRESSION, ANTERIOR LEADS BASELINE ARTIFACT- I, II, III, AVR, AVL, AVF, V1-V3 BORDERLINE ECG Electronically Signed On 08-25-2020 16:20:29 YIELD LOSS INSPECTOR by Larry Watson D.O.
[2020-08-25 15:32] LABS: Basophils Percent Auto 0.5 % (0.2-1.2); Eosinophils Absolute Auto 0.2 K/mm3 (0-0.3); Eosinophils Percent Auto 2.3 % (0-4.4); Hematocrit 42.3 % (42.0-52.0); Hemoglobin 12.9 g/dL (14.0-18.0); Immature Granulocyte Absolute 0.02 K/mm3 (0.00-0.031); Immature Granulocyte Percent A 0.2 % (0-0.5); Lymphocytes Absolute Auto 1.88 K/mm3 (0.9-3.2); Lymphocytes Percent Auto 22.1 % (18.3-44.2); Mean Corpuscular HGB Conc 30.5 g/dl (32-36); Mean Corpuscular Hemoglobin 26.1 pg (26-34); Mean Corpuscular Volume 85.5 fl (80-100); Mean Platelet Volume 9.5 fl (7.4-10.4); Monocytes Absolute Auto 0.6 K/mm3 (0.1-0.6); Monocytes Percent Auto 7.3 % (2.6-8.5); Neutrophils Absolute Auto 5.8 K/mm3 (1.3-6.7); Neutrophils Percent Auto 67.6 % (45.5-73.1); Platelet Count Result 319 k/mm3 (150-375); Red Blood Count 4.95 M/mm3 (4.6-6.20); Red Cell Distribution Width 15.1 % (11.5-14.5); White Blood Count 8.5 K/mm3 (4.5-10.0)
[2020-08-25 15:45] LABS: Anion Gap 6.99999 mmol/L (8-16); Blood Urea Nitrogen 6 mg/dL (9-20); Calcium 9.7 mg/dL (8.4-10.2); Carbon Dioxide > 40 mmol/L (22-30); Chloride 94 mmol/L (98-107); Estimated CRCL calculation 107 ml/min; Estimated Glomerular Filt Rate > 60; Glucose 114 mg/dL (75-110); Potassium 3.8 mmol/L (3.4-5.0); Sodium 141 mmol/L (137-145)
--- NOTE | 2020-08-25 16:08 | ED.SOB ---
HPI - SOB/Dyspnea General Chief Complaint: Shortness of Breath/Dyspnea Stated Complaint: SOB Time Seen by Provider: 08/25/20 16:02 Source: patient Mode of arrival: ambulatory Limitations: no limitations History of Present Illness HPI Narrative: Patient is a 64 year old male pt with anemia, COPD chronically on 3L O2, DVT, PE, HTN who presents referred from primary care physician's office after evaluation today for worsening shortness of breath. Patient has intermittently increase his oxygen use to 4 L, reports cough with increased sputum production. He denies fever, chills, myalgias, rhinorrhea. Patient had been prescribed numerous courses of antibiotics and Symbicort by his director of undergraduate admissions, Dr. Dailey, without improvement in his symptoms. Patient states symptoms began to worsen over the past week, incredibly worse today. Reports feels as if he is unable to get a deep breath. Patient states last severe COPD exacerbation was approximately a year ago. He denies recent sick contacts. Patient denies chest pain. Related Data Home Medications Medication Instructions Recorded Confirmed ipratropium 0.5 mg-albuterol 3 mg 3 ml INHALATION QID PRN 02/18/20 06/19/20 (2.5 mg base)/3 mL nebulization soln Allergies Allergy/AdvReac Type Severity Reaction Status Date / Time No Known Allergies Allergy Verified 05/04/20 06:30 Review of Systems Review of Systems: Narrative: CONSTITUTIONAL: Denies fever, chills EYES: Denies visual changes, redness, or discharge. ENT: Denies rhinorrhea, congestion, sore throat, or otalgia. CARDIOVASCULAR: Denies chest pain, reports palpitations intermittently RESPIRATORY: Reports cough and shortness of breath GASTROINTESTINAL: Denies abdominal pain, nausea, vomiting, or diarrhea. GENITOURINARY: Denies dysuria or hematuria. SKIN: Denies rash or itching. MUSCULOSKELETAL: Denies back pain, joint pain, or myalgia. NEUROLOGIC: Denies headache, numbness, or weakness. PSYCHIATRIC: Reports history of anxiety [facility] Past Medical History Medical History (Updated 08/25/20 @ 19:44 by Shadia Peña MD) Anxiety Benign prostatic hyperplasia Chronic obstructive pulmonary disease Chronic respiratory failure with hypoxia and hypercapnia On home oxygen. Essential hypertension Migraines Peptic ulcer disease (~02/2020) Duodenal ulcer on endoscopy on 03/22/2020. Surgical History Surgical History No pertinent past surgical history Family History Family History Sibling Patient's sister is in good health, Onset Age: 52 Patient's brother is in good health, Onset Age: 50 Mother Family history of diabetes mellitus in first degree relative, Onset Age: 68 Patient's mother is Social History Social History Social History: He lives in his own home in [place]. He has a roommate that is there are sporadically. 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 He is and has 1 son who lives in the area. He reportedly smoked up to 4 packs of cigarettes per day for a 140 pack year smoking history, quit in 2008. He denies alcohol use. Previous marijuana use. He designates his son, Dorian Johnson, as his surrogate decision maker and he wishes to be a full code. Smoking packs per day: 4 Smoking cigarettes per day: 80.0 Years smoked: 35 Smoking pack-years: 140.00 Smoking status: Former smoker Tobacco type: cigarettes Smoking end date: 11/06/08 Alcohol intake: never Substance use: never Substance use type: does not use Gender identity (if verbalized by the patient): Male Spiritual care concerns: No Exam Narrative: Exam Narrative: GENERAL: Awake, alert, conversant, chronically ill-appearing HEAD: Normocephalic, atraumatic. EYES: PERRLA and EOMI. ENT: Nares clear, no rhinorrhea or epistaxis. Mucous memb
[2020-08-25 16:22] LABS: Alveolar/Arterial O2 Gradient 43.3 mmHg; Base Excess ABG 3.2 mEq/l (+/-2.0); Carboxyhemoglobin 0.3 % THb (0-2.0); Fractional Inspired Oxygen 32 %; HCO3 ABG 30.8 mEq/l (22.0-26.0); Methemoglobin ABG 0.4 %THb (0-1.5); Oxygen Saturation ABG 97.7 % (95.0-100.0); PO2 ABG 113.4 mmHg (80.0-100.0); PO2 FiO2 Ratio Arterial Blood 3.54 %; Reduced Hemoglobin 2.3 %THb (0-5.0); Total Hemoglobin 13.1 g/dL (12.0-18.0)
[2020-08-25 16:24] LABS: Device NASAL CANNULA; PCO2 ABG 61.1 mmHg (35.0-45.0); Site Drawn RIGHT BRACHIAL
[2020-08-25] MEDS: SODIUM CHLORIDE 0.9% IV 500 ML 999 ML IV CONT (16:53)
[2020-08-25] MEDS: MAGNESIUM SULF 2 GM/WATER 50ML 2 GM/50 ML BAG IVPB (16:53)
[2020-08-25] MEDS: methylPREDNISolone SOD SUCC 125 MG VIAL IV PUSH (16:54)
[2020-08-25] MEDS: ALBUTEROL SULFATE NEB 2.5 MG/0.5 ML INH 20 MG INHALATION (17:01)
[2020-08-25 17:21] LABS: Lactic Acid Reflex 0.7 mmol/L (0.7-2.1)
--- NOTE | 2020-08-25 19:00 | PC.NURSE ---
PT AMBULATED WITH PULSE OXIMETER, PT UNSTEADY ON FEET, PLACED BACK IN W/C AND TAKEN TO ROOM, PT FLUSTERED AND STATES THAT HE WILL NOT STAY IN HOSPITAL NO MATTER WHAT, WANTING TO SIGN OUT AMA, FORMED FILLED OUT, ZAIN COURTNEY INFORMED AND AT BEDSIDE DISCUSSING RISKS WITH PT.
--- NOTE | 2020-08-25 19:06 | PC.NURSE ---
PT HAS SPOKEN WITH ZAIN COURTNEY AT THIS TIME AND AGREED TO THE 2ND ABG, BUT STILL HAS STATED THAT HE WILL NOT BE STAYING.
[2020-08-25 19:18] LABS: Alveolar/Arterial O2 Gradient 59.8 mmHg; Base Excess ABG 5.7 mEq/l (+/-2.0); Carboxyhemoglobin 0.2 % THb (0-2.0); Fractional Inspired Oxygen 32 %; HCO3 ABG 33.5 mEq/l (22.0-26.0); Methemoglobin ABG 0.4 %THb (0-1.5); Oxygen Content ABG 17.8 %vol (16.0-22.0); Oxygen Saturation ABG 96.5 % (95.0-100.0); Oxyhemoglobin 96.2 % THb (90.0-100.0); PO2 ABG 93.4 mmHg (80.0-100.0); PO2 FiO2 Ratio Arterial Blood 2.92 %; Reduced Hemoglobin 3.2 %THb (0-5.0); Total Hemoglobin 13.1 g/dL (12.0-18.0); pH ABG 7.336 (7.350-7.450)
[2020-08-25 19:19] LABS: Device NASAL CANNULA; PCO2 ABG 64.1 mmHg (35.0-45.0); Site Drawn LEFT BRACHIAL
--- NOTE | 2020-08-25 20:01 | PC.NURSE ---
Patient signed out AMA
--- NOTE | 2020-09-03 08:19 | PC.NURSE ---
LATE ENTRY This note is being entered to document information to the patient's record. The following information was omitted on [08/25/2020], by [SHAMIKA]. AZITHROMYCIN AND MAGNESIUM COMPLETE AT 1753.
--- NOTE | 2020-09-03 11:54 | PC.NURSE ---
LATE ENTRY This note is being entered to document information to the patient's record. The following information was omitted on [08/25/20], by [Yaniv Friedman RN]. Magnesium IV PB stopped time at 1753
== END 2020-08-25 20:02 | disposition left against medical advice (07) ==
PROVIDERS: General Practice; Emergency Provider Emergency Medicine; PCP Family Medicine
DX: J96.11 Chronic respiratory failure with hypoxia (principal); J96.12 Chronic respiratory failure with hypercapnia; I10 Essential (primary) hypertension; D64.9 Anemia, unspecified; Z86.718 Personal history of other venous thrombosis and embolism; Z86.711 Personal history of pulmonary embolism; Z99.81 Dependence on supplemental oxygen; Z87.11 Personal history of peptic ulcer disease; Z87.891 Personal history of nicotine dependence; J44.1 Chronic obstructive pulmonary disease with (acute) exacerbation
CPT/HCPCS: 36415; 36600; 71046; 80048; 82375; 82805; 83050; 83605; 85025; 87040; 93005; 94640; 96365; 96368; 96375; 99284; J0456; J2930; J3475; J7040

== ENCOUNTER 2022-03-25 09:50 | Outpatient (CLI) | payer MEDICARE, SELFPAY ==
--- NOTE | ~2022-03-25 | US_ITS ---
EXAMINATION: US aorta [facility] DATE: 03/25/2022 10:42 INDICATION: Abdominal aortic aneurysm screening TECHNIQUE: Grayscale, color Doppler, and pulsed Doppler images of the aorta and common iliac arteries were obtained. COMPARISON: None. FINDINGS: The proximal aorta measures 2.1 cm. The mid aorta measures 2.4 cm. The distal aorta measures 1.8 cm. The right common iliac artery measures 1.1 cm. The left common iliac artery measures 1.1 cm. IMPRESSION: 1. Normal caliber abdominal aorta. Reviewed, dictated and finalized at location B.
== END 2022-03-25 09:51 | disposition home or self-care (01) ==
PROVIDERS: PCP Family Medicine; Visit Provider Physician Assistant
DX: Z13.6 Encounter for screening for cardiovascular disorders (principal); Z87.891 Personal history of nicotine dependence
CPT/HCPCS: 76706

== ENCOUNTER 2023-08-09 11:46 | Outpatient (CLI) | payer MEDICARE, SELFPAY ==
--- NOTE | ~2023-08-09 | CT_ITS ---
EXAMINATION:CT lung screening DATE: 08/09/2023 12:13 INDICATION: Tobacco use. Smoker who quit 13 years ago with 160 pack year history. TECHNIQUE: Computed tomography (CT) of the chest was performed without intravenous contrast. Automate d exposure control and iterative reconstruction technique were employed. The dose-length product (DLP ) was 172.52 mGy-cm. COMPARISON: Chest CT 05/04/2020 FINDINGS: There is severe emphysema. There is mild atelectasis bilaterally. There is mild bronchiecta sis in the inferior lungs. No pleural effusion. There is an aberrant right subclavian artery. Aortic atherosclerosis is noted. The heart size is normal. There are coronary artery calcifications. No gem cardial effusion. There is severe cervical spondylosis and mild thoracic spondylosis. IMPRESSION: 1. Lung-RADS category 1: Negative. Continue annual screening with noncontrast low-dose chest CT in 12 months. Reviewed, dictated and finalized at location E. IMPRESSION: 1. Lung-RADS category 1: Negative. Continue annual screening with noncontrast l ow-dose chest CT in 12 months.
== END 2023-08-09 11:47 | disposition home or self-care (01) ==
PROVIDERS: PCP Family Medicine; Visit Provider Physician Assistant
DX: Z12.2 Encounter for screening for malignant neoplasm of respiratory organs (principal); Z87.891 Personal history of nicotine dependence
CPT/HCPCS: 71271

== ENCOUNTER 2023-08-30 13:53 | Outpatient (NON) | payer MEDICARE, SELFPAY | END 2023-08-30 13:54 | disposition home or self-care (01) | PROVIDERS: PCP Family Medicine; Visit Provider Physician Assistant | DX: J44.9 Chronic obstructive pulmonary disease, unspecified (principal) | CPT/HCPCS: 87015; 87070; 87102; 87106; 87107; 87116; 87205; 87206 ==

== ENCOUNTER 2024-03-04 17:15 | Inpatient (IN) | payer MEDICARE, SELFPAY ==
[2024-03-04] VITALS (12 sets, daily range): BP systolic 132–182; BP diastolic 72–99; PULSE 95–114; RESP 13–25; TEMP 36.6; O2SAT 94–99; BMI 26.3
--- NOTE | ~2024-03-04 | CT_ITS ---
EXAMINATION: CTA chest PE protocol DATE: 03/04/2024 19:12 INDICATION: hypoxia, chest tightness, hx of PE TECHNIQUE: Computed tomography angiography (CTA) of the chest was performed with 100 mL Omnipaque-350 intravenous contrast timed to evaluate the pulmonary arteries. Coronal maximum intensity projection 3D-reconstructions were created by the technologist. The dose-length product (DLP) was 473.16 mGy-cm. Automated exposure control and iterative reconstruction technique were employed. COMPARISON: X-ray chest, same date; CT lung screening 08/09/2023. FINDINGS: Lung parenchyma and airways: Motion artifact obscures anatomic detail in the bilateral lower lungs. S evere emphysematous change. Minimal tracheal secretions. Pleura: Unremarkable. Thoracic inlet, axillae and chest wall: Unremarkable. Thoracic aorta: No significant dilation. No dissection. Aberrant right subclavian artery. Mild arch c alcification. Mediastinum: Normal. Heart and pericardium: Normal. Coronary artery calcifications: Mild. Upper abdomen: No significant finding. Bones: No acute osseous finding. Pulmonary arteries: Study quality: Motion artifact obscures subsegmental arteries in the bilateral lo wer lobes. No pulmonary emboli detected. IMPRESSION: Motion artifact obscures subsegmental arteries in the bilateral lower lobes, otherwise no CT evidence of acute pulmonary embolus. No acute process detected in the chest. Reviewed, dictated and finalized at location K. IMPRESSION: Motion artifact obscures subsegmental arteries in the bilateral lower lobes, ot herwise no CT evidence of acute pulmonary embolus. No acute process detected in the chest.
--- NOTE | ~2024-03-04 | XR_ITS ---
EXAMINATION: XR chest 2V Exam Date/Time: 03/04/2024 18:00 CDT HISTORY: dyspnea Comparison: 08/25/2020. RESULT: Lines, tubes, and devices: None. Lungs and pleura: Emphysematous changes, otherwise clear. Cardiomediastinal silhouette: Stable. Other: No acute osseous or upper abdominal finding. IMPRESSION: No acute cardiopulmonary process. Reviewed, dictated and finalized at location K.
--- NOTE | 2024-03-04 17:21 | ECG_ITS ---
SEE SCANNED COPY FOR CONFIRMED REPORT MTDD
[2024-03-04 18:00] LABS: Basophils Percent Auto 0.4 % (0.2-1.2); Eosinophils Absolute Auto 0.1 K/mm3 (0-0.3); Eosinophils Percent Auto 1.7 % (0-4.4); Hematocrit 42.6 % (42.0-52.0); Hemoglobin 12.6 g/dL (14.0-18.0); Immature Granulocyte Absolute 0.04 K/mm3 (0.00-0.031); Immature Granulocyte Percent A 0.5 % (0-0.5); Lymphocytes Absolute Auto 1.42 K/mm3 (0.9-3.2); Lymphocytes Percent Auto 16.9 % (18.3-44.2); Mean Corpuscular HGB Conc 29.6 g/dl (32-36); Mean Corpuscular Hemoglobin 27.5 pg (26-34); Mean Corpuscular Volume 92.8 fl (80-100); Mean Platelet Volume 9.4 fl (7.4-10.4); Monocytes Absolute Auto 0.5 K/mm3 (0.1-0.6); Monocytes Percent Auto 5.5 % (2.6-8.5); Neutrophils Absolute Auto 6.3 K/mm3 (1.3-6.7); Platelet Count Result 246 k/mm3 (150-375); Red Blood Count 4.59 M/mm3 (4.6-6.20); Red Cell Distribution Width 14.3 % (11.5-14.5); White Blood Count 8.4 K/mm3 (4.5-10.0)
[2024-03-04 18:17] LABS: Lactic Acid Reflex 1.1 mmol/L (0.7-2.0)
[2024-03-04 18:18] LABS: Alanine Aminotransferase 19 U/L (6-50); Albumin Level 4.4 g/dL (3.5-5.1); Alkaline Phosphatase 135 U/L (38-126); Anion Gap 5 mmol/L (4-12); Aspartate Amino Transferase 24 U/L (17-59); Bilirubin,Total 0.4 mg/dL (0.2-1.3); Blood Urea Nitrogen 14 mg/dL (9-20); Calcium 9.1 mg/dL (8.4-10.2); Carbon Dioxide 37 mmol/L (22-30); Chloride 100 mmol/L (98-107); Estimated Glomerular Filt Rate > 60; Glucose 123 mg/dL (65-110); Platelet Estimate Adequate (Adequate); Potassium 4.1 mmol/L (3.4-5.0); Schistocytes None Seen; Sodium 142 mmol/L (137-145)
[2024-03-04 18:19] LABS: Hypochromasia 1+
--- NOTE | 2024-03-04 18:22 | ED.SOB ---
HPI - SOB/Dyspnea General Chief Complaint: Shortness of Breath/Dyspnea Stated Complaint: dyspnea Time Seen by Provider: 03/04/24 18:08 History of Present Illness HPI Narrative: 68-year-old male with a history of COPD, bronchiectasis and chronic hypoxic respiratory failure on 3 L nasal cannula baseline presents to emergency department for acute on chronic shortness of breath. Patient states for approximately 1 week he has had increasing shortness of breath. He has had to increase his oxygen to 4 L nasal cannula. States he has had increased sputum production with cough, states he is coughing up yellow and barrios sputum. He contacted his PCP and was started on antibiotic but this has not seemed to help. He states approximately 1-1/2 hours prior to arrival he became even more short of breath and called EMS. Per EMS, the patient with 85% on 5 L nasal cannula upon arrival. Upon my evaluation, patient is satting 94% on 5 L nasal cannula. He is reporting some chest tightness which she is attributing to his COPD. He has not smoked in 15 years. He states he has a dsp engineer, Crystal, who has been following with him. He has been using his inhalers and DuoNebs without improvement. Per chart review he is prescribed Breztri 2 puffs BID, albuterol PRN by HFA and nebulizer. He denies fever, abdominal pain, nausea vomiting, diarrhea, dysuria or hematuria. Denies prior known cardiac disease or CHF. He does state that his legs have been swollen for the past few years but is not acutely worsened. Patient lives at home alone and states that there is mold in his house that has been there for years. Per chart review, patient does have a history of PE in 2019. He is not currently anticoagulated. Patient has received 125 mg IV Solu-Medrol in route to the ED. Related Data Home Medications Medication Instructions Recorded Confirmed azelastine 137 mcg-fluticasone 50 1 spray intranasal BID PRN Nasal 03/04/24 03/04/24 mcg/spray nasal spray (Dymista) Congestion loratadine 10 mg tablet 10 mg PO DAILY PRN Allergy Symptoms 03/04/24 03/04/24 tamsulosin 0.4 mg capsule 0.4 mg PO QAM 03/04/24 03/04/24 Allergies Allergy/AdvReac Type Severity Reaction Status Date / Time No Known Allergies Allergy Verified 08/09/23 14:58 Review of Systems Review of Systems: CONSTITUTIONAL: Denies fever, chills, or sweats. EYES: Denies visual changes, redness, or discharge. ENT: Denies rhinorrhea, congestion, sore throat, or otalgia. CARDIOVASCULAR: See HPI RESPIRATORY: See HPI GASTROINTESTINAL: Denies abdominal pain, nausea, vomiting, or diarrhea. GENITOURINARY: Denies dysuria or hematuria. SKIN: Denies rash or itching. MUSCULOSKELETAL: Denies back pain, joint pain, or myalgia. NEUROLOGIC: Denies headache, numbness, or weakness. PSYCHIATRIC: Denies anxiety or depression. FOR[facility]LY [facility], [facility] Past Medical History Medical History Anxiety Benign prostatic hyperplasia Chronic obstructive pulmonary disease Chronic respiratory failure with hypoxia and hypercapnia On home oxygen. Essential hypertension Migraines Oxygen dependent Peptic ulcer disease (~02/2020) Duodenal ulcer on endoscopy on 03/22/2020. Surgical History Surgical History No pertinent past surgical history Family History Family History Sibling Patient's sister is in good health, Onset Age: 52 Patient's brother is in good health, Onset Age: 50 Mother Family history of diabetes mellitus in first degree relative, Onset Age: 68 Patient's mother is Social History Social History Social History: He lives in his own home in [place]. He has a roommate that is there sporadically. 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 He is and has 1 son who lives in the area. He reportedly smoked up to 4 packs of cigarettes per day for a 140 pack year smoking history, quit in 2008. He denies alcohol use. Previous marijuana use. He designates his son, Dorian Johnson, as his surrogate decision maker and he wishes to be a full code. Smoking packs per day: 4 Smoking cigarettes per day: 80.0 Years smoked: 35 Smoking pack-years: 140.00 Smoking status: Former smoker Tobacco type: cigarettes Second hand tobacco smoke exposure: Yes Smoking end date: 11/06/08 Alcohol intake: never Substance use: never Substance use type: does not use Do You Feel Safe in your Home?: Yes Lack of Transportation: No Lack of Food: Never True Current Housing: I Have Housing Concerned About Future Housing: No Difficulty Paying Gas/Electric Bills: No Difficulty Paying for Meds: No Currently Unemployed: No Education: Never Attended/Kindergarten Only Difficulty w/ Childcare or Family Care: No Living arrangements: alone Occupation/Education: retired Gender identity (if verbalized by the patient): Male Spiritual care concerns: Yes Exam Narrative: GENERAL: Well-appearing, well-nourished, and in no acute distress. HEAD: Normocephalic, atraumatic. EYES: PERRLA and EOMI. ENT: Nares clear, no rhinorrhea or epistaxis. Mucous membranes moist. NECK: Supple. CHEST: Decreased lung sounds throughout all lung swann. No wheezing, rales or rhonchi. Patient is satting 94% on 5 L nasal cannula, does appear to be working to breathe but is able to speak in full sentences HEART: Regular rate and rhythm. No murmur heard. Normal peripheral pulses. ABDOMEN: Soft, nontender, nondistended, normal active bowel sounds. EXTREMITIES: Normal range of motion. No edema. SKIN: Warm, dry, no rash. NEURO: No focal deficits. Alert and oriented x3 Course Vital Signs Vital signs: Vital Signs Oxygen Delivery Nasal Cannula 03/04/24 17:17 Oxygen Flow Rate 6 03/04/24 17:17 Temperature 97.8 F 03/04/24 21:19 Pulse Rate 107 H 03/05/24 00:00 Respiratory Rate 20 03/04/24 21:19 Blood Pressure 151/99 H 03/04/24 21:19 Pulse Oximetry 94 03/04/24 21:47 Oxygen Delivery Nasal Cannula 03/04/24 21:47 Oxygen Flow Rate 4 03/04/24 21:47 MDM - SOB/Dyspnea MDM Narrative Medical decision making narrative: 68-year-old male with history of COPD, bronchiectasis and chronic hypoxic respiratory failure presents to emergency department for acute on chronic shortness of breath for the past week, worsening over the past hour and half prior to arrival. Patient was brought and EMS and was found to be satting 85% on EMS arrival on 6 L nasal cannula. Upon my arrival, the patient is satting 94% on 5 L nasal cannula, he is able to speak in full sentences. He does appear to be short of breath but at this point does not appear to require BiPAP. Will start DuoNebs and re-evaluate. He also has a history of multiple PEs with right heart strain as noted in 2019. He is not currently anticoagulated. Given new O2 requirement, will obtain CTA chest PE for further evaluation. CBC without leukocytosis. Hemoglobin 12.6 which is consistent with his baseline. ABGs with respiratory acidosis with metabolic compensation - pH is 7.345, pCO2 of 68.1 and bicarb of 36.3. Chemistry significant for bicarb of 37 which is consistent with ABG findings. Chest x-ray shows no acute cardiopulmonary abnormality. CTA chest PE shows no PE or acute process detected in the chest. EKG shows sinus rhythm with a rate of 95 B p.m., incomplete right bundle-branch block, no ischemic changes. Troponin undetectable. Carlton catheter placed. Pt is retaining due to not having his bidet. States if he does not have a bidet he cannot urinate. Bladder scan showed 500ccs in bladder. Labs and imaging discussed with patient. He continues to saturate at 95% and above on 5 L nasal cannula. He does have some improvement after DuoNebs, however believe he would benefit from hospital admission for acute hypoxic respiratory failure and COPD exacerbation. Patient was started on Rocephin and azithromycin for COPD exacerbation. Case discussed with hospitalist agrees the plan for admission. Lab Data 03/04/24 17:49 03/04/24 17:49 Labs: Lab Results 03/04/24 03/04/24 03/04/24 Range/Units 17:49 18:51 18:57 WBC 8.4 (4.5-10.0) K/mm3 RBC 4.59 L (4.6-6.20) M/mm3 Hgb 12.6 L (14.0-18.0) g/dL Hct 42.6 (42.0-52.0) % MCV 92.8 (80-100) fl MCH 27.5 (26-34) pg MCHC 29.6 L (32-36) g/dl RDW 14.3 (11.5-14.5) % Plt Count 246 (150-375) k/mm3 MPV 9.4 (7.4-10.4) fl Immature Gran % (Auto) 0.5 (0-0.5) % Neut % (Auto) 75.0 H (45.5-73.1) % Lymph % (Auto) 16.9 L (18.3-44.2) % Gillespie % (Auto) 5.5 (2.6-8.5) % Eos % (Auto) 1.7 (0-4.4) % Baso % (Auto) 0.4 (0.2-1.2) % Lymph # (Auto) 1.42 (0.9-3.2) K/mm3 Gillespie # (Auto) 0.5 (0.1-0.6) K/mm3 Eos # (Auto) 0.1 (0-0.3) K/mm3 Baso # (Auto) 0.0 (0.0-0.1) K/mm3 Abs Immat Gran (auto) 0.04 H (0.00-0.031) K/mm3 Absolute Neuts (auto) 6.3 (1.3-6.7) K/mm3 Absolute Nucleated RBC 0.000 (0.0-0.012) K/mm3 Nucleated RBC % 0.0 (0.0-0.2) % Platelet Estimate Adequate (Adequate) Hypochromasia 1+ Schistocytes None seen PT 13.2 (11.1-14.7) Seconds INR 1.0 APTT 26.0 (22.3-36.8) Seconds Sodium 142 (137-145) mmol/L Potassium 4.1 (3.4-5.0) mmol/L Chloride 100 (98-107) mmol/L Carbon Dioxide 37 H (22-30) mmol/L Anion Gap 5 (4-12) mmol/L BUN 14 D (9-20) mg/dL Creatinine 0.70 (0.7-1.3) mg/dL Estim Creat Clear Calc Not Reportable Estimated GFR > 60 (59 - ) Glucose 123 H (65-110) mg/dL Lactic Acid 1.1 (0.7-2.0) mmol/L Calcium 9.1 (8.4-10.2) mg/dL Magnesium 2.1 (1.6-2.3) mg/dL Total Bilirubin 0.4 (0.2-1.3) mg/dL AST 24 (17-59) U/L ALT 19 (6-50) U/L Alkaline Phosphatase 135 H (38-126) U/L Troponin I < 0.012 (0.000-0.034) ng/mL NT-Pro-B Natriuret Pep 24 (19.9-100) pg/mL Total Protein 8.0 (6.3-8.2) g/dL Albumin 4.4 (3.5-5.1) g/dL Influenza A (RT-PCR) Negative (Negative) Influenza B (RT-PCR) Negative (Negative) RSV (RT-PCR) Negative (Negative) SARS-CoV-2 RNA (RT-PCR) Negative (Negative) ABG Data ABG results: 03/04/24 18:40 Puncture Site Left brachial ABG pH 7.345 L ABG pCO2 68.1 H* ABG pO2 75.0 L ABG PO2/FiO2 Ratio 1.88 ABG HCO3 36.3 H ABG O2 Saturation 93.8 L ABG O2 Content 17.9 ABG Base Excess 8.2 A-a Gradient 131.9 Oxyhemoglobin 94.7 Total Hemoglobin 13.4 O2 Delivery Device Nasal cannula O2 Liters/Min 5.0 FiO2 40 Discharge Plan Discharge Clinical Impression: COPD exacerbation, Acute on chronic hypoxic respiratory failure Patient Disposition: Still a Patient Condition: Stable
[2024-03-04 18:27] LABS: NT Pro B Type Natriuretic Pept 24 pg/mL (19.9-100)
[2024-03-04] MEDS: IPRATROPIUM 0.5 MG/ALBUTEROL SULFATE 2.5 MG AMPUL.NEB 3 ML INHALATION ×3 (18:29)
[2024-03-04 18:44] LABS: Alveolar/Arterial O2 Gradient 131.9 mmHg; Base Excess ABG 8.2 mEq/l (+/-2.0); Fractional Inspired Oxygen 40 %; HCO3 ABG 36.3 mEq/l (22.0-26.0); Oxygen Content ABG 17.9 %vol (16.0-22.0); Oxygen Saturation ABG 93.8 % (95.0-100.0); Oxyhemoglobin 94.7 % THb (90.0-100.0); PO2 FiO2 Ratio Arterial Blood 1.88 %; Total Hemoglobin 13.4 g/dL (12.0-18.0); pH ABG 7.345 (7.350-7.450)
[2024-03-04 18:45] LABS: Device NASAL CANNULA; PCO2 ABG 68.1 mmHg (35.0-45.0); Site Drawn LEFT BRACHIAL
[2024-03-04 19:18] LABS: Prothrombin Time 13.2 Seconds (11.1-14.7)
[2024-03-04 19:20] LABS: Magnesium 2.1 mg/dL (1.6-2.3)
[2024-03-04 19:33] LABS: Troponin I < 0.012 ng/mL (0.000-0.034)
[2024-03-04 20:07] LABS: Influenza A QL RT-PCR Negative (Negative); Influenza B QL RT-PCR Negative (Negative); RSV RNA, RT-PCR Negative (Negative); SARS-CoV-2 RNA PCR Negative (Negative)
--- NOTE | 2024-03-04 20:32 | PC.NURSE ---
Patient states his nuts hurt . When asked why patient states he has not been able to urinate. When offered a urinal patient states he will not be able to use one as he had a bidet at home that stimulates his urination. Patient stated he could use a rubber glove and commode to stimulate his urine. Patient was bladder scanned and show to have 500mL in his bladder. Patient attempted a commode and rubber glove and was only to put out about 100mL of urine. Notified EDP PIERO Saucedo who VRBO a urinary catheter. Upon insertion patient was able to put out about 600mL of urine.
--- NOTE | 2024-03-04 20:39 | P.HP_ITS ---
H&P: HPI History of Present Illness Date/Time: 03/04/24 20:39 Chief Complaint: Shortness of breath Narrative: This is 68-year-old male with past medical history significant for COPD/emphysema, patient is on supplemental oxygen at home,, benign prostatic hyperplasia, chronic hypoxic and hypercapnic respiratory failure, migraine headaches, peptic ulcer disease. patient presents to the emergency room with history of 3 days worsening shortness of breath patient called EMS upon EMS arrival he was found to be saturating in the 85% range, patient was brought to the emergency room for evaluation, patient has had fevers, chills, cough productive of sputum. preliminary workup was significant for ABG pH 7.34 pCO2 68 PO2 75, patient was rule out for acute pulmonary embolism with a negative CT angiogram of the chest. Patient has been admitted for further evaluation management and treatment. EXAMINATION:? XR chest 2V Exam Date/Time:? 03/04/2024 18:00 CDT HISTORY: dyspnea ? Comparison:? 08/25/2020. RESULT: Lines, tubes, and devices:? None. Lungs and pleura:? Emphysematous changes, otherwise clear. Cardiomediastinal silhouette:? Stable. Other:? No acute osseous or upper abdominal finding. ? IMPRESSION: No acute cardiopulmonary process. EXAMINATION: CTA chest PE protocol DATE: 03/04/2024 19:12 INDICATION: hypoxia, chest tightness, hx of PE TECHNIQUE: Computed tomography angiography (CTA) of the chest was performed with 100 mL Omnipaque-350 intravenous contrast timed to evaluate the pulmonary arteries. Coronal maximum intensity projection 3D-reconstructions were created by the technologist. The dose-length product (DLP) was 473.16 mGy-cm. Automated exposure control and iterative reconstruction technique were employed. COMPARISON: X-ray chest, same date; CT lung screening 08/09/2023. ? FINDINGS:? Lung parenchyma and airways: Motion artifact obscures anatomic detail in the bilateral lower lungs. Severe emphysematous change. Minimal tracheal secretions. Pleura: Unremarkable. Thoracic inlet, axillae and chest wall: Unremarkable. Thoracic aorta: No significant dilation. No dissection. Aberrant right subclavian artery. Mild arch calcification. Mediastinum: Normal. Heart and pericardium: Normal. Coronary artery calcifications: Mild. Upper abdomen: No significant finding. Bones: No acute osseous finding. Pulmonary arteries: Study quality: Motion artifact obscures subsegmental arteries in the bilateral lower lobes. No pulmonary emboli detected. IMPRESSION: Motion artifact obscures subsegmental arteries in the bilateral lower lobes, o therwise no CT evidence of acute pulmonary embolus. No acute process detected in the chest. Review of Systems Review of Systems: shortness of breath, cough, sputum production. Constitutional: Constitutional: Reports chills, Reports fatigue, Reports fever(s), Denies night sweats and Reports poor appetite Eyes: Eyes: Denies change in vision ENT: Denies dysphagia and Denies odynophagia Cardiovascular: Cardiovascular: Denies chest pain, Denies radiating jaw, neck or arm pain and Denies palpitations Respiratory: Respiratory: Reports change in phlegm color, Reports cough, Reports excessive phlegm production, Reports dyspnea and Reports wheezing Gastrointestinal: Gastrointestinal: Denies abdominal pain, Denies dyspepsia, Denies heartburn, Denies nausea and Denies vomiting Genitourinary: Genitourinary: Denies dysuria Musculoskeletal: Musculoskeletal: Denies myalgias Integumentary/Breasts: Skin/Breast: Denies rash Neurologic: Denies focal weakness and Denies Sensory deficit (Neuro) Psychiatric: Psychiatric: Reports no additional psychiatric complaints and Reports as per HPI Endocrine: Endocrine: Denies cold intolerance, Denies fatigue, Denies flushing, Denies heat intolerance, Denies polyphagia, Denies polydipsia, Denies polyuria and Denies palpitations Hematologic/Lymphatic: Hematologic/Lymphatic: Reports no additional hematologic/lymphatic complaints and Reports as per HPI Allergic/Immunologic: Allergic/Immunologic: Reports no additional allergic/immunologic complaints and Reports as per HPI PMFSH Past Medical History Medical History Anxiety Benign prostatic hyperplasia Chronic obstructive pulmonary disease Chronic respiratory failure with hypoxia and hypercapnia On home oxygen. Essential hypertension Migraines Oxygen dependent Peptic ulcer disease (~02/2020) Duodenal ulcer on endoscopy on 03/22/2020. Surgical History Surgical History No pertinent past surgical history Family History Family History Sibling Patient's sister is in good health, Onset Age: 52 Patient's brother is in good health, Onset Age: 50 Mother Family history of diabetes mellitus in first degree relative, Onset Age: 68 Patient's mother is Social History Social History Social History: He lives in his own home in [place]. He has a roommate that is there sporadically. 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 He reportedly smoked up to 4 packs of cigarettes per day for a 140 pack year smoking history, quit in 2008. He denies alcohol use. Previous marijuana use. He designates his son, Dorian Johnson, as his surrogate decision maker and he wishes to be a full code. Smoking packs per day: 4 Smoking cigarettes per day: 80.0 Years smoked: 35 Smoking pack-years: 140.00 Smoking status: Former smoker Tobacco type: cigarettes Second hand tobacco smoke exposure: Yes Smoking end date: 11/06/08 Alcohol intake: never Substance use: never Substance use type: does not use Do You Feel Safe in your Home?: Yes Lack of Transportation: No Lack of Food: Never True Current Housing: I Have Housing Concerned About Future Housing: No Difficulty Paying Gas/Electric Bills: No Difficulty Paying for Meds: No Currently Unemployed: No Education: Never Attended/Kindergarten Only Difficulty w/ Childcare or Family Care: No Living arrangements: alone Occupation/Education: retired Gender identity (if verbalized by the patient): Male Spiritual care concerns: Yes Meds Home Medications and Allergies Home Medications Medication Instructions Recorded Confirmed Type albuterol sulfate 90 mcg/actuation 1 inh inhalation QID 10 days #6.7 08/25/20 03/04/24 Rx aerosol inhaler (Ventolin HFA) grams fluticasone propionate 50 2 spray intranasal DAILY #16 grams 06/27/23 03/04/24 Rx mcg/actuation nasal spray,suspension (Flonase Allergy Relief) cyclobenzaprine 10 mg tablet 10 mg PO TID PRN muscle spasm #30 10/20/23 03/04/24 Rx tabs roflumilast 500 mcg tablet 500 mcg PO DAILY #30 tabs 11/15/23 03/04/24 Rx (Daliresp) albuterol sulfate 2.5 mg/3 mL 2.5 mg (3 mL) inhalation QID PRN 11/24/23 03/04/24 Rx (0.083 %) solution for nebulization shortness of breath or wheezing #360 mL budesonide 160 mcg-glycopyr 9 2 inh inhalation QAM AND QPM #10.7 11/27/23 03/04/24 Rx mcg-formot 4.8 mcg/actuation HFA grams inhaler (Breztri Baiyaxuanphere) gabapentin 100 mg capsule 100 mg PO TID #90 caps 01/29/24 03/04/24 Rx pantoprazole 40 mg tablet,delayed 40 mg PO QAM #30 tabs 01/29/24 03/04/24 Rx release ppekucs-wxvxuunrmx-IIB-caffeine 30 1 cap PO Q4-6H PRN headache #60 02/19/24 03/04/24 Rx mg-50 mg-325 mg-40 mg capsule caps doxycycline hyclate 100 mg tablet 100 mg PO DAILY 7 days #7 tabs 02/28/24 03/04/24 Rx azelastine 137 mcg-fluticasone 50 1 spray intranasal BID PRN Nasal 03/04/24 0 03/04/24 History mcg/spray nasal spray (Dymista) Congestion loratadine 10 mg tablet 10 mg PO DAILY PRN Allergy Symptoms 03/04/24 03/04/24 History tamsulosin 0.4 mg capsule 0.4 mg PO QAM 03/04/24 03/04/24 History Allergies Allergy/AdvReac Type Severity Reaction Status Date / Time No Known Allergies Allergy Verified 08/09/23 14:58 Vital Signs Vital Signs - 24 hr 03/04/24 17:17 03/04/24 17:23 03/04/24 18:41 Temperature Pulse Rate 95 Respiratory Rate 22 H Blood Pressure Pulse Oximetry 98 Oxygen Delivery Nasal Cannula Nasal Cannula Oxygen Flow Rate 6 6 03/04/24 18:54 03/04/24 17:33 03/04/24 17:45 Temperature Pulse Rate 95 102 H 97 Respiratory Rate 20 15 13 Blood Pressure Pulse Oximetry 97 Oxygen Delivery Oxygen Flow Rate 03/04/24 18:51 03/04/24 19:12 03/04/24 19:13 Temperature 98 F Pulse Rate 105 H 105 H Respiratory Rate 15 Blood Pressure 182/72 H Pulse Oximetry 99 97 Oxygen Delivery Oxygen Flow Rate 03/04/24 19:13 03/04/24 20:12 Temperature Pulse Rate 107 H Respiratory Rate 25 H Blood Pressure 161/97 H Pulse Oximetry 97 97 Oxygen Delivery Nasal Cannula Oxygen Flow Rate 5 Exam 2 Narrative: Patient is sitting in bed Const: General: comfortable, no acute distress, well developed, alert, awake, ill appearing chronically and average body habitus Nutritional Appearance: average body habitus Orientation/consciousness: patient oriented x3 HENMT: Head: normal to inspection, normocephalic and atraumatic Ears: hearing grossly normal bilaterally Face/Nose/Sinus: normal facial exam Face and sinus: normal facial exam Eyes: General: appearance normal, both eyes and all related structures Pupils: Equal, round and reactive pupils present EOM: EOMs intact bilaterally Neck: Neck: full ROM, no lymphadenopathy and no JVD Thyroid: thyroid normal Lymphatic: no lymphadenopathy noted Resp: Effort & Inspection: normal respiratory effort, able to speak in complete sentences and tachypneic Auscultation: wheezes and diminished lung sounds Cardio: Jugular venous distension: no JVD Rate: regular rate Rhythm: regular rhythm Heart sounds: S1 normal heart sound present and S2 normal heart sound present GI: GI Palp: Yes Soft to palpation and Yes No hepatosplenomegaly present : General: Yes deferred Skin: Rashes: no rashes Wounds: no wounds Neuro: General: patient oriented x3 and CN's II-XI intact bilaterally Cranial nerves: Yes CN's II-XII intact bilaterally and Yes Equal, round and reactive pupils present Cognition (Neuro): normal cognition Speech: normal speech Gait exam (Neuro): Normal gait present Motor exam (neuro): 5/5 motor strength present throughout Extrem: General: normal to inspection, full ROM, no joint enlargement and no pedal edema H&P: Results Labs Labs: Short CBC 03/04/24 Range/Units 17:49 WBC 8.4 (4.5-10.0) K/mm3 Hgb 12.6 L (14.0-18.0) g/dL Hct 42.6 (42.0-52.0) % Plt Count 246 (150-375) k/mm3 BMP 03/04/24 17:49 Sodium 142 Potassium 4.1 Chloride 100 Carbon Dioxide 37 H BUN 14 D Creatinine 0.70 Glucose 123 H Calcium 9.1 Cardiac Enzymes 03/04/24 Range/Units 18:51 Troponin I < 0.012 (0.000-0.034) ng/mL Liver Function 03/04/24 Range/Units 17:49 Total Bilirubin 0.4 (0.2-1.3) mg/dL AST 24 (17-59) U/L ALT 19 (6-50) U/L Alkaline Phosphatase 135 H (38-126) U/L Albumin 4.4 (3.5-5.1) g/dL Assessment and Plan Assessment and plan (1) Acute on chronic respiratory failure with hypoxia and hypercapnia: Code(s): J96.21 - Acute and chronic respiratory failure with hypoxia; J96.22 - Acute and chronic respiratory failure with hypercapnia Status: Acute Assessment and Plan: patient is on supplemental oxygen by nasal cannula usually wears 4 L continue to monitor supportive care try and keep oxygen saturation at 92% (2) COPD with acute exacerbation: Code(s): J44.1 - Chronic obstructive pulmonary disease with (acute) exacerbation Status: Acute Assessment and Plan: breathing treatments q.6 systemic steroids Rocephin and Zithromax (3) Bronchiectasis: Qualifiers: Bronchiectasis type: uncomplicated Qualified Code(s): J47.9 - Bronchiectasis, uncomplicated Code(s): J47.9 - Bronchiectasis, uncomplicated Status: Acute Assessment and Plan: breathing treatments (4) Former smoker: Code(s): Z87.891 - Personal history of nicotine dependence Status: Acute Assessment and Plan: unchanged
[2024-03-04] MEDS: AZITHROMYCIN 500 MG/NS 250 ML 500 MG/250 ML BAG 250 MG IVPB (20:41)
--- NOTE | 2024-03-04 21:39 | ADMGEN ---
This patient, Raimundo Johnson, was admitted to Medical Room 254-01. Patient/family oriented to hospital policies and general routines including ID bracelet, bed and alarms, visiting hours, pain management, procedures, bathroom and other care routines, personal items, smoking policy, room service/diet, and visiting hours. Information on how to activate the Rapid Response Team has been discussed. Patient/Family are encouraged to report perceived risks to care and to ask questions if they do not understand what they are told or what they should do.
[2024-03-04] MEDS: methylPREDNISolone SOD SUCC 125 MG VIAL 60 MG IV PUSH (23:53)
[2024-03-05] VITALS (18 sets, daily range): BP systolic 145–155; BP diastolic 61–72; PULSE 86–108; RESP 16–20; TEMP 36.8–37.2; O2SAT 93–97
[2024-03-05] MEDS: IPRATROPIUM 0.5 MG/ALBUTEROL SULFATE 2.5 MG AMPUL.NEB 3 ML INHALATION ×4 (01:40→19:44)
[2024-03-05] MEDS: AZELASTINE HCL NASAL 0.1% 137 MCG/SPR 30 ML BTL 1 SPRAY NASAL ×2 (02:10→21:12)
[2024-03-05] MEDS: methylPREDNISolone SOD SUCC 125 MG VIAL 60 MG IV PUSH ×4 (06:04→23:00)
--- NOTE | 2024-03-05 08:07 | PM.IMPN ---
Progress Note: A&P Assessment and Plan (1) Acute on chronic respiratory failure with hypoxia and hypercapnia: Code(s): J96.21 - Acute and chronic respiratory failure with hypoxia; J96.22 - Acute and chronic respiratory failure with hypercapnia Status: Acute (2) COPD (chronic obstructive pulmonary disease): Qualifiers: COPD type: unspecified COPD Qualified Code(s): J44.9 - Chronic obstructive pulmonary disease, unspecified Code(s): J44.9 - Chronic obstructive pulmonary disease, unspecified Status: Acute Plan (1) Acute on chronic respiratory failure with hypoxia and hypercapnia: ?Code(s): J96.21 - Acute and chronic respiratory failure with hypoxia; J96.22 - Acute and chronic respiratory failure with hypercapnia ?Status:?Acute ?Assessment and Plan: ?patient is on supplemental oxygen by nasal cannula usually wears 4 L ?continue to monitor ?supportive care ?try and keep oxygen saturation at 92% (2) COPD with acute exacerbation: ?Code(s): J44.1 - Chronic obstructive pulmonary disease with (acute) exacerbation ?Status:?Acute ?Assessment and Plan: ?breathing treatments q.6 ?systemic steroids ?Rocephin and Zithromax 03/05 continue methylprednisolone 60 mg q.6 hours IV, Flonase 1 puff q.12 hours, continue DuoNeb scheduled q.6 hours, albuterol nebulizer as needed. Patient is improving, may decrease methylprednisolone in 1-2 days (3) Bronchiectasis: ?Qualifiers: ?Bronchiectasis type:?uncomplicated? Qualified Code(s):?J47.9 - Bronchiectasis, uncomplicated ?Code(s): J47.9 - Bronchiectasis, uncomplicated ?Status:?Acute ?Assessment and Plan: ? breathing treatments (4) Former smoker: ?Code(s): Z87.891 - Personal history of nicotine dependence ?Status:?Acute ?Assessment and Plan: ?unchanged Subjective Date/time seen: 03/05/24 08:07 Interval history: I saw and exam patient today. Patient still cough and shortness breast at rest, but patient feeling better today, patient has a scant phlegm, denies abdomen pain, nausea vomiting diarrhea. Exam Narrative: GENERAL: Pleasant, in no acute distress. Well-nourished. - EYES: EOMI. Anicteric. - HENT: Moist mucous membranes. - LUNGS: Decreased air entry bilaterally, coarse breath sound bilaterally, - CARDIOVASCULAR: Regular rate and rhythm. No murmur. No JVD. - ABDOMEN: Soft, non-tender and non-distended. No palpable masses. - EXTREMITIES: No edema. Peripheral pulses 2+. Non-tender. - NEUROLOGIC: No focal neurological deficits. CN II-XII grossly intact. - PSYCHIATRIC: Awake, Alert and oriented x 3. Appropriate mood and affect. - SKIN: No rashes or lesions. Warm. - LYMPH: No cervical lymphadenopathy. Objective Data Vital Signs Vital Signs: Vital Signs - 24 hr 03/04/24 17:17 03/04/24 17:23 03/04/24 18:41 Temperature Pulse Rate 95 Respiratory Rate 22 H Blood Pressure Pulse Oximetry 98 Oxygen Delivery Nasal Cannula Nasal Cannula Oxygen Flow Rate 6 6 03/04/24 18:54 03/04/24 17:33 03/04/24 17:45 Temperature Pulse Rate 95 102 H 97 Respiratory Rate 20 15 13 Blood Pressure Pulse Oximetry 97 Oxygen Delivery Oxygen Flow Rate 03/04/24 18:51 03/04/24 19:12 03/04/24 19:13 Temperature 98 F Pulse Rate 105 H 105 H Respiratory Rate 15 Blood Pressure 182/72 H Pulse Oximetry 99 97 Oxygen Delivery Oxygen Flow Rate 03/04/24 19:13 03/04/24 20:12 03/04/24 20:57 Temperature Pulse Rate 107 H 105 H Respiratory Rate 25 H 25 H Blood Pressure 161/97 H 132/77 Pulse Oximetry 97 97 97 Oxygen Delivery Nasal Cannula Oxygen Flow Rate 5 03/04/24 21:47 03/04/24 21:19 03/05/24 00:00 Temperature 97.8 F Pulse Rate 114 H 107 H Respiratory Rate 20 Blood Pressure 151/99 H Pulse Oximetry 94 94 Oxygen Delivery Nasal Cannula Oxygen Flow Rate 4 03/05/24 01:15 03/05/24 01:31 03/05/24 04:00 Temperature Pulse Rate 90 91 88 Respiratory Rate 20 20 Blood Pressure Pulse Oximetry Oxygen Delivery Oxygen Flow Rate 03/05/24 05:10 Temperature 98.5 F Pulse Rate 95 Respiratory Rate 17 Blood Pressure 146/72 H Pulse Oximetry 94 Oxygen Delivery Oxygen Flow Rate Intake/Output Intake/Output: Intake & Output 03/02/24 03/03/24 03/04/24 03/05/24 23:59 23:59 23:59 23:59 Intake Total 300 250 Output Total 1650 Balance 300 -1400 Meds/Results Medications: Active Medications Generic Name Dose Route Start Last Admin Trade Name Freq PRN Reason Stop Dose Admin Albuterol 2 puff 03/05/24 09:00 Albuterol Sulfate (*Sp) Aerosol 1 Puff INHALATION Q6H PRN Shortness Of Breath Albuterol/Ipratropium 3 ml 03/05/24 02:00 03/05/24 01:40 Ipratropium 0.5 Mg/Albuterol Sulfate 2.5 Mg Ampul.Neb 3 Ml INHALATION 3 ml Q6HRT JOSHUA Administration Azelastine HCl 1 spray 03/05/24 01:14 03/05/24 02:10 Azelastine Hcl Nasal 0.1% 137 Mcg/Spr 30 Ml Btl NASAL 1 spray Q12HR PRN Administration Nasal Congestion Butalbital/Aspirin/Caffeine 1 cap 03/05/24 01:19 Aspirin/Caffeine/Butalbital (*Crx) 325/40/50 Mg Capsule (Fiorinal) PO Q4-6H PRN headache Codeine Sulfate 30 mg 03/05/24 01:18 Codeine Sulfate (*Crx) 30 Mg Tablet PO Q4-6H PRN headache Cyclobenzaprine HCl 10 mg 03/05/24 00:47 Cyclobenzaprine Hcl 10 Mg Tablet PO TID PRN muscle spasm Fluticasone Propionate 1 spray 03/05/24 01:15 Fluticasone Propionate 0.05% Na Spr 16 Gm Btl (*Bkc) NASAL Q12HR PRN Nasal Congestion Fluticasone/Umeclidinium/Vilanterol 1 puff 03/05/24 08:00 Fluticasone/Umeclidin/Vilanter 100-62.5-25 Mcg Ellipta INHALATION DAILYRT [facility] Gabapentin 100 mg 03/05/24 09:00 Gabapentin 100 Mg Capsule PO TID [facility] Ceftriaxone Sodium 1 gm in 50 mls @ 100 mls/hr 03/05/24 20:00 Rocephin 1 Gm/Ns 50 Ml IVPB Q24H JOSHUA Azithromycin 500 mg in 250 mls @ 250 mls/hr 03/05/24 21:00 Zithromax IVPB Q24H [facility] Methylprednisolone Sodium Succinate 60 mg 03/05/24 00:00 03/05/24 06:04 Methylprednisolone Sod Succ 125 Mg Vial IV PUSH 60 mg Q6HR JOSHUA Administration Pantoprazole Sodium 40 mg 03/05/24 09:00 Pantoprazole 40 Mg Tablet PO QAM [facility] Roflumilast 500 mcg 03/05/24 09:00 Roflumilast 500 Mcg Tablet PO DAILY [facility] Tamsulosin HCl 0.4 mg 03/05/24 09:00 Tamsulosin Hcl 0.4 Mg Capsule PO QAM [facility] Radiology Results: ITS Impressions Chest X-Ray 03/04/24 18:13 IMPRESSION: No acute cardiopulmonary process. Chest CTA 03/04/24 19:15 IMPRESSION: Motion artifact obscures subsegmental arteries in the bilateral lower lobes, otherwise no CT evidence of acute pulmonary embolus. No acute process detected in the chest. Labs Labs: Laboratory Results - last 24 hr 03/04/24 03/04/24 03/04/24 17:49 18:40 18:51 WBC 8.4 RBC 4.59 L Hgb 12.6 L Hct 42.6 MCV 92.8 MCH 27.5 MCHC 29.6 L RDW 14.3 Plt Count 246 MPV 9.4 Immature Gran % (Auto) 0.5 Neut % (Auto) 75.0 H Lymph % (Auto) 16.9 L Campbell % (Auto) 5.5 Eos % (Auto) 1.7 Baso % (Auto) 0.4 Lymph # (Auto) 1.42 Campbell # (Auto) 0.5 Eos # (Auto) 0.1 Baso # (Auto) 0.0 Abs Immat Gran (auto) 0.04 H Absolute Neuts (auto) 6.3 Absolute Nucleated RBC 0.000 Nucleated RBC % 0.0 Platelet Estimate Adequate Hypochromasia 1+ Schistocytes None seen PT 13.2 INR 1.0 APTT 26.0 Puncture Site Left brachial ABG pH 7.345 L ABG pCO2 68.1 H* ABG pO2 75.0 L ABG PO2/FiO2 Ratio 1.88 ABG HCO3 36.3 H ABG O2 Saturation 93.8 L ABG O2 Content 17.9 ABG Base Excess 8.2 A-a Gradient 131.9 Oxyhemoglobin 94.7 Total Hemoglobin 13.4 O2 Delivery Device Nasal cannula O2 Liters/Min 5.0 FiO2 40 Sodium 142 Potassium 4.1 Chloride 100 Carbon Dioxide 37 H Anion Gap 5 BUN 14 D Creatinine 0.70 Estim Creat Clear Calc Not Reportable Estimated GFR > 60 Glucose 123 H Lactic Acid 1.1 Calcium 9.1 Magnesium 2.1 Total Bilirubin 0.4 AST 24 ALT 19 Alkaline Phosphatase 135 H Troponin I < 0.012 NT-Pro-B Natriuret Pep 24 Total Protein 8.0 Albumin 4.4 Influenza A (RT-PCR) Influenza B (RT-PCR) RSV (RT-PCR) SARS-CoV-2 RNA (RT-PCR) 03/04/24 18:57 WBC RBC Hgb Hct MCV MCH MCHC RDW Plt Count MPV Immature Gran % (Auto) Neut % (Auto) Lymph % (Auto) Campbell % (Auto) Eos % (Auto) Baso % (Auto) Lymph # (Auto) Campbell # (Auto) Eos # (Auto) Baso # (Auto) Abs Immat Gran (auto) Absolute Neuts (auto) Absolute Nucleated RBC Nucleated RBC % Platelet Estimate Hypochromasia Schistocytes PT INR APTT Puncture Site ABG pH ABG pCO2 ABG pO2 ABG PO2/FiO2 Ratio ABG HCO3 ABG O2 Saturation ABG O2 Content ABG Base Excess A-a Gradient Oxyhemoglobin Total Hemoglobin O2 Delivery Device O2 Liters/Min FiO2 Sodium Potassium Chloride Carbon Dioxide Anion Gap BUN Creatinine Estim Creat Clear Calc Estimated GFR Glucose Lactic Acid Calcium Magnesium Total Bilirubin AST ALT Alkaline Phosphatase Troponin I NT-Pro-B Natriuret Pep Total Protein Albumin Influenza A (RT-PCR) Negative Influenza B (RT-PCR) Negative RSV (RT-PCR) Negative SARS-CoV-2 RNA (RT-PCR) Negative
[2024-03-05] MEDS: TAMSULOSIN HCL 0.4 MG CAPSULE PO (08:20)
[2024-03-05] MEDS: GABAPENTIN 100 MG CAPSULE PO ×3 (08:20→23:00)
[2024-03-05] MEDS: ROFLUMILAST 500 MCG TABLET PO (08:20)
[2024-03-05] MEDS: PANTOPRAZOLE 40 MG TABLET PO (08:20)
[2024-03-05] MEDS: CODEINE SULFATE (*CRX) 30 MG TABLET PO ×3 (08:22→23:00)
[2024-03-05] MEDS: FLUTICASONE/UMECLIDIN/VILANTER 100-62.5-25 MCG ELLIPTA 1 PUFF INHALATION (08:47)
[2024-03-05] MEDS: CYCLOBENZAPRINE HCL 10 MG TABLET PO ×2 (09:51→23:05)
[2024-03-05] MEDS: AZITHROMYCIN 500 MG/NS 250 ML 500 MG/250 ML BAG 250 MG IVPB (20:05)
[2024-03-05] MEDS: ACETAMINOPHEN 325 MG TABLET 650 MG PO (21:08)
[2024-03-05] MEDS: FLUTICASONE PROPIONATE 0.05% NA SPR 16 GM BTL (*BKC) 1 SPRAY NASAL (21:12)
[2024-03-06] VITALS (23 sets, daily range): BP systolic 123–169; BP diastolic 66–81; PULSE 79–124; RESP 16–20; TEMP 36.1–36.8; O2SAT 93–95
[2024-03-06] MEDS: IPRATROPIUM 0.5 MG/ALBUTEROL SULFATE 2.5 MG AMPUL.NEB 3 ML INHALATION ×6 (02:18→23:54)
[2024-03-06] MEDS: ACETAMINOPHEN 325 MG TABLET 650 MG PO ×3 (04:50→17:41)
[2024-03-06] MEDS: CODEINE SULFATE (*CRX) 30 MG TABLET PO ×3 (06:31→23:02)
[2024-03-06] MEDS: GABAPENTIN 100 MG CAPSULE PO ×3 (06:31→23:02)
[2024-03-06] MEDS: methylPREDNISolone SOD SUCC 125 MG VIAL 60 MG IV PUSH ×4 (06:31→23:03)
--- NOTE | 2024-03-06 07:20 | P.PNIM_ITS ---
Progress Note: A&P Assessment and Plan (1) Acute on chronic respiratory failure with hypoxia and hypercapnia: Code(s): J96.21 - Acute and chronic respiratory failure with hypoxia; J96.22 - Acute and chronic respiratory failure with hypercapnia Status: Acute (2) COPD (chronic obstructive pulmonary disease): Qualifiers: COPD type: unspecified COPD Qualified Code(s): J44.9 - Chronic obstructive pulmonary disease, unspecified Code(s): J44.9 - Chronic obstructive pulmonary disease, unspecified Status: Acute (3) Urinary retention: Code(s): R33.9 - Retention of urine, unspecified Status: Acute (4) Tachycardia: Code(s): R00.0 - Tachycardia, unspecified Status: Acute Plan (1) Acute on chronic respiratory failure with hypoxia and hypercapnia: ?Code(s): J96.21 - Acute and chronic respiratory failure with hypoxia; J96.22 - Acute and chronic respiratory failure with hypercapnia ?Status:?Acute ?Assessment and Plan: ?patient is on supplemental oxygen by nasal cannula usually wears 4 L ?continue to monitor ?supportive care ?try and keep oxygen saturation at 92% 03/06: * Continues on nasal cannula at 3 L. Maintain spo2 goal > 88% * States he does not wear CPAP/BiPAP at home as he cannot tolerate it * Blood gas on arrival: shows compensated respiratory acidosis * Duo Neb scheduled Q 6, will increase to Q 4 hours (2) COPD with acute exacerbation: ?Code(s): J44.1 - Chronic obstructive pulmonary disease with (acute) exacerbation ?Status:?Acute ?Assessment and Plan: ?breathing treatments q.6 ?systemic steroids ?Rocephin and Zithromax 03/05 continue methylprednisolone 60 mg q.6 hours IV, Flonase 1 puff q.12 hours, continue DuoNeb scheduled q.6 hours, albuterol nebulizer as needed. Patient is improving, may decrease methylprednisolone in 1-2 days 03/06: * On Methylprednisolone 60 mg Q 6 hours. Still having expiratory wheezing. * Flonase Q 12 * Duo nebs increased to Q 4 hours * Antibiotics with Rocephin and azithromycin * Claritin daily * Pulmonology consulted, rec's appreciated. Urinary retention on admission in the ED with 500 ml present. Carlton was placed. * on Flomax * attempt void trial * bladder scan post void and straight cath for residual greater than 400 ml Constipation * last BM was Monday * Added Miralax and senna * could be contributing to urinary retention Tachycardia * on telemetry * SR-ST with heart rate ranging 90's-100's. * May be related to anxiety 2/2 to poor breathing effort vs albuterol vs steroids * EKG 03/05 with right BBB and SR, ventricular rate 95 bpm Subjective Date/time seen: 03/06/24 07:20 Interval history: 03/06: Patient seen resting in bed on 3 L nasal cannula. He appears anxious at baseline but is able to speak in short sentences. He states that his breathing is somewhat improved since presenting to the hospital. He states his problem has been exacerbated due to mold in his home. Work has been done to remove some this medicine is working on getting a filtration system. His baseline oxygen is 3 L. he has not been and out of bed yet. He continues to have productive thick sputum which is clear to yellow in color. He was concerned because he had some bleeding due to nasal dryness. He is using saline and oxygen has added humidity. He also reports the sore throat, headache, and he has not had a bowel movement since Monday. He is supposed to see pulmonology at the end of the month but he is unable to get to his appointments so they were going to do a telehealth appointment. Given his COPD exacerbation now will consult pulmonology to see him while inpatient to help optimize plan of care and hopefully prevent readmission. Review of Systems Review of Systems: All systems reviewed & are unremarkable except as noted in HPI and below Exam Narrative: General: Chronically ill-appearing, anxious, tremulous HEENT: normocephalic, atraumatic. Mucous membranes dry. EOMI, PERRLA, bilateral sclera anicteric, no conjunctival injection. Neck supple without JVD, lymphadenopathy, or bruit. Respiratory: clear to auscultation with expiratory wheezing left greater than right. Cardiovascular: tachycardic with regular rhythm, normal S1-S2 upon auscultation. No murmurs, rubs, or clicks. PMI is nondisplaced, capillary refill less than 3 second. + clubbing to nail beds. Abdomen: Soft, round, no pulsatile masses, + distention and nontender. No rebound, no guarding. No CVA tenderness, no hepatosplenomegaly. Bowel sounds present to all four quadrants. No high pitch or tinkling sounds, resonant to percussion. Extremities: dusky nail beds, + clubbing, scant, non-pitting edema present to BLE with Right greater than Left. Pulses are palpable 2/2. Active ROM to all four extremities. Neuro: Alert and orientated x 4. PERRLA. Cranial nerves 2-12 intact without focal deficit. Skin: Warm, dry, and intact, without rash, erythema, or lesion. Lines: PIV Incisions: NA Psych: pleasant, cooperative, normal speech, normal affect, no hallucinations, no dysarthria, anxious at times. Objective Data Vital Signs Vital Signs: Vital Signs - 24 hr 03/05/24 08:32 03/05/24 08:32 03/05/24 08:40 Temperature Pulse Rate 87 93 Respiratory Rate 20 20 Blood Pressure Pulse Oximetry 93 Oxygen Delivery Nasal Cannula Oxygen Flow Rate 4 03/05/24 08:20 03/05/24 13:53 03/05/24 13:59 Temperature Pulse Rate 98 97 Respiratory Rate 16 16 Blood Pressure Pulse Oximetry 94 Oxygen Delivery Nasal Cannula Oxygen Flow Rate 4 03/05/24 15:28 03/05/24 08:00 03/05/24 12:00 Temperature 98.9 F Pulse Rate 99 94 107 H Respiratory Rate 16 Blood Pressure 145/61 H Pulse Oximetry 97 Oxygen Delivery Oxygen Flow Rate 03/05/24 16:00 03/05/24 19:44 03/05/24 19:44 Temperature Pulse Rate 86 96 96 Respiratory Rate 20 Blood Pressure Pulse Oximetry 94 Oxygen Delivery Nasal Cannula Oxygen Flow Rate 3 03/05/24 19:51 03/05/24 20:22 03/05/24 20:00 Temperature 98.3 F Pulse Rate 98 108 H 106 H Respiratory Rate 18 20 Blood Pressure 155/61 H Pulse Oximetry 95 Oxygen Delivery Oxygen Flow Rate 03/06/24 00:00 03/06/24 02:18 03/06/24 02:24 Temperature Pulse Rate 79 85 87 Respiratory Rate 18 18 Blood Pressure Pulse Oximetry Oxygen Delivery Oxygen Flow Rate 03/06/24 04:00 03/06/24 04:29 Temperature 98.1 F Pulse Rate 92 94 Respiratory Rate 20 Blood Pressure 123/66 Pulse Oximetry 94 Oxygen Delivery Oxygen Flow Rate Intake/Output Intake/Output: Intake & Output 03/03/24 03/04/24 03/05/24 03/06/24 23:59 23:59 23:59 23:59 Intake Total 300 790 490 Output Total 2550 700 Balance 646 -6953 -891 Meds/Results Medications: Active Medications Generic Name Dose Route Start Last Admin Trade Name Freq PRN Reason Stop Dose Admin Acetaminophen 650 mg 03/05/24 20:16 03/06/24 04:50 Acetaminophen 325 Mg Tablet PO 650 mg Q6H PRN Administration Mild Pain (1-3) or Fever Albuterol 2 puff 03/05/24 09:00 Albuterol Sulfate (*Sp) Aerosol 1 Puff INHALATION Q6H PRN Shortness Of Breath Albuterol/Ipratropium 3 ml 03/05/24 02:00 03/06/24 02:18 Ipratropium 0.5 Mg/Albuterol Sulfate 2.5 Mg Ampul.Neb 3 Ml INHALATION 3 ml Q6HRT JOSHUA Administration Azelastine HCl 1 spray 03/05/24 01:14 03/05/24 21:12 Azelastine Hcl Nasal 0.1% 137 Mcg/Spr 30 Ml Btl NASAL 1 spray Q12HR PRN Administration Nasal Congestion Butalbital/Aspirin/Caffeine 1 cap 03/05/24 01:19 03/06/24 06:30 Aspirin/Caffeine/Butalbital (*Crx) 325/40/50 Mg Capsule (Fiorinal) PO 1 cap Q4-6H PRN Administration headache Codeine Sulfate 30 mg 03/05/24 01:18 03/06/24 06:31 Codeine Sulfate (*Crx) 30 Mg Tablet PO 30 mg Q4-6H PRN Administration headache Cyclobenzaprine HCl 10 mg 03/05/24 00:47 03/05/24 23:05 Cyclobenzaprine Hcl 10 Mg Tablet PO 10 mg TID PRN Administration muscle spasm Fluticasone Propionate 1 spray 03/05/24 01:15 03/05/24 21:12 Fluticasone Propionate 0.05% Na Spr 16 Gm Btl (*Bkc) NASAL 1 spray Q12HR PRN Administration Nasal Congestion Fluticasone/Umeclidinium/Vilanterol 1 puff 03/05/24 08:00 03/05/24 08:47 Fluticasone/Umeclidin/Vilanter 100-62.5-25 Mcg Ellipta INHALATION 1 puff DAILYRT JOSHUA Administration Gabapentin 100 mg 03/05/24 22:00 03/06/24 06:31 Gabapentin 100 Mg Capsule PO 100 mg Q8HR JOSHUA Administration Ceftriaxone Sodium 1 gm in 50 mls @ 100 mls/hr 03/05/24 20:00 03/05/24 20:35 Rocephin 1 Gm/Ns 50 Ml IVPB Infused Q24H JOSHUA Infusion Azithromycin 500 mg in 250 mls @ 250 mls/hr 03/05/24 21:00 03/05/24 21:05 Zithromax IVPB Infused Q24H JOSHUA Infusion Methylprednisolone Sodium Succinate 60 mg 03/05/24 00:00 03/06/24 06:31 Methylprednisolone Sod Succ 125 Mg Vial IV PUSH 60 mg Q6HR JOSHUA Administration Pantoprazole Sodium 40 mg 03/05/24 09:00 03/05/24 08:20 Pantoprazole 40 Mg Tablet PO 40 mg QAM JOSHUA Administration Roflumilast 500 mcg 03/05/24 09:00 03/05/24 08:20 Roflumilast 500 Mcg Tablet PO 500 mcg DAILY JOSHUA Administration Tamsulosin HCl 0.4 mg 03/05/24 09:00 03/05/24 08:20 Tamsulosin Hcl 0.4 Mg Capsule PO 0.4 mg QAM JOSHUA Administration Radiology Results: ITS Impressions Chest X-Ray 03/04/24 18:13 IMPRESSION: No acute cardiopulmonary process. Chest CTA 03/04/24 19:15 IMPRESSION: Motion artifact obscures subsegmental arteries in the bilateral lower lobes, otherwise no CT evidence of acute pulmonary embolus. No acute process detected in the chest.
[2024-03-06] MEDS: FLUTICASONE/UMECLIDIN/VILANTER 100-62.5-25 MCG ELLIPTA 1 PUFF INHALATION (07:34)
[2024-03-06] MEDS: TAMSULOSIN HCL 0.4 MG CAPSULE PO (08:13)
[2024-03-06] MEDS: PANTOPRAZOLE 40 MG TABLET PO (08:13)
[2024-03-06] MEDS: ROFLUMILAST 500 MCG TABLET PO (08:14)
[2024-03-06] MEDS: polyethylene glycoL 3350 17 GM POWD.PACK PO (12:03)
[2024-03-06 15:00] LABS: Magnesium 2.1 mg/dL (1.6-2.3)
--- NOTE | 2024-03-06 15:08 | ECG_ITS ---
SEE SCANNED COPY FOR CONFIRMED REPORT MTDD
--- NOTE | 2024-03-06 15:24 | PM.CNPUL ---
Assessment and Plan Assessment and plan (1) Acute on chronic respiratory failure with hypoxia and hypercapnia: Code(s): J96.21 - Acute and chronic respiratory failure with hypoxia; J96.22 - Acute and chronic respiratory failure with hypercapnia Status: Acute (2) Chronic respiratory failure: Qualifiers: Respiratory failure complication: hypoxia and hypercapnia Qualified Code(s): J96.11 - Chronic respiratory failure with hypoxia; J96.12 - Chronic respiratory failure with hypercapnia Code(s): J96.10 - Chronic respiratory failure, unspecified whether with hypoxia or hypercapnia Status: Acute (3) COPD (chronic obstructive pulmonary disease): Qualifiers: COPD type: unspecified COPD Qualified Code(s): J44.9 - Chronic obstructive pulmonary disease, unspecified Code(s): J44.9 - Chronic obstructive pulmonary disease, unspecified Status: Acute (4) COPD with acute exacerbation: Code(s): J44.1 - Chronic obstructive pulmonary disease with (acute) exacerbation Status: Acute Assessment and Plan: A 68-year-old male suffering from very severe COPD, and chronic hypoxemic hypercapnic respiratory failure, is on a triple inhaler maintenance bronchodilator and additional medication for his history of COPD exacerbations. He is also on supplemental oxygen at 3 liters/minute. Recently, he has experienced increased shortness of breath and wheezing due to a COPD exacerbation. The patient appears to be responding well to the current treatment plan, which includes IV Solu-Medrol, nebulized short-acting bronchodilators, antibiotics, and the continued use of his triple inhaler maintenance bronchodilator. I concur with this current regimen and suggest adding DVT prophylaxis. Considering the patient's chronic hypercapnic respiratory failure and advanced COPD, it is highly likely that he will require home ventilatory support in the future. I will continue to monitor his condition in coordination with you. (5) Peripheral edema: Code(s): R60.9 - Edema, unspecified Status: Acute (6) Anxiety: Code(s): F41.9 - Anxiety disorder, unspecified Status: Acute History of Present Illness History of Present Illness Consult date: 03/06/24 Chief complaint: COPD Exacerbation Narrative: A 68-year-old male patient, with a history of advanced COPD and chronic hypoxemic respiratory failure, came in reporting an escalating shortness of breath over the past three days. He is on home O2 at 3 liters/minute, and takes maintenance bronchodilators as well as medication for his frequent COPD flare-ups. About four days ago, the patient began experiencing breathlessness which worsened over time, accompanied by wheezing and chest pain. He reported no symptoms of fever, chills, hemoptysis, or night sweats. He did, however, notice swelling in his lower extremities, particularly his right leg. Upon examination in the emergency room, a CT scan revealed no pulmonary embolism, but advanced confluent centrilobular emphysema was detected. There were no signs of a lower respiratory tract infection. The patient's arterial blood gas analysis showed acute on chronic hypercapnic respiratory failure, with a pH of 7.34 and a pCO2 of 68. The patient is currently undergoing treatment with IV antibiotics, Solu-Medrol, maintenance bronchodilator, Daliresp, and nebulized short-acting bronchodilators. He reported an improvement in his breathing. A pulmonary function test from 2017 indicated severe obstructive airway disease with air trapping and a moderately reduced lung diffusion capacity. Unfortunately, the actual PFT measurements are not available for review. Recent overnight oximetry, while on supplemental oxygen at 3 liters/minute, showed no oxyhemoglobin desaturation. The patient has been dealing with increased bronchial secretions and has been using a vest and other mucus clearing devices at home to aid in expectoration. He has a 40-year history of heavy smoking, consuming 4 packs a day, but quit 14 years ago. Other medical conditions include anxiety, benign prostatic hyperplasia, hypertension, and migraines. Review of Systems Review of Systems: All systems reviewed & are unremarkable except as noted in HPI and below (HPI and below) [facility] Past Medical History Medical History Anxiety Benign prostatic hyperplasia Chronic obstructive pulmonary disease Chronic respiratory failure with hypoxia and hypercapnia On home oxygen. Essential hypertension Migraines Oxygen dependent Peptic ulcer disease (~02/2020) Duodenal ulcer on endoscopy on 03/22/2020. Surgical History Surgical History No pertinent past surgical history Family History Family History Sibling Patient's sister is in good health, Onset Age: 52 Patient's brother is in good health, Onset Age: 50 Mother Family history of diabetes mellitus in first degree relative, Onset Age: 68 Patient's mother is Social History Social History Social History: He lives in his own home in [place]. He has a roommate that is there sporadically. 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 He is and has 1 son who lives in the area. He reportedly smoked up to 4 packs of cigarettes per day for a 140 pack year smoking history, quit in 2008. He denies alcohol use. Previous marijuana use. He designates his son, Dorian Johnson, as his surrogate decision maker and he wishes to be a full code. Smoking packs per day: 4 Smoking cigarettes per day: 80.0 Years smoked: 35 Smoking pack-years: 140.00 Smoking status: Former smoker Tobacco type: cigarettes Second hand tobacco smoke exposure: Yes Smoking end date: 11/06/08 Alcohol intake: never Substance use: never Substance use type: does not use Do You Feel Safe in your Home?: Yes Lack of Transportation: No Lack of Food: Never True Current Housing: I Have Housing Concerned About Future Housing: No Difficulty Paying Gas/Electric Bills: No Difficulty Paying for Meds: No Currently Unemployed: No Education: Never Attended/Kindergarten Only Difficulty w/ Childcare or Family Care: No Living arrangements: alone Occupation/Education: retired Gender identity (if verbalized by the patient): Male Spiritual care concerns: Yes Meds Home Medications and Allergies Home Medications Medication Instructions Recorded Confirmed Type albuterol sulfate 90 mcg/actuation 1 inh inhalation QID 10 days #6.7 08/25/20 03/04/24 Rx aerosol inhaler (Ventolin HFA) grams fluticasone propionate 50 2 spray intranasal DAILY #16 grams 06/27/23 03/04/24 Rx mcg/actuation nasal spray,suspension (Flonase Allergy Relief) cyclobenzaprine 10 mg tablet 10 mg PO TID PRN muscle spasm #30 10/20/23 03/04/24 Rx tabs roflumilast 500 mcg tablet 500 mcg PO DAILY #30 tabs 11/15/23 03/04/24 Rx (Daliresp) albuterol sulfate 2.5 mg/3 mL 2.5 mg (3 mL) inhalation QID PRN 11/24/23 03/04/24 Rx (0.083 %) solution for nebulization shortness of breath or wheezing #360 mL budesonide 160 mcg-glycopyr 9 2 inh inhalation QAM AND QPM #10.7 11/27/23 03/04/24 Rx mcg-formot 4.8 mcg/actuation HFA grams inhaler (Breztri Aerosphere) gabapentin 100 mg capsule 100 mg PO TID #90 caps 01/29/24 03/04/24 Rx pantoprazole 40 mg tablet,delayed 40 mg PO QAM #30 tabs 01/29/24 03/04/24 Rx release ighnakn-kcwgsdtlvi-OYC-caffeine 30 1 cap PO Q4-6H PRN headache #60 02/19/24 03/04/24 Rx mg-50 mg-325 mg-40 mg capsule caps doxycycline hyclate 100 mg tablet 100 mg PO DAILY 7 days #7 tabs 02/28/24 03/04/24 Rx azelastine 137 mcg-fluticasone 50 1 spray intranasal BID PRN Nasal 03/04/24 03/04/24 History mcg/spray nasal spray (Dymista) Congestion loratadine 10 mg tablet 10 mg PO DAILY PRN Allergy Symptoms 03/04/24 03/04/24 History tamsulosin 0.4 mg capsule 0.4 mg PO QAM 03/04/24 03/04/24 History Allergies Allergy/AdvReac Type Severity Reaction Status Date / Time levaquin AdvReac Severe Joint Pain Uncoded 03/06/24 11:37 Vital Signs Vital Signs - 24 hr 03/05/24 15:28 03/05/24 16:00 03/05/24 19:44 Temperature 37.2 C Pulse Rate 99 86 96 Respiratory Rate 16 Blood Pressure 145/61 H Pulse Oximetry 97 94 Oxygen Delivery Nasal Cannula Oxygen Flow Rate 3 03/05/24 19:44 03/05/24 19:51 03/05/24 20:22 Temperature 36.8 C Pulse Rate 96 98 108 H Respiratory Rate 20 18 20 Blood Pressure 155/61 H Pulse Oximetry 95 Oxygen Delivery Oxygen Flow Rate 03/05/24 20:00 03/06/24 00:00 03/06/24 02:18 Temperature Pulse Rate 106 H 79 85 Respiratory Rate 18 Blood Pressure Pulse Oximetry Oxygen Delivery Oxygen Flow Rate 03/06/24 02:24 03/06/24 04:00 03/06/24 04:29 Temperature 36.7 C Pulse Rate 87 92 94 Respiratory Rate 18 20 Blood Pressure 123/66 Pulse Oximetry 94 Oxygen Delivery Oxygen Flow Rate 03/06/24 07:36 03/06/24 07:38 03/06/24 07:47 Temperature Pulse Rate 84 103 H Respiratory Rate 18 18 Blood Pressure Pulse Oximetry 94 Oxygen Delivery Nasal Cannula Oxygen Flow Rate 3 03/06/24 08:05 03/06/24 08:00 03/06/24 12:00 Temperature Pulse Rate 94 117 H Respiratory Rate Blood Pressure Pulse Oximetry 94 Oxygen Delivery Nasal Cannula Oxygen Flow Rate 4 03/06/24 12:49 03/06/24 12:58 03/06/24 14:00 Temperature 36.1 C L Pulse Rate 112 H 104 H 124 H Respiratory Rate 18 18 18 Blood Pressure 126/81 Pulse Oximetry 94 Oxygen Delivery Oxygen Flow Rate Exam Narrative: GENERAL APPEARANCE: Well developed, well nourished, alert and cooperative, and appears to be in in mild respiratory distress while on supplemental oxygen SKIN: Inspection of the skin reveals no rashes, ulcerations or petechiae. HEENT: Sclerae anicteric and conjunctivae pink and moist. Extraocular movements were intact and pupils were equal, round, and reactive to light. The oral mucosa, hard and soft palate, tongue and posterior pharynx were normal. NECK: Supple. There was no thyroid enlargement, and no tenderness, or masses were felt. CHEST: Normal AP diameter and normal contour without any kyphoscoliosis. LUNGS: Distant breath sounds bilaterally minimal wheezing special expiratory CARDIAC: There was a regular rate and rhythm without any murmurs, gallops, rubs. ABDOMEN: Soft and nontender with normal bowel sounds. There was no organomegaly. LYMPH NODES: No lymphadenopathy was appreciated in the neck EXTREMITIES: No cyanosis, clubbing; trace pedal edema right lower extremity NEUROLOGIC: Alert and oriented x 3. Normal affect. Results Laboratory Findings 03/04/24 17:49 03/04/24 17:49 ABG, PT/INR, D-dimer: ABG ABG pH 7.345 (7.350-7.450) L 03/04/24 18:40 ABG pCO2 68.1 mmHg (35.0-45.0) H* 03/04/24 18:40 ABG pO2 75.0 mmHg (80.0-100.0) L 03/04/24 18:40 ABG O2 Saturation 93.8 % (95.0-100.0) L 03/04/24 18:40 PT/INR, D-dimer PT 13.2 Seconds (11.1-14.7) 03/04/24 18:51 INR 1.0 03/04/24 18:51 Abnormal lab findings: Abnormal Labs 03/04/24 03/04/24 17:49 18:40 RBC 4.59 L Hgb 12.6 L MCHC 29.6 L Neut % (Auto) 75.0 H Lymph % (Auto) 16.9 L Abs Immat Gran (auto) 0.04 H ABG pH 7.345 L ABG pCO2 68.1 H* ABG pO2 75.0 L ABG HCO3 36.3 H ABG O2 Saturation 93.8 L Carbon Dioxide 37 H Glucose 123 H Alkaline Phosphatase 135 H
[2024-03-06 15:59] LABS: Troponin I < 0.012 ng/mL (0.000-0.034)
[2024-03-06] MEDS: SENNA/DOCUSATE SODIUM TABLET 1 TAB PO (20:14)
[2024-03-06] MEDS: AZITHROMYCIN 500 MG/NS 250 ML 500 MG/250 ML BAG 250 MG IVPB (20:14)
[2024-03-06] MEDS: guaiFENesin 12 HR 600 MG TABCR 1200 MG PO (20:14)
[2024-03-06] MEDS: CYCLOBENZAPRINE HCL 10 MG TABLET PO (23:02)
[2024-03-07] VITALS (24 sets, daily range): BP systolic 126–161; BP diastolic 78–81; PULSE 92–133; RESP 16–20; TEMP 36.4–36.9; O2SAT 92–98
[2024-03-07] MEDS: IPRATROPIUM 0.5 MG/ALBUTEROL SULFATE 2.5 MG AMPUL.NEB 3 ML INHALATION ×5 (04:59→20:18)
[2024-03-07 05:33] LABS: Basophils Percent Auto 0.1 % (0.2-1.2); Hematocrit 39.4 % (42.0-52.0); Hemoglobin 11.8 g/dL (14.0-18.0); Immature Granulocyte Absolute 0.27 K/mm3 (0.00-0.031); Immature Granulocyte Percent A 1.3 % (0-0.5); Lymphocytes Absolute Auto 0.81 K/mm3 (0.9-3.2); Mean Corpuscular HGB Conc 29.9 g/dl (32-36); Mean Corpuscular Volume 93.4 fl (80-100); Mean Platelet Volume 9.7 fl (7.4-10.4); Monocytes Absolute Auto 0.6 K/mm3 (0.1-0.6); Monocytes Percent Auto 3.2 % (2.6-8.5); Neutrophils Absolute Auto 18.4 K/mm3 (1.3-6.7); Neutrophils Percent Auto 91.4 % (45.5-73.1); Platelet Count Result 271 k/mm3 (150-375); Red Blood Count 4.22 M/mm3 (4.6-6.20); Red Cell Distribution Width 14.9 % (11.5-14.5); White Blood Count 20.1 K/mm3 (4.5-10.0)
[2024-03-07 05:55] LABS: Alanine Aminotransferase 19 U/L (6-50); Albumin Level 3.9 g/dL (3.5-5.1); Alkaline Phosphatase 94 U/L (38-126); Anion Gap 3 mmol/L (4-12); Aspartate Amino Transferase 26 U/L (17-59); Bilirubin,Total 0.3 mg/dL (0.2-1.3); Blood Urea Nitrogen 22 mg/dL (9-20); Calcium 8.5 mg/dL (8.4-10.2); Carbon Dioxide 36 mmol/L (22-30); Chloride 99 mmol/L (98-107); Estimated CRCL calculation 91 ml/min; Estimated Glomerular Filt Rate > 60; Glucose 155 mg/dL (65-110); Magnesium 2.2 mg/dL (1.6-2.3); Potassium 4.3 mmol/L (3.4-5.0); Sodium 138 mmol/L (137-145)
[2024-03-07] MEDS: GABAPENTIN 100 MG CAPSULE PO ×3 (05:59→22:46)
[2024-03-07] MEDS: methylPREDNISolone SOD SUCC 125 MG VIAL 60 MG IV PUSH (05:59)
[2024-03-07] MEDS: CODEINE SULFATE (*CRX) 30 MG TABLET PO ×3 (06:01→22:46)
[2024-03-07 06:46] LABS: Hypochromasia 1+; Platelet Estimate Adequate (Adequate); Schistocytes None Seen
--- NOTE | 2024-03-07 07:45 | P.PNIM_ITS ---
Progress Note: A&P Assessment and Plan (1) Acute on chronic respiratory failure with hypoxia and hypercapnia: Code(s): J96.21 - Acute and chronic respiratory failure with hypoxia; J96.22 - Acute and chronic respiratory failure with hypercapnia Status: Acute (2) COPD (chronic obstructive pulmonary disease): Qualifiers: COPD type: unspecified COPD Qualified Code(s): J44.9 - Chronic obstructive pulmonary disease, unspecified Code(s): J44.9 - Chronic obstructive pulmonary disease, unspecified Status: Acute (3) Urinary retention: Code(s): R33.9 - Retention of urine, unspecified Status: Acute (4) Tachycardia: Code(s): R00.0 - Tachycardia, unspecified Status: Acute Plan (1) Acute on chronic respiratory failure with hypoxia and hypercapnia: ?Code(s): J96.21 - Acute and chronic respiratory failure with hypoxia; J96.22 - Acute and chronic respiratory failure with hypercapnia ?Status:?Acute ?Assessment and Plan: ?patient is on supplemental oxygen by nasal cannula usually wears 4 L ?continue to monitor ?supportive care ?try and keep oxygen saturation at 92% 03/06: * Continues on nasal cannula at 3 L. Maintain spo2 goal > 88% * States he does not wear CPAP at home as he cannot tolerate it * Blood gas on arrival: shows compensated respiratory acidosis * Duo Neb scheduled Q 6, will increase to Q 4 hours 03/07: * Declining BiPAP * Will give referrals for palliative care at discharge (2) COPD with acute exacerbation: ?Code(s): J44.1 - Chronic obstructive pulmonary disease with (acute) exacerbation ?Status:?Acute ?Assessment and Plan: ?breathing treatments q.6 ?systemic steroids ?Rocephin and Zithromax 03/05 continue methylprednisolone 60 mg q.6 hours IV, Flonase 1 puff q.12 hours, continue DuoNeb scheduled q.6 hours, albuterol nebulizer as needed. Patient is improving, may decrease methylprednisolone in 1-2 days 03/06: * On Methylprednisolone 60 mg Q 6 hours. Still having expiratory wheezing. * Flonase Q 12 * Duo nebs increased to Q 4 hours * Antibiotics with Rocephin and azithromycin * Claritin daily * Pulmonology consulted, rec's appreciated. 03/07: * Continue current treatment plan * May start to wean steroids today if clinically he is sounding better * Switch to prednisone Urinary retention on admission in the ED with 500 ml present. Alcantara was placed. * on Flomax * attempt void trial * bladder scan post void and straight cath for residual greater than 400 ml 03/07: * alcantara out and voiding per urinal Constipation * last BM was Monday * Added Miralax and senna * could be contributing to urinary retention 03/07: * passing flatus * can have ducolax suppository today Tachycardia * on telemetry * SR-ST with heart rate ranging 90's-100's. * May be related to anxiety 2/2 to poor breathing effort vs albuterol vs steroids vs copd exacerbation * EKG 03/05 with right BBB and SR, ventricular rate 95 bpm 03/07: * Patient experienced a transient episode of chest pain yesterday resolving after passing flatus. Troponin was negative, EKG unchanged from admission. * Continues to have heart rate's in the 90's-110 bpm * Blood pressures stable * Heart rate as high as 140s with activity.Will start Metoprolol 25 mg bid Subjective Date/time seen: 03/07/24 07:45 Interval history: 03/06: Patient seen resting in bed on 3 L nasal cannula. He appears anxious at baseline but is able to speak in short sentences. He states that his breathing is somewhat improved since presenting to the hospital. He states his problem has been exacerbated due to mold in his home. Work has been done to remove some this medicine is working on getting a filtration system. His baseline oxygen is 3 L. he has not been and out of bed yet. He continues to have productive thick sputum which is clear to yellow in color. He was concerned because he had some bleeding due to nasal dryness. He is using saline and oxygen has added humidity. He also reports the sore throat, headache, and he has not had a bowel movement since Monday. He is supposed to see pulmonology at the end of the month but he is unable to get to his appointments so they were going to do a telehealth appointment. Given his COPD exacerbation now will consult pulmonology to see him while inpatient to help optimize plan of care and hopefully prevent readmission. 03/07: Patient is seen up in chair the oxygen at 5 L. he required increased in nasal cannula with activity. Breathing is minimally improved today. He still has some expiratory wheeze anteriorly but no wheezing heard posteriorly. He states he coughed up some barrios phlegm today. He continues to have tachycardia with rate as high as 140s with activity. Will start him on metoprolol 25 mg b.i.d.. I discussed with him palliative Care discharge given his reluctance to adopt BiPAP. He is agreeable. Will ask care coordination to provide him with some resources. Therapy has evaluated him and is recommending SNF. Patient is agreeable and care coordination will help with placement. This is ideal as patient has black mold growing in his home currently which is contributing to his current respiratory status. Review of Systems Review of Systems: All systems reviewed & are unremarkable except as noted in HPI and below Exam Narrative: General: Chronically ill-appearing, anxious, tremulous HEENT: normocephalic, atraumatic. Mucous membranes dry. EOMI, PERRLA, bilateral sclera anicteric, no conjunctival injection. Neck supple without JVD, lymphadenopathy, or bruit. Respiratory: clear to auscultation with expiratory wheezing left greater than right. Cardiovascular: tachycardic with regular rhythm, normal S1-S2 upon auscultation. No murmurs, rubs, or clicks. PMI is nondisplaced, capillary refill less than 3 second. + clubbing to nail beds. Abdomen: Soft, round, no pulsatile masses, + distention and nontender. No rebound, no guarding. No CVA tenderness, no hepatosplenomegaly. Bowel sounds present to all four quadrants. No high pitch or tinkling sounds, resonant to percussion. Extremities: dusky nail beds, + clubbing, scant, non-pitting edema present to BLE with Right greater than Left. Pulses are palpable 2/2. Active ROM to all four extremities. Neuro: Alert and orientated x 4. PERRLA. Cranial nerves 2-12 intact without focal deficit. Skin: Warm, dry, and intact, without rash, erythema, or lesion. Lines: PIV Incisions: NA Psych: pleasant, cooperative, normal speech, normal affect, no hallucinations, no dysarthria, anxious at times. Objective Data Vital Signs Vital Signs: Vital Signs - 24 hr 03/06/24 07:47 03/06/24 08:05 03/06/24 08:00 Temperature Pulse Rate 103 H 94 Respiratory Rate 18 Blood Pressure Pulse Oximetry 94 Oxygen Delivery Nasal Cannula Oxygen Flow Rate 4 03/06/24 12:00 03/06/24 12:49 03/06/24 12:58 Temperature Pulse Rate 117 H 112 H 104 H Respiratory Rate 18 18 Blood Pressure Pulse Oximetry Oxygen Delivery Oxygen Flow Rate 03/06/24 14:00 03/06/24 15:39 03/06/24 15:47 Temperature 97 F L Pulse Rate 124 H 110 H 102 H Respiratory Rate 18 18 18 Blood Pressure 126/81 Pulse Oximetry 94 Oxygen Delivery Oxygen Flow Rate 03/06/24 16:00 03/06/24 20:48 03/06/24 20:49 Temperature Pulse Rate 105 H 105 H 105 H Respiratory Rate 18 Blood Pressure Pulse Oximetry 93 Oxygen Delivery Nasal Cannula Oxygen Flow Rate 3 03/06/24 20:57 03/06/24 20:00 03/06/24 22:00 Temperature 98.2 F Pulse Rate 106 H 98 115 H Respiratory Rate 18 16 Blood Pressure 169/77 H Pulse Oximetry 95 Oxygen Delivery Oxygen Flow Rate 03/06/24 23:55 03/07/24 00:00 03/07/24 00:00 Temperature Pulse Rate 99 101 H 111 H Respiratory Rate 18 18 Blood Pressure Pulse Oximetry Oxygen Delivery Oxygen Flow Rate 03/07/24 04:00 03/07/24 04:56 03/07/24 04:59 Temperature 98.5 F Pulse Rate 99 93 104 H Respiratory Rate 20 18 Blood Pressure 149/78 H Pulse Oximetry 92 Oxygen Delivery Oxygen Flow Rate 03/07/24 05:05 Temperature Pulse Rate 105 H Respiratory Rate 18 Blood Pressure Pulse Oximetry Oxygen Delivery Oxygen Flow Rate Intake/Output Intake/Output: Intake & Output 03/04/24 03/05/24 03/06/24 03/07/24 23:59 23:59 23:59 23:59 Intake Total 716 504 9665 Output Total 2550 1500 150 Balance 300 -1760 1100 -150 Meds/Results Medications: Active Medications Generic Name Dose Route Start Last Admin Trade Name Freq PRN Reason Stop Dose Admin Acetaminophen 650 mg 03/05/24 20:16 03/06/24 17:41 Acetaminophen 325 Mg Tablet PO 650 mg Q6H PRN Administration Mild Pain (1-3) or Fever Albuterol 2 puff 03/05/24 09:00 Albuterol Sulfate (*Sp) Aerosol 1 Puff INHALATION Q6H PRN Shortness Of Breath Albuterol/Ipratropium 3 ml 03/06/24 13:00 03/07/24 04:59 Ipratropium 0.5 Mg/Albuterol Sulfate 2.5 Mg Ampul.Neb 3 Ml INHALATION 3 ml Q4HR JOSHUA Administration Azelastine HCl 1 spray 03/05/24 01:14 03/05/24 21:12 Azelastine Hcl Nasal 0.1% 137 Mcg/Spr 30 Ml Btl NASAL 1 spray Q12HR PRN Administration Nasal Congestion Butalbital/Aspirin/Caffeine 1 cap 03/05/24 01:19 03/07/24 05:59 Aspirin/Caffeine/Butalbital (*Crx) 325/40/50 Mg Capsule (Fiorinal) PO 1 cap Q4-6H PRN Administration headache Codeine Sulfate 30 mg 03/05/24 01:18 03/07/24 06:01 Codeine Sulfate (*Crx) 30 Mg Tablet PO 30 mg Q4-6H PRN Administration headache Cyclobenzaprine HCl 10 mg 03/05/24 00:47 03/06/24 23:02 Cyclobenzaprine Hcl 10 Mg Tablet PO 10 mg TID PRN Administration muscle spasm Enoxaparin Sodium 40 mg 03/07/24 09:00 Enoxaparin 40 Mg/0.4 Ml Syringe SUB-Q DAILY JOSHUA Fluticasone Propionate 1 spray 03/05/24 01:15 03/05/24 21:12 Fluticasone Propionate 0.05% Na Spr 16 Gm Btl (*Bkc) NASAL 1 spray Q12HR PRN Administration Nasal Congestion Fluticasone/Umeclidinium/Vilanterol 1 puff 03/05/24 08:00 03/06/24 07:34 Fluticasone/Umeclidin/Vilanter 100-62.5-25 Mcg Ellipta INHALATION 1 puff DAILYRT JOSHUA Administration Gabapentin 100 mg 03/05/24 22:00 03/07/24 05:59 Gabapentin 100 Mg Capsule PO 100 mg Q8HR JOSHUA Administration Guaifenesin 1,200 mg 03/06/24 21:00 03/06/24 20:14 Guaifenesin 12 Hr 600 Mg Tabcr PO 1,200 mg Q12HR JOSHUA Administration Ceftriaxone Sodium 1 gm in 50 mls @ 100 mls/hr 03/05/24 20:00 03/06/24 20:45 Rocephin 1 Gm/Ns 50 Ml IVPB Infused Q24H JOSHUA Infusion Azithromycin 500 mg in 250 mls @ 250 mls/hr 03/05/24 21:00 03/06/24 21:15 Zithromax IVPB Infused Q24H JOSHUA Infusion Loratadine 10 mg 03/07/24 09:00 Loratadine 10 Mg Tablet PO DAILY JOSHUA Methylprednisolone Sodium Succinate 60 mg 03/05/24 00:00 03/07/24 05:59 Methylprednisolone Sod Succ 125 Mg Vial IV PUSH 60 mg Q6HR JOSHUA Administration Pantoprazole Sodium 40 mg 03/05/24 09:00 03/06/24 08:13 Pantoprazole 40 Mg Tablet PO 40 mg QAM JOSHUA Administration Polyethylene Glycol 17 gm 03/06/24 11:55 03/06/24 12:03 Polyethylene Glycol 3350 17 Gm Powd.Pack PO 17 gm QAM JOSHUA Administration Roflumilast 500 mcg 03/05/24 09:00 03/06/24 08:14 Roflumilast 500 Mcg Tablet PO 500 mcg DAILY JOSHUA Administration Senna/Docusate Sodium 1 tab 03/06/24 21:00 03/06/24 20:14 Senna/Docusate Sodium Tablet PO 1 tab HS JOSHUA Administration Tamsulosin HCl 0.4 mg 03/05/24 09:00 03/06/24 08:13 Tamsulosin Hcl 0.4 Mg Capsule PO 0.4 mg QAM JOSHUA Administration Radiology Results: ITS Impressions Chest X-Ray 03/04/24 18:13 IMPRESSION: No acute cardiopulmonary process. Chest CTA 03/04/24 19:15 IMPRESSION: Motion artifact obscures subsegmental arteries in the bilateral lower lobes, otherwise no CT evidence of acute pulmonary embolus. No acute process detected in the chest. Labs Labs: Laboratory Results - last 24 hr 03/06/24 03/07/24 14:23 05:11 WBC 20.1 H RBC 4.22 L Hgb 11.8 L Hct 39.4 L MCV 93.4 MCH 28.0 MCHC 29.9 L RDW 14.9 H Plt Count 271 MPV 9.7 Immature Gran % (Auto) 1.3 H Neut % (Auto) 91.4 H Lymph % (Auto) 4.0 L [place] % (Auto) 3.2 Eos % (Auto) 0.0 Baso % (Auto) 0.1 L Lymph # (Auto) 0.81 L [place] # (Auto) 0.6 Eos # (Auto) 0.0 Baso # (Auto) 0.0 Abs Immat Gran (auto) 0.27 H Absolute Neuts (auto) 18.4 H Absolute Nucleated RBC 0.000 Nucleated RBC % 0.0 Platelet Estimate Adequate Hypochromasia 1+ Schistocytes None seen Sodium 138 Potassium 4.3 Chloride 99 Carbon Dioxide 36 H Anion Gap 3 L BUN 22 H Creatinine 0.70 Estim Creat Clear Calc 91 Estimated GFR > 60 Glucose 155 H Calcium 8.5 Magnesium 2.1 2.2 Total Bilirubin 0.3 AST 26 ALT 19 Alkaline Phosphatase 94 Troponin I < 0.012 Total Protein 7.0 Albumin 3.9
[2024-03-07] MEDS: FLUTICASONE/UMECLIDIN/VILANTER 100-62.5-25 MCG ELLIPTA 1 PUFF INHALATION (07:49)
[2024-03-07 08:19] LABS: Procalcitonin 0.1 ng/mL
--- NOTE | 2024-03-07 08:20 | P.PNPL_ITS ---
Progress Note: A&P Assessment and Plan (1) Acute on chronic respiratory failure with hypoxia and hypercapnia: Code(s): J96.21 - Acute and chronic respiratory failure with hypoxia; J96.22 - Acute and chronic respiratory failure with hypercapnia Status: Acute (2) Chronic respiratory failure: Qualifiers: Respiratory failure complication: hypoxia and hypercapnia Qualified Code(s): J96.11 - Chronic respiratory failure with hypoxia; J96.12 - Chronic respiratory failure with hypercapnia Code(s): J96.10 - Chronic respiratory failure, unspecified whether with hypoxia or hypercapnia Status: Acute (3) Former smoker: Code(s): Z87.891 - Personal history of nicotine dependence Status: Acute (4) COPD with acute exacerbation: Code(s): J44.1 - Chronic obstructive pulmonary disease with (acute) exacerbation Status: Acute Assessment and Plan: A 68-year-old male suffering from very severe COPD, and chronic hypoxemic hypercapnic respiratory failure, is on a triple inhaler maintenance bronchodilator and additional medication for his history of COPD exacerbations. He is also on supplemental oxygen at 3 liters/minute. Recently, he has experienced increased shortness of breath and wheezing due to a COPD exacerbation. The patient's respiratory condition appears to be improving under the current treatment plan. Physical examination reveals hyperinflated lungs, however, wheezing is reduced over the last 24 hours. The patient has been transitioned to oral steroids while maintaining the rest of the medications for COPD exacerbation. The importance of introducing home ventilatory support was discussed, considering the patient's end-stage COPD with hypercapnic failure and recurrent COPD exacerbations. However, the patient expressed his reluctance to adopt home ventilatory support, citing his inability to bear masks and ventilator pressures . It's worth noting that the patient had a negative experience with home ventilation over a year ago during a hospital stay, and has since been resistant to this form of treatment. (5) Anxiety: Code(s): F41.9 - Anxiety disorder, unspecified Status: Acute Subjective Date/time seen: 03/07/24 08:20 Interval history: Patient stated he is doing little better. He has no new respiratory symptoms. Less wheezing today also shortness of breath less while on current regimen. Review of Systems Review of Systems: All systems reviewed & are unremarkable except as noted in HPI and below (HPI and below) Exam Narrative: GENERAL APPEARANCE: Well developed, well nourished, alert and cooperative, and appears to be in in mild respiratory distress while on supplemental oxygen SKIN: Inspection of the skin reveals no rashes, ulcerations or petechiae. HEENT: Sclerae anicteric and conjunctivae pink and moist. Extraocular movements were intact and pupils were equal, round, and reactive to light. The oral mucosa, hard and soft palate, tongue and posterior pharynx were normal. NECK: Supple. There was no thyroid enlargement, and no tenderness, or masses were felt. CHEST: Normal AP diameter and normal contour without any kyphoscoliosis. LUNGS: Distant breath sounds bilaterally minimal wheezing special expiratory CARDIAC: There was a regular rate and rhythm without any murmurs, gallops, rubs. ABDOMEN: Soft and nontender with normal bowel sounds. There was no organomegaly. LYMPH NODES: No lymphadenopathy was appreciated in the neck EXTREMITIES: No cyanosis, clubbing; trace pedal edema right lower extremity NEUROLOGIC: Alert and oriented x 3. Normal affect. Objective Data Vital Signs Vital Signs: Vital Signs - 24 hr 03/06/24 12:00 03/06/24 12:49 03/06/24 12:58 Temperature Pulse Rate 117 H 112 H 104 H Respiratory Rate 18 18 Blood Pressure Pulse Oximetry Oxygen Delivery Oxygen Flow Rate Fraction of Inspired Oxygen 03/06/24 14:00 03/06/24 15:39 03/06/24 15:47 Temperature 36.1 C L Pulse Rate 124 H 110 H 102 H Respiratory Rate 18 18 18 Blood Pressure 126/81 Pulse Oximetry 94 Oxygen Delivery Oxygen Flow Rate Fraction of Inspired Oxygen 03/06/24 16:00 03/06/24 20:48 03/06/24 20:49 Temperature Pulse Rate 105 H 105 H 105 H Respiratory Rate 18 Blood Pressure Pulse Oximetry 93 Oxygen Delivery Nasal Cannula Oxygen Flow Rate 3 Fraction of Inspired Oxygen 03/06/24 20:57 03/06/24 20:00 03/06/24 22:00 Temperature 36.8 C Pulse Rate 106 H 98 115 H Respiratory Rate 18 16 Blood Pressure 169/77 H Pulse Oximetry 95 Oxygen Delivery Oxygen Flow Rate Fraction of Inspired Oxygen 03/06/24 23:55 03/07/24 00:00 03/07/24 00:00 Temperature Pulse Rate 99 101 H 111 H Respiratory Rate 18 18 Blood Pressure Pulse Oximetry Oxygen Delivery Oxygen Flow Rate Fraction of Inspired Oxygen 03/07/24 04:00 03/07/24 04:56 03/07/24 04:59 Temperature 36.9 C Pulse Rate 99 93 104 H Respiratory Rate 20 18 Blood Pressure 149/78 H Pulse Oximetry 92 Oxygen Delivery Oxygen Flow Rate Fraction of Inspired Oxygen 03/07/24 05:05 03/07/24 07:48 03/07/24 07:48 Temperature Pulse Rate 105 H 95 Respiratory Rate 18 20 Blood Pressure Pulse Oximetry 92 Oxygen Delivery Nasal Cannula Oxygen Flow Rate 2 Fraction of Inspired Oxygen 28 Intake/Output Intake/Output: Intake & Output 03/04/24 03/05/24 03/06/24 03/07/24 23:59 23:59 23:59 23:59 Intake Total 941 340 7379 Output Total 2550 1500 150 Balance 300 -1760 1100 -150 Meds/Results Medications: Active Medications Generic Name Dose Route Start Last Admin Trade Name Freq PRN Reason Stop Dose Admin Acetaminophen 650 mg 03/05/24 20:16 03/06/24 17:41 Acetaminophen 325 Mg Tablet PO 650 mg Q6H PRN Administration Mild Pain (1-3) or Fever Albuterol 2 puff 03/05/24 09:00 Albuterol Sulfate (*Sp) Aerosol 1 Puff INHALATION Q6H PRN Shortness Of Breath Albuterol/Ipratropium 3 ml 03/06/24 13:00 03/07/24 07:49 Ipratropium 0.5 Mg/Albuterol Sulfate 2.5 Mg Ampul.Neb 3 Ml INHALATION 3 ml Q4HR JOSHUA Administration Azelastine HCl 1 spray 03/05/24 01:14 03/05/24 21:12 Azelastine Hcl Nasal 0.1% 137 Mcg/Spr 30 Ml Btl NASAL 1 spray Q12HR PRN Administration Nasal Congestion Butalbital/Aspirin/Caffeine 1 cap 03/05/24 01:19 03/07/24 05:59 Aspirin/Caffeine/Butalbital (*Crx) 325/40/50 Mg Capsule (Fiorinal) PO 1 cap Q4-6H PRN Administration headache Codeine Sulfate 30 mg 03/05/24 01:18 03/07/24 06:01 Codeine Sulfate (*Crx) 30 Mg Tablet PO 30 mg Q4-6H PRN Administration headache Cyclobenzaprine HCl 10 mg 03/05/24 00:47 03/06/24 23:02 Cyclobenzaprine Hcl 10 Mg Tablet PO 10 mg TID PRN Administration muscle spasm Enoxaparin Sodium 40 mg 03/07/24 09:00 Enoxaparin 40 Mg/0.4 Ml Syringe SUB-Q DAILY JOSHUA Fluticasone Propionate 1 spray 03/05/24 01:15 03/05/24 21:12 Fluticasone Propionate 0.05% Na Spr 16 Gm Btl (*Bkc) NASAL 1 spray Q12HR PRN Administration Nasal Congestion Fluticasone/Umeclidinium/Vilanterol 1 puff 03/05/24 08:00 03/07/24 07:49 Fluticasone/Umeclidin/Vilanter 100-62.5-25 Mcg Ellipta INHALATION 1 puff DAILYRT JOSHUA Administration Gabapentin 100 mg 03/05/24 22:00 03/07/24 05:59 Gabapentin 100 Mg Capsule PO 100 mg Q8HR JOSHUA Administration Guaifenesin 1,200 mg 03/06/24 21:00 03/06/24 20:14 Guaifenesin 12 Hr 600 Mg Tabcr PO 1,200 mg Q12HR JOSHUA Administration Ceftriaxone Sodium 1 gm in 50 mls @ 100 mls/hr 03/05/24 20:00 03/06/24 20:45 Rocephin 1 Gm/Ns 50 Ml IVPB Infused Q24H JOSHUA Infusion Azithromycin 500 mg in 250 mls @ 250 mls/hr 03/05/24 21:00 03/06/24 21:15 Zithromax IVPB Infused Q24H JOSHUA Infusion Loratadine 10 mg 03/07/24 09:00 Loratadine 10 Mg Tablet PO DAILY JOSHUA Pantoprazole Sodium 40 mg 03/05/24 09:00 03/06/24 08:13 Pantoprazole 40 Mg Tablet PO 40 mg QAM JOSHUA Administration Polyethylene Glycol 17 gm 03/06/24 11:55 03/06/24 12:03 Polyethylene Glycol 3350 17 Gm Powd.Pack PO 17 gm QAM JOSHUA Administration Prednisone 40 mg 03/07/24 08:20 Prednisone 20 Mg Tablet PO DAILY@0800 JOSHUA Roflumilast 500 mcg 03/05/24 09:00 03/06/24 08:14 Roflumilast 500 Mcg Tablet PO 500 mcg DAILY JOSHUA Administration Senna/Docusate Sodium 1 tab 03/06/24 21:00 03/06/24 20:14 Senna/Docusate Sodium Tablet PO 1 tab HS JOSHUA Administration Tamsulosin HCl 0.4 mg 03/05/24 09:00 03/06/24 08:13 Tamsulosin Hcl 0.4 Mg Capsule PO 0.4 mg QAM JOSHUA Administration Radiology Results: ITS Impressions Chest X-Ray 03/04/24 18:13 IMPRESSION: No acute cardiopulmonary process. Chest CTA 03/04/24 19:15 IMPRESSION: Motion artifact obscures subsegmental arteries in the bilateral lower lobes, otherwise no CT evidence of acute pulmonary embolus. No acute process detected in the chest. Labs Labs: Laboratory Results - last 24 hr 03/06/24 03/07/24 14:23 05:11 WBC 20.1 H RBC 4.22 L Hgb 11.8 L Hct 39.4 L MCV 93.4 MCH 28.0 MCHC 29.9 L RDW 14.9 H Plt Count 271 MPV 9.7 Immature Gran % (Auto) 1.3 H Neut % (Auto) 91.4 H Lymph % (Auto) 4.0 L [place] % (Auto) 3.2 Eos % (Auto) 0.0 Baso % (Auto) 0.1 L Lymph # (Auto) 0.81 L [place] # (Auto) 0.6 Eos # (Auto) 0.0 Baso # (Auto) 0.0 Abs Immat Gran (auto) 0.27 H Absolute Neuts (auto) 18.4 H Absolute Nucleated RBC 0.000 Nucleated RBC % 0.0 Platelet Estimate Adequate Hypochromasia 1+ Schistocytes None seen Sodium 138 Potassium 4.3 Chloride 99 Carbon Dioxide 36 H Anion Gap 3 L BUN 22 H Creatinine 0.70 Estim Creat Clear Calc 91 Estimated GFR > 60 Glucose 155 H Calcium 8.5 Magnesium 2.1 2.2 Total Bilirubin 0.3 AST 26 ALT 19 Alkaline Phosphatase 94 Troponin I < 0.012 Total Protein 7.0 Albumin 3.9 Procalcitonin 0.1
[2024-03-07] MEDS: predniSONE 20 MG TABLET 40 MG PO (08:55)
[2024-03-07] MEDS: ROFLUMILAST 500 MCG TABLET PO (08:56)
[2024-03-07] MEDS: PANTOPRAZOLE 40 MG TABLET PO (08:56)
[2024-03-07] MEDS: guaiFENesin 12 HR 600 MG TABCR 1200 MG PO ×2 (08:56→20:05)
[2024-03-07] MEDS: LORATADINE 10 MG TABLET PO (08:56)
[2024-03-07] MEDS: polyethylene glycoL 3350 17 GM POWD.PACK PO (08:56)
[2024-03-07] MEDS: ENOXAPARIN 40 MG/0.4 ML SYRINGE SUB-Q (08:56)
[2024-03-07] MEDS: TAMSULOSIN HCL 0.4 MG CAPSULE PO (08:56)
--- NOTE | 2024-03-07 09:20 | PCOTNOTE ---
Attempted to see pt this am. Pt is very anxious with HR in the 130s at rest while inclined in bed. O2 at 88/89 on 4-5L (was on 3L upon entry to room but increased in prep for moving). RN checking on cardiology consult. Deferring therapy until pt's HR more controlled.
[2024-03-07] MEDS: ACETAMINOPHEN 325 MG TABLET 650 MG PO (12:10)
[2024-03-07] MEDS: CYCLOBENZAPRINE HCL 10 MG TABLET PO (12:10)
[2024-03-07] MEDS: METOPROLOL TARTRATE 25 MG TABLET PO ×2 (12:57→20:16)
[2024-03-07] MEDS: AZITHROMYCIN 500 MG/NS 250 ML 500 MG/250 ML BAG 250 MG IVPB (20:04)
[2024-03-07] MEDS: SENNA/DOCUSATE SODIUM TABLET 1 TAB PO (20:05)
[2024-03-08] VITALS (28 sets, daily range): BP systolic 126–142; BP diastolic 65–90; PULSE 65–108; RESP 16–20; TEMP 36.8–36.9; O2SAT 94–98
[2024-03-08] MEDS: IPRATROPIUM 0.5 MG/ALBUTEROL SULFATE 2.5 MG AMPUL.NEB 3 ML INHALATION ×7 (00:02→23:30)
[2024-03-08] MEDS: CYCLOBENZAPRINE HCL 10 MG TABLET PO (00:08)
[2024-03-08] MEDS: ACETAMINOPHEN 325 MG TABLET 650 MG PO ×2 (04:50→18:54)
[2024-03-08 05:55] LABS: Basophils Percent Auto 0.2 % (0.2-1.2); Hematocrit 41.5 % (42.0-52.0); Hemoglobin 12.2 g/dL (14.0-18.0); Immature Granulocyte Absolute 0.17 K/mm3 (0.00-0.031); Immature Granulocyte Percent A 0.9 % (0-0.5); Lymphocytes Absolute Auto 2.19 K/mm3 (0.9-3.2); Mean Corpuscular HGB Conc 29.4 g/dl (32-36); Mean Corpuscular Hemoglobin 27.9 pg (26-34); Mean Corpuscular Volume 94.7 fl (80-100); Mean Platelet Volume 9.7 fl (7.4-10.4); Monocytes Absolute Auto 1.6 K/mm3 (0.1-0.6); Monocytes Percent Auto 8.9 % (2.6-8.5); Neutrophils Absolute Auto 14.2 K/mm3 (1.3-6.7); Platelet Count Result 249 k/mm3 (150-375); Red Blood Count 4.38 M/mm3 (4.6-6.20); White Blood Count 18.2 K/mm3 (4.5-10.0)
[2024-03-08] MEDS: CODEINE SULFATE (*CRX) 30 MG TABLET PO ×3 (06:02→22:24)
[2024-03-08] MEDS: GABAPENTIN 100 MG CAPSULE PO ×3 (06:03→22:23)
[2024-03-08 06:21] LABS: Alanine Aminotransferase 20 U/L (6-50); Albumin Level 3.8 g/dL (3.5-5.1); Alkaline Phosphatase 98 U/L (38-126); Anion Gap 2 mmol/L (4-12); Aspartate Amino Transferase 25 U/L (17-59); Bilirubin,Total 0.3 mg/dL (0.2-1.3); Blood Urea Nitrogen 24 mg/dL (9-20); Calcium 8.5 mg/dL (8.4-10.2); Carbon Dioxide 37 mmol/L (22-30); Chloride 98 mmol/L (98-107); Estimated CRCL calculation 81 ml/min; Estimated Glomerular Filt Rate > 60; Glucose 96 mg/dL (65-110); Magnesium 2.3 mg/dL (1.6-2.3); Potassium 4.1 mmol/L (3.4-5.0); Sodium 137 mmol/L (137-145)
[2024-03-08 06:43] LABS: Procalcitonin 0.1 ng/mL
[2024-03-08 07:34] LABS: Hypochromasia 1+; Platelet Estimate Adequate (Adequate); Schistocytes None Seen
[2024-03-08] MEDS: FLUTICASONE/UMECLIDIN/VILANTER 100-62.5-25 MCG ELLIPTA 1 PUFF INHALATION (07:35)
--- NOTE | 2024-03-08 08:07 | P.PNIM_ITS ---
Progress Note: A&P Assessment and Plan (1) Acute on chronic respiratory failure with hypoxia and hypercapnia: Code(s): J96.21 - Acute and chronic respiratory failure with hypoxia; J96.22 - Acute and chronic respiratory failure with hypercapnia Status: Acute (2) COPD (chronic obstructive pulmonary disease): Qualifiers: COPD type: unspecified COPD Qualified Code(s): J44.9 - Chronic obstructive pulmonary disease, unspecified Code(s): J44.9 - Chronic obstructive pulmonary disease, unspecified Status: Acute (3) Urinary retention: Code(s): R33.9 - Retention of urine, unspecified Status: Acute (4) Tachycardia: Code(s): R00.0 - Tachycardia, unspecified Status: Acute Plan (1) Acute on chronic respiratory failure with hypoxia and hypercapnia: ?Code(s): J96.21 - Acute and chronic respiratory failure with hypoxia; J96.22 - Acute and chronic respiratory failure with hypercapnia ?Status:?Acute ?Assessment and Plan: ?patient is on supplemental oxygen by nasal cannula usually wears 4 L ?continue to monitor ?supportive care ?try and keep oxygen saturation at 92% 03/06: * Continues on nasal cannula at 3 L. Maintain spo2 goal > 88% * States he does not wear CPAP at home as he cannot tolerate it * Blood gas on arrival: shows compensated respiratory acidosis * Duo Neb scheduled Q 6, will increase to Q 4 hours 03/07: * Declining BiPAP * Will give referrals for palliative care at discharge 03/08: * NC 4 L at rest * Breathing has improved with current regimen (2) COPD with acute exacerbation: ?Code(s): J44.1 - Chronic obstructive pulmonary disease with (acute) exacerbation ?Status:?Acute ?Assessment and Plan: ?breathing treatments q.6 ?systemic steroids ?Rocephin and Zithromax 03/05 continue methylprednisolone 60 mg q.6 hours IV, Flonase 1 puff q.12 hours, continue DuoNeb scheduled q.6 hours, albuterol nebulizer as needed. Patient is improving, may decrease methylprednisolone in 1-2 days 03/06: * On Methylprednisolone 60 mg Q 6 hours. Still having expiratory wheezing. * Flonase Q 12 * Duo nebs increased to Q 4 hours * Antibiotics with Rocephin and azithromycin * Claritin daily * Pulmonology consulted, rec's appreciated. 03/07: * Continue current treatment plan * May start to wean steroids today if clinically he is sounding better * Switch to prednisone 03/08: * Prednisone 40 mg daily * Can transition to oral antibiotics * medically ready to d/c to SNF when available Urinary retention on admission in the ED with 500 ml present. Alcantara was placed. * on Flomax * attempt void trial * bladder scan post void and straight cath for residual greater than 400 ml 03/07: * alcantara out and voiding per urinal 03/08: * required straight cath overnight. for residual of 700 ml. * he has chronic difficulty with emptying his bladder at home. He uses a bidet to stimulate his stream. * already on Flomax * add Proscar today * can replace Alcantara catheter if retention continues * will need urology referral outpatient Constipation * last BM was Monday * Added Miralax and senna * could be contributing to urinary retention 03/07: * passing flatus * can have ducolax suppository today 03/08: * Declined suppository yesterday. Will try today. Tachycardia * on telemetry * SR-ST with heart rate ranging 90's-100's. * May be related to anxiety 2/2 to poor breathing effort vs albuterol vs steroids vs copd exacerbation * EKG 03/05 with right BBB and SR, ventricular rate 95 bpm 03/07: * Patient experienced a transient episode of chest pain yesterday resolving after passing flatus. Troponin was negative, EKG unchanged from admission. * Continues to have heart rate's in the 90's-110 bpm * Blood pressures stable * Heart rate as high as 140s with activity.Will start Metoprolol 25 mg bid 03/08: * Tachycardia has improved with addition of metoprolol 25 mg BID * HR in the 90's overnight; BP 126/90 Can discharge to SNF when placement is available. Subjective Date/time seen: 03/08/24 08:07 Interval history: 03/06: Patient seen resting in bed on 3 L nasal cannula. He appears anxious at baseline but is able to speak in short sentences. He states that his breathing is somewhat improved since presenting to the hospital. He states his problem has been exacerbated due to mold in his home. Work has been done to remove some this medicine is working on getting a filtration system. His baseline oxygen is 3 L. he has not been and out of bed yet. He continues to have productive thick sputum which is clear to yellow in color. He was concerned because he had some bleeding due to nasal dryness. He is using saline and oxygen has added humidity. He also reports the sore throat, headache, and he has not had a bowel movement since Monday. He is supposed to see pulmonology at the end of the month but he is unable to get to his appointments so they were going to do a telehealth appointment. Given his COPD exacerbation now will consult pulmonology to see him while inpatient to help optimize plan of care and hopefully prevent readmission. 03/07: Patient is seen up in chair the oxygen at 5 L. he required increased in nasal cannula with activity. Breathing is minimally improved today. He still has some expiratory wheeze anteriorly but no wheezing heard posteriorly. He states he coughed up some barrios phlegm today. He continues to have tachycardia with rate as high as 140s with activity. Will start him on metoprolol 25 mg b.i.d.. I discussed with him palliative Care discharge given his reluctance to adopt BiPAP. He is agreeable. Will ask care coordination to provide him with some resources. Therapy has evaluated him and is recommending SNF. Patient is agreeable and care coordination will help with placement. This is ideal as patient has black mold growing in his home currently which is contributing to his current respiratory status. 03/08:Mr Johnson continues to improve. He states he is feeling better and his breathing is close to his normal status. He is on 4 L NC during my visit. No wheezing heard today. He continues to cough up sputum. His tachycardia has improved with addition of metoprolol. He still has not had a bowel movement since admission. He is willing to try a suppository. Review of Systems Review of Systems: All systems reviewed & are unremarkable except as noted in HPI and below Exam Narrative: General: Chronically ill-appearing, anxious, tremulous HEENT: normocephalic, atraumatic. Mucous membranes dry. EOMI, PERRLA, bilateral sclera anicteric, no conjunctival injection. Neck supple without JVD, lymphadenopathy, or bruit. Respiratory: clear to auscultation with expiratory wheezing left greater than right. Cardiovascular: tachycardic with regular rhythm, normal S1-S2 upon auscultation. No murmurs, rubs, or clicks. PMI is nondisplaced, capillary refill less than 3 second. + clubbing to nail beds. Abdomen: Soft, round, no pulsatile masses, + distention and nontender. No rebound, no guarding. No CVA tenderness, no hepatosplenomegaly. Bowel sounds hypoactive to all four quadrants. No high pitch or tinkling sounds, resonant to percussion. Extremities: dusky nail beds, + clubbing, scant, non-pitting edema present to BLE with Right greater than Left. Pulses are palpable 2/2. Active ROM to all four extremities. Neuro: Alert and orientated x 4. PERRLA. Cranial nerves 2-12 intact without focal deficit. Skin: Warm, dry, and intact, without rash, erythema, or lesion. Lines: PIV Incisions: NA Psych: pleasant, cooperative, normal speech, normal affect, no hallucinations, no dysarthria, anxious at times. Objective Data Vital Signs Vital Signs: Vital Signs - 24 hr 03/07/24 08:50 03/07/24 11:00 03/07/24 11:05 Temperature Pulse Rate 124 H 113 H 110 H Pulse Rate [With Activity During Therapy Session] Respiratory Rate 20 20 Blood Pressure Pulse Oximetry 93 Pulse Oximetry [With Activity During Therapy Session] Oxygen Delivery Nasal Cannula Oxygen Flow Rate 4 Fraction of Inspired Oxygen 03/07/24 11:31 03/07/24 11:16 03/07/24 12:00 Temperature Pulse Rate 133 H Pulse Rate [With Activity During Therapy Session] 130 H Respiratory Rate Blood Pressure Pulse Oximetry Pulse Oximetry [With Activity During Therapy Session] 95 Oxygen Delivery Nasal Cannula Nasal Cannula Oxygen Flow Rate 5 5 Fraction of Inspired Oxygen 03/07/24 12:57 03/07/24 14:00 03/07/24 15:00 Temperature 97.6 F Pulse Rate 127 H 126 H 102 H Pulse Rate [With Activity During Therapy Session] Respiratory Rate 18 20 Blood Pressure 126/81 Pulse Oximetry 96 Pulse Oximetry [With Activity During Therapy Session] Oxygen Delivery Oxygen Flow Rate Fraction of Inspired Oxygen 03/07/24 15:10 03/07/24 16:00 03/07/24 20:16 Temperature Pulse Rate 107 H 103 H 95 Pulse Rate [With Activity During Therapy Session] Respiratory Rate 20 Blood Pressure Pulse Oximetry Pulse Oximetry [With Activity During Therapy Session] Oxygen Delivery Oxygen Flow Rate Fraction of Inspired Oxygen 03/07/24 20:19 03/07/24 20:28 03/07/24 20:29 Temperature Pulse Rate 101 H 102 H Pulse Rate [With Activity During Therapy Session] Respiratory Rate 20 20 Blood Pressure Pulse Oximetry 98 Pulse Oximetry [With Activity During Therapy Session] Oxygen Delivery Nasal Cannula Oxygen Flow Rate 4 Fraction of Inspired Oxygen 03/07/24 22:00 03/07/24 20:00 03/07/24 20:00 Temperature 98.1 F Pulse Rate 95 92 Pulse Rate [With Activity During Therapy Session] Respiratory Rate 16 Blood Pressure 161/81 H Pulse Oximetry 95 95 Pulse Oximetry [With Activity During Therapy Session] Oxygen Delivery Nasal Cannula Oxygen Flow Rate 4 Fraction of Inspired Oxygen 03/08/24 00:02 03/08/24 00:12 03/08/24 00:00 Temperature Pulse Rate 103 H 104 H 91 Pulse Rate [With Activity During Therapy Session] Respiratory Rate 20 20 Blood Pressure Pulse Oximetry Pulse Oximetry [With Activity During Therapy Session] Oxygen Delivery Oxygen Flow Rate Fraction of Inspired Oxygen 03/08/24 04:40 03/08/24 04:50 03/08/24 04:00 Temperature Pulse Rate 101 H 102 H 86 Pulse Rate [With Activity During Therapy Session] Respiratory Rate 20 20 Blood Pressure Pulse Oximetry Pulse Oximetry [With Activity During Therapy Session] Oxygen Delivery Oxygen Flow Rate Fraction of Inspired Oxygen 03/08/24 07:15 03/08/24 07:23 03/08/24 06:00 Temperature 98.4 F Pulse Rate 99 92 Pulse Rate [With Activity During Therapy Session] Respiratory Rate 20 16 Blood Pressure 126/90 Pulse Oximetry 95 94 Pulse Oximetry [With Activity During Therapy Session] Oxygen Delivery Nasal Cannula Oxygen Flow Rate 4 Fraction of Inspired Oxygen 03/08/24 07:36 Temperature Pulse Rate 94 Pulse Rate [With Activity During Therapy Session] Respiratory Rate 20 Blood Pressure Pulse Oximetry Pulse Oximetry [With Activity During Therapy Session] Oxygen Delivery Oxygen Flow Rate Fraction of Inspired Oxygen Intake/Output Intake/Output: Intake & Output 03/05/24 03/06/24 03/07/24 03/08/24 23:59 23:59 23:59 23:59 Intake Total 790 2600 1570 500 Output Total 2550 1500 1425 3450 Balance -1760 1100 145 -2950 Meds/Results Medications: Active Medications Generic Name Dose Route Start Last Admin Trade Name Freq PRN Reason Stop Dose Admin Acetaminophen 650 mg 03/05/24 20:16 03/08/24 04:50 Acetaminophen 325 Mg Tablet PO 650 mg Q6H PRN Administration Mild Pain (1-3) or Fever Albuterol 2 puff 03/05/24 09:00 Albuterol Sulfate (*Sp) Aerosol 1 Puff INHALATION Q6H PRN Shortness Of Breath Albuterol/Ipratropium 3 ml 03/06/24 13:00 03/08/24 07:22 Ipratropium 0.5 Mg/Albuterol Sulfate 2.5 Mg Ampul.Neb 3 Ml INHALATION 3 ml Q4HR JOSHUA Administration Azelastine HCl 1 spray 03/05/24 01:14 03/05/24 21:12 Azelastine Hcl Nasal 0.1% 137 Mcg/Spr 30 Ml Btl NASAL 1 spray Q12HR PRN Administration Nasal Congestion Butalbital/Aspirin/Caffeine 1 cap 03/05/24 01:19 03/08/24 06:02 Aspirin/Caffeine/Butalbital (*Crx) 325/40/50 Mg Capsule (Fiorinal) PO 1 cap Q4-6H PRN Administration headache Codeine Sulfate 30 mg 03/05/24 01:18 03/08/24 06:02 Codeine Sulfate (*Crx) 30 Mg Tablet PO 30 mg Q4-6H PRN Administration headache Cyclobenzaprine HCl 10 mg 03/05/24 00:47 03/08/24 00:08 Cyclobenzaprine Hcl 10 Mg Tablet PO 10 mg TID PRN Administration muscle spasm Enoxaparin Sodium 40 mg 03/07/24 09:00 03/07/24 08:56 Enoxaparin 40 Mg/0.4 Ml Syringe SUB-Q 40 mg DAILY JOSHUA Administration Fluticasone Propionate 1 spray 03/05/24 01:15 03/05/24 21:12 Fluticasone Propionate 0.05% Na Spr 16 Gm Btl (*Bkc) NASAL 1 spray Q12HR PRN Administration Nasal Congestion Fluticasone/Umeclidinium/Vilanterol 1 puff 03/05/24 08:00 03/08/24 07:35 Fluticasone/Umeclidin/Vilanter 100-62.5-25 Mcg Ellipta INHALATION 1 puff DAILYRT JOSHUA Administration Gabapentin 100 mg 03/05/24 22:00 03/08/24 06:03 Gabapentin 100 Mg Capsule PO 100 mg Q8HR JOSHUA Administration Guaifenesin 1,200 mg 03/06/24 21:00 03/07/24 20:05 Guaifenesin 12 Hr 600 Mg Tabcr PO 1,200 mg Q12HR JOSHUA Administration Ceftriaxone Sodium 1 gm in 50 mls @ 100 mls/hr 03/05/24 20:00 03/07/24 21:44 Rocephin 1 Gm/Ns 50 Ml IVPB Infused Q24H JOSHUA Infusion Azithromycin 500 mg in 250 mls @ 250 mls/hr 03/05/24 21:00 03/07/24 21:04 Zithromax IVPB Infused Q24H JOSHUA Infusion Loratadine 10 mg 03/07/24 09:00 03/07/24 08:56 Loratadine 10 Mg Tablet PO 10 mg DAILY JOSHUA Administration Metoprolol Tartrate 25 mg 03/07/24 12:40 03/07/24 20:16 Metoprolol Tartrate 25 Mg Tablet PO 25 mg Q12HR JOSHUA Administration Pantoprazole Sodium 40 mg 03/05/24 09:00 03/07/24 08:56 Pantoprazole 40 Mg Tablet PO 40 mg QAM JOSHUA Administration Polyethylene Glycol 17 gm 03/06/24 11:55 03/07/24 08:56 Polyethylene Glycol 3350 17 Gm Powd.Pack PO 17 gm QAM JOSHUA Administration Prednisone 40 mg 03/07/24 08:20 03/07/24 08:55 Prednisone 20 Mg Tablet PO 40 mg DAILY@0800 JOSHUA Administration Roflumilast 500 mcg 03/05/24 09:00 03/07/24 08:56 Roflumilast 500 Mcg Tablet PO 500 mcg DAILY JOSHUA Administration Senna/Docusate Sodium 1 tab 03/06/24 21:00 03/07/24 20:05 Senna/Docusate Sodium Tablet PO 1 tab HS JOSHUA Administration Tamsulosin HCl 0.4 mg 03/05/24 09:00 03/07/24 08:56 Tamsulosin Hcl 0.4 Mg Capsule PO 0.4 mg QAM JOSHUA Administration Radiology Results: ITS Impressions Chest X-Ray 03/04/24 18:13 IMPRESSION: No acute cardiopulmonary process. Chest CTA 03/04/24 19:15 IMPRESSION: Motion artifact obscures subsegmental arteries in the bilateral lower lobes, otherwise no CT evidence of acute pulmonary embolus. No acute process detected in the chest. Labs Labs: Laboratory Results - last 24 hr 03/07/24 03/08/24 05:11 05:30 WBC 18.2 H RBC 4.38 L Hgb 12.2 L Hct 41.5 L MCV 94.7 MCH 27.9 MCHC 29.4 L RDW 15.0 H Plt Count 249 MPV 9.7 Immature Gran % (Auto) 0.9 H Neut % (Auto) 78.0 H Lymph % (Auto) 12.0 L Whitley % (Auto) 8.9 H Eos % (Auto) 0.0 Baso % (Auto) 0.2 Lymph # (Auto) 2.19 Whitley # (Auto) 1.6 H Eos # (Auto) 0.0 Baso # (Auto) 0.0 Abs Immat Gran (auto) 0.17 H Absolute Neuts (auto) 14.2 H Absolute Nucleated RBC 0.000 Nucleated RBC % 0.0 Platelet Estimate Adequate Hypochromasia 1+ Schistocytes None seen Sodium 137 Potassium 4.1 Chloride 98 Carbon Dioxide 37 H Anion Gap 2 L BUN 24 H Creatinine 0.80 Estim Creat Clear Calc 81 Estimated GFR > 60 Glucose 96 Calcium 8.5 Magnesium 2.3 Total Bilirubin 0.3 AST 25 ALT 20 Alkaline Phosphatase 98 Total Protein 7.0 Albumin 3.8 Procalcitonin 0.1 0.1
[2024-03-08] MEDS: predniSONE 20 MG TABLET 40 MG PO (08:57)
[2024-03-08] MEDS: PANTOPRAZOLE 40 MG TABLET PO (08:57)
[2024-03-08] MEDS: TAMSULOSIN HCL 0.4 MG CAPSULE PO (08:57)
[2024-03-08] MEDS: guaiFENesin 12 HR 600 MG TABCR 1200 MG PO ×2 (08:57→21:05)
[2024-03-08] MEDS: METOPROLOL TARTRATE 25 MG TABLET PO ×2 (08:57→21:05)
[2024-03-08] MEDS: LORATADINE 10 MG TABLET PO (08:57)
[2024-03-08] MEDS: ENOXAPARIN 40 MG/0.4 ML SYRINGE SUB-Q (08:58)
[2024-03-08] MEDS: ROFLUMILAST 500 MCG TABLET PO (08:58)
[2024-03-08] MEDS: polyethylene glycoL 3350 17 GM POWD.PACK PO (08:58)
--- NOTE | 2024-03-08 09:43 | PM.PNPUL ---
Progress Note: A&P Assessment and Plan (1) Acute on chronic respiratory failure with hypoxia and hypercapnia: Code(s): J96.21 - Acute and chronic respiratory failure with hypoxia; J96.22 - Acute and chronic respiratory failure with hypercapnia Status: Acute (2) Chronic respiratory failure: Qualifiers: Respiratory failure complication: hypoxia and hypercapnia Qualified Code(s): J96.11 - Chronic respiratory failure with hypoxia; J96.12 - Chronic respiratory failure with hypercapnia Code(s): J96.10 - Chronic respiratory failure, unspecified whether with hypoxia or hypercapnia Status: Acute (3) Former smoker: Code(s): Z87.891 - Personal history of nicotine dependence Status: Acute (4) COPD with acute exacerbation: Code(s): J44.1 - Chronic obstructive pulmonary disease with (acute) exacerbation Status: Acute Assessment and Plan: A 68-year-old male suffering from very severe COPD, and chronic hypoxemic hypercapnic respiratory failure, is on a triple inhaler maintenance bronchodilator and additional medication for his history of COPD exacerbations. He is also on supplemental oxygen at 3 liters/minute. Recently, he has experienced increased shortness of breath and wheezing due to a COPD exacerbation. The patient's respiratory condition appears to be improving under the current treatment plan. Physical examination reveals hyperinflated lungs, however, wheezing is reduced over the last 48 hours. The patient has been transitioned to oral steroids while maintaining the rest of the medications for COPD exacerbation. The importance of introducing home ventilatory support was discussed, considering the patient's end-stage COPD with hypercapnic failure and recurrent COPD exacerbations. However, the patient expressed his reluctance to adopt home ventilatory support, citing his inability to bear masks and ventilator pressures. It's worth noting that the patient had a negative experience with home ventilation over a year ago during a hospital stay, and has since been resistant to this form of treatment. I have discontinued ceftriaxone. Continue with other antibiotic for 1 more day. Ambulate in room. Anticipate DC home within the next couple of days. (5) Anxiety: Code(s): F41.9 - Anxiety disorder, unspecified Status: Acute Subjective Date/time seen: 03/08/24 09:43 Interval history: Patient stated that his breathing seems to be getting better. He has no wheezing or cough. Shortness of breath less. He is not a to go home yet as house is cleaned off mold. Review of Systems Review of Systems: All systems reviewed & are unremarkable except as noted in HPI and below Exam Narrative: GENERAL APPEARANCE: Well developed, well nourished, alert and cooperative, and appears to be in in mild respiratory distress while on supplemental oxygen SKIN: Inspection of the skin reveals no rashes, ulcerations or petechiae. HEENT: Sclerae anicteric and conjunctivae pink and moist. Extraocular movements were intact and pupils were equal, round, and reactive to light. The oral mucosa, hard and soft palate, tongue and posterior pharynx were normal. NECK: Supple. There was no thyroid enlargement, and no tenderness, or masses were felt. CHEST: Normal AP diameter and normal contour without any kyphoscoliosis. LUNGS: Distant breath sounds bilaterally minimal wheezing special expiratory CARDIAC: There was a regular rate and rhythm without any murmurs, gallops, rubs. ABDOMEN: Soft and nontender with normal bowel sounds. There was no organomegaly. LYMPH NODES: No lymphadenopathy was appreciated in the neck EXTREMITIES: No cyanosis, clubbing; trace pedal edema right lower extremity NEUROLOGIC: Alert and oriented x 3. Normal affect. Objective Data Vital Signs Vital Signs: Vital Signs - 24 hr 03/07/24 11:00 03/07/24 11:05 03/07/24 11:31 Temperature Pulse Rate 113 H 110 H Pulse Rate [With Activity During Therapy Session] Respiratory Rate 20 20 Blood Pressure Pulse Oximetry Pulse Oximetry [With Activity During Therapy Session] Oxygen Delivery Nasal Cannula Oxygen Flow Rate 5 03/07/24 11:16 03/07/24 12:00 03/07/24 12:57 Temperature Pulse Rate 133 H 127 H Pulse Rate [With Activity During Therapy Session] 130 H Respiratory Rate Blood Pressure Pulse Oximetry Pulse Oximetry [With Activity During Therapy Session] 95 Oxygen Delivery Nasal Cannula Oxygen Flow Rate 5 03/07/24 14:00 03/07/24 15:00 03/07/24 15:10 Temperature 36.4 C Pulse Rate 126 H 102 H 107 H Pulse Rate [With Activity During Therapy Session] Respiratory Rate 18 20 20 Blood Pressure 126/81 Pulse Oximetry 96 Pulse Oximetry [With Activity During Therapy Session] Oxygen Delivery Oxygen Flow Rate 03/07/24 16:00 03/07/24 20:16 03/07/24 20:19 Temperature Pulse Rate 103 H 95 101 H Pulse Rate [With Activity During Therapy Session] Respiratory Rate 20 Blood Pressure Pulse Oximetry Pulse Oximetry [With Activity During Therapy Session] Oxygen Delivery Oxygen Flow Rate 03/07/24 20:28 03/07/24 20:29 03/07/24 22:00 Temperature 36.7 C Pulse Rate 102 H 95 Pulse Rate [With Activity During Therapy Session] Respiratory Rate 20 16 Blood Pressure 161/81 H Pulse Oximetry 98 95 Pulse Oximetry [With Activity During Therapy Session] Oxygen Delivery Nasal Cannula Oxygen Flow Rate 4 03/07/24 20:00 03/07/24 20:00 03/08/24 00:02 Temperature Pulse Rate 92 103 H Pulse Rate [With Activity During Therapy Session] Respiratory Rate 20 Blood Pressure Pulse Oximetry 95 Pulse Oximetry [With Activity During Therapy Session] Oxygen Delivery Nasal Cannula Oxygen Flow Rate 4 03/08/24 00:12 03/08/24 00:00 03/08/24 04:40 Temperature Pulse Rate 104 H 91 101 H Pulse Rate [With Activity During Therapy Session] Respiratory Rate 20 20 Blood Pressure Pulse Oximetry Pulse Oximetry [With Activity During Therapy Session] Oxygen Delivery Oxygen Flow Rate 03/08/24 04:50 03/08/24 04:00 03/08/24 07:15 Temperature Pulse Rate 102 H 86 99 Pulse Rate [With Activity During Therapy Session] Respiratory Rate 20 20 Blood Pressure Pulse Oximetry Pulse Oximetry [With Activity During Therapy Session] Oxygen Delivery Oxygen Flow Rate 03/08/24 07:23 03/08/24 06:00 03/08/24 07:36 Temperature 36.9 C Pulse Rate 92 94 Pulse Rate [With Activity During Therapy Session] Respiratory Rate 16 20 Blood Pressure 126/90 Pulse Oximetry 95 94 Pulse Oximetry [With Activity During Therapy Session] Oxygen Delivery Nasal Cannula Oxygen Flow Rate 4 03/08/24 08:00 03/08/24 08:57 Temperature Pulse Rate 99 105 H Pulse Rate [With Activity During Therapy Session] Respiratory Rate Blood Pressure Pulse Oximetry Pulse Oximetry [With Activity During Therapy Session] Oxygen Delivery Oxygen Flow Rate Intake/Output Intake/Output: Intake & Output 03/05/24 03/06/24 03/07/24 03/08/24 23:59 23:59 23:59 23:59 Intake Total 790 2600 1570 740 Output Total 2550 1500 1425 3450 Balance -1760 1100 145 -2710 Meds/Results Medications: Active Medications Generic Name Dose Route Start Last Admin Trade Name Freq PRN Reason Stop Dose Admin Acetaminophen 650 mg 03/05/24 20:16 03/08/24 04:50 Acetaminophen 325 Mg Tablet PO 650 mg Q6H PRN Administration Mild Pain (1-3) or Fever Albuterol 2 puff 03/05/24 09:00 Albuterol Sulfate (*Sp) Aerosol 1 Puff INHALATION Q6H PRN Shortness Of Breath Albuterol/Ipratropium 3 ml 03/06/24 13:00 03/08/24 07:22 Ipratropium 0.5 Mg/Albuterol Sulfate 2.5 Mg Ampul.Neb 3 Ml INHALATION 3 ml Q4HR JOSHUA Administration Azelastine HCl 1 spray 03/05/24 01:14 03/05/24 21:12 Azelastine Hcl Nasal 0.1% 137 Mcg/Spr 30 Ml Btl NASAL 1 spray Q12HR PRN Administration Nasal Congestion Butalbital/Aspirin/Caffeine 1 cap 03/05/24 01:19 03/08/24 06:02 Aspirin/Caffeine/Butalbital (*Crx) 325/40/50 Mg Capsule (Fiorinal) PO 1 cap Q4-6H PRN Administration headache Codeine Sulfate 30 mg 03/05/24 01:18 03/08/24 06:02 Codeine Sulfate (*Crx) 30 Mg Tablet PO 30 mg Q4-6H PRN Administration headache Cyclobenzaprine HCl 10 mg 03/05/24 00:47 03/08/24 00:08 Cyclobenzaprine Hcl 10 Mg Tablet PO 10 mg TID PRN Administration muscle spasm Enoxaparin Sodium 40 mg 03/07/24 09:00 03/08/24 08:58 Enoxaparin 40 Mg/0.4 Ml Syringe SUB-Q 40 mg DAILY JOSHUA Administration Fluticasone Propionate 1 spray 03/05/24 01:15 03/05/24 21:12 Fluticasone Propionate 0.05% Na Spr 16 Gm Btl (*Bkc) NASAL 1 spray Q12HR PRN Administration Nasal Congestion Fluticasone/Umeclidinium/Vilanterol 1 puff 03/05/24 08:00 03/08/24 07:35 Fluticasone/Umeclidin/Vilanter 100-62.5-25 Mcg Ellipta INHALATION 1 puff DAILYRT JOSHUA Administration Gabapentin 100 mg 03/05/24 22:00 03/08/24 06:03 Gabapentin 100 Mg Capsule PO 100 mg Q8HR JOSHUA Administration Guaifenesin 1,200 mg 03/06/24 21:00 03/08/24 08:57 Guaifenesin 12 Hr 600 Mg Tabcr PO 1,200 mg Q12HR JOSHUA Administration Azithromycin 500 mg in 250 mls @ 250 mls/hr 03/05/24 21:00 03/07/24 21:04 Zithromax IVPB 03/09/24 21:00 Infused Q24H JOSHUA Infusion Loratadine 10 mg 03/07/24 09:00 03/08/24 08:57 Loratadine 10 Mg Tablet PO 10 mg DAILY JOSHUA Administration Metoprolol Tartrate 25 mg 03/07/24 12:40 03/08/24 08:57 Metoprolol Tartrate 25 Mg Tablet PO 25 mg Q12HR JOSHUA Administration Pantoprazole Sodium 40 mg 03/05/24 09:00 03/08/24 08:57 Pantoprazole 40 Mg Tablet PO 40 mg QAM JOSHUA Administration Polyethylene Glycol 17 gm 03/06/24 11:55 03/08/24 08:58 Polyethylene Glycol 3350 17 Gm Powd.Pack PO 17 gm QAM JOSHUA Administration Prednisone 40 mg 03/07/24 08:20 03/08/24 08:57 Prednisone 20 Mg Tablet PO 40 mg DAILY@0800 JOSHUA Administration Roflumilast 500 mcg 03/05/24 09:00 03/08/24 08:58 Roflumilast 500 Mcg Tablet PO 500 mcg DAILY JOSHUA Administration Senna/Docusate Sodium 1 tab 03/06/24 21:00 03/07/24 20:05 Senna/Docusate Sodium Tablet PO 1 tab HS JOSHUA Administration Tamsulosin HCl 0.4 mg 03/05/24 09:00 03/08/24 08:57 Tamsulosin Hcl 0.4 Mg Capsule PO 0.4 mg QAM JOSHUA Administration Radiology Results: ITS Impressions Chest X-Ray 03/04/24 18:13 IMPRESSION: No acute cardiopulmonary process. Chest CTA 03/04/24 19:15 IMPRESSION: Motion artifact obscures subsegmental arteries in the bilateral lower lobes, otherwise no CT evidence of acute pulmonary embolus. No acute process detected in the chest. Labs Labs: Laboratory Results - last 24 hr 03/08/24 05:30 WBC 18.2 H RBC 4.38 L Hgb 12.2 L Hct 41.5 L MCV 94.7 MCH 27.9 MCHC 29.4 L RDW 15.0 H Plt Count 249 MPV 9.7 Immature Gran % (Auto) 0.9 H Neut % (Auto) 78.0 H Lymph % (Auto) 12.0 L [place] % (Auto) 8.9 H Eos % (Auto) 0.0 Baso % (Auto) 0.2 Lymph # (Auto) 2.19 [place] # (Auto) 1.6 H Eos # (Auto) 0.0 Baso # (Auto) 0.0 Abs Immat Gran (auto) 0.17 H Absolute Neuts (auto) 14.2 H Absolute Nucleated RBC 0.000 Nucleated RBC % 0.0 Platelet Estimate Adequate Hypochromasia 1+ Schistocytes None seen Sodium 137 Potassium 4.1 Chloride 98 Carbon Dioxide 37 H Anion Gap 2 L BUN 24 H Creatinine 0.80 Estim Creat Clear Calc 81 Estimated GFR > 60 Glucose 96 Calcium 8.5 Magnesium 2.3 Total Bilirubin 0.3 AST 25 ALT 20 Alkaline Phosphatase 98 Total Protein 7.0 Albumin 3.8 Procalcitonin 0.1
[2024-03-08] MEDS: BISACODYL 10 MG SUPPOSITORY RECTAL (11:19)
[2024-03-08] MEDS: FINASTERIDE 5 MG TABLET PO (12:14)
--- NOTE | 2024-03-08 13:18 | P.DS_ITS ---
DS: Admitting Diagnosis Discharge Date 03/08 Admitting Diagnosis shortness of breath DS: Discharge Diagnosis Discharge Diagnosis (1) Acute on chronic respiratory failure with hypoxia and hypercapnia: Code(s): J96.21 - Acute and chronic respiratory failure with hypoxia; J96.22 - Acute and chronic respiratory failure with hypercapnia Status: Acute (2) COPD (chronic obstructive pulmonary disease): Qualifiers: COPD type: unspecified COPD Qualified Code(s): J44.9 - Chronic obstructive pulmonary disease, unspecified Code(s): J44.9 - Chronic obstructive pulmonary disease, unspecified Status: Acute (3) Urinary retention: Code(s): R33.9 - Retention of urine, unspecified Status: Acute (4) Tachycardia: Code(s): R00.0 - Tachycardia, unspecified Status: Acute Plan (1) Acute on chronic respiratory failure with hypoxia and hypercapnia: ?Code(s): J96.21 - Acute and chronic respiratory failure with hypoxia; J96.22 - Acute and chronic respiratory failure with hypercapnia ?Status:?Acute ?Assessment and Plan: ?patient is on supplemental oxygen by nasal cannula usually wears 4 L ?continue to monitor ?supportive care ?try and keep oxygen saturation at 92% 03/06: * Continues on nasal cannula at 3 L. Maintain spo2 goal > 88% * States he does not wear CPAP at home as he cannot tolerate it * Blood gas on arrival: shows compensated respiratory acidosis * Duo Neb scheduled Q 6, will increase to Q 4 hours 03/07: * Declining BiPAP * Will give referrals for palliative care at discharge 03/08: * NC 4 L at rest * Breathing has improved with current regimen (2) COPD with acute exacerbation: ?Code(s): J44.1 - Chronic obstructive pulmonary disease with (acute) exacerbation ?Status:?Acute ?Assessment and Plan: ?breathing treatments q.6 ?systemic steroids ?Rocephin and Zithromax 5/14 continue methylprednisolone 60 mg q.6 hours IV, Flonase 1 puff q.12 hours, continue DuoNeb scheduled q.6 hours, albuterol nebulizer as needed. Patient is improving, may decrease methylprednisolone in 1-2 days 03/06: * On Methylprednisolone 60 mg Q 6 hours. Still having expiratory wheezing. * Flonase Q 12 * Duo nebs increased to Q 4 hours * Antibiotics with Rocephin and azithromycin * Claritin daily * Pulmonology consulted, rec's appreciated. 03/07: * Continue current treatment plan * May start to wean steroids today if clinically he is sounding better * Switch to prednisone 03/08: * Prednisone 40 mg daily * Can transition to oral antibiotics * medically ready to d/c to SNF when available Urinary retention on admission in the ED with 500 ml present. Alcantara was placed. * on Flomax * attempt void trial * bladder scan post void and straight cath for residual greater than 400 ml 03/07: * alcantara out and voiding per urinal 03/08: * required straight cath overnight. for residual of 700 ml. * he has chronic difficulty with emptying his bladder at home. He uses a bidet to stimulate his stream. * already on Flomax * add Proscar today * can replace Alcantara catheter if retention continues * will need urology referral outpatient Constipation * last BM was Monday * Added Miralax and senna * could be contributing to urinary retention 03/07: * passing flatus * can have ducolax suppository today 03/08: * Declined suppository yesterday. Will try today. Tachycardia * on telemetry * SR-ST with heart rate ranging 90's-100's. * May be related to anxiety 2/2 to poor breathing effort vs albuterol vs steroids vs copd exacerbation * EKG 03/05 with right BBB and SR, ventricular rate 95 bpm 03/07: * Patient experienced a transient episode of chest pain yesterday resolving after passing flatus. Troponin was negative, EKG unchanged from admission. * Continues to have heart rate's in the 90's-110 bpm * Blood pressures stable * Heart rate as high as 140s with activity.Will start Metoprolol 25 mg bid 03/08: * Tachycardia has improved with addition of metoprolol 25 mg BID * HR in the 90's overnight; BP 126/90 Can discharge to SNF when placement is available. DS: Summary Hospital Course Reason for hospitalization: Acute on chronic COPD exacerbation Hospital Course: 68-year-old male with past medical history of COPD/emphysema, on 4 L baseline at home, BPH, chronic hypoxic and hypercapnic respiratory failure, migraine, PUD who presented to the ER with shortness of breath, worsening cough, and increased sputum production. He was admitted for acute on chronic COPD exacerbation. 03/06:? Patient seen resting in bed on 3 L nasal cannula.? He appears anxious at baseline but is able to speak in short sentences.? He states that his breathing is somewhat improved since presenting to the hospital.? He states his problem has been exacerbated due to mold in his home.? Work has been done to remove some this medicine is working on getting a filtration system.? His baseline oxygen is 3 L. he has not been and out of bed yet.? He continues to have productive thick sputum which is clear to yellow in color.? He was concerned because he had some bleeding due to nasal dryness.? He is using saline and oxygen has added humidity.? He also reports the sore throat, headache, and he has not had a bowel movement since Monday.? He is supposed to see pulmonology at the end of the month but he is unable to get to his appointments so they were going to do a telehealth appointment.? Given his COPD exacerbation now will consult pulmonology to see him while inpatient to help optimize plan of care and hopefully prevent readmission. 03/07:? Patient is seen up in chair the oxygen at 5 L. he required increased in nasal cannula with activity.? Breathing is minimally improved today.? He still has some expiratory wheeze anteriorly but no wheezing heard posteriorly.? He states he coughed up some barrios phlegm today.? He continues to have tachycardia with rate as high as 140s with activity.? Will start him on metoprolol 25 mg b.i.d..? I discussed with him palliative Care discharge given his reluctance to adopt BiPAP.? He is agreeable.? Will ask care coordination to provide him with some resources. Therapy has evaluated him and is recommending SNF. Patient is agreeable and care coordination will help with placement. This is ideal as patient has black mold growing in his home currently which is contributing to his current respiratory status. 03/08:Mr Johnson continues to improve. He states he is feeling better and his breathing is close to his normal status. He is on 4 L NC during my visit. No wheezing heard today. He continues to cough up sputum. His tachycardia has improved with addition of metoprolol. He still has not had a bowel movement since admission. He is willing to try a suppository. Time Spent with Patient Time attestation: Total time spent providing and/or coordinating discharge services: 63 Exam Narrative: General: Chronically ill-appearing, anxious, tremulous HEENT: normocephalic, atraumatic. Mucous membranes dry. EOMI, PERRLA, bilateral sclera anicteric, no conjunctival injection. Neck supple without JVD, lymphadenopathy, or bruit. Respiratory: clear to auscultation with expiratory wheezing left greater than right. Cardiovascular: tachycardic with regular rhythm, normal S1-S2 upon auscultation. No murmurs, rubs, or clicks. PMI is nondisplaced, capillary refill less than 3 second. + clubbing to nail beds. Abdomen: Soft, round, no pulsatile masses, + distention and nontender. No rebound, no guarding. No CVA tenderness, no hepatosplenomegaly. Bowel sounds hypoactive to all four quadrants. No high pitch or tinkling sounds, resonant to percussion. Extremities: dusky nail beds, + clubbing, scant, non-pitting edema present to BLE with Right greater than Left. Pulses are palpable 2/2. Active ROM to all four extremities. Neuro: Alert and orientated x 4. PERRLA. Cranial nerves 2-12 intact without focal deficit. Skin: Warm, dry, and intact, without rash, erythema, or lesion. Lines: PIV Incisions: NA Psych: pleasant, cooperative, normal speech, normal affect, no hallucinations, no dysarthria, anxious at times. DS: Data Data Completed and Pending Labs on day of discharge: Labs from last 24 hours 03/08/24 05:30 WBC 18.2 H RBC 4.38 L Hgb 12.2 L Hct 41.5 L MCV 94.7 MCH 27.9 MCHC 29.4 L RDW 15.0 H Plt Count 249 MPV 9.7 Immature Gran % (Auto) 0.9 H Neut % (Auto) 78.0 H Lymph % (Auto) 12.0 L [place] % (Auto) 8.9 H Eos % (Auto) 0.0 Baso % (Auto) 0.2 Lymph # (Auto) 2.19 [place] # (Auto) 1.6 H Eos # (Auto) 0.0 Baso # (Auto) 0.0 Abs Immat Gran (auto) 0.17 H Absolute Neuts (auto) 14.2 H Absolute Nucleated RBC 0.000 Nucleated RBC % 0.0 Platelet Estimate Adequate Hypochromasia 1+ Schistocytes None seen Sodium 137 Potassium 4.1 Chloride 98 Carbon Dioxide 37 H Anion Gap 2 L BUN 24 H Creatinine 0.80 Estim Creat Clear Calc 81 Estimated GFR > 60 Glucose 96 Calcium 8.5 Magnesium 2.3 Total Bilirubin 0.3 AST 25 ALT 20 Alkaline Phosphatase 98 Total Protein 7.0 Albumin 3.8 Procalcitonin 0.1 Preliminary micro results at discharge 03/04/24 17:49 Blood Culture - Preliminary Blood 03/04/24 18:51 Blood Culture - Preliminary Blood Discharge Plan Discharge Attending physician on discharge: Rachel Pitts Consulting providers: Sheryl Varela; Bandar Mendez Discharging Clinician: Kirsten Gomez Anticipated Discharge Date/Time: 03/08/24 13:20 Patient Disposition: SNF Activity: february shower Diet: low sodium Discharge Instructions: You were admitted with a COPD exacerbation. You received treatment with IV antibiotics, nebulizers, steroids, and medications to thin secretions. Your symptoms have improved and you are ready to discharge to nursing home facility. While you are here your heart rate consistently was elevated in the 1 teens to 120s. We started you on metoprolol twice a day. You will continue with azithromycin for 1 more day. He will continue with jewell roids through 03-13. Continue with home inhalers and nebulizers. The patient is agreeable for palliative care consult. Please help assist with this at discharge. He is not interested in BiPAP which is what pulmonology is recommending. Patient has chronic BPH. On Flomax. Added Proscar. Can place Alcantara catheter if necessary for urinary retention. Would then recommend outpatient follow-up with Urology. You should follow-up with your primary care provider in the next 1-2 weeks. Please keep your telehealth appointment with your associate art director. Should you have fever, chills, increased shortness of breath, chest pain, or dizziness you will need to be re-evaluated at the emergency room. Stand Alone Forms: General Discharge Information, Half-Way Discharge Follow-up/Referrals: Luiz Whipple MD [Primary Care Provider] - Arielle Dailey MD [Physician] - Discharge Medications: New prednisone 20 mg Tablet 40 mg PO DAILY@0800 Qty: 5 0RF metoprolol tartrate 25 mg Tablet 25 mg PO Q12HR Qty: 60 0RF finasteride [Proscar] 5 mg Tablet 5 mg PO QAM Qty: 60 0RF azithromycin 500 mg tablet 500 mg PO DAILY 1 Days Qty: 1 0RF guaifenesin [Mucus Relief ER] 600 mg Tablet Extended Release 12hr 1,200 mg PO Q12HR Qty: 60 0RF ipratropium-albuterol 0.5 mg-3 mg(2.5 mg base)/3 mL Solution For Nebulization 3 ml inhalation Q6-8H Qty: 180 0RF sennosides-docusate sodium [Senokot-S] 8.6-50 mg Tablet 1 tab PO HS Qty: 30 0RF polyethylene glycol 3350 [Miralax] 17 gram Powder In Packet 17 g PO QAM Qty: 14 0RF Continued albuterol sulfate [Ventolin HFA] 90 mcg/actuation HFA aerosol inhaler 1 inh INHALATION QID 10 Days Qty: 6.7 0RF tamsulosin 0.4 mg capsule 0.4 mg PO QAM Rx Instructions: TAKE 1 CAPSULE BY MOUTH IN THE MORNING azelastine-fluticasone [Dymista] 137-50 mcg/spray spray,non-aerosol 1 spray intranasal BID PRN (Reason: Nasal Congestion) Rx Instructions: administer into each nostril; to replace Astelin and Flonase fluticasone propionate [Flonase Allergy Relief] 50 mcg/actuation spray,suspen richard 2 spray intranasal DAILY Qty: 16 3RF Rx Instructions: administer into each nostril cyclobenzaprine 10 mg tablet 10 mg PO TID PRN (Reason: muscle spasm) Qty: 30 0RF roflumilast [Daliresp] 500 mcg tablet 500 mcg PO DAILY Qty: 30 11RF albuterol sulfate 2.5 mg /3 mL (0.083 %) solution for nebulization 2.5 mg inhalation QID PRN (Reason: shortness of breath or wheezing) Qty: 360 2RF Breztri Aerosphere 160-9-4.8 mcg/actuation HFA aerosol inhaler 2 inh inhalation QAM AND QPM Qty: 10.7 11RF Rx Instructions: rinse and spit after each use, use with spacer gabapentin 100 mg capsule 100 mg PO TID Qty: 90 5RF pantoprazole 40 mg tablet,delayed release (DR/EC) 40 mg PO QAM Qty: 30 5RF [id number] mg capsule 1 cap PO Q4-6H PRN (Reason: headache) Qty: 60 0RF Changed loratadine 10 mg tablet 10 mg PO DAILY Qty: 30 0RF Rx Instructions: TAKE 1 TABLET BY MOUTH EVERY DAY PRN Discontinued doxycycline hyclate 100 mg tablet 100 mg PO DAILY 7 Days Qty: 7 0RF Rx Instructions: X 7 DAYS--NEEDS AND MONDAY TO FINISH Date of admission: 03/06/24 09:44 Primary Care Provider: Luiz Whipple Admitting Provider: Luz Tse V. Attending physician on admission: Luz Tse V. Condition: Improved
[2024-03-08] MEDS: SENNA/DOCUSATE SODIUM TABLET 1 TAB PO (21:05)
[2024-03-08] MEDS: AZITHROMYCIN 500 MG/NS 250 ML 500 MG/250 ML BAG 250 MG IVPB (21:06)
[2024-03-09] VITALS (21 sets, daily range): BP systolic 128–144; BP diastolic 53–67; PULSE 75–102; RESP 18–20; TEMP 36.3–37; O2SAT 92–98
[2024-03-09] MEDS: IPRATROPIUM 0.5 MG/ALBUTEROL SULFATE 2.5 MG AMPUL.NEB 3 ML INHALATION ×5 (04:41→23:37)
[2024-03-09 05:33] LABS: Basophils Percent Auto 0.2 % (0.2-1.2); Eosinophils Percent Auto 0.2 % (0-4.4); Hematocrit 39.7 % (42.0-52.0); Immature Granulocyte Percent A 1.3 % (0-0.5); Lymphocytes Absolute Auto 2.29 K/mm3 (0.9-3.2); Lymphocytes Percent Auto 15.3 % (18.3-44.2); Mean Corpuscular HGB Conc 30.2 g/dl (32-36); Mean Corpuscular Hemoglobin 28.1 pg (26-34); Mean Platelet Volume 9.7 fl (7.4-10.4); Monocytes Absolute Auto 1.2 K/mm3 (0.1-0.6); Neutrophils Absolute Auto 11.2 K/mm3 (1.3-6.7); Platelet Count Result 204 k/mm3 (150-375); Red Blood Count 4.27 M/mm3 (4.6-6.20); Red Cell Distribution Width 14.8 % (11.5-14.5); White Blood Count 14.9 K/mm3 (4.5-10.0)
[2024-03-09 05:57] LABS: Alanine Aminotransferase 20 U/L (6-50); Albumin Level 3.5 g/dL (3.5-5.1); Alkaline Phosphatase 89 U/L (38-126); Aspartate Amino Transferase 23 U/L (17-59); Bilirubin,Total 0.4 mg/dL (0.2-1.3); Blood Urea Nitrogen 17 mg/dL (9-20); Calcium 8.3 mg/dL (8.4-10.2); Carbon Dioxide > 40 mmol/L (22-30); Chloride 95 mmol/L (98-107); Estimated CRCL calculation 91 ml/min; Estimated Glomerular Filt Rate > 60; Glucose 113 mg/dL (65-110); Potassium 4.2 mmol/L (3.4-5.0); Sodium 138 mmol/L (137-145)
[2024-03-09] MEDS: GABAPENTIN 100 MG CAPSULE PO ×3 (06:02→23:05)
[2024-03-09] MEDS: CODEINE SULFATE (*CRX) 30 MG TABLET PO ×4 (06:03→23:19)
[2024-03-09] MEDS: FLUTICASONE/UMECLIDIN/VILANTER 100-62.5-25 MCG ELLIPTA 1 PUFF INHALATION (07:47)
--- NOTE | 2024-03-09 08:07 | P.PNIM_ITS ---
Progress Note: A&P Assessment and Plan (1) Acute on chronic respiratory failure with hypoxia and hypercapnia: Code(s): J96.21 - Acute and chronic respiratory failure with hypoxia; J96.22 - Acute and chronic respiratory failure with hypercapnia Status: Acute (2) COPD (chronic obstructive pulmonary disease): Qualifiers: COPD type: unspecified COPD Qualified Code(s): J44.9 - Chronic obstructive pulmonary disease, unspecified Code(s): J44.9 - Chronic obstructive pulmonary disease, unspecified Status: Acute (3) Urinary retention: Code(s): R33.9 - Retention of urine, unspecified Status: Acute (4) Tachycardia: Code(s): R00.0 - Tachycardia, unspecified Status: Acute Plan (1) Acute on chronic respiratory failure with hypoxia and hypercapnia: ?Code(s): J96.21 - Acute and chronic respiratory failure with hypoxia; J96.22 - Acute and chronic respiratory failure with hypercapnia ?Status:?Acute ?Assessment and Plan: ?patient is on supplemental oxygen by nasal cannula usually wears 4 L ?continue to monitor ?supportive care ?try and keep oxygen saturation at 92% 03/06: * Continues on nasal cannula at 3 L. Maintain spo2 goal > 88% * States he does not wear CPAP at home as he cannot tolerate it * Blood gas on arrival: shows compensated respiratory acidosis * Duo Neb scheduled Q 6, will increase to Q 4 hours 16: * Declining BiPAP * Will give referrals for palliative care at discharge 03/08: * NC 4 L at rest * Breathing has improved with current regimen 03/09: * no change (2) COPD with acute exacerbation: ?Code(s): J44.1 - Chronic obstructive pulmonary disease with (acute) exacerbation ?Status:?Acute ?Assessment and Plan: ?breathing treatments q.6 ?systemic steroids ?Rocephin and Zithromax 03/05 continue methylprednisolone 60 mg q.6 hours IV, Flonase 1 puff q.12 hours, continue DuoNeb scheduled q.6 hours, albuterol nebulizer as needed. Patient is improving, may decrease methylprednisolone in 1-2 days 03/06: * On Methylprednisolone 60 mg Q 6 hours. Still having expiratory wheezing. * Flonase Q 12 * Duo nebs increased to Q 4 hours * Antibiotics with Rocephin and azithromycin * Claritin daily * Pulmonology consulted, rec's appreciated. 03/07: * Continue current treatment plan * May start to wean steroids today if clinically he is sounding better * Switch to prednisone 03/08: * Prednisone 40 mg daily * Can transition to oral antibiotics * medically ready to d/c to SNF when available 03/09: * oral abx * oral steroids Urinary retention on admission in the ED with 500 ml present. Alcantara was placed. * on Flomax * attempt void trial * bladder scan post void and straight cath for residual greater than 400 ml 03/07: * alcantara out and voiding per urinal 03/08: * required straight cath overnight. for residual of 700 ml. * he has chronic difficulty with emptying his bladder at home. He uses a bidet to stimulate his stream. * already on Flomax * add Proscar today * can replace Alcantara catheter if retention continues * will need urology referral outpatient 03/09: * retention overnight requiring straight cath x 3 * can place alcantara today if he continues to have retention Constipation * last BM was Monday * Added Miralax and senna * could be contributing to urinary retention 03/07: * passing flatus * can have ducolax suppository today 03/08: * Declined suppository yesterday. Will try today. 03/09: * small bowel movement today Tachycardia * on telemetry * SR-ST with heart rate ranging 90's-100's. * May be related to anxiety 2/2 to poor breathing effort vs albuterol vs steroids vs copd exacerbation * EKG 03/05 with right BBB and SR, ventricular rate 95 bpm 03/07: * Patient experienced a transient episode of chest pain yesterday resolving after passing flatus. Troponin was negative, EKG unchanged from admission. * Continues to have heart rate's in the 90's-110 bpm * Blood pressures stable * Heart rate as high as 140s with activity.Will start Metoprolol 25 mg bid 03/08: * Tachycardia has improved with addition of metoprolol 25 mg BID * HR in the 90's overnight; BP 126/90 03/09: * Has resolved. HR in the 80's Can discharge to SNF when placement is available. Subjective Date/time seen: 03/09/24 08:07 Interval history: 03/06: Patient seen resting in bed on 3 L nasal cannula. He appears anxious at baseline but is able to speak in short sentences. He states that his breathing is somewhat improved since presenting to the hospital. He states his problem has been exacerbated due to mold in his home. Work has been done to remove some this medicine is working on getting a filtration system. His baseline oxygen is 3 L. he has not been and out of bed yet. He continues to have productive thick sputum which is clear to yellow in color. He was concerned because he had some bleeding due to nasal dryness. He is using saline and oxygen has added humidity. He also reports the sore throat, headache, and he has not had a bowel movement since Monday. He is supposed to see pulmonology at the end of the month but he is unable to get to his appointments so they were going to do a telehealth appointment. Given his COPD exacerbation now will consult pulmonology to see him while inpatient to help optimize plan of care and hopefully prevent readmission. 03/07: Patient is seen up in chair the oxygen at 5 L. he required increased in nasal cannula with activity. Breathing is minimally improved today. He still has some expiratory wheeze anteriorly but no wheezing heard posteriorly. He states he coughed up some barrios phlegm today. He continues to have tachycardia with rate as high as 140s with activity. Will start him on metoprolol 25 mg b.i.d.. I discussed with him palliative Care discharge given his reluctance to adopt BiPAP. He is agreeable. Will ask care coordination to provide him with some resources. Therapy has evaluated him and is recommending SNF. Patient is agreeable and care coordination will help with placement. This is ideal as patient has black mold growing in his home currently which is contributing to his current respiratory status. 03/08:Mr Johnson continues to improve. He states he is feeling better and his breathing is close to his normal status. He is on 4 L NC during my visit. No wheezing heard today. He continues to cough up sputum. His tachycardia has improved with addition of metoprolol. He still has not had a bowel movement since admission. He is willing to try a suppository. 03/09: NAEON. His breathing is close to his baseline. He had a small bowel movement. He continues to have difficulty with emptying his bladder. Discussed placement of a alcantara catheter if retention continues. Review of Systems Review of Systems: All systems reviewed & are unremarkable except as noted in HPI and below Exam Narrative: General: Chronically ill-appearing, anxious, tremulous HEENT: normocephalic, atraumatic. Mucous membranes dry. EOMI, PERRLA, bilateral sclera anicteric, no conjunctival injection. Neck supple without JVD, lymphadenopathy, or bruit. Respiratory: clear to auscultation with expiratory wheezing left greater than right. Cardiovascular: tachycardic with regular rhythm, normal S1-S2 upon auscultation. No murmurs, rubs, or clicks. PMI is nondisplaced, capillary refill less than 3 second. + clubbing to nail beds. Abdomen: Soft, round, no pulsatile masses, + distention and nontender. No rebound, no guarding. No CVA tenderness, no hepatosplenomegaly. Bowel sounds hypoactive to all four quadrants. No high pitch or tinkling sounds, resonant to percussion. Extremities: dusky nail beds, + clubbing, scant, non-pitting edema present to BLE with Right greater than Left. Pulses are palpable 2/2. Active ROM to all four extremities. Neuro: Alert and orientated x 4. PERRLA. Cranial nerves 2-12 intact without focal deficit. Skin: Warm, dry, and intact, without rash, erythema, or lesion. Lines: PIV Incisions: NA Psych: pleasant, cooperative, normal speech, normal affect, no hallucinations, no dysarthria, anxious at times. Objective Data Vital Signs Vital Signs: Vital Signs - 24 hr 03/08/24 08:57 03/08/24 08:50 03/08/24 10:58 Temperature Pulse Rate 105 H 84 Respiratory Rate 18 Blood Pressure Pulse Oximetry 95 Oxygen Delivery Nasal Cannula Oxygen Flow Rate 4 Fraction of Inspired Oxygen 03/08/24 11:04 03/08/24 12:00 03/08/24 13:32 Temperature 98.3 F Pulse Rate 86 92 95 Respiratory Rate 18 18 Blood Pressure 127/65 Pulse Oximetry 95 Oxygen Delivery Oxygen Flow Rate Fraction of Inspired Oxygen 03/08/24 14:14 03/08/24 14:24 03/08/24 16:00 Temperature Pulse Rate 93 92 108 H Respiratory Rate 18 18 Blood Pressure Pulse Oximetry Oxygen Delivery Oxygen Flow Rate Fraction of Inspired Oxygen 03/08/24 19:57 03/08/24 20:32 03/08/24 20:32 Temperature 98.2 F Pulse Rate 90 91 Respiratory Rate 18 18 Blood Pressure 142/68 H Pulse Oximetry 96 98 Oxygen Delivery Nasal Cannula Oxygen Flow Rate 4 Fraction of Inspired Oxygen 03/08/24 20:38 03/08/24 21:05 03/08/24 20:55 Temperature Pulse Rate 82 92 Respiratory Rate 18 Blood Pressure Pulse Oximetry 98 Oxygen Delivery Nasal Cannula Oxygen Flow Rate 4 Fraction of Inspired Oxygen 03/08/24 23:31 03/08/24 23:36 03/08/24 20:00 Temperature Pulse Rate 65 72 90 Respiratory Rate 18 18 Blood Pressure Pulse Oximetry Oxygen Delivery Oxygen Flow Rate Fraction of Inspired Oxygen 03/09/24 00:00 03/09/24 04:00 03/09/24 04:43 Temperature Pulse Rate 75 92 78 Respiratory Rate 18 Blood Pressure Pulse Oximetry Oxygen Delivery Oxygen Flow Rate Fraction of Inspired Oxygen 03/09/24 04:48 03/09/24 06:00 03/09/24 07:46 Temperature 97.4 F L Pulse Rate 79 86 Respiratory Rate 18 18 Blood Pressure 130/64 Pulse Oximetry 98 95 Oxygen Delivery Nasal Cannula Oxygen Flow Rate 4 Fraction of Inspired Oxygen 36 03/09/24 07:46 03/09/24 07:57 Temperature Pulse Rate 84 81 Respiratory Rate 18 18 Blood Pressure Pulse Oximetry Oxygen Delivery Oxygen Flow Rate Fraction of Inspired Oxygen Intake/Output Intake/Output: Intake & Output 03/06/24 03/07/24 03/08/24 03/09/24 23:59 23:59 23:59 23:59 Intake Total 2600 1570 1470 Output Total 1500 1425 5100 2100 Balance [phone] -[phone] -2100 Meds/Results Medications: Active Medications Generic Name Dose Route Start Last Admin Trade Name Freq PRN Reason Stop Dose Admin Acetaminophen 650 mg 03/05/24 20:16 03/08/24 18:54 Acetaminophen 325 Mg Tablet PO 650 mg Q6H PRN Administration Mild Pain (1-3) or Fever Albuterol 2 puff 03/05/24 09:00 Albuterol Sulfate (*Sp) Aerosol 1 Puff INHALATION Q6H PRN Shortness Of Breath Albuterol/Ipratropium 3 ml 03/06/24 13:00 03/09/24 07:46 Ipratropium 0.5 Mg/Albuterol Sulfate 2.5 Mg Ampul.Neb 3 Ml INHALATION 3 ml Q4HR JOSHUA Administration Azelastine HCl 1 spray 03/05/24 01:14 03/05/24 21:12 Azelastine Hcl Nasal 0.1% 137 Mcg/Spr 30 Ml Btl NASAL 1 spray Q12HR PRN Administration Nasal Congestion Butalbital/Aspirin/Caffeine 1 cap 03/05/24 01:19 03/09/24 06:02 Aspirin/Caffeine/Butalbital (*Crx) 325/40/50 Mg Capsule (Fiorinal) PO 1 cap Q4-6H PRN Administration headache Codeine Sulfate 30 mg 03/05/24 01:18 03/09/24 06:03 Codeine Sulfate (*Crx) 30 Mg Tablet PO 30 mg Q4-6H PRN Administration headache Cyclobenzaprine HCl 10 mg 03/05/24 00:47 03/08/24 00:08 Cyclobenzaprine Hcl 10 Mg Tablet PO 10 mg TID PRN Administration muscle spasm Enoxaparin Sodium 40 mg 03/07/24 09:00 03/08/24 08:58 Enoxaparin 40 Mg/0.4 Ml Syringe SUB-Q 40 mg DAILY JOSHUA Administration Finasteride 5 mg 03/08/24 11:20 03/08/24 12:14 Finasteride 5 Mg Tablet PO 5 mg QAM JOSHUA Administration Fluticasone Propionate 1 spray 03/05/24 01:15 03/05/24 21:12 Fluticasone Propionate 0.05% Na Spr 16 Gm Btl (*Bkc) NASAL 1 spray Q12HR PRN Administration Nasal Congestion Fluticasone/Umeclidinium/Vilanterol 1 puff 03/05/24 08:00 03/09/24 07:47 Fluticasone/Umeclidin/Vilanter 100-62.5-25 Mcg Ellipta INHALATION 1 puff DAILYRT JOSHUA Administration Gabapentin 100 mg 03/05/24 22:00 03/09/24 06:02 Gabapentin 100 Mg Capsule PO 100 mg Q8HR JOSHUA Administration Guaifenesin 1,200 mg 03/06/24 21:00 03/08/24 21:05 Guaifenesin 12 Hr 600 Mg Tabcr PO 1,200 mg Q12HR JOSHUA Administration Azithromycin 500 mg in 250 mls @ 250 mls/hr 03/05/24 21:00 03/08/24 22:06 Zithromax IVPB 03/09/24 21:00 Infused Q24H JOSHUA Infusion Loratadine 10 mg 03/07/24 09:00 03/08/24 08:57 Loratadine 10 Mg Tablet PO 10 mg DAILY JOSHUA Administration Metoprolol Tartrate 25 mg 03/07/24 12:40 03/08/24 21:05 Metoprolol Tartrate 25 Mg Tablet PO 25 mg Q12HR JOSHUA Administration Pantoprazole Sodium 40 mg 03/05/24 09:00 03/08/24 08:57 Pantoprazole 40 Mg Tablet PO 40 mg QAM JOSHUA Administration Polyethylene Glycol 17 gm 03/06/24 11:55 03/08/24 08:58 Polyethylene Glycol 3350 17 Gm Powd.Pack PO 17 gm QAM JOSHUA Administration Prednisone 40 mg 03/07/24 08:20 03/08/24 08:57 Prednisone 20 Mg Tablet PO 40 mg DAILY@0800 JOSHUA Administration Roflumilast 500 mcg 03/05/24 09:00 03/08/24 08:58 Roflumilast 500 Mcg Tablet PO 500 mcg DAILY JOSHUA Administration Senna/Docusate Sodium 1 tab 03/06/24 21:00 03/08/24 21:05 Senna/Docusate Sodium Tablet PO 1 tab HS JOSHUA Administration Tamsulosin HCl 0.4 mg 03/05/24 09:00 03/08/24 08:57 Tamsulosin Hcl 0.4 Mg Capsule PO 0.4 mg QAM JOSHUA Administration Radiology Results: ITS Impressions Chest X-Ray 03/04/24 18:13 IMPRESSION: No acute cardiopulmonary process. Chest CTA 03/04/24 19:15 IMPRESSION: Motion artifact obscures subsegmental arteries in the bilateral lower lobes, oth erwise no CT evidence of acute pulmonary embolus. No acute process detected in the chest. Labs Labs: Laboratory Results - last 24 hr 03/09/24 05:13 WBC 14.9 H RBC 4.27 L Hgb 12.0 L Hct 39.7 L MCV 93.0 MCH 28.1 MCHC 30.2 L RDW 14.8 H Plt Count 204 MPV 9.7 Immature Gran % (Auto) 1.3 H Neut % (Auto) 75.0 H Lymph % (Auto) 15.3 L [place] % (Auto) 8.0 Eos % (Auto) 0.2 Baso % (Auto) 0.2 Lymph # (Auto) 2.29 [place] # (Auto) 1.2 H Eos # (Auto) 0.0 Baso # (Auto) 0.0 Abs Immat Gran (auto) 0.20 H Absolute Neuts (auto) 11.2 H Absolute Nucleated RBC 0.000 Nucleated RBC % 0.0 Sodium 138 Potassium 4.2 Chloride 95 L Carbon Dioxide > 40 H Anion Gap BUN 17 Creatinine 0.70 Estim Creat Clear Calc 91 Estimated GFR > 60 Glucose 113 H Calcium 8.3 L Total Bilirubin 0.4 AST 23 ALT 20 Alkaline Phosphatase 89 Total Protein 7.0 Albumin 3.5
[2024-03-09] MEDS: polyethylene glycoL 3350 17 GM POWD.PACK PO (09:50)
[2024-03-09] MEDS: TAMSULOSIN HCL 0.4 MG CAPSULE PO (09:50)
[2024-03-09] MEDS: ROFLUMILAST 500 MCG TABLET PO (09:50)
[2024-03-09] MEDS: METOPROLOL TARTRATE 25 MG TABLET PO ×2 (09:51→19:50)
[2024-03-09] MEDS: PANTOPRAZOLE 40 MG TABLET PO (09:51)
[2024-03-09] MEDS: predniSONE 20 MG TABLET 40 MG PO (09:51)
[2024-03-09] MEDS: FINASTERIDE 5 MG TABLET PO (09:51)
[2024-03-09] MEDS: guaiFENesin 12 HR 600 MG TABCR 1200 MG PO ×2 (09:51→19:49)
[2024-03-09] MEDS: LORATADINE 10 MG TABLET PO (09:51)
[2024-03-09] MEDS: ENOXAPARIN 40 MG/0.4 ML SYRINGE SUB-Q (09:52)
--- NOTE | 2024-03-09 10:59 | P.PNPL_ITS ---
Progress Note: A&P Assessment and Plan (1) Acute on chronic respiratory failure with hypoxia and hypercapnia: Code(s): J96.21 - Acute and chronic respiratory failure with hypoxia; J96.22 - Acute and chronic respiratory failure with hypercapnia Status: Acute (2) Chronic respiratory failure: Qualifiers: Respiratory failure complication: hypoxia and hypercapnia Qualified Code(s): J96.11 - Chronic respiratory failure with hypoxia; J96.12 - Chronic respiratory failure with hypercapnia Code(s): J96.10 - Chronic respiratory failure, unspecified whether with hypoxia or hypercapnia Status: Acute (3) Former smoker: Code(s): Z87.891 - Personal history of nicotine dependence Status: Acute (4) COPD with acute exacerbation: Code(s): J44.1 - Chronic obstructive pulmonary disease with (acute) exacerbation Status: Acute Assessment and Plan: A 68-year-old male suffering from very severe COPD, and chronic hypoxemic hypercapnic respiratory failure, is on a triple inhaler maintenance bronchodilator and additional medication for his history of COPD exacerbations. He is also on supplemental oxygen at 3 liters/minute. Recently, he has experienced increased shortness of breath and wheezing due to a COPD exacerbation. The patient's respiratory condition appears to be improving under the current treatment plan. Physical examination reveals hyperinflated lungs, however, wheezing is reduced over the last 48 hours. The patient has been transitioned to oral steroids while maintaining the rest of the medications for COPD exacerbation. The importance of introducing home ventilatory support was discussed, considering the patient's end-stage COPD with hypercapnic failure and recurrent COPD exacerbations. However, the patient expressed his reluctance to adopt home ventilatory support, citing his inability to bear masks and ventilator pressures . It's worth noting that the patient had a negative experience with home ventilation over a year ago during a hospital stay, and has since been resistant to this form of treatment. Plan: Continue with current regimen out of bed to chair, nebulized short-acting bronchodilators, oral steroids. The patient expressed a desire to prolong his hospital stay for a few additional days due to ongoing mold cleaning at his house. (5) Anxiety: Code(s): F41.9 - Anxiety disorder, unspecified Status: Acute Subjective Date/time seen: 03/09/24 10:59 Interval history: Patient continues to have some sputum production of dark color. Shortness of breath unchanged over the last 24 hours. No new respiratory symptoms. Not ready to go home yet. Review of Systems Review of Systems: All systems reviewed & are unremarkable except as noted in HPI and below (HPI and below) Exam Narrative: GENERAL APPEARANCE: Well developed, well nourished, alert and cooperative, and appears to be in in mild respiratory distress while on supplemental oxygen SKIN: Inspection of the skin reveals no rashes, ulcerations or petechiae. HEENT: Sclerae anicteric and conjunctivae pink and moist. Extraocular movements were intact and pupils were equal, round, and reactive to light. The oral mucosa, hard and soft palate, tongue and posterior pharynx were normal. NECK: Supple. There was no thyroid enlargement, and no tenderness, or masses were felt. CHEST: Normal AP diameter and normal contour without any kyphoscoliosis. LUNGS: Distant breath sounds bilaterally minimal wheezing special expiratory CARDIAC: There was a regular rate and rhythm without any murmurs, gallops, rubs. ABDOMEN: Soft and nontender with normal bowel sounds. There was no organomegaly. LYMPH NODES: No lymphadenopathy was appreciated in the neck EXTREMITIES: No cyanosis, clubbing; trace pedal edema right lower extremity NEUROLOGIC: Alert and oriented x 3. Normal affect. Objective Data Vital Signs Vital Signs: Vital Signs - 24 hr 03/08/24 11:04 03/08/24 12:00 03/08/24 13:32 Temperature 36.8 C Pulse Rate 86 92 95 Respiratory Rate 18 18 Blood Pressure 127/65 Pulse Oximetry 95 Oxygen Delivery Oxygen Flow Rate Fraction of Inspired Oxygen 03/08/24 14:14 03/08/24 14:24 03/08/24 16:00 Temperature Pulse Rate 93 92 108 H Respiratory Rate 18 18 Blood Pressure Pulse Oximetry Oxygen Delivery Oxygen Flow Rate Fraction of Inspired Oxygen 03/08/24 19:57 03/08/24 20:32 03/08/24 20:32 Temperature 36.8 C Pulse Rate 90 91 Respiratory Rate 18 18 Blood Pressure 142/68 H Pulse Oximetry 96 98 Oxygen Delivery Nasal Cannula Oxygen Flow Rate 4 Fraction of Inspired Oxygen 03/08/24 20:38 03/08/24 21:05 03/08/24 20:55 Temperature Pulse Rate 82 92 Respiratory Rate 18 Blood Pressure Pulse Oximetry 98 Oxygen Delivery Nasal Cannula Oxygen Flow Rate 4 Fraction of Inspired Oxygen 03/08/24 23:31 03/08/24 23:36 03/08/24 20:00 Temperature Pulse Rate 65 72 90 Respiratory Rate 18 18 Blood Pressure Pulse Oximetry Oxygen Delivery Oxygen Flow Rate Fraction of Inspired Oxygen 03/09/24 00:00 03/09/24 04:00 03/09/24 04:43 Temperature Pulse Rate 75 92 78 Respiratory Rate 18 Blood Pressure Pulse Oximetry Oxygen Delivery Oxygen Flow Rate Fraction of Inspired Oxygen 03/09/24 04:48 03/09/24 06:00 03/09/24 07:46 Temperature 36.3 C L Pulse Rate 79 86 Respiratory Rate 18 18 Blood Pressure 130/64 Pulse Oximetry 98 95 Oxygen Delivery Nasal Cannula Oxygen Flow Rate 4 Fraction of Inspired Oxygen 36 03/09/24 07:46 03/09/24 07:57 03/09/24 09:51 Temperature Pulse Rate 84 81 102 H Respiratory Rate 18 18 Blood Pressure Pulse Oximetry Oxygen Delivery Oxygen Flow Rate Fraction of Inspired Oxygen Intake/Output Intake/Output: Intake & Output 03/06/24 03/07/24 03/08/24 03/09/24 23:59 23:59 23:59 23:59 Intake Total 2600 1570 1470 240 Output Total 1500 1425 5100 2100 Balance 1100 [phone] Meds/Results Medications: Active Medications Generic Name Dose Route Start Last Admin Trade Name Freq PRN Reason Stop Dose Admin Acetaminophen 650 mg 03/05/24 20:16 03/08/24 18:54 Acetaminophen 325 Mg Tablet PO 650 mg Q6H PRN Administration Mild Pain (1-3) or Fever Albuterol 2 puff 03/05/24 09:00 Albuterol Sulfate (*Sp) Aerosol 1 Puff INHALATION Q6H PRN Shortness Of Breath Albuterol/Ipratropium 3 ml 03/06/24 13:00 03/09/24 07:46 Ipratropium 0.5 Mg/Albuterol Sulfate 2.5 Mg Ampul.Neb 3 Ml INHALATION 3 ml Q4HR JOSHUA Administration Azelastine HCl 1 spray 03/05/24 01:14 03/05/24 21:12 Azelastine Hcl Nasal 0.1% 137 Mcg/Spr 30 Ml Btl NASAL 1 spray Q12HR PRN Administration Nasal Congestion Butalbital/Aspirin/Caffeine 1 cap 03/05/24 01:19 03/09/24 09:59 Aspirin/Caffeine/Butalbital (*Crx) 325/40/50 Mg Capsule (Fiorinal) PO 1 cap Q4-6H PRN Administration headache Codeine Sulfate 30 mg 03/05/24 01:18 03/09/24 09:59 Codeine Sulfate (*Crx) 30 Mg Tablet PO 30 mg Q4-6H PRN Administration headache Cyclobenzaprine HCl 10 mg 03/05/24 00:47 03/08/24 00:08 Cyclobenzaprine Hcl 10 Mg Tablet PO 10 mg TID PRN Administration muscle spasm Enoxaparin Sodium 40 mg 03/07/24 09:00 03/09/24 09:52 Enoxaparin 40 Mg/0.4 Ml Syringe SUB-Q 40 mg DAILY JOSHUA Administration Finasteride 5 mg 03/08/24 11:20 03/09/24 09:51 Finasteride 5 Mg Tablet PO 5 mg QAM JOSHUA Administration Fluticasone Propionate 1 spray 03/05/24 01:15 03/05/24 21:12 Fluticasone Propionate 0.05% Na Spr 16 Gm Btl (*Bkc) NASAL 1 spray Q12HR PRN Administration Nasal Congestion Fluticasone/Umeclidinium/Vilanterol 1 puff 03/05/24 08:00 03/09/24 07:47 Fluticasone/Umeclidin/Vilanter 100-62.5-25 Mcg Ellipta INHALATION 1 puff DAILYRT JOSHUA Administration Gabapentin 100 mg 03/05/24 22:00 03/09/24 06:02 Gabapentin 100 Mg Capsule PO 100 mg Q8HR JOSHUA Administration Guaifenesin 1,200 mg 03/06/24 21:00 03/09/24 09:51 Guaifenesin 12 Hr 600 Mg Tabcr PO 1,200 mg Q12HR JOSHUA Administration Azithromycin 500 mg in 250 mls @ 250 mls/hr 03/05/24 21:00 03/08/24 22:06 Zithromax IVPB 03/09/24 21:00 Infused Q24H JOSHUA Infusion Loratadine 10 mg 03/07/24 09:00 03/09/24 09:51 Loratadine 10 Mg Tablet PO 10 mg DAILY JOSHUA Administration Metoprolol Tartrate 25 mg 03/07/24 12:40 03/09/24 09:51 Metoprolol Tartrate 25 Mg Tablet PO 25 mg Q12HR JOSHUA Administration Pantoprazole Sodium 40 mg 03/05/24 09:00 03/09/24 09:51 Pantoprazole 40 Mg Tablet PO 40 mg QAM JOSHUA Administration Polyethylene Glycol 17 gm 03/06/24 11:55 03/09/24 09:50 Polyethylene Glycol 3350 17 Gm Powd.Pack PO 17 gm QAM JOSHUA Administration Prednisone 40 mg 03/07/24 08:20 03/09/24 09:51 Prednisone 20 Mg Tablet PO 40 mg DAILY@0800 JOSHUA Administration Roflumilast 500 mcg 03/05/24 09:00 03/09/24 09:50 Roflumilast 500 Mcg Tablet PO 500 mcg DAILY JOSHUA Administration Senna/Docusate Sodium 1 tab 03/06/24 21:00 03/08/24 21:05 Senna/Docusate Sodium Tablet PO 1 tab HS JOSHUA Administration Tamsulosin HCl 0.4 mg 03/05/24 09:00 03/09/24 09:50 Tamsulosin Hcl 0.4 Mg Capsule PO 0.4 mg QAM JOSHUA Administration Radiology Results: ITS Impressions Chest X-Ray 03/04/24 18:13 IMPRESSION: No acute cardiopulmonary process. Chest CTA 03/04/24 19:15 IMPRESSION: Motion artifact obscures subsegmental arteries in the bilateral lower lobes, otherwise no CT evidence of acute pulmonary embolus. No acute process detected in the chest. Labs Labs: Laboratory Results - last 24 hr 03/09/24 05:13 WBC 14.9 H RBC 4.27 L Hgb 12.0 L Hct 39.7 L MCV 93.0 MCH 28.1 MCHC 30.2 L RDW 14.8 H Plt Count 204 MPV 9.7 Immature Gran % (Auto) 1.3 H Neut % (Auto) 75.0 H Lymph % (Auto) 15.3 L [place] % (Auto) 8.0 Eos % (Auto) 0.2 Baso % (Auto) 0.2 Lymph # (Auto) 2.29 [place] # (Auto) 1.2 H Eos # (Auto) 0.0 Baso # (Auto) 0.0 Abs Immat Gran (auto) 0.20 H Absolute Neuts (auto) 11.2 H Absolute Nucleated RBC 0.000 Nucleated RBC % 0.0 Sodium 138 Potassium 4.2 Chloride 95 L Carbon Dioxide > 40 H Anion Gap BUN 17 Creatinine 0.70 Estim Creat Clear Calc 91 Estimated GFR > 60 Glucose 113 H Calcium 8.3 L Total Bilirubin 0.4 AST 23 ALT 20 Alkaline Phosphatase 89 Total Protein 7.0 Albumin 3.5
[2024-03-09 14:08] LABS: Magnesium 2.2 mg/dL (1.6-2.3)
[2024-03-09] MEDS: ACETAMINOPHEN 325 MG TABLET 650 MG PO (19:50)
[2024-03-09] MEDS: SENNA/DOCUSATE SODIUM TABLET 1 TAB PO (19:50)
[2024-03-09] MEDS: AZITHROMYCIN 500 MG/NS 250 ML 500 MG/250 ML BAG 250 MG IVPB (19:50)
[2024-03-10] VITALS (21 sets, daily range): BP systolic 118–125; BP diastolic 43–56; PULSE 71–101; RESP 18–20; TEMP 36.6–36.7; O2SAT 92–98
[2024-03-10] MEDS: IPRATROPIUM 0.5 MG/ALBUTEROL SULFATE 2.5 MG AMPUL.NEB 3 ML INHALATION ×6 (04:38→23:18)
[2024-03-10 05:19] LABS: Basophils Absolute Auto 0.1 K/mm3 (0.0-0.1); Basophils Percent Auto 0.3 % (0.2-1.2); Eosinophils Absolute Auto 0.1 K/mm3 (0-0.3); Eosinophils Percent Auto 0.3 % (0-4.4); Hematocrit 38.1 % (42.0-52.0); Hemoglobin 11.1 g/dL (14.0-18.0); Immature Granulocyte Absolute 0.31 K/mm3 (0.00-0.031); Immature Granulocyte Percent A 2.1 % (0-0.5); Lymphocytes Absolute Auto 1.85 K/mm3 (0.9-3.2); Lymphocytes Percent Auto 12.5 % (18.3-44.2); Mean Corpuscular HGB Conc 29.1 g/dl (32-36); Mean Corpuscular Hemoglobin 27.5 pg (26-34); Mean Corpuscular Volume 94.5 fl (80-100); Mean Platelet Volume 9.8 fl (7.4-10.4); Monocytes Absolute Auto 1.1 K/mm3 (0.1-0.6); Monocytes Percent Auto 7.1 % (2.6-8.5); Neutrophils Absolute Auto 11.5 K/mm3 (1.3-6.7); Neutrophils Percent Auto 77.7 % (45.5-73.1); Nucleated Red Blood Cells Perc 0.1 % (0.0-0.2); Platelet Count Result 220 k/mm3 (150-375); Red Blood Count 4.03 M/mm3 (4.6-6.20); Red Cell Distribution Width 14.4 % (11.5-14.5); White Blood Count 14.8 K/mm3 (4.5-10.0)
[2024-03-10 05:42] LABS: Alanine Aminotransferase 20 U/L (6-50); Albumin Level 3.3 g/dL (3.5-5.1); Alkaline Phosphatase 96 U/L (38-126); Aspartate Amino Transferase 21 U/L (17-59); Bilirubin,Total 0.3 mg/dL (0.2-1.3); Blood Urea Nitrogen 17 mg/dL (9-20); Calcium 8.2 mg/dL (8.4-10.2); Carbon Dioxide > 40 mmol/L (22-30); Chloride 96 mmol/L (98-107); Estimated CRCL calculation 91 ml/min; Estimated Glomerular Filt Rate > 60; Glucose 95 mg/dL (65-110); Magnesium 2.3 mg/dL (1.6-2.3); Potassium 4.1 mmol/L (3.4-5.0); Sodium 137 mmol/L (137-145)
[2024-03-10] MEDS: GABAPENTIN 100 MG CAPSULE PO ×3 (06:12→21:55)
[2024-03-10] MEDS: CODEINE SULFATE (*CRX) 30 MG TABLET PO ×4 (06:12→21:55)
--- NOTE | 2024-03-10 07:33 | P.PNIM_ITS ---
Progress Note: A&P Assessment and Plan (1) Acute on chronic respiratory failure with hypoxia and hypercapnia: Code(s): J96.21 - Acute and chronic respiratory failure with hypoxia; J96.22 - Acute and chronic respiratory failure with hypercapnia Status: Acute (2) COPD (chronic obstructive pulmonary disease): Qualifiers: COPD type: unspecified COPD Qualified Code(s): J44.9 - Chronic obstructive pulmonary disease, unspecified Code(s): J44.9 - Chronic obstructive pulmonary disease, unspecified Status: Acute (3) Urinary retention: Code(s): R33.9 - Retention of urine, unspecified Status: Acute (4) Tachycardia: Code(s): R00.0 - Tachycardia, unspecified Status: Acute Plan (1) Acute on chronic respiratory failure with hypoxia and hypercapnia: ?Code(s): J96.21 - Acute and chronic respiratory failure with hypoxia; J96.22 - Acute and chronic respiratory failure with hypercapnia ?Status:?Acute ?Assessment and Plan: ?patient is on supplemental oxygen by nasal cannula usually wears 4 L ?continue to monitor ?supportive care ?try and keep oxygen saturation at 92% 03/06: * Continues on nasal cannula at 3 L. Maintain spo2 goal > 88% * States he does not wear CPAP at home as he cannot tolerate it * Blood gas on arrival: shows compensated respiratory acidosis * Duo Neb scheduled Q 6, will increase to Q 4 hours 16: * Declining BiPAP * Will give referrals for palliative care at discharge 03/08: * NC 4 L at rest * Breathing has improved with current regimen 03/09: * no change (2) COPD with acute exacerbation: ?Code(s): J44.1 - Chronic obstructive pulmonary disease with (acute) exacerbation ?Status:?Acute ?Assessment and Plan: ?breathing treatments q.6 ?systemic steroids ?Rocephin and Zithromax 03/05 continue methylprednisolone 60 mg q.6 hours IV, Flonase 1 puff q.12 hours, continue DuoNeb scheduled q.6 hours, albuterol nebulizer as needed. Patient is improving, may decrease methylprednisolone in 1-2 days 03/06: * On Methylprednisolone 60 mg Q 6 hours. Still having expiratory wheezing. * Flonase Q 12 * Duo nebs increased to Q 4 hours * Antibiotics with Rocephin and azithromycin * Claritin daily * Pulmonology consulted, rec's appreciated. 03/07: * Continue current treatment plan * May start to wean steroids today if clinically he is sounding better * Switch to prednisone 03/08: * Prednisone 40 mg daily * Can transition to oral antibiotics * medically ready to d/c to SNF when available 03/09: * oral steroids, nebs, trelegy inhaler Urinary retention on admission in the ED with 500 ml present. Alcantara was placed. * on Flomax * attempt void trial * bladder scan post void and straight cath for residual greater than 400 ml 03/07: * alcantara out and voiding per urinal 03/08: * required straight cath overnight. for residual of 700 ml. * he has chronic difficulty with emptying his bladder at home. He uses a bidet to stimulate his stream. * already on Flomax * add Proscar today * can replace Alcantara catheter if retention continues * will need urology referral outpatient 03/09: * retention overnight requiring straight cath x 3 * can place alcantara today if he continues to have retention 03/10: * alcantara for retention * will d/c with alcantara and have outpatient follow up with urology Constipation * last BM was Monday * Added Miralax and senna * could be contributing to urinary retention 03/07: * passing flatus * can have ducolax suppository today 03/08: * Declined suppository yesterday. Will try today. 03/09: * small bowel movement today * on senna, miralax Tachycardia * on telemetry * SR-ST with heart rate ranging 90's-100's. * May be related to anxiety 2/2 to poor breathing effort vs albuterol vs steroids vs copd exacerbation * EKG 03/05 with right BBB and SR, ventricular rate 95 bpm 03/07: * Patient experienced a transient episode of chest pain yesterday resolving after passing flatus. Troponin was negative, EKG unchanged from admission. * Continues to have heart rate's in the 90's-110 bpm * Blood pressures stable * Heart rate as high as 140s with activity.Will start Metoprolol 25 mg bid 03/08: * Tachycardia has improved with addition of metoprolol 25 mg BID * HR in the 90's overnight; BP 126/90 03/09: * Has resolved. HR in the 80's Can discharge to SNF when placement is available. Subjective Date/time seen: 03/10/24 07:33 Interval history: 03/06: Patient seen resting in bed on 3 L nasal cannula. He appears anxious at baseline but is able to speak in short sentences. He states that his breathing is somewhat improved since presenting to the hospital. He states his problem has been exacerbated due to mold in his home. Work has been done to remove some this medicine is working on getting a filtration system. His baseline oxygen is 3 L. he has not been and out of bed yet. He continues to have productive thick sputum which is clear to yellow in color. He was concerned because he had some bleeding due to nasal dryness. He is using saline and oxygen has added humidity. He also reports the sore throat, headache, and he has not had a bowel movement since Monday. He is supposed to see pulmonology at the end of the month but he is unable to get to his appointments so they were going to do a telehealth appointment. Given his COPD exacerbation now will consult pulmonology to see him while inpatient to help optimize plan of care and hopefully prevent readmission. 03/07: Patient is seen up in chair the oxygen at 5 L. he required increased in nasal cannula with activity. Breathing is minimally improved today. He still has some expiratory wheeze anteriorly but no wheezing heard posteriorly. He states he coughed up some barrios phlegm today. He continues to have tachycardia with rate as high as 140s with activity. Will start him on metoprolol 25 mg b.i.d.. I discussed with him palliative Care discharge given his reluctance to adopt BiPAP. He is agreeable. Will ask care coordination to provide him with some resources. Therapy has evaluated him and is recommending SNF. Patient is agreeable and care coordination will help with placement. This is ideal as patient has black mold growing in his home currently which is contributing to h is current respiratory status. 03/08:Mr Johnson continues to improve. He states he is feeling better and his breathing is close to his normal status. He is on 4 L NC during my visit. No wheezing heard today. He continues to cough up sputum. His tachycardia has improved with addition of metoprolol. He still has not had a bowel movement since admission. He is willing to try a suppository. 03/09: NAEON. His breathing is close to his baseline. He had a small bowel movement. He continues to have difficulty with emptying his bladder. Discussed placement of a Alcantara catheter if retention continues. 03/10: NAEON. Alcantara in place which he will discharge with. He had another bowel movement last night. Breathing is at his baseline, no wheezing. He is ready to discharge to SNF pending insurance authorization. Exam Narrative: General: Chronically ill-appearing, anxious, tremulous HEENT: normocephalic, atraumatic. Mucous membranes dry. EOMI, PERRLA, bilateral sclera anicteric, no conjunctival injection. Neck supple without JVD, lymphadenopathy, or bruit. Respiratory: clear to auscultation with expiratory wheezing left greater than right. Cardiovascular: tachycardic with regular rhythm, normal S1-S2 upon auscultation. No murmurs, rubs, or clicks. PMI is nondisplaced, capillary refill less than 3 second. + clubbing to nail beds. Abdomen: Soft, round, no pulsatile masses, + distention and nontender. No rebound, no guarding. No CVA tenderness, no hepatosplenomegaly. Bowel sounds hypoactive to all four quadrants. No high pitch or tinkling sounds, resonant to percussion. Extremities: dusky nail beds, + clubbing, scant, non-pitting edema present to BLE with Right greater than Left. Pulses are palpable 2/2. Active ROM to all four extremities. Neuro: Alert and orientated x 4. PERRLA. Cranial nerves 2-12 intact without focal deficit. Skin: Warm, dry, and intact, without rash, erythema, or lesion. Lines: PIV Incisions: NA Psych: pleasant, cooperative, normal speech, normal affect, no hallucinations, no dysarthria, anxious at times. Objective Data Vital Signs Vital Signs: Vital Signs - 24 hr 03/09/24 07:46 03/09/24 07:46 03/09/24 07:57 Temperature Pulse Rate 84 81 Respiratory Rate 18 18 Blood Pressure Pulse Oximetry 95 Oxygen Delivery Nasal Cannula Oxygen Flow Rate 4 Fraction of Inspired Oxygen 36 03/09/24 09:51 03/09/24 08:00 03/09/24 14:01 Temperature 98.6 F Pulse Rate 102 H 102 H 94 Respiratory Rate 18 20 Blood Pressure 144/67 H Pulse Oximetry 95 94 Oxygen Delivery Nasal Cannula Oxygen Flow Rate 4 Fraction of Inspired Oxygen 36 03/09/24 14:30 03/09/24 14:39 03/09/24 08:00 Temperature Pulse Rate 88 90 99 Respiratory Rate 20 20 Blood Pressure Pulse Oximetry Oxygen Delivery Oxygen Flow Rate Fraction of Inspired Oxygen 03/09/24 12:00 03/09/24 16:00 03/09/24 19:44 Temperature 98.1 F Pulse Rate 89 88 97 Respiratory Rate 18 Blood Pressure 128/53 L Pulse Oximetry 96 Oxygen Delivery Oxygen Flow Rate Fraction of Inspired Oxygen 03/09/24 20:19 03/09/24 20:23 03/09/24 20:27 Temperature Pulse Rate 96 93 Respiratory Rate 20 20 Blood Pressure Pulse Oximetry 93 Oxygen Delivery Nasal Cannula Oxygen Flow Rate 4 Fraction of Inspired Oxygen 36 03/09/24 20:00 03/09/24 23:38 03/09/24 23:45 Temperature Pulse Rate 88 84 80 Respiratory Rate 20 20 20 Blood Pressure Pulse Oximetry 92 Oxygen Delivery Nasal Cannula Oxygen Flow Rate 4 Fraction of Inspired Oxygen 36 03/10/24 04:39 03/10/24 04:46 03/09/24 20:00 Temperature Pulse Rate 88 86 92 Respiratory Rate 20 20 Blood Pressure Pulse Oximetry Oxygen Delivery Oxygen Flow Rate Fraction of Inspired Oxygen 03/10/24 00:00 03/10/24 04:00 03/10/24 05:14 Temperature 98.0 F Pulse Rate 87 71 76 Respiratory Rate 18 Blood Pressure 125/44 L Pulse Oximetry 94 Oxygen Delivery Oxygen Flow Rate Fraction of Inspired Oxygen Intake/Output Intake/Output: Intake & Output 03/07/24 03/08/24 03/09/24 03/10/24 23:59 23:59 23:59 23:59 Intake Total 1570 1470 1820 Output Total 1425 4680 0480 Balance 352 -7830 -8838 Meds/Results Medications: Active Medications Generic Name Dose Route Start Last Admin Trade Name Freq PRN Reason Stop Dose Admin Acetaminophen 650 mg 03/05/24 20:16 03/09/24 19:50 Acetaminophen 325 Mg Tablet PO 650 mg Q6H PRN Administration Mild Pain (1-3) or Fever Albuterol 2 puff 03/05/24 09:00 Albuterol Sulfate (*Sp) Aerosol 1 Puff INHALATION Q6H PRN Shortness Of Breath Albuterol/Ipratropium 3 ml 03/09/24 16:00 03/10/24 04:38 Ipratropium 0.5 Mg/Albuterol Sulfate 2.5 Mg Ampul.Neb 3 Ml INHALATION 3 ml Q4HRT JOSHUA Administration Azelastine HCl 1 spray 03/05/24 01:14 03/05/24 21:12 Azelastine Hcl Nasal 0.1% 137 Mcg/Spr 30 Ml Btl NASAL 1 spray Q12HR PRN Administration Nasal Congestion Butalbital/Aspirin/Caffeine 1 cap 03/05/24 01:19 03/10/24 06:12 Aspirin/Caffeine/Butalbital (*Crx) 325/40/50 Mg Capsule (Fiorinal) PO 1 cap Q4-6H PRN Administration headache Codeine Sulfate 30 mg 03/05/24 01:18 03/10/24 06:12 Codeine Sulfate (*Crx) 30 Mg Tablet PO 30 mg Q4-6H PRN Administration headache Cyclobenzaprine HCl 10 mg 03/05/24 00:47 03/08/24 00:08 Cyclobenzaprine Hcl 10 Mg Tablet PO 10 mg TID PRN Administration muscle spasm Enoxaparin Sodium 40 mg 03/07/24 09:00 03/09/24 09:52 Enoxaparin 40 Mg/0.4 Ml Syringe SUB-Q 40 mg DAILY JOSHUA Administration Finasteride 5 mg 03/08/24 11:20 03/09/24 09:51 Finasteride 5 Mg Tablet PO 5 mg QAM JOSHUA Administration Fluticasone Propionate 1 spray 03/05/24 01:15 03/05/24 21:12 Fluticasone Propionate 0.05% Na Spr 16 Gm Btl (*Bkc) NASAL 1 spray Q12HR PRN Administration Nasal Congestion Fluticasone/Umeclidinium/Vilanterol 1 puff 03/05/24 08:00 03/09/24 07:47 Fluticasone/Umeclidin/Vilanter 100-62.5-25 Mcg Ellipta INHALATION 1 puff DAILYRT JOSHUA Administration Gabapentin 100 mg 03/05/24 22:00 03/10/24 06:12 Gabapentin 100 Mg Capsule PO 100 mg Q8HR JOSHUA Administration Guaifenesin 1,200 mg 03/06/24 21:00 03/09/24 19:49 Guaifenesin 12 Hr 600 Mg Tabcr PO 1,200 mg Q12HR JOSHUA Administration Loratadine 10 mg 03/07/24 09:00 03/09/24 09:51 Loratadine 10 Mg Tablet PO 10 mg DAILY JOSHUA Administration Metoprolol Tartrate 25 mg 03/07/24 12:40 03/09/24 19:50 Metoprolol Tartrate 25 Mg Tablet PO 25 mg Q12HR JOSHUA Administration Pantoprazole Sodium 40 mg 03/05/24 09:00 03/09/24 09:51 Pantoprazole 40 Mg Tablet PO 40 mg QAM JOSHUA Administration Polyethylene Glycol 17 gm 03/06/24 11:55 03/09/24 09:50 Polyethylene Glycol 3350 17 Gm Powd.Pack PO 17 gm QAM JOSHUA Administration Prednisone 40 mg 03/07/24 08:20 03/09/24 09:51 Prednisone 20 Mg Tablet PO 40 mg DAILY@0800 JOSHUA Administration Roflumilast 500 mcg 03/05/24 09:00 03/09/24 09:50 Roflumilast 500 Mcg Tablet PO 500 mcg DAILY JOSHUA Administration Senna/Docusate Sodium 1 tab 03/06/24 21:00 03/09/24 19:50 Senna/Docusate Sodium Tablet PO 1 tab HS JOSHUA Administration Tamsulosin HCl 0.4 mg 03/05/24 09:00 03/09/24 09:50 Tamsulosin Hcl 0.4 Mg Capsule PO 0.4 mg QAM JOSHUA Administration Radiology Results: ITS Impressions Chest X-Ray 03/04/24 18:13 IMPRESSION: No acute cardiopulmonary process. Chest CTA 03/04/24 19:15 IMPRESSION: Motion artifact obscures subsegmental arteries in the bilateral lower lobes, otherwise no CT evidence of acute pulmonary embolus. No acute process detected in the chest. Labs Labs: Laboratory Results - last 24 hr 03/09/24 03/10/24 05:13 04:58 WBC 14.8 H RBC 4.03 L Hgb 11.1 L Hct 38.1 L MCV 94.5 MCH 27.5 MCHC 29.1 L RDW 14.4 Plt Count 220 MPV 9.8 Immature Gran % (Auto) 2.1 H Neut % (Auto) 77.7 H Lymph % (Auto) 12.5 L [place] % (Auto) 7.1 Eos % (Auto) 0.3 Baso % (Auto) 0.3 Lymph # (Auto) 1.85 [place] # (Auto) 1.1 H Eos # (Auto) 0.1 Baso # (Auto) 0.1 Abs Immat Gran (auto) 0.31 H Absolute Neuts (auto) 11.5 H Absolute Nucleated RBC 0.020 H Nucleated RBC % 0.1 Sodium 137 Potassium 4.1 Chloride 96 L Carbon Dioxide > 40 H Anion Gap BUN 17 Creatinine 0.70 Estim Creat Clear Calc 91 Estimated GFR > 60 Glucose 95 Calcium 8.2 L Magnesium 2.2 2.3 Total Bilirubin 0.3 AST 21 ALT 20 Alkaline Phosphatase 96 Total Protein 6.0 L Albumin 3.3 L
[2024-03-10] MEDS: ENOXAPARIN 40 MG/0.4 ML SYRINGE SUB-Q (08:07)
[2024-03-10] MEDS: polyethylene glycoL 3350 17 GM POWD.PACK PO (08:07)
[2024-03-10] MEDS: ROFLUMILAST 500 MCG TABLET PO (08:07)
[2024-03-10] MEDS: LORATADINE 10 MG TABLET PO (08:08)
[2024-03-10] MEDS: predniSONE 20 MG TABLET 40 MG PO (08:08)
[2024-03-10] MEDS: FINASTERIDE 5 MG TABLET PO (08:08)
[2024-03-10] MEDS: TAMSULOSIN HCL 0.4 MG CAPSULE PO (08:08)
[2024-03-10] MEDS: guaiFENesin 12 HR 600 MG TABCR 1200 MG PO ×2 (08:08→21:55)
[2024-03-10] MEDS: PANTOPRAZOLE 40 MG TABLET PO (08:08)
[2024-03-10] MEDS: METOPROLOL TARTRATE 25 MG TABLET PO ×2 (08:08→21:55)
[2024-03-10] MEDS: FLUTICASONE/UMECLIDIN/VILANTER 100-62.5-25 MCG ELLIPTA 1 PUFF INHALATION (08:18)
--- NOTE | 2024-03-10 10:14 | P.PNPL_ITS ---
Progress Note: A&P Assessment and Plan (1) Acute on chronic respiratory failure with hypoxia and hypercapnia: Code(s): J96.21 - Acute and chronic respiratory failure with hypoxia; J96.22 - Acute and chronic respiratory failure with hypercapnia Status: Acute (2) Chronic respiratory failure: Qualifiers: Respiratory failure complication: hypoxia and hypercapnia Qualified Code(s): J96.11 - Chronic respiratory failure with hypoxia; J96.12 - Chronic respiratory failure with hypercapnia Code(s): J96.10 - Chronic respiratory failure, unspecified whether with hypoxia or hypercapnia Status: Acute (3) Former smoker: Code(s): Z87.891 - Personal history of nicotine dependence Status: Acute (4) COPD with acute exacerbation: Code(s): J44.1 - Chronic obstructive pulmonary disease with (acute) exacerbation Status: Acute Assessment and Plan: A 68-year-old male suffering from very severe COPD, and chronic hypoxemic hypercapnic respiratory failure, is on a triple inhaler maintenance bronchodilator and additional medication for his history of COPD exacerbations. He is also on supplemental oxygen at 3 liters/minute. Recently, he has experienced increased shortness of breath and wheezing due to a COPD exacerbation. The patient's respiratory condition appears to be improving under the current treatment plan. Physical examination reveals hyperinflated lungs, however, wheezing is reduced over the last 48 hours. The patient has been transitioned to oral steroids while maintaining the rest of the medications for COPD exacerbation. The importance of introducing home ventilatory support was discussed, considering the patient's end-stage COPD with hypercapnic failure and recurrent COPD exacerbations. However, the patient expressed his reluctance to adopt home ventilatory support, citing his inability to bear masks and ventilator pressures . It's worth noting that the patient had a negative experience with home ventilation over a year ago during a hospital stay, and has since been resistant to this form of treatment. Plan: Please proceed with the ongoing treatment plan, which includes transitioning from bed to chair, administration of nebulized short-acting bronchodilators, and oral steroids. Commence the gradual reduction of oral steroids with an ultimate goal of discontinuation over the forthcoming two weeks. The patient is under consideration for relocation to a [facility] facility. The hospitalist has engaged in a conversation with the patient regarding end-of-life options such as hospice care, to which the patient has agreed. I will sign off, feel free to reach out if you have any questions. (5) Anxiety: Code(s): F41.9 - Anxiety disorder, unspecified Status: Acute Subjective Date/time seen: 03/10/24 10:14 Interval history: Patient has no new respiratory symptoms. Respiratory status improved. Con tinues to have sputum production of dark color. Review of Systems Review of Systems: All systems reviewed & are unremarkable except as noted in HPI and below (HPI and below) Exam Narrative: GENERAL APPEARANCE: Well developed, well nourished, alert and cooperative, and appears to be in in mild respiratory distress while on supplemental oxygen SKIN: Inspection of the skin reveals no rashes, ulcerations or petechiae. HEENT: Sclerae anicteric and conjunctivae pink and moist. Extraocular movements were intact and pupils were equal, round, and reactive to light. The oral mucosa, hard and soft palate, tongue and posterior pharynx were normal. NECK: Supple. There was no thyroid enlargement, and no tenderness, or masses were felt. CHEST: Normal AP diameter and normal contour without any kyphoscoliosis. LUNGS: Distant breath sounds bilaterally minimal wheezing special expiratory CARDIAC: There was a regular rate and rhythm without any murmurs, gallops, rubs. ABDOMEN: Soft and nontender with normal bowel sounds. There was no organomegaly. LYMPH NODES: No lymphadenopathy was appreciated in the neck EXTREMITIES: No cyanosis, clubbing; trace pedal edema right lower extremity NEUROLOGIC: Alert and oriented x 3. Normal affect. Objective Data Vital Signs Vital Signs: Vital Signs - 24 hr 03/09/24 14:01 03/09/24 14:30 03/09/24 14:39 Temperature 37.0 C Pulse Rate 94 88 90 Respiratory Rate 20 20 20 Blood Pressure 144/67 H Pulse Oximetry 94 Oxygen Delivery Oxygen Flow Rate Fraction of Inspired Oxygen 03/09/24 12:00 03/09/24 16:00 03/09/24 19:44 Temperature 36.7 C Pulse Rate 89 88 97 Respiratory Rate 18 Blood Pressure 128/53 L Pulse Oximetry 96 Oxygen Delivery Oxygen Flow Rate Fraction of Inspired Oxygen 03/09/24 20:19 03/09/24 20:23 03/09/24 20:27 Temperature Pulse Rate 96 93 Respiratory Rate 20 20 Blood Pressure Pulse Oximetry 93 Oxygen Delivery Nasal Cannula Oxygen Flow Rate 4 Fraction of Inspired Oxygen 36 03/09/24 20:00 03/09/24 23:38 03/09/24 23:45 Temperature Pulse Rate 88 84 80 Respiratory Rate 20 20 20 Blood Pressure Pulse Oximetry 92 Oxygen Delivery Nasal Cannula Oxygen Flow Rate 4 Fraction of Inspired Oxygen 36 03/10/24 04:39 03/10/24 04:46 03/09/24 20:00 Temperature Pulse Rate 88 86 92 Respiratory Rate 20 20 Blood Pressure Pulse Oximetry Oxygen Delivery Oxygen Flow Rate Fraction of Inspired Oxygen 03/10/24 00:00 03/10/24 04:00 03/10/24 05:14 Temperature 36.7 C Pulse Rate 87 71 76 Respiratory Rate 18 Blood Pressure 125/44 L Pulse Oximetry 94 Oxygen Delivery Oxygen Flow Rate Fraction of Inspired Oxygen 03/10/24 08:18 03/10/24 08:18 03/10/24 08:27 Temperature Pulse Rate 85 82 Respiratory Rate 20 20 Blood Pressure Pulse Oximetry 92 Oxygen Delivery Nasal Cannula Oxygen Flow Rate 4 Fraction of Inspired Oxygen 03/10/24 08:00 Temperature Pulse Rate 74 Respiratory Rate Blood Pressure Pulse Oximetry Oxygen Delivery Oxygen Flow Rate Fraction of Inspired Oxygen Intake/Output Intake/Output: Intake & Output 03/07/24 03/08/24 03/09/24 03/10/24 23:59 23:59 23:59 23:59 Intake Total 1570 1470 1820 Output Total 1425 5100 7940 Balance 077 -6109 -1412 Meds/Results Medications: Active Medications Generic Name Dose Route Start Last Admin Trade Name Freq PRN Reason Stop Dose Admin Acetaminophen 650 mg 03/05/24 20:16 03/09/24 19:50 Acetaminophen 325 Mg Tablet PO 650 mg Q6H PRN Administration Mild Pain (1-3) or Fever Albuterol 2 puff 03/05/24 09:00 Albuterol Sulfate (*Sp) Aerosol 1 Puff INHALATION Q6H PRN Shortness Of Breath Albuterol/Ipratropium 3 ml 03/09/24 16:00 03/10/24 08:17 Ipratropium 0.5 Mg/Albuterol Sulfate 2.5 Mg Ampul.Neb 3 Ml INHALATION 3 ml Q4HRT JOSHUA Administration Azelastine HCl 1 spray 03/05/24 01:14 03/05/24 21:12 Azelastine Hcl Nasal 0.1% 137 Mcg/Spr 30 Ml Btl NASAL 1 spray Q12HR PRN Administration Nasal Congestion Butalbital/Aspirin/Caffeine 1 cap 03/05/24 01:19 03/10/24 06:12 Aspirin/Caffeine/Butalbital (*Crx) 325/40/50 Mg Capsule (Fiorinal) PO 1 cap Q4-6H PRN Administration headache Codeine Sulfate 30 mg 03/05/24 01:18 03/10/24 06:12 Codeine Sulfate (*Crx) 30 Mg Tablet PO 30 mg Q4-6H PRN Administration headache Cyclobenzaprine HCl 10 mg 03/05/24 00:47 03/08/24 00:08 Cyclobenzaprine Hcl 10 Mg Tablet PO 10 mg TID PRN Administration muscle spasm Enoxaparin Sodium 40 mg 03/07/24 09:00 03/10/24 08:07 Enoxaparin 40 Mg/0.4 Ml Syringe SUB-Q 40 mg DAILY JOSHUA Administration Finasteride 5 mg 03/08/24 11:20 03/10/24 08:08 Finasteride 5 Mg Tablet PO 5 mg QAM JOSHUA Administration Fluticasone Propionate 1 spray 03/05/24 01:15 03/05/24 21:12 Fluticasone Propionate 0.05% Na Spr 16 Gm Btl (*Bkc) NASAL 1 spray Q12HR PRN Administration Nasal Congestion Fluticasone/Umeclidinium/Vilanterol 1 puff 03/05/24 08:00 03/10/24 08:18 Fluticasone/Umeclidin/Vilanter 100-62.5-25 Mcg Ellipta INHALATION 1 puff DAILYRT JOSHUA Administration Gabapentin 100 mg 03/05/24 22:00 03/10/24 06:12 Gabapentin 100 Mg Capsule PO 100 mg Q8HR JOSHUA Administration Guaifenesin 1,200 mg 03/06/24 21:00 03/10/24 08:08 Guaifenesin 12 Hr 600 Mg Tabcr PO 1,200 mg Q12HR JOSHUA Administration Loratadine 10 mg 03/07/24 09:00 03/10/24 08:08 Loratadine 10 Mg Tablet PO 10 mg DAILY JOSHUA Administration Metoprolol Tartrate 25 mg 03/07/24 12:40 03/10/24 08:08 Metoprolol Tartrate 25 Mg Tablet PO 25 mg Q12HR JOSHUA Administration Pantoprazole Sodium 40 mg 03/05/24 09:00 03/10/24 08:08 Pantoprazole 40 Mg Tablet PO 40 mg QAM JOSHUA Administration Polyethylene Glycol 17 gm 03/06/24 11:55 03/10/24 08:07 Polyethylene Glycol 3350 17 Gm Powd.Pack PO 17 gm QAM JOSHUA Administration Prednisone 40 mg 03/07/24 08:20 03/10/24 08:08 Prednisone 20 Mg Tablet PO 40 mg DAILY@0800 JOSHUA Administration Roflumilast 500 mcg 03/05/24 09:00 03/10/24 08:07 Roflumilast 500 Mcg Tablet PO 500 mcg DAILY JOSHUA Administration Senna/Docusate Sodium 1 tab 03/06/24 21:00 03/09/24 19:50 Senna/Docusate Sodium Tablet PO 1 tab HS JOSHUA Administration Tamsulosin HCl 0.4 mg 03/05/24 09:00 03/10/24 08:08 Tamsulosin Hcl 0.4 Mg Capsule PO 0.4 mg QAM JOSHUA Administration Radiology Results: ITS Impressions Chest X-Ray 03/04/24 18:13 IMPRESSION: No acute cardiopulmonary process. Chest CTA 03/04/24 19:15 IMPRESSION: Motion artifact obscures subsegmental arteries in the bilateral lower lobes, otherwise no CT evidence of acute pulmonary embolus. No acute process detected in the chest. Labs Labs: Laboratory Results - last 24 hr 03/09/24 03/10/24 05:13 04:58 WBC 14.8 H RBC 4.03 L Hgb 11.1 L Hct 38.1 L MCV 94.5 MCH 27.5 MCHC 29.1 L RDW 14.4 Plt Count 220 MPV 9.8 Immature Gran % (Auto) 2.1 H Neut % (Auto) 77.7 H Lymph % (Auto) 12.5 L [place] % (Auto) 7.1 Eos % (Auto) 0.3 Baso % (Auto) 0.3 Lymph # (Auto) 1.85 [place] # (Auto) 1.1 H Eos # (Auto) 0.1 Baso # (Auto) 0.1 Abs Immat Gran (auto) 0.31 H Absolute Neuts (auto) 11.5 H Absolute Nucleated RBC 0.020 H Nucleated RBC % 0.1 Sodium 137 Potassium 4.1 Chloride 96 L Carbon Dioxide > 40 H Anion Gap BUN 17 Creatinine 0.70 Estim Creat Clear Calc 91 Estimated GFR > 60 Glucose 95 Calcium 8.2 L Magnesium 2.2 2.3 Total Bilirubin 0.3 AST 21 ALT 20 Alkaline Phosphatase 96 Total Protein 6.0 L Albumin 3.3 L
[2024-03-10] MEDS: ACETAMINOPHEN 325 MG TABLET 650 MG PO ×2 (13:54→19:54)
[2024-03-10] MEDS: SENNA/DOCUSATE SODIUM TABLET 1 TAB PO (21:55)
[2024-03-11] VITALS (24 sets, daily range): BP systolic 119–145; BP diastolic 52–98; PULSE 75–101; RESP 16–20; TEMP 36.2–36.7; O2SAT 93–98
[2024-03-11] MEDS: IPRATROPIUM 0.5 MG/ALBUTEROL SULFATE 2.5 MG AMPUL.NEB 3 ML INHALATION ×6 (04:44→23:55)
[2024-03-11] MEDS: CODEINE SULFATE (*CRX) 30 MG TABLET PO ×3 (05:16→21:51)
[2024-03-11] MEDS: GABAPENTIN 100 MG CAPSULE PO ×3 (05:16→21:52)
[2024-03-11 06:00] LABS: Basophils Absolute Auto 0.1 K/mm3 (0.0-0.1); Basophils Percent Auto 0.4 % (0.2-1.2); Eosinophils Absolute Auto 0.1 K/mm3 (0-0.3); Eosinophils Percent Auto 0.8 % (0-4.4); Hematocrit 37.9 % (42.0-52.0); Hemoglobin 11.1 g/dL (14.0-18.0); Immature Granulocyte Absolute 0.32 K/mm3 (0.00-0.031); Immature Granulocyte Percent A 2.4 % (0-0.5); Lymphocytes Absolute Auto 2.74 K/mm3 (0.9-3.2); Lymphocytes Percent Auto 20.2 % (18.3-44.2); Mean Corpuscular HGB Conc 29.3 g/dl (32-36); Mean Corpuscular Hemoglobin 27.8 pg (26-34); Mean Platelet Volume 9.9 fl (7.4-10.4); Monocytes Absolute Auto 1.1 K/mm3 (0.1-0.6); Monocytes Percent Auto 7.9 % (2.6-8.5); Neutrophils Absolute Auto 9.3 K/mm3 (1.3-6.7); Neutrophils Percent Auto 68.3 % (45.5-73.1); Platelet Count Result 223 k/mm3 (150-375); Red Blood Count 3.99 M/mm3 (4.6-6.20); Red Cell Distribution Width 14.4 % (11.5-14.5); White Blood Count 13.6 K/mm3 (4.5-10.0)
[2024-03-11 06:17] LABS: Alanine Aminotransferase 24 U/L (6-50); Albumin Level 3.3 g/dL (3.5-5.1); Alkaline Phosphatase 86 U/L (38-126); Aspartate Amino Transferase 25 U/L (17-59); Bilirubin,Total 0.4 mg/dL (0.2-1.3); Blood Urea Nitrogen 14 mg/dL (9-20); Chloride 95 mmol/L (98-107); Estimated CRCL calculation 105 ml/min; Estimated Glomerular Filt Rate > 60; Glucose 86 mg/dL (65-110); Potassium 4.1 mmol/L (3.4-5.0); Sodium 136 mmol/L (137-145)
[2024-03-11 06:39] LABS: Anion Gap 5 mmol/L (4-12); Carbon Dioxide 36 mmol/L (22-30)
[2024-03-11] MEDS: FLUTICASONE/UMECLIDIN/VILANTER 100-62.5-25 MCG ELLIPTA 1 PUFF INHALATION (06:59)
--- NOTE | 2024-03-11 07:29 | P.PNIM_ITS ---
Progress Note: A&P Assessment and Plan (1) Acute on chronic respiratory failure with hypoxia and hypercapnia: Code(s): J96.21 - Acute and chronic respiratory failure with hypoxia; J96.22 - Acute and chronic respiratory failure with hypercapnia Status: Acute (2) COPD (chronic obstructive pulmonary disease): Qualifiers: COPD type: unspecified COPD Qualified Code(s): J44.9 - Chronic obstructive pulmonary disease, unspecified Code(s): J44.9 - Chronic obstructive pulmonary disease, unspecified Status: Acute (3) Urinary retention: Code(s): R33.9 - Retention of urine, unspecified Status: Acute (4) Tachycardia: Code(s): R00.0 - Tachycardia, unspecified Status: Acute Plan (1) Acute on chronic respiratory failure with hypoxia and hypercapnia: ?Code(s): J96.21 - Acute and chronic respiratory failure with hypoxia; J96.22 - Acute and chronic respiratory failure with hypercapnia ?Status:?Acute ?Assessment and Plan: ?patient is on supplemental oxygen by nasal cannula usually wears 4 L ?continue to monitor ?supportive care ?try and keep oxygen saturation at 92% 03/06: * Continues on nasal cannula at 3 L. Maintain spo2 goal > 88% * States he does not wear CPAP at home as he cannot tolerate it * Blood gas on arrival: shows compensated respiratory acidosis * Duo Neb scheduled Q 6, will increase to Q 4 hours 03/07: * Declining BiPAP * Will give referrals for palliative care at discharge 03/08: * NC 4 L at rest * Breathing has improved with current regimen 03/09: * no change 03/10: * no change 03/11: * no change (2) COPD with acute exacerbation: ?Code(s): J44.1 - Chronic obstructive pulmonary disease with (acute) exacerbation ?Status:?Acute ?Assessment and Plan: ?breathing treatments q.6 ?systemic steroids ?Rocephin and Zithromax 03/05 continue methylprednisolone 60 mg q.6 hours IV, Flonase 1 puff q.12 hours, continue DuoNeb scheduled q.6 hours, albuterol nebulizer as needed. Patient is improving, may decrease methylprednisolone in 1-2 days 03/06: * On Methylprednisolone 60 mg Q 6 hours. Still having expiratory wheezing. * Flonase Q 12 * Duo nebs increased to Q 4 hours * Antibiotics with Rocephin and azithromycin * Claritin daily * Pulmonology consulted, rec's appreciated. 03/07: * Continue current treatment plan * May start to wean steroids today if clinically he is sounding better * Switch to prednisone 03/08: * Prednisone 40 mg daily * Can transition to oral antibiotics * medically ready to d/c to SNF when available 03/09: * oral steroids, nebs, trelegy inhaler 03/11: * no change Urinary retention on admission in the ED with 500 ml present. Alcantara was placed. * on Flomax * attempt void trial * bladder scan post void and straight cath for residual greater than 400 ml 03/07: * alcantara out and voiding per urinal 03/08: * required straight cath overnight. for residual of 700 ml. * he has chronic difficulty with emptying his bladder at home. He uses a bidet to stimulate his stream. * already on Flomax * add Proscar today * can replace Alcantara catheter if retention continues * will need urology referral outpatient 03/09: * retention overnight requiring straight cath x 3 * can place alcantara today if he continues to have retention 03/10: * alcantara for retention * will d/c with alcantara and have outpatient follow up with urology Constipation * last BM was Monday * Added Miralax and senna * could be contributing to urinary retention 03/07: * passing flatus * can have ducolax suppository today 03/08: * Declined suppository yesterday. Will try today. 03/09: * small bowel movement today * on senna, miralax Tachycardia * on telemetry * SR-ST with heart rate ranging 90's-100's. * May be related to anxiety 2/2 to poor breathing effort vs albuterol vs steroids vs copd exacerbation * EKG 03/05 with right BBB and SR, ventricular rate 95 bpm 03/07: * Patient experienced a transient episode of chest pain yesterday resolving after passing flatus. Troponin was negative, EKG unchanged from admission. * Continues to have heart rate's in the 90's-110 bpm * Blood pressures stable * Heart rate as high as 140s with activity.Will start Metoprolol 25 mg bid 03/08: * Tachycardia has improved with addition of metoprolol 25 mg BID * HR in the 90's overnight; BP 126/90 03/09: * Has resolved. HR in the 80's No change to plan of care. Can discharge to [facility] when insurance authorization completed Subjective Date/time seen: 03/11/24 07:29 Interval history: 03/06: Patient seen resting in bed on 3 L nasal cannula. He appears anxious at baseline but is able to speak in short sentences. He states that his breathing is somewhat improved since presenting to the hospital. He states his problem has been exacerbated due to mold in his home. Work has been done to remove some this medicine is working on getting a filtration system. His baseline oxygen is 3 L. he has not been and out of bed yet. He continues to have productive thick sputum which is clear to yellow in color. He was concerned because he had some bleeding due to nasal dryness. He is using saline and oxygen has added humidity. He also reports the sore throat, headache, and he has not had a bowel movement since Monday. He is supposed to see pulmonology at the end of the month but he is unable to get to his appointments so they were going to do a telehealth appointment. Given his COPD exacerbation now will consult pulmonology to see him while inpatient to help optimize plan of care and hopefully prevent readmission. 03/07: Patient is seen up in chair the oxygen at 5 L. he required increased in nasal cannula with activity. Breathing is minimally improved today. He still has some expiratory wheeze anteriorly but no wheezing heard posteriorly. He states he coughed up some barrios phlegm today. He continues to have tachycardia with rate as high as 140s with activity. Will start him on metoprolol 25 mg b.i.d.. I discussed with him palliative Care discharge given his reluctance to adopt BiPAP. He is agreeable. Will ask care coordination to provide him with some resources. Therapy has evaluated him and is recommending SNF. Patient is agreeable and care coordination will help with placement. This is ideal as patient has black mold growing in his home currently which is contributing to his current respiratory status. 03/08:Mr Johnson continues to improve. He states he is feeling better and his breathing is close to his normal status. He is on 4 L NC during my visit. No wheezing heard today. He continues to cough up sputum. His tachycardia has improved with addition of metoprolol. He still has not had a bowel movement since admission. He is willing to try a suppository. 03/09: NAEON. His breathing is close to his baseline. He had a small bowel movement. He continues to have difficulty with emptying his bladder. Discussed placement of a Alcantara catheter if retention continues. 03/10: NAEON. Alcantara in place which he will discharge with. He had another bowel movement last night. Breathing is at his baseline, no wheezing. He is ready to discharge to SNF pending insurance authorization. 03/11: KIM. Continue to wait for insurance auth. Review of Systems Review of Systems: All systems reviewed & are unremarkable except as noted in HPI and below Exam Narrative: General: Chronically ill-appearing, anxious, tremulous HEENT: normocephalic, atraumatic. Mucous membranes dry. EOMI, PERRLA, bilateral sclera anicteric, no conjunctival injection. Neck supple without JVD, lymphadenopathy, or bruit. Respiratory: clear to auscultation with expiratory wheezing left greater than right. Cardiovascular: tachycardic with regular rhythm, normal S1-S2 upon auscultation. No murmurs, rubs, or clicks. PMI is nondisplaced, capillary refill less than 3 second. + clubbing to nail beds. Abdomen: Soft, round, no pulsatile masses, + distention and nontender. No rebound, no guarding. No CVA tenderness, no hepatosplenomegaly. Bowel sounds hypoactive to all four quadrants. No high pitch or tinkling sounds, resonant to percussion. Extremities: dusky nail beds, + clubbing, scant, non-pitting edema present to BLE with Right greater than Left. Pulses are palpable 2/2. Active ROM to all four extremities. Neuro: Alert and orientated x 4. PERRLA. Cranial nerves 2-12 intact without focal deficit. Skin: Warm, dry, and intact, without rash, erythema, or lesion. Lines: PIV Incisions: NA Psych: pleasant, cooperative, normal speech, normal affect, no hallucinations, no dysarthria, anxious at times. Objective Data Vital Signs Vital Signs: Vital Signs - 24 hr 03/10/24 08:18 03/10/24 08:18 03/10/24 08:27 Temperature Pulse Rate 85 82 Respiratory Rate 20 20 Blood Pressure Pulse Oximetry 92 Oxygen Delivery Nasal Cannula Oxygen Flow Rate 4 Fraction of Inspired Oxygen 03/10/24 08:00 03/10/24 12:31 03/10/24 12:00 Temperature Pulse Rate 74 85 98 Respiratory Rate 20 Blood Pressure Pulse Oximetry Oxygen Delivery Oxygen Flow Rate Fraction of Inspired Oxygen 03/10/24 12:41 03/10/24 16:00 03/10/24 14:49 Temperature 97.9 F Pulse Rate 97 95 86 Respiratory Rate 20 18 Blood Pressure 118/43 L Pulse Oximetry 96 Oxygen Delivery Oxygen Flow Rate Fraction of Inspired Oxygen 03/10/24 16:56 03/10/24 17:07 03/10/24 19:38 Temperature Pulse Rate 90 95 Respiratory Rate 20 20 Blood Pressure Pulse Oximetry 94 Oxygen Delivery Nasal Cannula Oxygen Flow Rate 4 Fraction of Inspired Oxygen 03/10/24 19:38 03/10/24 19:46 03/10/24 21:16 Temperature 97.9 F Pulse Rate 95 96 89 Respiratory Rate 20 20 20 Blood Pressure 121/56 L Pulse Oximetry 98 Oxygen Delivery Oxygen Flow Rate Fraction of Inspired Oxygen 03/10/24 20:00 03/10/24 20:00 03/10/24 23:18 Temperature Pulse Rate 101 H 89 80 Respiratory Rate 20 18 Blood Pressure Pulse Oximetry 98 Oxygen Delivery Nasal Cannula Oxygen Flow Rate 4 Fraction of Inspired Oxygen 36 03/10/24 23:30 03/11/24 00:00 03/11/24 04:30 Temperature Pulse Rate 85 80 75 Respiratory Rate 20 18 Blood Pressure Pulse Oximetry Oxygen Delivery Oxygen Flow Rate Fraction of Inspired Oxygen 03/11/24 04:40 03/11/24 04:00 03/11/24 06:51 Temperature 98.0 F Pulse Rate 79 77 80 Respiratory Rate 18 16 Blood Pressure 119/72 Pulse Oximetry 98 Oxygen Delivery Oxygen Flow Rate Fraction of Inspired Oxygen Intake/Output Intake/Output: Intake & Output 03/08/24 03/09/24 03/10/24 03/11/24 23:59 23:59 23:59 23:59 Intake Total 1470 1820 1020 300 Output Total 5100 4875 1900 1400 [facility] [phone] Meds/Results Medications: Active Medications Generic Name Dose Route Start Last Admin Trade Name Freq PRN Reason Stop Dose Admin Acetaminophen 650 mg 03/05/24 20:16 03/10/24 19:54 Acetaminophen 325 Mg Tablet PO 650 mg Q6H PRN Administration Mild Pain (1-3) or Fever Albuterol 2 puff 03/05/24 09:00 Albuterol Sulfate (*Sp) Aerosol 1 Puff INHALATION Q6H PRN Shortness Of Breath Albuterol/Ipratropium 3 ml 03/09/24 16:00 03/11/24 06:59 Ipratropium 0.5 Mg/Albuterol Sulfate 2.5 Mg Ampul.Neb 3 Ml INHALATION 3 ml Q4HRT JOSHUA Administration Azelastine HCl 1 spray 03/05/24 01:14 03/05/24 21:12 Azelastine Hcl Nasal 0.1% 137 Mcg/Spr 30 Ml Btl NASAL 1 spray Q12HR PRN Administration Nasal Congestion Butalbital/Aspirin/Caffeine 1 cap 03/05/24 01:19 03/11/24 05:16 Aspirin/Caffeine/Butalbital (*Crx) 325/40/50 Mg Capsule (Fiorinal) PO 1 cap Q4-6H PRN Administration headache Codeine Sulfate 30 mg 03/05/24 01:18 03/11/24 05:16 Codeine Sulfate (*Crx) 30 Mg Tablet PO 30 mg Q4-6H PRN Administration headache Cyclobenzaprine HCl 10 mg 03/05/24 00:47 03/08/24 00:08 Cyclobenzaprine Hcl 10 Mg Tablet PO 10 mg TID PRN Administration muscle spasm Enoxaparin Sodium 40 mg 03/07/24 09:00 03/10/24 08:07 Enoxaparin 40 Mg/0.4 Ml Syringe SUB-Q 40 mg DAILY JOSHUA Administration Finasteride 5 mg 03/08/24 11:20 03/10/24 08:08 Finasteride 5 Mg Tablet PO 5 mg QAM JOSHUA Administration Fluticasone Propionate 1 spray 03/05/24 01:15 03/05/24 21:12 Fluticasone Propionate 0.05% Na Spr 16 Gm Btl (*Bkc) NASAL 1 spray Q12HR PRN Administration Nasal Congestion Fluticasone/Umeclidinium/Vilanterol 1 puff 03/05/24 08:00 03/11/24 06:59 Fluticasone/Umeclidin/Vilanter 100-62.5-25 Mcg Ellipta INHALATION 1 puff DAILYRT JOSHUA Administration Gabapentin 100 mg 03/05/24 22:00 03/11/24 05:16 Gabapentin 100 Mg Capsule PO 100 mg Q8HR JOSHUA Administration Guaifenesin 1,200 mg 03/06/24 21:00 03/10/24 21:55 Guaifenesin 12 Hr 600 Mg Tabcr PO 1,200 mg Q12HR JOSHUA Administration Loratadine 10 mg 03/07/24 09:00 03/10/24 08:08 Loratadine 10 Mg Tablet PO 10 mg DAILY JOSHUA Administration Metoprolol Tartrate 25 mg 03/07/24 12:40 03/10/24 21:55 Metoprolol Tartrate 25 Mg Tablet PO 25 mg Q12HR JOSHUA Administration Pantoprazole Sodium 40 mg 03/05/24 09:00 03/10/24 08:08 Pantoprazole 40 Mg Tablet PO 40 mg QAM JOSHUA Administration Polyethylene Glycol 17 gm 03/06/24 11:55 03/10/24 08:07 Polyethylene Glycol 3350 17 Gm Powd.Pack PO 17 gm QAM JOSHUA Administration Prednisone 40 mg 03/07/24 08:20 03/10/24 08:08 Prednisone 20 Mg Tablet PO 40 mg DAILY@0800 JOSHUA Administration Roflumilast 500 mcg 03/05/24 09:00 03/10/24 08:07 Roflumilast 500 Mcg Tablet PO 500 mcg DAILY JOSHUA Administration Senna/Docusate Sodium 1 tab 03/06/24 21:00 03/10/24 21:55 Senna/Docusate Sodium Tablet PO 1 tab HS JOSHUA Administration Tamsulosin HCl 0.4 mg 03/05/24 09:00 03/10/24 08:08 Tamsulosin Hcl 0.4 Mg Capsule PO 0.4 mg QAM JOSHUA Administration Radiology Results: ITS Impressions Chest X-Ray 03/04/24 18:13 IMPRESSION: No acute cardiopulmonary process. Chest CTA 03/04/24 19:15 IMPRESSION: Motion artifact obscures subsegmental arteries in the bilateral lower lobes, otherwise no CT evidence of acute pulmonary embolus. No acute process detected in the chest. Labs Labs: Laboratory Results - last 24 hr 03/11/24 05:11 WBC 13.6 H RBC 3.99 L Hgb 11.1 L Hct 37.9 L MCV 95.0 MCH 27.8 MCHC 29.3 L RDW 14.4 Plt Count 223 MPV 9.9 Immature Gran % (Auto) 2.4 H Neut % (Auto) 68.3 Lymph % (Auto) 20.2 [place] % (Auto) 7.9 Eos % (Auto) 0.8 Baso % (Auto) 0.4 Lymph # (Auto) 2.74 [place] # (Auto) 1.1 H Eos # (Auto) 0.1 Baso # (Auto) 0.1 Abs Immat Gran (auto) 0.32 H Absolute Neuts (auto) 9.3 H Absolute Nucleated RBC 0.000 Nucleated RBC % 0.0 Sodium 136 L Potassium 4.1 Chloride 95 L Carbon Dioxide 36 H Anion Gap 5 BUN 14 Creatinine 0.60 L Estim Creat Clear Calc 105 Estimated GFR > 60 Glucose 86 Calcium 8.0 L Total Bilirubin 0.4 AST 25 ALT 24 Alkaline Phosphatase 86 Total Protein 6.0 L Albumin 3.3 L
[2024-03-11] MEDS: ROFLUMILAST 500 MCG TABLET PO (09:37)
[2024-03-11] MEDS: guaiFENesin 12 HR 600 MG TABCR 1200 MG PO ×2 (09:37→21:51)
[2024-03-11] MEDS: predniSONE 20 MG TABLET 40 MG PO (09:37)
[2024-03-11] MEDS: polyethylene glycoL 3350 17 GM POWD.PACK PO (09:37)
[2024-03-11] MEDS: ENOXAPARIN 40 MG/0.4 ML SYRINGE SUB-Q (09:37)
[2024-03-11] MEDS: TAMSULOSIN HCL 0.4 MG CAPSULE PO (09:38)
[2024-03-11] MEDS: PANTOPRAZOLE 40 MG TABLET PO (09:38)
[2024-03-11] MEDS: METOPROLOL TARTRATE 25 MG TABLET PO ×2 (09:38→21:51)
[2024-03-11] MEDS: LORATADINE 10 MG TABLET PO (09:38)
[2024-03-11] MEDS: FINASTERIDE 5 MG TABLET PO (09:38)
[2024-03-11] MEDS: CALCIUM CARBONATE (TUMS) 500 MG (200 MG ELEMENTAL) PO (09:52)
[2024-03-11 11:22] LABS: Magnesium 2.3 mg/dL (1.6-2.3)
[2024-03-11] MEDS: ACETAMINOPHEN 325 MG TABLET 650 MG PO ×2 (12:18→18:17)
[2024-03-11] MEDS: SENNA/DOCUSATE SODIUM TABLET 1 TAB PO (21:52)
[2024-03-12] VITALS (25 sets, daily range): BP systolic 127–149; BP diastolic 57–73; PULSE 57–105; RESP 16–22; TEMP 36.8–36.9; O2SAT 90–96
[2024-03-12] MEDS: ACETAMINOPHEN 325 MG TABLET 650 MG PO (04:16)
[2024-03-12] MEDS: IPRATROPIUM 0.5 MG/ALBUTEROL SULFATE 2.5 MG AMPUL.NEB 3 ML INHALATION ×6 (04:50→23:21)
[2024-03-12 05:53] LABS: Alanine Aminotransferase 45 U/L (6-50); Albumin Level 3.3 g/dL (3.5-5.1); Alkaline Phosphatase 92 U/L (38-126); Aspartate Amino Transferase 31 U/L (17-59); Basophils Percent Auto 0.2 % (0.2-1.2); Bilirubin,Total 0.3 mg/dL (0.2-1.3); Blood Urea Nitrogen 13 mg/dL (9-20); Calcium 8.1 mg/dL (8.4-10.2); Carbon Dioxide > 40 mmol/L (22-30); Chloride 94 mmol/L (98-107); Eosinophils Absolute Auto 0.1 K/mm3 (0-0.3); Eosinophils Percent Auto 0.3 % (0-4.4); Estimated CRCL calculation 105 ml/min; Estimated Glomerular Filt Rate > 60; Glucose 134 mg/dL (65-110); Hematocrit 37.9 % (42.0-52.0); Hemoglobin 11.1 g/dL (14.0-18.0); Immature Granulocyte Percent A 1.9 % (0-0.5); Lymphocytes Percent Auto 12.5 % (18.3-44.2); Mean Corpuscular HGB Conc 29.3 g/dl (32-36); Mean Corpuscular Volume 95.5 fl (80-100); Mean Platelet Volume 9.8 fl (7.4-10.4); Monocytes Absolute Auto 1.1 K/mm3 (0.1-0.6); Monocytes Percent Auto 6.6 % (2.6-8.5); Neutrophils Absolute Auto 12.6 K/mm3 (1.3-6.7); Neutrophils Percent Auto 78.5 % (45.5-73.1); Platelet Count Result 228 k/mm3 (150-375); Potassium 4.2 mmol/L (3.4-5.0); Red Blood Count 3.97 M/mm3 (4.6-6.20); Red Cell Distribution Width 14.4 % (11.5-14.5); Sodium 135 mmol/L (137-145)
[2024-03-12] MEDS: GABAPENTIN 100 MG CAPSULE PO ×2 (06:15→14:32)
[2024-03-12] MEDS: CODEINE SULFATE (*CRX) 30 MG TABLET PO ×4 (06:16→19:12)
--- NOTE | 2024-03-12 07:21 | P.PNIM_ITS ---
Progress Note: A&P Assessment and Plan (1) Acute on chronic respiratory failure with hypoxia and hypercapnia: Code(s): J96.21 - Acute and chronic respiratory failure with hypoxia; J96.22 - Acute and chronic respiratory failure with hypercapnia Status: Acute (2) COPD (chronic obstructive pulmonary disease): Qualifiers: COPD type: unspecified COPD Qualified Code(s): J44.9 - Chronic obstructive pulmonary disease, unspecified Code(s): J44.9 - Chronic obstructive pulmonary disease, unspecified Status: Acute (3) Urinary retention: Code(s): R33.9 - Retention of urine, unspecified Status: Acute (4) Tachycardia: Code(s): R00.0 - Tachycardia, unspecified Status: Acute Plan (1) Acute on chronic respiratory failure with hypoxia and hypercapnia: ?Code(s): J96.21 - Acute and chronic respiratory failure with hypoxia; J96.22 - Acute and chronic respiratory failure with hypercapnia ?Status:?Acute ?Assessment and Plan: ?patient is on supplemental oxygen by nasal cannula usually wears 4 L ?continue to monitor ?supportive care ?try and keep oxygen saturation at 92% 03/06: * Continues on nasal cannula at 3 L. Maintain spo2 goal > 88% * States he does not wear CPAP at home as he cannot tolerate it * Blood gas on arrival: shows compensated respiratory acidosis * Duo Neb scheduled Q 6, will increase to Q 4 hours 03/07: * Declining BiPAP * Will give referrals for palliative care at discharge 03/08: * NC 4 L at rest * Breathing has improved with current regimen 03/09: * no change 03/10: * no change 03/11: * no change (2) COPD with acute exacerbation: ?Code(s): J44.1 - Chronic obstructive pulmonary disease with (acute) exacerbation ?Status:?Acute ?Assessment and Plan: ?breathing treatments q.6 ?systemic steroids ?Rocephin and Zithromax 03/05 continue methylprednisolone 60 mg q.6 hours IV, Flonase 1 puff q.12 hours, continue DuoNeb scheduled q.6 hours, albuterol nebulizer as needed. Patient is improving, may decrease methylprednisolone in 1-2 days 03/06: * On Methylprednisolone 60 mg Q 6 hours. Still having expiratory wheezing. * Flonase Q 12 * Duo nebs increased to Q 4 hours * Antibiotics with Rocephin and azithromycin * Claritin daily * Pulmonology consulted, rec's appreciated. 03/07: * Continue current treatment plan * May start to wean steroids today if clinically he is sounding better * Switch to prednisone 03/08: * Prednisone 40 mg daily * Can transition to oral antibiotics * medically ready to d/c to SNF when available 03/09: * oral steroids, nebs, trelegy inhaler 03/11: * no change Urinary retention on admission in the ED with 500 ml present. Alcantara was placed. * on Flomax * attempt void trial * bladder scan post void and straight cath for residual greater than 400 ml 03/07: * alcantara out and voiding per urinal 03/08: * required straight cath overnight. for residual of 700 ml. * he has chronic difficulty with emptying his bladder at home. He uses a bidet to stimulate his stream. * already on Flomax * add Proscar today * can replace Alcantara catheter if retention continues * will need urology referral outpatient 03/09: * retention overnight requiring straight cath x 3 * can place alcantara today if he continues to have retention 03/10: * alcantara for retention * will d/c with alcantara and have outpatient follow up with urology Constipation * last BM was Monday * Added Miralax and senna * could be contributing to urinary retention 03/07: * passing flatus * can have ducolax suppository today 03/08: * Declined suppository yesterday. Will try today. 03/09: * small bowel movement today * on senna, miralax Tachycardia * on telemetry * SR-ST with heart rate ranging 90's-100's. * May be related to anxiety 2/2 to poor breathing effort vs albuterol vs steroids vs copd exacerbation * EKG 03/05 with right BBB and SR, ventricular rate 95 bpm 03/07: * Patient experienced a transient episode of chest pain yesterday resolving after passing flatus. Troponin was negative, EKG unchanged from admission. * Continues to have heart rate's in the 90's-110 bpm * Blood pressures stable * Heart rate as high as 140s with activity.Will start Metoprolol 25 mg bid 03/08: * Tachycardia has improved with addition of metoprolol 25 mg BID * HR in the 90's overnight; BP 126/90 03/09: * Has resolved. HR in the 80's No change to plan of care. Can increase gabapentin to 300 mg TID Can discharge to SNF when insurance authorization completed Subjective Date/time seen: 03/12/24 07:21 Interval history: 03/06: Patient seen resting in bed on 3 L nasal cannula. He appears anxious at baseline but is able to speak in short sentences. He states that his breathing is somewhat improved since presenting to the hospital. He states his problem has been exacerbated due to mold in his home. Work has been done to remove some this medicine is working on getting a filtration system. His baseline oxygen is 3 L. he has not been and out of bed yet. He continues to have productive thick sputum which is clear to yellow in color. He was concerned because he had some bleeding due to nasal dryness. He is using saline and oxygen has added humidity. He also reports the sore throat, headache, and he has not had a bowel movement since Monday. He is supposed to see pulmonology at the end of the month but he is unable to get to his appointments so they were going to do a telehealth appointment. Given his COPD exacerbation now will consult pulmonology to see him while inpatient to help optimize plan of care and hopefully prevent readmission. 03/07: Patient is seen up in chair the oxygen at 5 L. he required increased in nasal cannula with activity. Breathing is minimally improved today. He still has some expiratory wheeze anteriorly but no wheezing heard posteriorly. He states he coughed up some barrios phlegm today. He continues to have tachycardia with rate as high as 140s with activity. Will start him on metoprolol 25 mg b.i.d.. I discussed with him palliative Care discharge given his reluctance to adopt BiPAP. He is agreeable. Will ask care coordination to provide him with some resources. Therapy has evaluated him and is recommending SNF. Patient is agreeable and care coordination will help with placement. This is ideal as patient has black mold growing in his home currently which is contributing to his current respiratory status. 03/08:Mr Johnson continues to improve. He states he is feeling better and his breathing is close to his normal status. He is on 4 L NC during my visit. No wheezing heard today. He continues to cough up sputum. His tachycardia has im proved with addition of metoprolol. He still has not had a bowel movement since admission. He is willing to try a suppository. 03/09: NAEON. His breathing is close to his baseline. He had a small bowel movement. He continues to have difficulty with emptying his bladder. Discussed placement of a Alcantara catheter if retention continues. 03/10: NAEON. Alcantara in place which he will discharge with. He had another bowel movement last night. Breathing is at his baseline, no wheezing. He is ready to discharge to SNF pending insurance authorization. 03/11: KIM. Continue to wait for insurance auth. 03/12: Peer to peer requested by Julián. I have called and left a message with my information so a meeting can be scheduled. Patient wants his gabapentin increased for nerve pain. Review of Systems Review of Systems: All systems reviewed & are unremarkable except as noted in HPI and below Exam Narrative: General: Chronically ill-appearing, anxious, tremulous HEENT: normocephalic, atraumatic. Mucous membranes dry. EOMI, PERRLA, bilateral sclera anicteric, no conjunctival injection. Neck supple without JVD, lymphadenopathy, or bruit. Respiratory: clear to auscultation with expiratory wheezing left greater than right. Cardiovascular: tachycardic with regular rhythm, normal S1-S2 upon auscultation. No murmurs, rubs, or clicks. PMI is nondisplaced, capillary refill less than 3 second. + clubbing to nail beds. Abdomen: Soft, round, no pulsatile masses, + distention and nontender. No rebound, no guarding. No CVA tenderness, no hepatosplenomegaly. Bowel sounds hypoactive to all four quadrants. No high pitch or tinkling sounds, resonant to percussion. Extremities: dusky nail beds, + clubbing, scant, non-pitting edema present to BLE with Right greater than Left. Pulses are palpable 2/2. Active ROM to all four extremities. Neuro: Alert and orientated x 4. PERRLA. Cranial nerves 2-12 intact without focal deficit. Skin: Warm, dry, and intact, without rash, erythema, or lesion. Lines: PIV Incisions: NA Psych: pleasant, cooperative, normal speech, normal affect, no hallucinations, no dysarthria, anxious at times. Objective Data Vital Signs Vital Signs: Vital Signs - 24 hr 03/11/24 08:00 03/11/24 09:36 03/11/24 09:38 Temperature Pulse Rate 80 94 94 Respiratory Rate 16 Blood Pressure 120/52 L Pulse Oximetry 94 Oxygen Delivery Oxygen Flow Rate Fraction of Inspired Oxygen 03/11/24 11:00 03/11/24 11:09 03/11/24 09:40 Temperature Pulse Rate 93 90 Respiratory Rate 20 20 Blood Pressure Pulse Oximetry 94 Oxygen Delivery Nasal Cannula Oxygen Flow Rate 4 Fraction of Inspired Oxygen 03/11/24 12:00 03/11/24 14:15 03/11/24 16:15 Temperature 97.2 F L Pulse Rate 90 88 101 H Respiratory Rate 17 18 Blood Pressure 131/62 Pulse Oximetry 93 Oxygen Delivery Oxygen Flow Rate Fraction of Inspired Oxygen 03/11/24 16:22 03/11/24 16:00 03/11/24 20:13 Temperature Pulse Rate 90 76 92 Respiratory Rate 18 20 Blood Pressure Pulse Oximetry Oxygen Delivery Oxygen Flow Rate Fraction of Inspired Oxygen 03/11/24 20:17 03/11/24 20:20 03/11/24 20:19 Temperature 97.7 F Pulse Rate 92 93 90 Respiratory Rate 20 18 Blood Pressure 145/98 H Pulse Oximetry 96 96 Oxygen Delivery Nasal Cannula Oxygen Flow Rate 4 Fraction of Inspired Oxygen 03/11/24 20:00 03/11/24 20:00 03/12/24 00:00 Temperature Pulse Rate 81 93 82 Respiratory Rate 20 Blood Pressure Pulse Oximetry 96 Oxygen Delivery Nasal Cannula Oxygen Flow Rate 4 Fraction of Inspired Oxygen 36 03/11/24 23:55 03/12/24 00:10 03/12/24 04:56 Temperature 98.3 F Pulse Rate 90 92 82 Respiratory Rate 20 18 Blood Pressure 127/57 L Pulse Oximetry 96 Oxygen Delivery Oxygen Flow Rate Fraction of Inspired Oxygen 03/12/24 04:50 03/12/24 05:05 03/12/24 04:00 Temperature Pulse Rate 92 89 79 Respiratory Rate 20 Blood Pressure Pulse Oximetry Oxygen Delivery Oxygen Flow Rate Fraction of Inspired Oxygen Intake/Output Intake/Output: Intake & Output 03/09/24 03/10/24 03/11/24 03/12/24 23:59 23:59 23:59 23:59 Intake Total 1820 1020 1820 450 Output Total 4775 1900 3750 1850 [facility] [phone] Meds/Results Medications: Active Medications Generic Name Dose Route Start Last Admin Trade Name Freq PRN Reason Stop Dose Admin Acetaminophen 650 mg 03/05/24 20:16 03/12/24 04:16 Acetaminophen 325 Mg Tablet PO 650 mg Q6H PRN Administration Mild Pain (1-3) or Fever Albuterol 2 puff 03/05/24 09:00 Albuterol Sulfate (*Sp) Aerosol 1 Puff INHALATION Q6H PRN Shortness Of Breath Albuterol/Ipratropium 3 ml 03/09/24 16:00 03/12/24 04:50 Ipratropium 0.5 Mg/Albuterol Sulfate 2.5 Mg Ampul.Neb 3 Ml INHALATION 3 ml Q4HRT JOSHUA Administration Azelastine HCl 1 spray 03/05/24 01:14 03/05/24 21:12 Azelastine Hcl Nasal 0.1% 137 Mcg/Spr 30 Ml Btl NASAL 1 spray Q12HR PRN Administration Nasal Congestion Butalbital/Aspirin/Caffeine 1 cap 03/05/24 01:19 03/12/24 06:15 Aspirin/Caffeine/Butalbital (*Crx) 325/40/50 Mg Capsule (Fiorinal) PO 1 cap Q4-6H PRN Administration headache Calcium Carbonate 200 mg 03/11/24 09:32 03/11/24 09:52 Calcium Carbonate (Tums) 500 Mg (200 Mg Elemental) PO 200 mg Q6H PRN Administration Indigestion Codeine Sulfate 30 mg 03/05/24 01:18 03/12/24 06:16 Codeine Sulfate (*Crx) 30 Mg Tablet PO 30 mg Q4-6H PRN Administration headache Cyclobenzaprine HCl 10 mg 03/05/24 00:47 03/08/24 00:08 Cyclobenzaprine Hcl 10 Mg Tablet PO 10 mg TID PRN Administration muscle spasm Enoxaparin Sodium 40 mg 03/07/24 09:00 03/11/24 09:37 Enoxaparin 40 Mg/0.4 Ml Syringe SUB-Q 40 mg DAILY JOSHUA Administration Finasteride 5 mg 03/08/24 11:20 03/11/24 09:38 Finasteride 5 Mg Tablet PO 5 mg QAM JOSHUA Administration Fluticasone Propionate 1 spray 03/05/24 01:15 03/05/24 21:12 Fluticasone Propionate 0.05% Na Spr 16 Gm Btl (*Bkc) NASAL 1 spray Q12HR PRN Administration Nasal Congestion Fluticasone/Umeclidinium/Vilanterol 1 puff 03/05/24 08:00 03/11/24 06:59 Fluticasone/Umeclidin/Vilanter 100-62.5-25 Mcg Ellipta INHALATION 1 puff DAILYRT JOSHUA Administration Gabapentin 100 mg 03/05/24 22:00 03/12/24 06:15 Gabapentin 100 Mg Capsule PO 100 mg Q8HR JOSHUA Administration Guaifenesin 1,200 mg 03/06/24 21:00 03/11/24 21:51 Guaifenesin 12 Hr 600 Mg Tabcr PO 1,200 mg Q12HR JOSHUA Administration Loratadine 10 mg 03/07/24 09:00 03/11/24 09:38 Loratadine 10 Mg Tablet PO 10 mg DAILY JOSHUA Administration Metoprolol Tartrate 25 mg 03/07/24 12:40 03/11/24 21:51 Metoprolol Tartrate 25 Mg Tablet PO 25 mg Q12HR JOSHUA Administration Pantoprazole Sodium 40 mg 03/05/24 09:00 03/11/24 09:38 Pantoprazole 40 Mg Tablet PO 40 mg QAM JOSHUA Administration Polyethylene Glycol 17 gm 03/06/24 11:55 03/11/24 09:37 Polyethylene Glycol 3350 17 Gm Powd.Pack PO 17 gm QAM JOSHUA Administration Prednisone 40 mg 03/07/24 08:20 03/11/24 09:37 Prednisone 20 Mg Tablet PO 40 mg DAILY@0800 JOSHUA Administration Roflumilast 500 mcg 03/05/24 09:00 03/11/24 09:37 Roflumilast 500 Mcg Tablet PO 500 mcg DAILY JOSHUA Administration Senna/Docusate Sodium 1 tab 03/06/24 21:00 03/11/24 21:52 Senna/Docusate Sodium Tablet PO 1 tab HS JOSHUA Administration Tamsulosin HCl 0.4 mg 03/05/24 09:00 03/11/24 09:38 Tamsulosin Hcl 0.4 Mg Capsule PO 0.4 mg QAM JOSHUA Administration Radiology Results: ITS Impressions Chest X-Ray 03/04/24 18:13 IMPRESSION: No acute cardiopulmonary process. Chest CTA 03/04/24 19:15 IMPRESSION: Motion artifact obscures subsegmental arteries in the bilateral lower lobes, otherwise no CT evidence of acute pulmonary embolus. No acute process detected in the chest. Labs Labs: Laboratory Results - last 24 hr 03/11/24 03/12/24 05:08 05:12 WBC 16.0 H RBC 3.97 L Hgb 11.1 L Hct 37.9 L MCV 95.5 MCH 28.0 MCHC 29.3 L RDW 14.4 Plt Count 228 MPV 9.8 Immature Gran % (Auto) 1.9 H Neut % (Auto) 78.5 H Lymph % (Auto) 12.5 L [place] % (Auto) 6.6 Eos % (Auto) 0.3 Baso % (Auto) 0.2 Lymph # (Auto) 2.00 [place] # (Auto) 1.1 H Eos # (Auto) 0.1 Baso # (Auto) 0.0 Abs Immat Gran (auto) 0.30 H Absolute Neuts (auto) 12.6 H Absolute Nucleated RBC 0.000 Nucleated RBC % 0.0 Sodium 135 L Potassium 4.2 Chloride 94 L Carbon Dioxide > 40 H Anion Gap BUN 13 Creatinine 0.60 L Estim Creat Clear Calc 105 Estimated GFR > 60 Glucose 134 H Calcium 8.1 L Magnesium 2.3 Total Bilirubin 0.3 AST 31 ALT 45 Alkaline Phosphatase 92 Total Protein 6.0 L Albumin 3.3 L
[2024-03-12] MEDS: FLUTICASONE/UMECLIDIN/VILANTER 100-62.5-25 MCG ELLIPTA 1 PUFF INHALATION (09:03)
[2024-03-12] MEDS: polyethylene glycoL 3350 17 GM POWD.PACK PO (09:30)
[2024-03-12] MEDS: TAMSULOSIN HCL 0.4 MG CAPSULE PO (09:30)
[2024-03-12] MEDS: PANTOPRAZOLE 40 MG TABLET PO (09:30)
[2024-03-12] MEDS: guaiFENesin 12 HR 600 MG TABCR 1200 MG PO ×2 (09:30→20:29)
[2024-03-12] MEDS: predniSONE 20 MG TABLET 40 MG PO (09:30)
[2024-03-12] MEDS: ROFLUMILAST 500 MCG TABLET PO (09:30)
[2024-03-12] MEDS: FINASTERIDE 5 MG TABLET PO (09:30)
[2024-03-12] MEDS: LORATADINE 10 MG TABLET PO (09:30)
[2024-03-12] MEDS: METOPROLOL TARTRATE 25 MG TABLET PO ×2 (09:35→20:29)
[2024-03-12] MEDS: ENOXAPARIN 40 MG/0.4 ML SYRINGE SUB-Q (09:48)
[2024-03-12 10:19] LABS: Magnesium 2.3 mg/dL (1.6-2.3)
[2024-03-12 15:11] LABS: Appearance Urine Clear (Clear); Bacteria Urine None Seen /hpf; Bilirubin Urine Negative (Negative); Blood Urine 1+ (Negative); Color Urine Yellow (Yellow); Glucose Urine UA Negative (Negative); Ketones Urine Negative (Negative); Leukocyte Esterase Ur Negative LEU/UL (Negative); Nitrate Urine Negative (Negative); Non Pathogenic Casts 0-2; Protein Urine Negative (Negative); Specific Grav Ur 1.012 (1.001-1.035); Squamous Epithelial Cell Urine None Seen /hpf (Few); Urobilinogen Urine 0.2 mg/dL (<2.0); WBC Urine 0-5 /hpf (0-3)
[2024-03-12 15:14] LABS: Add Urine Microscopic? YES
[2024-03-12] MEDS: SENNA/DOCUSATE SODIUM TABLET 1 TAB PO (20:29)
[2024-03-12] MEDS: GABAPENTIN 300 MG CAPSULE PO (20:29)
[2024-03-13] VITALS (28 sets, daily range): BP systolic 122–135; BP diastolic 50–67; PULSE 66–105; RESP 18–22; TEMP 36.4–37.1; O2SAT 86–98
--- NOTE | 2024-03-13 | ECHO_ITS ---
Patient Info Name: Raimundo Johnson Age: 68 years : 1955 Gender: Male Ht: 70 in Wt: 183 lbs BSA: 2.04 m2 HR: 96 bpm BP: 122 / 61 mmHg Technical Quality: Fair Exam Date: 03/13/2024 9:59 AM Exam Location: Echo Lab Patient Status: Inpatient Admit Date: 03/06/2024 Staff Ordering Physician: Harpreet Renner APRN [employer]er: Cj Ballesteros RDCS Attending Provider: Luz Tse MD Referring Physician: Zurdo JULES; Exam Type: CA echo doppler color flow Study Info Indications R60.9 - Edema, unspecified R06.00 - Dyspnea, unspecified Complete two-dimensional, color flow and Doppler transthoracic echocardiogram is performed. Summary 1. Complete two-dimensional, color flow and Doppler transthoracic echocardiogram is performed. 2. Left ventricular chamber dimension is normal. 3. Left ventricular systolic function is normal, estimated at 65-70%. 4. The left ventricular diastolic function is normal. 5. E/e' 7 is not elevated. 6. No pulmonary hypertension, estimated pulmonary arterial systolic pressure is 18 mmHg. 7. Dilated inferior vena cava with >50% collapse upon inspiration consistent with elevated right atrial pressure, 10 mmHg. Left Ventricle E/e' 7 is not elevated. Left ventricular chamber dimension is normal. Left ventricular systolic function is normal, estimated at 65-70%. The left ventricular diastolic function is normal. Right Ventricle Right ventricular systolic function is normal and with normal TAPSE 2.5 cm. Right ventricular chamber dimension is normal. Left Atria Left atrial chamber dimension is normal. Right Atria Right atrial chamber dimension is normal. Aortic Valve The aortic valve is trileaflet. There is no aortic valve stenosis. There is no aortic valve regurgitation. Pulmonic Valve There is no pulmonic regurgitation. Mitral Valve There is no mitral valve stenosis. There is no mitral valve regurgitation. Tricuspid Valve There is no tricuspid valve regurgitation. No pulmonary hypertension, estimated pulmonary arterial systolic pressure is 18 mmHg. Pericardium/Pleural There is no pericardial effusion. Inferior Vena Cava Dilated inferior vena cava with >50% collapse upon inspiration consistent with elevated right atrial pressure, 10 mmHg. Aorta The aortic root size at the sinus of Valsalva is normal. Left Ventricular Outflow Tract Name Value Normal LVOT 2D LVOT Diameter 2.3 cm LVOT Doppler LVOT Peak Gradient 13 mmHg LVOT Mean Gradient 6 mmHg LVOT VTI 29 cm LVOT VTI/AV VTI Ratio 0.9 LVOT Stroke Volume 121 ml LVOT CO 9.8 l/min LVOT CI 4.8 l/min/m2 Pulmonic Valve Name Value Normal PV Doppler PV Peak Gradient 7 mmHg Mitral Valve Name Value Normal MV Doppler MV Peak Gradient 6 mmHg MV Mean Gradient 3 mmHg MV Decel [place] 229 cm/s2 MV PHT 93 ms MV Area (PHT) 2.4 cm2 4.0-5.0 MV Area (Cont Eq VTI) 4.0 cm2 MV Diastolic Function MV E Peak Velocity 73 cm/s MV A Peak Velocity 74 cm/s MV E/A 1.0 MV Decel Time 319 ms MV Annular TDI MV E/e' (Septal) 8.2 <=8.0 MV E/e' (Lateral) 6.3 <=8.0 MV E/e' (Average) 7.2 Tricuspid Valve Name Value Normal TV Regurgitation Doppler TR Peak Velocity 143 cm/s TR Peak Gradient 8 mmHg Estimated PAP/RSVP RA Pressure 10 mmHg <=5 PA Systolic Pressure 18 mmHg <36 RV Systolic Pressure 18 mmHg <36 Aortic Valve Name Value Normal AV Doppler AV Peak Velocity 196 cm/s AV Peak Gradient 15 mmHg AV Mean Gradient 7 mmHg AV VTI 30 cm AV Area (Cont Eq VTI) 4.0 cm2 >=3.0 AV Area (Cont Eq Thuan) 3.9 cm2 AV Regurgitation 2D LVOT Area 4.2 cm2 Ventricles Name Value Normal LV Dimensions 2D/MM IVS Diastolic Thickness (2D) 0.9 cm 0.6-1.0 LVID Diastole (2D) 4.7 cm 4.2-5.8 LVIW Diastolic Thickness (2D) 0.9 cm 0.6-1.0 LVID Systole (2D) 2.5 cm 2.5-4.0 LVOT Diameter 2.3 cm LV Mass (2D Cubed) 143.76 g 88.00-224.00 LV Mass Index (2D Cubed) 71 g/m2 49-115 Relative Wall Thickness (2D) 0.40 LV Fractional Shortening/Ejection Fraction 2D/MM LV Fractional Shortening (2D) 47 % 25-43 LV EF (2D Teicholz) 78 % 52-72 LV Diastolic Volume (4C MOD) 57 ml LV EF (4C MOD) 75 % LV Diastolic Volume (2C MOD) 85 ml LV EF (2C MOD) 70 % LV Diastolic Volume (BP MOD) 72 ml 62-150 LV Diastolic Volume Index (BP MOD) 35 ml/m2 34-74 LV Systolic Volume (BP MOD) 20 ml 21-61 LV Systolic Volume Index (BP MOD) 10 ml/m2 11-31 LV EF (BP MOD) 72 % 52-72 LV Diastolic Length (4C) 8.1 cm LV Systolic Length (4C) 5.9 cm LV Stroke Volume (4C MOD) 43 ml Atria Name Value Normal LA Dimensions LA Volume (4C A-L) 34 ml LA Volume (BP A-L) 37 ml RA Dimensions RA Area (4C) 19.3 cm2 <=18.0 Report Signatures
[2024-03-13] MEDS: CODEINE SULFATE (*CRX) 30 MG TABLET PO ×3 (02:39→20:27)
[2024-03-13] MEDS: IPRATROPIUM 0.5 MG/ALBUTEROL SULFATE 2.5 MG AMPUL.NEB 3 ML INHALATION ×6 (04:41→23:47)
[2024-03-13 05:25] LABS: Basophils Percent Auto 0.2 % (0.2-1.2); Eosinophils Absolute Auto 0.1 K/mm3 (0-0.3); Eosinophils Percent Auto 0.3 % (0-4.4); Hematocrit 37.1 % (42.0-52.0); Hemoglobin 10.9 g/dL (14.0-18.0); Immature Granulocyte Absolute 0.28 K/mm3 (0.00-0.031); Immature Granulocyte Percent A 1.9 % (0-0.5); Lymphocytes Absolute Auto 2.39 K/mm3 (0.9-3.2); Lymphocytes Percent Auto 16.4 % (18.3-44.2); Mean Corpuscular HGB Conc 29.4 g/dl (32-36); Mean Corpuscular Hemoglobin 27.9 pg (26-34); Mean Corpuscular Volume 94.9 fl (80-100); Mean Platelet Volume 9.7 fl (7.4-10.4); Monocytes Absolute Auto 1.2 K/mm3 (0.1-0.6); Monocytes Percent Auto 8.2 % (2.6-8.5); Neutrophils Absolute Auto 10.7 K/mm3 (1.3-6.7); Platelet Count Result 229 k/mm3 (150-375); Red Blood Count 3.91 M/mm3 (4.6-6.20); Red Cell Distribution Width 14.7 % (11.5-14.5); White Blood Count 14.6 K/mm3 (4.5-10.0)
[2024-03-13 05:35] LABS: Alanine Aminotransferase 53 U/L (6-50); Albumin Level 3.4 g/dL (3.5-5.1); Alkaline Phosphatase 90 U/L (38-126); Aspartate Amino Transferase 34 U/L (17-59); Bilirubin,Total 0.4 mg/dL (0.2-1.3); Blood Urea Nitrogen 13 mg/dL (9-20); Calcium 8.2 mg/dL (8.4-10.2); Carbon Dioxide > 40 mmol/L (22-30); Chloride 95 mmol/L (98-107); Estimated CRCL calculation 91 ml/min; Estimated Glomerular Filt Rate > 60; Glucose 96 mg/dL (65-110); Potassium 4.1 mmol/L (3.4-5.0); Sodium 137 mmol/L (137-145)
[2024-03-13] MEDS: GABAPENTIN 300 MG CAPSULE PO ×3 (05:52→20:23)
[2024-03-13] MEDS: AZELASTINE HCL NASAL 0.1% 137 MCG/SPR 30 ML BTL 1 SPRAY NASAL (06:10)
[2024-03-13 06:21] LABS: Hypochromasia 1+; Platelet Estimate Adequate (Adequate); Schistocytes None Seen
[2024-03-13] MEDS: FLUTICASONE/UMECLIDIN/VILANTER 100-62.5-25 MCG ELLIPTA 1 PUFF INHALATION (07:59)
--- NOTE | 2024-03-13 08:40 | PCNWS ---
Weekly nutritional screen. Patient is tolerating current diet with adequate intake. No weight loss reported. No nutritional needs at this time.
[2024-03-13] MEDS: PANTOPRAZOLE 40 MG TABLET PO (08:58)
[2024-03-13] MEDS: predniSONE 20 MG TABLET 40 MG PO (08:58)
[2024-03-13] MEDS: FINASTERIDE 5 MG TABLET PO (08:58)
[2024-03-13] MEDS: METOPROLOL TARTRATE 25 MG TABLET PO ×2 (08:58→20:24)
[2024-03-13] MEDS: ROFLUMILAST 500 MCG TABLET PO (08:58)
[2024-03-13] MEDS: TAMSULOSIN HCL 0.4 MG CAPSULE PO (08:58)
[2024-03-13] MEDS: guaiFENesin 12 HR 600 MG TABCR 1200 MG PO ×2 (08:59→20:23)
[2024-03-13] MEDS: LORATADINE 10 MG TABLET PO (09:00)
[2024-03-13] MEDS: ENOXAPARIN 40 MG/0.4 ML SYRINGE SUB-Q (09:00)
[2024-03-13] MEDS: polyethylene glycoL 3350 17 GM POWD.PACK PO (09:00)
[2024-03-13 12:00] LABS: Magnesium 2.1 mg/dL (1.6-2.3)
[2024-03-13] MEDS: FUROSEMIDE INJ 40 MG/4 ML VIAL IV PUSH (12:45)
--- NOTE | 2024-03-13 14:13 | P.PNIM_ITS ---
Progress Note: A&P Assessment and Plan (1) Acute on chronic respiratory failure with hypoxia and hypercapnia: Code(s): J96.21 - Acute and chronic respiratory failure with hypoxia; J96.22 - Acute and chronic respiratory failure with hypercapnia Status: Acute (2) COPD (chronic obstructive pulmonary disease): Qualifiers: COPD type: unspecified COPD Qualified Code(s): J44.9 - Chronic obstructive pulmonary disease, unspecified Code(s): J44.9 - Chronic obstructive pulmonary disease, unspecified Status: Acute (3) Urinary retention: Code(s): R33.9 - Retention of urine, unspecified Status: Acute (4) Constipation: Qualifiers: Constipation type: unspecified constipation type Qualified Code(s): K59.00 - Constipation, unspecified Code(s): K59.00 - Constipation, unspecified Status: Acute (5) Urinary retention: Code(s): R33.9 - Retention of urine, unspecified Status: Acute (6) Benign prostatic hyperplasia: Code(s): N40.0 - Benign prostatic hyperplasia without lower urinary tract symptoms Status: Acute (7) Tachycardia: Code(s): R00.0 - Tachycardia, unspecified Status: Acute Plan (1) Acute on chronic respiratory failure with hypoxia and hypercapnia: ?Code(s): J96.21 - Acute and chronic respiratory failure with hypoxia; J96.22 - Acute and chronic respiratory failure with hypercapnia ?Status:?Acute ?Assessment and Plan: ?patient is on supplemental oxygen by nasal cannula usually wears 4 L ?continue to monitor ?supportive care ?try and keep oxygen saturation at 92% 03/06: * Continues on nasal cannula at 3 L. Maintain spo2 goal > 88% * States he does not wear CPAP at home as he cannot tolerate it * Blood gas on arrival: shows compensated respiratory acidosis * Duo Neb scheduled Q 6, will increase to Q 4 hours 03/07: * Declining BiPAP * Will give referrals for palliative care at discharge 03/08: * NC 4 L at rest * Breathing has improved with current regimen 03/09: * no change 03/10: * no change 03/11: * no change 03/13: Patient still on 4 liters/minute at rest, previously only 3 L per. Will repeat home oxygen evaluation prior to anticipated discharge tomorrow. (2) COPD with acute exacerbation: ?Code(s): J44.1 - Chronic obstructive pulmonary disease with (acute) exacerbation ?Status:?Acute ?Assessment and Plan: ?breathing treatments q.6 ?systemic steroids ?Rocephin and Zithromax 03/05 continue methylprednisolone 60 mg q.6 hours IV, Flonase 1 puff q.12 hours, continue DuoNeb scheduled q.6 hours, albuterol nebulizer as needed. Patient is improving, may decrease methylprednisolone in 1-2 days 03/06: * On Methylprednisolone 60 mg Q 6 hours. Still having expiratory wheezing. * Flonase Q 12 * Duo nebs increased to Q 4 hours * Antibiotics with Rocephin and azithromycin * Claritin daily * Pulmonology consulted, rec's appreciated. 03/07: * Continue current treatment plan * May start to wean steroids today if clinically he is sounding better * Switch to prednisone 03/08: * Prednisone 40 mg daily * Can transition to oral antibiotics * medically ready to d/c to SNF when available 03/09: * oral steroids, nebs, trelegy inhaler 03/11: * no change Urinary retention on admission in the ED with 500 ml present. Alcantara was placed. * on Flomax * attempt void trial * bladder scan post void and straight cath for residual greater than 400 ml 03/07: * alcantara out and voiding per urinal 03/08: * required straight cath overnight. for residual of 700 ml. * he has chronic difficulty with emptying his bladder at home. He uses a bidet to stimulate his stream. * already on Flomax * add Proscar today * can replace Alcantara catheter if retention continues * will need urology referral outpatient 03/09: * retention overnight requiring straight cath x 3 * can place alcantara today if he continues to have retention 03/10: * alcantara for retention * will d/c with alcantara and have outpatient follow up with urology Constipation * last BM was Monday * Added Miralax and senna * could be contributing to urinary retention 03/07: * passing flatus * can have ducolax suppository today 03/08: * Declined suppository yesterday. Will try today. 03/09: * small bowel movement today * on senna, miralax Tachycardia * on telemetry * SR-ST with heart rate ranging 90's-100's. * May be related to anxiety 2/2 to poor breathing effort vs albuterol vs steroids vs copd exacerbation * EKG 03/05 with right BBB and SR, ventricular rate 95 bpm 03/07: * Patient experienced a transient episode of chest pain yesterday resolving after passing flatus. Troponin was negative, EKG unchanged from admission. * Continues to have heart rate's in the 90's-110 bpm * Blood pressures stable * Heart rate as high as 140s with activity.Will start Metoprolol 25 mg bid 03/08: * Tachycardia has improved with addition of metoprolol 25 mg BID * HR in the 90's overnight; BP 126/90 03/09: * Has resolved. HR in the 80's 03/13: heart rate improving with use of beta-clarisa IV diuresis, Echocardiogram, Home oxygen evaluation, Discharge home with Home Health likely tomorrow Time Spent With Patient Time with patient: Greater than 35 minutes Subjective Date/time seen: 03/13/24 14:13 Interval history: 03/06: Patient seen resting in bed on 3 L nasal cannula. He appears anxious at baseline but is able to speak in short sentences. He states that his breathing is somewhat improved since presenting to the hospital. He states his problem has been exacerbated due to mold in his home. Work has been done to remove some this medicine is working on getting a filtration system. His baseline oxygen is 3 L. he has not been and out of bed yet. He continues to have productive thick sputum which is clear to yellow in color. He was concerned because he had some bleeding due to nasal dryness. He is using saline and oxygen has added humidity. He also reports the sore throat, headache, and he has not had a bowel movement since Monday. He is supposed to see pulmonology at the end of the month but he is unable to get to his appointments so they were going to do a telehealth appointment. Given his COPD exacerbation now will consult pulmonology to see him while inpatient to help optimize plan of care and hopefully prevent readmission. 03/07: Patient is seen up in chair the oxygen at 5 L. he required increased in nasal cannula with activity. Breathing is minimally improved today. He still has some expiratory wheeze anteriorly but no wheezing heard posteriorly. He states he coughed up some barrios phlegm today. He continues to have tachycardia with rate as high as 140s with activity. Will start him on metoprolol 25 mg b.i.d.. I discussed with him palliative Care discharge given his reluctance to adopt BiPAP. He is agreeable. Will ask care coordination to provide him with some resources. Therapy has evaluated him and is recommending SNF. Patient is agreeable and care coordination will help with placement. This is ideal as patient has black mold growing in his home currently which is contributing to his current respiratory status. 03/08:Mr Johnson continues to improve. He states he is feeling better and his breathing is close to his normal status. He is on 4 L NC during my visit. No wheezing heard today. He continues to cough up sputum. His tachycardia has improved with addition of metoprolol. He still has not had a bowel movement since admission. He is willing to try a suppository. 03/09: NAEON. His breathing is close to his baseline. He had a small bowel movement. He continues to have difficulty with emptying his bladder. Discussed placement of a Alcantara catheter if retention continues. 03/10: KIM. Alcantara in place which he will discharge with. He had another bowel movement last night. Breathing is at his baseline, no wheezing. He is ready to discharge to SNF pending insurance authorization. 03/11: KIM. Continue to wait for insurance auth. 03/12: Peer to peer requested by Julián. I have called and left a message with my information so a meeting can be scheduled. Patient wants his gabapentin increased for nerve pain. 03/13: This morning on evaluation patient is on 4 liters/minute nasal cannula with mild dyspnea, few crackles and lower extremity edema. Patient is pending discharge discharged to SNF was denied by insurance. Patient will go home on home health but currently his home is being sprayed for black mold and should be safe to go home tomorrow. Ordered echocardiogram due to increased oxygen demand crackles and lower extremity swelling. Ordered IV diuresis. Review of Systems Review of Systems: All systems reviewed & are unremarkable except as noted in HPI and below Exam Narrative: General: Chronically ill-appearing, anxious, tremulous HEENT: normocephalic, atraumatic. Mucous membranes dry. EOMI, PERRLA, bilateral sclera anicteric, no conjunctival injection. Neck supple without JVD, lymphadenopathy, or bruit. Respiratory: Scattered crackles with expiratory wheezing left greater than right. Cardiovascular: Regular rate with regular rhythm, normal S1-S2 upon auscultation. No murmurs, rubs, or clicks. PMI is nondisplaced, capillary refill less than 3 second. + clubbing to nail beds. Abdomen: Soft, round, no pulsatile masses, + distention and nontender. No rebound, no guarding. No CVA tenderness, no hepatosplenomegaly. Bowel sounds hypoactive to all four quadrants. No high pitch or tinkling sounds, resonant to percussion. Extremities: dusky nail beds, + clubbing, moderate edema present to bilateral lower legs ankles feet with Right greater than Left. Pulses are palpable 2/2. Active ROM to all four extremities. Neuro: Alert and orientated x 4. PERRLA. Cranial nerves 2-12 intact without focal deficit. Skin: Warm, dry, and intact, without rash, erythema, or lesion. Lines: PIV Psych: pleasant, cooperative, normal speech, normal affect, no hallucinations, no dysarthria, anxious at times. Objective Data Vital Signs Vital Signs: Vital Signs - 24 hr 03/12/24 16:15 03/12/24 16:28 03/12/24 16:00 Temperature Pulse Rate 88 94 83 Respiratory Rate Blood Pressure Pulse Oximetry Oxygen Delivery Oxygen Flow Rate 03/12/24 20:16 03/12/24 20:16 03/12/24 20:16 Temperature 36.9 C Pulse Rate 102 H 57 L Respiratory Rate 22 H 18 Blood Pressure 149/71 H Pulse Oximetry 90 90 Oxygen Delivery Nasal Cannula Oxygen Flow Rate 4 03/12/24 20:29 03/12/24 20:00 03/12/24 20:26 Temperature Pulse Rate 57 L 99 105 H Respiratory Rate 22 H Blood Pressure Pulse Oximetry Oxygen Delivery Oxygen Flow Rate 03/12/24 23:24 03/12/24 23:30 03/13/24 00:00 Temperature Pulse Rate 84 80 76 Respiratory Rate 21 H 20 Blood Pressure Pulse Oximetry Oxygen Delivery Oxygen Flow Rate 03/13/24 04:00 03/13/24 04:42 03/13/24 04:48 Temperature Pulse Rate 66 78 80 Respiratory Rate 20 20 Blood Pressure Pulse Oximetry Oxygen Delivery Oxygen Flow Rate 03/13/24 05:04 03/13/24 08:00 03/13/24 08:00 Temperature 37.1 C Pulse Rate 72 77 Respiratory Rate 18 18 Blood Pressure 123/50 L Pulse Oximetry 98 93 Oxygen Delivery Nasal Cannula Oxygen Flow Rate 4 03/13/24 08:09 03/13/24 08:56 03/13/24 08:58 Temperature Pulse Rate 86 98 96 Respiratory Rate 20 Blood Pressure 122/61 Pulse Oximetry 97 Oxygen Delivery Oxygen Flow Rate 03/13/24 08:58 03/13/24 10:48 03/13/24 10:55 Temperature Pulse Rate 83 81 Respiratory Rate 20 18 Blood Pressure Pulse Oximetry 97 Oxygen Delivery Nasal Cannula Oxygen Flow Rate 4 03/13/24 08:00 Temperature Pulse Rate 74 Respiratory Rate Blood Pressure Pulse Oximetry Oxygen Delivery Oxygen Flow Rate Intake/Output Intake/Output: Intake & Output 03/10/24 03/11/24 03/12/24 03/13/24 23:59 23:59 23:59 23:59 Intake Total 1020 1820 1840 730 Output Total 1900 3750 3300 1500 Balance -880 -1930 -1460 -770 Meds/Results Medications: Active Medications Generic Name Dose Route Start Last Admin Trade Name Freq PRN Reason Stop Dose Admin Acetaminophen 650 mg 03/05/24 20:16 03/12/24 04:16 Acetaminophen 325 Mg Tablet PO 650 mg Q6H PRN Administration Mild Pain (1-3) or Fever Albuterol 2 puff 03/05/24 09:00 Albuterol Sulfate (*Sp) Aerosol 1 Puff INHALATION Q6H PRN Shortness Of Breath Albuterol/Ipratropium 3 ml 03/09/24 16:00 03/13/24 10:47 Ipratropium 0.5 Mg/Albuterol Sulfate 2.5 Mg Ampul.Neb 3 Ml INHALATION 3 ml Q4HRT JOSHUA Administration Azelastine HCl 1 spray 03/05/24 01:14 03/13/24 06:10 Azelastine Hcl Nasal 0.1% 137 Mcg/Spr 30 Ml Btl NASAL 1 spray Q12HR PRN Administration Nasal Congestion Butalbital/Aspirin/Caffeine 1 cap 03/05/24 01:19 03/13/24 10:26 Aspirin/Caffeine/Butalbital (*Crx) 325/40/50 Mg Capsule (Fiorinal) PO 1 cap Q4-6H PRN Administration headache Calcium Carbonate 200 mg 03/11/24 09:32 03/11/24 09:52 Calcium Carbonate (Tums) 500 Mg (200 Mg Elemental) PO 200 mg Q6H PRN Administration Indigestion Codeine Sulfate 30 mg 03/05/24 01:18 03/13/24 12:44 Codeine Sulfate (*Crx) 30 Mg Tablet PO 30 mg Q4-6H PRN Administration headache Cyclobenzaprine HCl 10 mg 03/05/24 00:47 03/08/24 00:08 Cyclobenzaprine Hcl 10 Mg Tablet PO 10 mg TID PRN Administration muscle spasm Enoxaparin Sodium 40 mg 03/07/24 09:00 03/13/24 09:00 Enoxaparin 40 Mg/0.4 Ml Syringe SUB-Q 40 mg DAILY JOSHUA Administration Finasteride 5 mg 03/08/24 11:20 03/13/24 08:58 Finasteride 5 Mg Tablet PO 5 mg QAM JOSHUA Administration Fluticasone Propionate 1 spray 03/05/24 01:15 03/05/24 21:12 Fluticasone Propionate 0.05% Na Spr 16 Gm Btl (*Bkc) NASAL 1 spray Q12HR PRN Administration Nasal Congestion Fluticasone/Umeclidinium/Vilanterol 1 puff 03/05/24 08:00 03/13/24 07:59 Fluticasone/Umeclidin/Vilanter 100-62.5-25 Mcg Ellipta INHALATION 1 puff DAILYRT JOSHUA Administration Gabapentin 300 mg 03/12/24 22:00 03/13/24 14:02 Gabapentin 300 Mg Capsule PO 300 mg Q8HR JOSHUA Administration Guaifenesin 1,200 mg 03/06/24 21:00 03/13/24 08:59 Guaifenesin 12 Hr 600 Mg Tabcr PO 1,200 mg Q12HR JOSHUA Administration Loratadine 10 mg 03/07/24 09:00 03/13/24 09:00 Loratadine 10 Mg Tablet PO 10 mg DAILY JOSHUA Administration Metoprolol Tartrate 25 mg 03/07/24 12:40 03/13/24 08:58 Metoprolol Tartrate 25 Mg Tablet PO 25 mg Q12HR JOSHUA Administration Pantoprazole Sodium 40 mg 03/05/24 09:00 03/13/24 08:58 Pantoprazole 40 Mg Tablet PO 40 mg QAM JOSHUA Administration Perflutren Lipid Microsphere 0 ml 03/13/24 09:25 Perflutren Lipid Microspheres 1.5 Ml Vial Diluted To 10 Ml Total Volume IV PUSH 03/16/24 09:25 ONCE PRN adequate visualization Protocol Polyethylene Glycol 17 gm 03/06/24 11:55 03/13/24 09:00 Polyethylene Glycol 3350 17 Gm Powd.Pack PO 17 gm QAM JOSHUA Administration Prednisone 40 mg 03/07/24 08:20 03/13/24 08:58 Prednisone 20 Mg Tablet PO 40 mg DAILY@0800 JOSHUA Administration Roflumilast 500 mcg 03/05/24 09:00 03/13/24 08:58 Roflumilast 500 Mcg Tablet PO 500 mcg DAILY JOSHUA Administration Senna/Docusate Sodium 1 tab 03/06/24 21:00 03/12/24 20:29 Senna/Docusate Sodium Tablet PO 1 tab HS JOSHUA Administration Tamsulosin HCl 0.4 mg 03/05/24 09:00 03/13/24 08:58 Tamsulosin Hcl 0.4 Mg Capsule PO 0.4 mg QAM JOSHUA Administration Radiology Results: ITS Impressions Chest X-Ray 03/04/24 18:13 IMPRESSION: No acute cardiopulmonary process. Chest CTA 03/04/24 19:15 IMPRESSION: Motion artifact obscures subsegmental arteries in the bilateral lower lobes, otherwise no CT evidence of acute pulmonary embolus. No acute process detected in the chest. Labs Labs: Laboratory Results - last 24 hr 03/12/24 03/13/24 03/13/24 14:32 04:42 04:43 WBC 14.6 H RBC 3.91 L Hgb 10.9 L Hct 37.1 L MCV 94.9 MCH 27.9 MCHC 29.4 L RDW 14.7 H Plt Count 229 MPV 9.7 Immature Gran % (Auto) 1.9 H Neut % (Auto) 73.0 Lymph % (Auto) 16.4 L [place] % (Auto) 8.2 Eos % (Auto) 0.3 Baso % (Auto) 0.2 Lymph # (Auto) 2.39 [place] # (Auto) 1.2 H Eos # (Auto) 0.1 Baso # (Auto) 0.0 Abs Immat Gran (auto) 0.28 H Absolute Neuts (auto) 10.7 H Absolute Nucleated RBC 0.000 Nucleated RBC % 0.0 Platelet Estimate Adequate Hypochromasia 1+ Schistocytes None seen Sodium 137 Potassium 4.1 Chloride 95 L Carbon Dioxide > 40 H Anion Gap BUN 13 Creatinine 0.70 Estim Creat Clear Calc 91 Estimated GFR > 60 Glucose 96 Calcium 8.2 L Magnesium 2.1 Total Bilirubin 0.4 AST 34 ALT 53 H Alkaline Phosphatase 90 Total Protein 6.0 L Albumin 3.4 L Urine Color Yellow Urine Appearance Clear Urine pH 7.0 Ur Specific [place] 1.012 Urine Protein Negative Urine Glucose (UA) Negative Urine Ketones Negative Ur Blood (Man) 1+ H Urine Nitrate Negative Urine Bilirubin Negative Urine Urobilinogen 0.2 Leukocyte Esterase Rfl Negative Urine RBC 11-20 H Urine WBC 0-5 Ur Squamous Epith Cells None seen Urine Bacteria None seen Urine Casts 0-2 Pulse Oximetry SpO2 results: 97% on 4 liters/minute nasal cannula, home O2 eval will be ordered Attestation: I personally reviewed and interpreted this pulse oximetry as follows: Interpretation: May titrate down to 3 liters/minute which is previous home oxygen Quality VTE Prophylaxis VTE prophylaxis: pharmacologic ordered
--- NOTE | 2024-03-13 15:28 | HOMEO2EVAL ---
Evaluation was performed at [facility] Home Oxygen Evaluation RC: Home Oxygen (O2) Evaluation Start: 03/13/24 14:12 Freq: ONCE Status: Active Protocol: RPE Activity Type Activity Date Activity User E-sign Co-sign Detail Recorded Client Recorded Date Recorded By Document 03/13/24 14:30 [email or web address] [email or web address] 03/13/24 15:28 DJO Document 03/13/24 14:35 [email or web address] [email or web address] 03/13/24 15:28 DJO Document 03/13/24 14:40 [email or web address] [email or web address] 03/13/24 15:28 DJO Document 03/13/24 14:45 [email or web address] [email or web address] 03/13/24 15:28 DJO Document 03/13/24 14:50 [email or web address] [email or web address] 03/13/24 15:28 DJO Document 03/13/24 14:55 [email or web address] [email or web address] 03/13/24 15:28 DJO Document 03/13/24 15:10 [email or web address] [email or web address] 03/13/24 15:28 DJO 03/13/24 03/13/24 03/13/24 14:30 14:35 14:40 Home O2 Evaluation [Oxygen] -Test Phase Resting Resting Resting -Oxygen Delivery Room Air Nasal Cannula Nasal Cannula -Oxygen Flow Rate (L/min) 1 2 [Pulse Oximetry] -Pulse Oximetry (90-100 %) 86 L 87 L 88 L [Pulse Rate] -Pulse Rate (60-100 beats/min) 92 91 90 [Evaluation] -Activity Tolerance [Charges] -Evaluation Charges O2 Evaluation by Pulmonary 03/13/24 03/13/24 03/13/24 14:45 14:50 14:55 Home O2 Evaluation [Oxygen] -Test Phase Resting Exercise Exercise -Oxygen Delivery Nasal Cannula Nasal Cannula Nasal Cannula -Oxygen Flow Rate (L/min) 3 3 4 [Pulse Oximetry] -Pulse Oximetry (90-100 %) 91 88 L 91 [Pulse Rate] -Pulse Rate (60-100 beats/min) 89 101 H 105 H [Evaluation] -Activity Tolerance Poor [Charges] -Evaluation Charges 03/13/24 15:10 Home O2 Evaluation [Oxygen] -Test Phase Resting -Oxygen Delivery Nasal Cannula -Oxygen Flow Rate (L/min) 3 [Pulse Oximetry] -Pulse Oximetry (90-100 %) 91 [Pulse Rate] -Pulse Rate (60-100 beats/min) 92 [Evaluation] -Activity Tolerance [Charges] -Evaluation Charges
--- NOTE | 2024-03-13 15:41 | PCRCNOTE ---
HOME O2 EVAL COMPLETE, 3L AT REST AND 4L WITH ACTIVITY. NO CHANGES TO CURRENT SETTINGS
[2024-03-13] MEDS: SENNA/DOCUSATE SODIUM TABLET 1 TAB PO (20:24)
[2024-03-14] VITALS (10 sets, daily range): BP systolic 102–131; BP diastolic 63–77; PULSE 71–120; RESP 16–20; TEMP 36.7–36.8; O2SAT 92–94
[2024-03-14] MEDS: CODEINE SULFATE (*CRX) 30 MG TABLET PO ×2 (01:57→16:03)
[2024-03-14] MEDS: IPRATROPIUM 0.5 MG/ALBUTEROL SULFATE 2.5 MG AMPUL.NEB 3 ML INHALATION ×3 (04:32→13:43)
[2024-03-14] MEDS: GABAPENTIN 300 MG CAPSULE PO ×2 (05:07→13:22)
[2024-03-14 05:32] LABS: Basophils Percent Auto 0.3 % (0.2-1.2); Eosinophils Percent Auto 0.2 % (0-4.4); Hematocrit 39.2 % (42.0-52.0); Hemoglobin 11.6 g/dL (14.0-18.0); Immature Granulocyte Absolute 0.27 K/mm3 (0.00-0.031); Immature Granulocyte Percent A 1.8 % (0-0.5); Lymphocytes Absolute Auto 2.27 K/mm3 (0.9-3.2); Lymphocytes Percent Auto 14.8 % (18.3-44.2); Mean Corpuscular HGB Conc 29.6 g/dl (32-36); Mean Corpuscular Hemoglobin 27.7 pg (26-34); Mean Corpuscular Volume 93.6 fl (80-100); Mean Platelet Volume 9.4 fl (7.4-10.4); Monocytes Absolute Auto 1.2 K/mm3 (0.1-0.6); Monocytes Percent Auto 7.7 % (2.6-8.5); Neutrophils Absolute Auto 11.6 K/mm3 (1.3-6.7); Neutrophils Percent Auto 75.2 % (45.5-73.1); Platelet Count Result 239 k/mm3 (150-375); Red Blood Count 4.19 M/mm3 (4.6-6.20); Red Cell Distribution Width 14.7 % (11.5-14.5); White Blood Count 15.4 K/mm3 (4.5-10.0)
[2024-03-14 05:39] LABS: Alanine Aminotransferase 73 U/L (6-50); Albumin Level 3.7 g/dL (3.5-5.1); Alkaline Phosphatase 96 U/L (38-126); Aspartate Amino Transferase 39 U/L (17-59); Bilirubin,Total 0.3 mg/dL (0.2-1.3); Blood Urea Nitrogen 16 mg/dL (9-20); Calcium 8.3 mg/dL (8.4-10.2); Carbon Dioxide > 40 mmol/L (22-30); Chloride 92 mmol/L (98-107); Estimated CRCL calculation 105 ml/min; Estimated Glomerular Filt Rate > 60; Glucose 116 mg/dL (65-110); Potassium 3.9 mmol/L (3.4-5.0); Sodium 138 mmol/L (137-145)
[2024-03-14 06:43] LABS: Hypochromasia 1+; Platelet Estimate Adequate (Adequate); Schistocytes None Seen
[2024-03-14] MEDS: CALCIUM CARBONATE (TUMS) 500 MG (200 MG ELEMENTAL) PO (06:44)
[2024-03-14] MEDS: predniSONE 20 MG TABLET 40 MG PO (08:04)
[2024-03-14] MEDS: METOPROLOL TARTRATE 25 MG TABLET PO (08:05)
[2024-03-14] MEDS: TAMSULOSIN HCL 0.4 MG CAPSULE PO (08:07)
[2024-03-14] MEDS: ROFLUMILAST 500 MCG TABLET PO (08:07)
[2024-03-14] MEDS: PANTOPRAZOLE 40 MG TABLET PO (08:07)
[2024-03-14] MEDS: LORATADINE 10 MG TABLET PO (08:07)
[2024-03-14] MEDS: guaiFENesin 12 HR 600 MG TABCR 1200 MG PO (08:08)
[2024-03-14] MEDS: ENOXAPARIN 40 MG/0.4 ML SYRINGE SUB-Q (08:08)
[2024-03-14] MEDS: polyethylene glycoL 3350 17 GM POWD.PACK PO (08:08)
[2024-03-14] MEDS: FINASTERIDE 5 MG TABLET PO (08:08)
[2024-03-14] MEDS: FUROSEMIDE 40 MG TABLET PO (08:08)
[2024-03-14] MEDS: AZELASTINE HCL NASAL 0.1% 137 MCG/SPR 30 ML BTL 1 SPRAY NASAL (08:09)
[2024-03-14] MEDS: FLUTICASONE/UMECLIDIN/VILANTER 100-62.5-25 MCG ELLIPTA 1 PUFF INHALATION (09:40)
--- NOTE | 2024-03-14 13:23 | P.DS_ITS ---
DS: Admitting Diagnosis Discharge Date 03/14/2024 Admitting Diagnosis Acute on chronic respiratory failure with hypoxia and hypercapnia, COPD with acute exacerbation, bronchiectasis, former smoker DS: Discharge Diagnosis Discharge Diagnosis (1) Acute on chronic respiratory failure with hypoxia and hypercapnia: Code(s): J96.21 - Acute and chronic respiratory failure with hypoxia; J96.22 - Acute and chronic respiratory failure with hypercapnia Status: Acute (2) COPD (chronic obstructive pulmonary disease): Qualifiers: COPD type: unspecified COPD Qualified Code(s): J44.9 - Chronic obstructive pulmonary disease, unspecified Code(s): J44.9 - Chronic obstructive pulmonary disease, unspecified Status: Acute (3) Urinary retention: Code(s): R33.9 - Retention of urine, unspecified Status: Acute (4) Constipation: Qualifiers: Constipation type: unspecified constipation type Qualified Code(s): K59.00 - Constipation, unspecified Code(s): K59.00 - Constipation, unspecified Status: Acute (5) Benign prostatic hyperplasia: Code(s): N40.0 - Benign prostatic hyperplasia without lower urinary tract symptoms Status: Acute (6) Tachycardia: Code(s): R00.0 - Tachycardia, unspecified Status: Acute DS: Summary Hospital Course Reason for hospitalization: Acute on chronic COPD exacerbation Hospital Course: This is a 68-year-old male patient history COPD chronic oxygen therapy who was admitted for worsening difficulty breathing wheezing. Patient underwent treatment azithromycin course treatments steroids COPD exacerbation. Initially discharge was SNF but insurance declined. Patient urinary retention requiring the placement of a Carlton catheter. He was going to be discharged home with the Carlton catheter but he refused such and demanded that it be removed. He states he has a bidet at home that he uses to initiate urine stream. He did receive IV diuresis yesterday and oral diuresis today for edema and lung crackles. Echocardiogram shows good ejection fraction and good diastolic compliance. Status at Discharge Cognitive/behavioral status at discharge: Awake alert oriented Functional status at discharge: uses cane/walker Overall status at discharge: patient is progressing back to baseline Time Spent with Patient Time attestation: Total time spent providing and/or coordinating discharge services: 45 minutes Time spent: Greater than 30 minutes Exam Narrative: General: Anxious, improved swelling, improved dyspnea HEENT: normocephalic, atraumatic. Mucous membranes dry. EOMI, PERRLA, bilateral sclera anicteric, no conjunctival injection. Neck: supple without JVD, lymphadenopathy, or bruit. Respiratory: Minimal scattered crackles Cardiovascular: Regular rate with regular rhythm, normal S1-S2 upon auscultation. No murmurs, rubs, or clicks. PMI is nondisplaced, capillary refill less than 3 second. + clubbing to nail beds. Abdomen: Soft, round, no pulsatile masses, + distention and nontender. No rebound, no guarding. No CVA tenderness, no hepatosplenomegaly. Bowel sounds hypoactive to all four quadrants. Extremities: dusky nail beds, + clubbing, mild to moderate edema present to bilateral lower legs ankles feet with Right greater than Left. Pulses are palpable 2/2. Active ROM to all four extremities. Neuro: Alert and orientated x 4. PERRLA. Cranial nerves 2-12 intact without focal deficit. Skin: Warm, dry, and intact, without rash, erythema, or lesion. Lines: PIV Psych: Anxious, ready to be discharged. DS: Data Data Completed and Pending Completed studies during hospitalization: Chest x-ray, chest CTA Labs on day of discharge: Labs from last 24 hours 03/14/24 05:14 WBC 15.4 H RBC 4.19 L Hgb 11.6 L Hct 39.2 L MCV 93.6 MCH 27.7 MCHC 29.6 L RDW 14.7 H Plt Count 239 MPV 9.4 Immature Gran % (Auto) 1.8 H Neut % (Auto) 75.2 H Lymph % (Auto) 14.8 L Gilchrist % (Auto) 7.7 Eos % (Auto) 0.2 Baso % (Auto) 0.3 Lymph # (Auto) 2.27 Gilchrist # (Auto) 1.2 H Eos # (Auto) 0.0 Baso # (Auto) 0.0 Abs Immat Gran (auto) 0.27 H Absolute Neuts (auto) 11.6 H Absolute Nucleated RBC 0.000 Nucleated RBC % 0.0 Platelet Estimate Adequate Hypochromasia 1+ Schistocytes None seen Sodium 138 Potassium 3.9 Chloride 92 L Carbon Dioxide > 40 H Anion Gap BUN 16 Creatinine 0.60 L Estim Creat Clear Calc 105 Estimated GFR > 60 Glucose 116 H Calcium 8.3 L Total Bilirubin 0.3 AST 39 ALT 73 H Alkaline Phosphatase 96 Total Protein 7.0 Albumin 3.7 Discharge Plan Discharge Attending physician on discharge: Rachel Pitts Consulting providers: Sheryl Varela; Bandar Mendez Discharging Clinician: Kirsten Gomez Anticipated Discharge Date/Time: 03/08/24 13:20 Patient Disposition: Home Health Service Activity: february shower Diet: low sodium Discharge Instructions: You were admitted with a COPD exacerbation. You received treatment with IV antibiotics, nebulizers, steroids, and medications to thin secretions. Your symptoms have improved and you are ready to discharge. While you are were your heart rate consistently was elevated in the 110s to 120s. We started you on metoprolol twice a day. Continue with home inhalers and nebulizers. The patient is agreeable for palliative care consult. Please help assist with this at discharge. He is not interested in BiPAP which is what pulmonology is recommending. Patient has chronic BPH. On Flomax. Added Proscar. Carlton catheter in place and patient needs additional teaching regarding such. You should follow-up with your primary care provider in the next 1-2 weeks. Please keep your telehealth appointment with your chiropractic neurologist. Should you have fever, chills, increased shortness of breath, chest pain, or dizziness you will need to be re-evaluated at the emergency room. Care Coordination: [facility] [phone] arranged for PT/OT at home. They will call you regarding first visit. Patient Instructions: Antibiotic Form, Urinary Retention in Men (GEN), Enlarged Prostate (BPH) (DC) Stand Alone Forms: Longterm Discharge Follow-up/Referrals: Luiz Whipple MD [Primary Care Provider] - Arielle Dailey MD [Physician] - Discharge Medications: New ipratropium-albuterol 0.5 mg-3 mg(2.5 mg base)/3 mL Solution For Nebulization 3 ml inhalation Q6-8H Qty: 180 0RF polyethylene glycol 3350 [Miralax] 17 gram Powder In Packet 17 g PO QAM Qty: 14 0RF sennosides-docusate sodium [Senokot-S] 8.6-50 mg Tablet 1 tab PO HS Qty: 30 0RF finasteride [Proscar] 5 mg Tablet 5 mg PO QAM Qty: 60 0RF metoprolol tartrate 25 mg Tablet 25 mg PO Q12HR Qty: 60 0RF guaifenesin [Mucus Relief ER] 600 mg Tablet Extended Release 12hr 1,200 mg PO Q12HR Qty: 120 0RF Continued albuterol sulfate [Ventolin HFA] 90 mcg/actuation HFA aerosol inhaler 1 inh INHALATION QID 10 Days Qty: 6.7 0RF tamsulosin 0.4 mg capsule 0.4 mg PO QAM Rx Instructions: TAKE 1 CAPSULE BY MOUTH IN THE MORNING azelastine-fluticasone [Dymista] 137-50 mcg/spray spray,non-aerosol 1 spray intranasal BID PRN (Reason: Nasal Congestion) Rx Instructions: administer into each nostril; to replace Astelin and Flonase fluticasone propionate [Flonase Allergy Relief] 50 mcg/actuation spray,suspension 2 spray intranasal DAILY Qty: 16 3RF Rx Instructions: administer into each nostril cyclobenzaprine 10 mg tablet 10 mg PO TID PRN (Reason: muscle spasm) Qty: 30 0RF roflumilast [Daliresp] 500 mcg tablet 500 mcg PO DAILY Qty: 30 11RF albuterol sulfate 2.5 mg /3 mL (0.083 %) solution for nebulization 2.5 mg inhalation QID PRN (Reason: shortness of breath or wheezing) Qty: 360 2RF Breztri Aerosphere 160-9-4.8 mcg/actuation HFA aerosol inhaler 2 inh inhalation QAM AND QPM Qty: 10.7 11RF Rx Instructions: rinse and spit after each use, use with spacer gabapentin 100 mg capsule 100 mg PO TID Qty: 90 5RF pantoprazole 40 mg tablet,delayed release (DR/EC) 40 mg PO QAM Qty: 30 5RF ugisbyg-psnmflxbhn-CMG-caff [id number] mg capsule 1 cap PO Q4-6H PRN (Reason: headache) Qty: 60 0RF (DME) Nebulizer See Rx Instructions .Route .MEDSUPPLY Qty: 1 0RF Rx Instructions: NEW Nebulizer Portable (E0570) ([id number]) [employer] Kit Nebulizer Supplies DX Code: J44.9 Length of Need: Lifetime DME:IV RESP Crystal Ritzheimer, PANPI: [id number] Changed loratadine 10 mg tablet 10 mg PO DAILY Qty: 30 0RF Rx Instructions: TAKE 1 TABLET BY MOUTH EVERY DAY PRN Discontinued doxycycline hyclate 100 mg tablet 100 mg PO DAILY 7 Days Qty: 7 0RF Rx Instructions: X 7 DAYS--NEEDS AND MONDAY TO FINISH Date of admission: 03/06/24 09:44 Primary Care Provider: Luiz Whipple Admitting Provider: Luz Tse V. Attending physician on admission: Luz Tse V. Condition: Improved Quality VTE Prophylaxis VTE prophylaxis: pharmacologic ordered
== END 2024-03-14 16:20 | disposition home health service (06) | DRG 191 ==
LOC: ANHED 20:17 → ANH2MED 20:49
PROVIDERS: Emergency Medicine; Nurse Practitioner Acute Care; Admitting Provider Internal Medicine; Emergency Provider Physician Assistant; PCP Family Medicine; Visit Provider General Practice
DX: J44.1 Chronic obstructive pulmonary disease with (acute) exacerbation (principal); J96.11 Chronic respiratory failure with hypoxia; J96.12 Chronic respiratory failure with hypercapnia; J47.9 Bronchiectasis, uncomplicated; I10 Essential (primary) hypertension; N40.0 Benign prostatic hyperplasia without lower urinary tract symptoms; K59.00 Constipation, unspecified; R33.9 Retention of urine, unspecified; R00.0 Tachycardia, unspecified; F41.9 Anxiety disorder, unspecified; Z20.822 Contact with and (suspected) exposure to COVID-19; Z87.891 Personal history of nicotine dependence; Z99.81 Dependence on supplemental oxygen
CPT/HCPCS: 36415; 36600; 71046; 71275; 80053; 81001; 82805; 83605; 83735; 83880; 84145; 84484; 85025; 85610; 85730; 87040; 87637; 93005; 93306; 94618; 94640; 96365; 96367; 97110; 97161; 97166; 97530; 97535; 99285; A9270; G0378; J0456; J0696; J1650; J1940; J2919; J7512; Q9967

== ENCOUNTER 2024-03-15 01:26 | Emergency (ER) | payer MEDICARE, SELFPAY ==
[2024-03-15 01:29] VITALS: BP 138/90; PULSE 100; RESP 19; TEMP 36.6; O2SAT 93
--- NOTE | 2024-03-15 02:20 | ED.GENADULT ---
HPI - General Adult General Chief complaint: Urogenital-Male Stated complaint: Inability to urinate Time Seen by Provider: 03/15/24 01:58 History of Present Illness HPI narrative: this is a 68-year-old male presenting for urinary retention. He was discharged from the hospital today but refused to go home with a Carlton catheter saying that he would use a unfortunately to stimulate a urine stream. Unfortunately stimulation to his perineum was unable to initiate a stream as it usually does and he started to develop suprapubic pressure. He then came to the hospital for evaluation. Related Data Home Medications Medication Instructions Recorded Confirmed azelastine 137 mcg-fluticasone 50 1 spray intranasal BID PRN Nasal 03/04/24 03/04/24 mcg/spray nasal spray (Dymista) Congestion tamsulosin 0.4 mg capsule 0.4 mg PO QAM 03/04/24 03/04/24 Allergies Allergy/AdvReac Type Severity Reaction Status Date / Time levaquin AdvReac Severe Joint Pain Uncoded 03/06/24 11:37 [facility] Past Medical History Medical History Anxiety Benign prostatic hyperplasia Chronic obstructive pulmonary disease Chronic respiratory failure with hypoxia and hypercapnia On home oxygen. Essential hypertension Migraines Oxygen dependent Peptic ulcer disease (~02/2020) Duodenal ulcer on endoscopy on 03/22/2020. Surgical History Surgical History No pertinent past surgical history Family History Family History Sibling Patient's sister is in good health, Onset Age: 52 Patient's brother is in good health, Onset Age: 50 Mother Family history of diabetes mellitus in first degree relative, Onset Age: 68 Patient's mother is Social History Social History Social History: He lives in his own home in [place]. He has a roommate that is there sporadically. 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 He is and has 1 son who lives in the area. He reportedly smoked up to 4 packs of cigarettes per day for a 140 pack year smoking history, quit in 2008. He denies alcohol use. Previous marijuana use. He designates his son, Dorian Johnson, as his surrogate decision maker and he wishes to be a full code. Smoking packs per day: 4 Smoking cigarettes per day: 80.0 Years smoked: 35 Smoking pack-years: 140.00 Smoking status: Former smoker Tobacco type: cigarettes Second hand tobacco smoke exposure: Yes Smoking end date: 11/06/08 Alcohol intake: never Substance use: never Substance use type: does not use Do You Feel Safe in your Home?: Yes Lack of Transportation: No Lack of Food: Never True Current Housing: I Have Housing Concerned About Future Housing: No Difficulty Paying Gas/Electric Bills: No Difficulty Paying for Meds: No Currently Unemployed: No Education: Never Attended/Kindergarten Only Difficulty w/ Childcare or Family Care: No Living arrangements: alone Occupation/Education: retired Gender identity (if verbalized by the patient): Male Spiritual care concerns: Yes Exam Narrative: Carlton catheter had been placed before I evaluation. APPEARANCE: No apparent distress. Head: atraumatic. EYES: EOMI, NOSE: Atraumatic NECK: Trachea midline RESPIRATORY: No increased rate of breathing CARDIOVASCULAR: RRR, ABDOMINAL: Soft nontender no guarding or rebound, Carlton catheter in place MUSCULOSKELETAl: No obvious deformities NEURO: Alert. Moving 4/4 extremities SKIN:: Warm, dry. Normal color PSYCHIATRIC: Normal affect Course Vital Signs Vital signs: Vital Signs Temperature 97.9 F 03/15/24 01:29 Pulse Rate 100 03/15/24 01:29 Respiratory Rate 19 03/15/24 01:29 Blood Pressure 138/90 03/15/24 01:29 Pulse Oximetry 93 03/15/24 01:29
[2024-03-15 03:30] VITALS: BP 142/87; PULSE 98; RESP 20; O2SAT 96
== END 2024-03-15 03:48 | disposition home or self-care (01) ==
PROVIDERS: Emergency Provider Emergency Medicine; PCP Family Medicine
DX: R33.9 Retention of urine, unspecified (principal); F41.9 Anxiety disorder, unspecified; J44.9 Chronic obstructive pulmonary disease, unspecified; J96.10 Chronic respiratory failure, unspecified whether with hypoxia or hypercapnia; Z99.81 Dependence on supplemental oxygen; I10 Essential (primary) hypertension; Z87.891 Personal history of nicotine dependence
CPT/HCPCS: 51702; 99283

== ENCOUNTER 2025-03-11 15:20 | Outpatient (CLI) | payer MEDICARE, SELFPAY ==
--- NOTE | ~2025-03-11 | CT_ITS ---
CT Scan of the Chest without Contrast: Clinical Indication: Lung cancer screening, nicotine dependence Technique: Contiguous sections were acquired throughout the chest without intravenous contrast. Dose reduction technique was used on this scan by utilizing automated exposure control and iterative recon struction technique. The dose-length product (DLP) was 124.73 mGy-cm. COMPARISON: 03/04/2024 Findings: There is no evidence of any significant mediastinal, hilar or axillary lymphadenopathy. Coronary suad ry calcifications are present. There is no evidence of pleural or pericardial effusion. There is advanced emphysema. 9 mm pleural-based nodule at the lateral right lower lobe is present (ax ial image 118). Images through the upper abdomen reveal no abnormalities. Impression: Lung RADS 4A: Suspicious. 3 month follow-up CT recommended. Advanced emphysema. Reviewed, dictated and finalized at [facility]. Impression: Lung RADS 4A: Suspicious. 3 month follow-up CT recommended. Advanced emphysema.
--- OUTSIDE RECORDS SUMMARY | 2025-03-11 15:26 | XMS_ITS | Continuity of Care Document ---
Author Organization [facility] Address [address] [place] [address] [place] [address] Phone Care Team Providers Care Vehicle Window Tinter Name Role Phone Tano Herrmann MD Unavailable Unavailable Allergies, Adverse Reactions, Alerts Substance Reaction Status Criticality No Known Allergies Active No Inform ation Medications Medication Instructions Dosage Effective Dates (start - stop) Status Comments Butalbital Compound with Codeine 30 mg-50 mg-325 mg-40 mg capsule take 1 capsule by oral route every 12 hours PRN for headache as needed - Active PRN for headache, avoid driving or operate machines hydrochlorothiazide 25 mg tablet take 1 tablet by oral route every day 25 MG - Active Ventolin HFA 90 mcg/actuation aerosol inhaler inhale 2 puff by inhalation route every 4 - 6 hours as needed as needed - Active PRN for sob Breo Ellipta 100 mcg-25 mcg/dose powder for inhalation inhale 1 puff by inhalation route every day at the same time each day 1.00 puff - Active ipratropium-albuterol 0.5 mg-3 mg(2.5 mg base)/3 mL nebulization soln inhale 3 milliliter by nebulization route 3 times every day as needed 3 milliliter - Active COPD Procedures Procedure Date OFFICE/OUTPATIENT VISIT, EST OFFICE/OUTPATIENT VISIT, EST PREV VISIT, EST, AGE 40-64 OFFICE/OUTPATIENT VISIT, EST OFFICE/OUTPATIENT VISIT, EST OFFICE/OUTPATIENT VISIT, EST OFFICE/OUTPATIENT VISIT, EST PREV VISIT, NEW, AGE 40-64 OFFICE/OUTPATIENT VISIT, [facility] Advance Directives Directive Yes / No Effective Date File Name No Information Encounters Encounter Description Practice Location Reason(s) For Visit Diagnoses Date Provider Providers Copied on Encounter [facility], [address], [place], [place], [id number], tel:[phone] [facility] No Information 9 Montez Freedman. [address], [place], [place], [address] , [place]. tel:[phone] OFFICE/OUTPA TIENT VISIT, [facility], [address], [place], [place], [address], tel:[phone] [facility] constipati on1 (chief complaint) HLP (chief complaint) Hypertensi on (chief complaint) Take 1 (chief complaint) HeadacheEssential (primary) hypertensionConstip ationHyperlipidemia 9 Montez Rosario [address], [place], [place], [address] , [place]. tel:[phone] Referring Provider: Tano Herrmann, [address], [place], [place], [address]. tel:[phone] OFFICE/OUTPA TIENT VISIT, [facility], [address], [place], [place], [address], [place] tel:[phone] [facility] headache1 (chief complaint) CODP (chief complaint) glucose1 (chief complaint) vitamin D (chief complaint) Umbilical herniaCOPD w/ acute exacerbationHeadach eHyperlipidemiaHypo kalemiaHyperglycemi a 9 Montez Freedman. [address], [place], [place], [address] , [place]. tel:[phone] PREV VISIT, EST, AGE 40-64 [facility], [address], [place], [place], [address], [place] tel:[phone] [facility] PHysical (chief complaint) Encounter for general adult medical exam w abnormal findingsHyperglycem iaHyperlipidemiaHyp okalemiaEssential (primary) hypertensionEmphyse ma 0 8 Montez Freedman. [address], [place], [place], [address] , . tel:[phone] Referring Provider: Tano Herrmann, [address], [place], [place], [address]. tel:[phone] [facility], [address], [place], [place], [address], [place] tel:[phone] [facility] No Information 0 8 Montez Freedman. [address], [place], [place], [address] , [place]. tel:[phone] [facility], [address], [place], [place], [address], [place] tel:[phone] [facility] No Information 8 Montez Rosario [address], [place], [place], [address] , [place]. tel:[phone] OFFICE/OUTPA TIENT VISIT, [facility], [address] [place] [place], [address], tel:[phone] [facility] headache1 (chief complaint) HTN (chief complaint) COPD1 (chief complaint) EmphysemaHeadacheEs sential (primary) hypertensionTobacco use 8 Montez Rosario [address], [place], [place], [address] , [place]. tel:[phone] Referring Provider: Tano Herrmann [address], [place], [place], [address]. tel:[phone] OFFICE/OUTPA TIENT VISIT, [facility], [address], [place], [place], [address], tel:[phone] [facility] cough1 (chief complaint) COPD w/ acute exacerbation Dec-3 0 8 Montez Rosario [address], [place], [place], [address] , [place]. tel:[phone] Referring Provider: Tano Herrmann, [address], [place], [place], [address]. tel:[phone] OFFICE/OUTPA TIENT VISIT, EST [facility], [address], [place], [place], [address], [place] tel:[phone] [facility] headache1 (chief complaint) COPD1 (chief complaint) HeadacheEmphysema 8 Montez Fre[address]man. [address], [place], [place], [address] , [place]. tel:[phone] Referring Provider: Tano Herrmann, [address] [facility] [address], [place], [place], [address]. tel:[phone] PREV VISIT, NEW, AGE 40-64 [facility], [address], [place], [place], [address], [place] tel:[phone] [facility] PHysical (chief complaint) Encounter for general adult medical exam w abnormal findingsEssential (primary) hypertensionEmphyse maHeadache 8 Montez Fre[address]. [address], [place], [place], [address] , [place]. tel:[phone] Referring Provider: Tano Herrmann, [address], [place], [place], [address]. tel:[phone] Family History Family Member Type Diagnosis Age At Onset Sister Problem (finding) Alive and well Father Problem (finding) unkonwn Mother Problem (finding) unkonwn Payers Payer name Insurance type Covered alliance party ID Authoriza tion(s) No Information Social History Type Description Quantity Date Captured Comments Sex Male Smoking Status No Information Chief Complaint And Reason For Visit No Information Plan Of Treatment Date Type Action Status Goal Special diet education compl eted Goal Tobacco cessation counseling completed Goal Tobacco cessation counseling completed History Of Present Illness Encounter Date Complaint History Of Prese nt Illness HLP Patient has hype rlipidemia. Patient has not changed his diet. Patient not repeat lab work yet. Hypertension Risk factors inc lude male gender. Additional information: Patient takes hydrochlorothiazide. His BP is borderline. Patient denies any chest pain. constipation1 Pt has been havi ng constipation for several weeks Pt has hard stool. Pt states that he goes to [facility] daily but he has smaller amount and harder stool. Pt denies any blood in stool. PT denies any diarrhea, pt denies any abd pain. Pt feels gassy Take 1 Pt has chronic v ague nonspecific headache. Pt c/o throbbing and pressure headache daily Pt takes butalbital with codeine daily for headache. Pt denies any head injury Pt denies waking up at night with headache or worsening headache. pt denies any vision change or any nausea, vomiting .etc Pt denies any acute headache. Patient denies any worsening headache. Patient failed Topamax, propranolol, Imitrex in the past. glucose1 Pt has high gluc ose, low KCL and also HLP on recent lab. Pt did not do lab fasting .Pt denies any polyuria polydipsia. Pt has not done repeat lab yet vitamin D Pt has extremely low vitamin D. Pt denies any fracture headache1 Pt has chronic v ague nonspecific headache. Pt takes butalbital with codeine daily for headache. Pt denies any head injury Pt denies waking up at night with headache or worsening headache. pt denies any vision change or any nausea, vomiting .etc Pt denies any acute headache CODP Pt has end stage COPD. Pt is on 24 hour oxygen. pt sees pulmonary. pt is on breo, prednisone, , albuterol/ipratropium neb and ventolin PRN. 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 pt has severe COPD. Pt use oxygen and he c/o productive coughing for one week. Pt denies any worsening sob Pt denies any chest pain. Pt has high glucose and HLP, Pt has mild low KCL. Pt has low D. Pt no longer smoking. Pt has chronic headache. Pt takes fioricet PRN Pt denies any worsening headache. Pt denies any head injury or waking up at night with headache. HTN Pt has HTn. Pt t akes HCTZ and his BP is slightly high. Pt denies any chest pain or worsening headache COPD1 Pt has end stage COPD. Pt has over 60 pack year tobacco Pt quit smoking 8 years ago> pt is on oxygen and inhalers. Pt denies any worsening sob. Pt is at his baseline headache1 Pt has chronic t hrobbing headache with nausea and photophobia. Pt takes butalbital and codeine compounds BID Pt states that he has headache daily Pt denies any head injury Pt denies any worsening headache cough1 Pt c/o productiv e coughing and worsening sob for one week. Pt has severe COPD. Pt is on oxygen and breo and also daily neb. Pt is seeing pulmonary and he is on daily prednisone. now. Pt notices productive coughing with phlegm for one week. Pt feels worsening sob. Pt denies any chest pain. Pt denies any fever, chill Pt denies any calf pain. Pt denies any recent travel or bedrest headache1 Pt has chronic h eadache. Pt has migraine headache. Pt takes butalbital compond with codoine BID. Pt denie sany acute headache, Pt does not want to try prophylasix meds or imtirex. COPD1 Pt has end stage COPD. Pt is on oxygen. Pt needs to see pulmonary. Pt denies any worsening sob PHysical Pt needs annual physical. Pt has severe COPD. Pt is on oxygen now. Pt uses breo and venotlin PRN. Pt sees pulmonary. Pt has HTn. Pt takes HCTZ and doing ok. pt denies any chest pain or headache. Pt also has chronic migraine headache ,Pt denies any head injury. pt denies waking up at night with headache ,Pt states that his headache is trhobbing in nature and he feels nauseated with photophobia with headache. Pt takes bultalbital compound with codeine for headache daily. Pt never tried prophylactic and he does not recall every having a head CT or MRi. Pt denies any worsening headache ,Pt denies waking upa t night with headache, His current PCP no longer takes his insurance. Instructions Date Instruction Additional Infor mation Special diet education Related t o Body mass index (BMI) 26.0-26.9, adult Increase activity. Related to Es sential (primary) hypertension Follow a low sodium diet. Relate d to Essential (primary) hypertension Increase physical activity Relat ed to Umbilical hernia Increase physical activity Relat ed to Encounter for general adult medical exam w abnormal findings Increase physical activity Relat ed to Emphysema Increase physical activity Relat ed to COPD w/ acute exacerbation Prescribed Activity and Exercise Education Related to Dietary Surveillance and Counseling Prescribed Diet Educ ation/Lifestyle Education Regarding Diet Related to Dietary Surveillance and Counseling Increase physical activity Relat ed to Headache Weight management Related to Hea dache Increase physical activity Relat ed to Encounter for general adult medical exam w abnormal findings Assessments Type Assessment Date No Information
[2025-03-11 17:02] LABS: Hematocrit 40.9 % (42.0-52.0); Hemoglobin 11.9 g/dL (14.0-18.0); Mean Corpuscular HGB Conc 29.1 g/dl (32-36); Mean Corpuscular Hemoglobin 26.9 pg (26-34); Mean Corpuscular Volume 92.3 fl (80-100); Mean Platelet Volume 9.4 fl (7.4-10.4); Platelet Count Result 214 k/mm3 (150-375); Red Blood Count 4.43 M/mm3 (4.6-6.20); Red Cell Distribution Width 14.6 % (11.5-14.5); White Blood Count 10.5 K/mm3 (4.5-10.0)
[2025-03-11 17:17] LABS: Alanine Aminotransferase 15 U/L (6-50); Albumin Level 4.2 g/dL (3.5-5.1); Alkaline Phosphatase 152 U/L (38-126); Aspartate Amino Transferase 26 U/L (17-59); Bilirubin,Total 0.4 mg/dL (0.2-1.3); Blood Urea Nitrogen 17 mg/dL (9-20); Calcium 8.4 mg/dL (8.4-10.2); Carbon Dioxide > 40 mmol/L (22-30); Chloride 93 mmol/L (98-107); Cholesterol 281 mg/dL (0-200); Estimated Glomerular Filt Rate > 60; Glucose 102 mg/dL (65-110); HDL Direct 45 mg/dL; Potassium 3.9 mmol/L (3.4-5.0); Sodium 139 mmol/L (137-145); Triglycerides 133 mg/dL (<150)
[2025-03-11 17:39] LABS: LDL Cholesterol Direct 166 mg/dL
[2025-03-11 18:30] LABS: Prostate Specific Antigen < 0.1 ng/mL (< OR = 4.0)
== END 2025-03-11 15:21 | disposition home or self-care (01) ==
PROVIDERS: PCP Family Medicine; Visit Provider Physician Assistant
DX: J96.10 Chronic respiratory failure, unspecified whether with hypoxia or hypercapnia (principal); I10 Essential (primary) hypertension; J44.9 Chronic obstructive pulmonary disease, unspecified; E87.1 Hypo-osmolality and hyponatremia; E87.6 Hypokalemia; E78.5 Hyperlipidemia, unspecified; R35.1 Nocturia; Z87.891 Personal history of nicotine dependence
CPT/HCPCS: 36415; 71271; 80053; 80061; 84153; 84443; 85027

== ENCOUNTER 2025-05-14 14:26 | Outpatient (NON) | payer MEDICARE, SELFPAY ==
--- OUTSIDE RECORDS SUMMARY | 2025-05-14 14:41 | XMS_ITS | Continuity of Care Document ---
Author Organization [facility] Address [address] [place] [address] [place] [address] Phone Care Team Providers Care Stenotype Operator Name Role Phone Tano Herrmann MD Unavailable Unavailable Allergies, Adverse Reactions, Alerts Substance Reaction Status Criticality No Known Allergies Active No Inform ation Medications Medication Instructions Dosage Effective Dates (start - stop) Status Comments hydrochlorothiazide 25 mg tablet take 1 tablet by oral route every day 25 MG - Active Butalbital Compound with Codeine 30 mg-50 mg-325 mg-40 mg capsule take 1 capsule by oral route every 12 hours PRN for headache as needed - Active PRN for headache, avoid driving or operate machines Ventolin HFA 90 mcg/actuation aerosol inhaler inhale 2 puff by inhalation route every 4 - 6 hours as needed as needed - Active PRN for sob ipratropium-albuterol 0.5 mg-3 mg(2.5 mg base)/3 mL nebulization soln inhale 3 milliliter by nebulization route 3 times every day as needed 3 milliliter - Active COPD Breo Ellipta 100 mcg-25 mcg/dose powder for inhalation inhale 1 puff by inhalation route every day at the same time each day 1.00 puff - Active Procedures Procedure Date OFFICE/OUTPATIENT VISIT, EST OFFICE/OUTPATIENT VISIT, EST PREV VISIT, EST, AGE 40-64 OFFICE/OUTPATIENT VISIT, EST OFFICE/OUTPATIENT VISIT, EST OFFICE/OUTPATIENT VISIT, EST OFFICE/OUTPATIENT VISIT, EST PREV VISIT, NEW, AGE 40-64 OFFICE/OUTPATIENT VISIT, [facility] Advance Directives Directive Yes / No Effective Date File Name No Information Encounters Encounter Description Practice Location Reason(s) For Visit Diagnoses Date Provider Providers Copied on Encounter [facility], [address], [place], [place], [id number], tel:[phone] [facility] No Information 9 Montez Freedman. [address], [place], [place], [address] , [place]. tel:[phone] OFFICE/OUTPA TIENT VISIT, [facility], [address], [place], [place], [address], tel:[phone] [facility] constipati on1 (chief complaint) HLP (chief complaint) Hypertensi on (chief complaint) Take 1 (chief complaint) HeadacheEssential (primary) hypertensionConstip ationHyperlipidemia 9 Montez Rosario [address], [place], [place], [address] , [place]. tel:[phone] Referring Provider: Tano Herrmann, [address], [place], [place], [id number]. tel:[phone] OFFICE/OUTPA TIENT VISIT, [facility], [address], [place], [place], [address], [place] tel:[phone] [facility] headache1 (chief complaint) CODP (chief complaint) glucose1 (chief complaint) vitamin D (chief complaint) Umbilical herniaCOPD w/ acute exacerbationHeadach eHyperlipidemiaHypo kalemiaHyperglycemi a 9 Montez Freedman. [address], [place], [place], [address] , [place]. tel:[phone] PREV VISIT, EST, AGE 40-64 [facility], [address], [place], [place], [address], [place] tel:[phone] [facility] Medicine PHysical (chief complaint) Encounter for general adult medical exam w abnormal findingsHyperglycem iaHyperlipidemiaHyp okalemiaEssential (primary) hypertensionEmphyse ma 0 8 Montez Freedman. [address], [place], [place], [address] , . tel:[phone] Referring Provider: Tano Herrmann, [address], [place], [place], [address]. tel:[phone] [facility], [address], [place], [place], [address], [place] tel:[phone] [facility] No Information 0 8 Montez Freedman. [address], [place], [place], [address] , [place]. tel:[phone] [facility], [address], [place], [place], [address], [place] tel:[phone] [facility] No Information 8 Montez Rosario [address], [place], [place], [address] , [place]. tel:[phone] OFFICE/OUTPA TIENT VISIT, [facility], [address] [place], [address], tel:[phone] [facility] headache1 (chief complaint) HTN (chief complaint) COPD1 (chief complaint) EmphysemaHeadacheEs sential (primary) hypertensionTobacco use 8 Montez Rosario [address], [place], [place], [address] , [place]. tel:[phone] Referring Provider: Tano Herrmann [address], [place], [place], [address]. tel:[phone] OFFICE/OUTPA TIENT VISIT, [facility], [address], [place], [place], [address], tel:[phone] [facility] cough1 (chief complaint) COPD w/ acute exacerbation Dec-3 0 8 Montez Rosario [address], [place], [place], [address] , [place]. tel:[phone] Referring Provider: Tano Herrmann, [address], [place], [place], [address]. tel:[phone] OFFICE/OUTPA TIENT VISIT, EST [facility], [address], [place], [place], [address], [place] tel:[phone] [facility] Medicine headache1 (chief complaint) COPD1 (chief complaint) HeadacheEmphysema 8 Montez Freedman. [address], [place], [place], [address] , [place]. tel:[phone] Referring Provider: Tano Herrmann, [address] [facility] [address], [place], [place], [address]. tel:[phone] PREV VISIT, NEW, AGE 40-64 [facility], [address], [place], [place], [address], [place] tel:[phone] [facility] Medicine PHysical (chief complaint) Encounter for general adult medical exam w abnormal findingsEssential (primary) hypertensionEmphyse maHeadache 8 Montez Freedman. [address], [place], [place], [address] , [place]. tel:[phone] Referring Provider: Tano Herrmann, [address], [place], [place], [address]. tel:[phone] Family History Family Member Type Diagnosis Age At Onset Sister Problem (finding) Alive and well Father Problem (finding) unkonwn Mother Problem (finding) unkonwn Payers Payer name Insurance type Covered libertarian ID Authoriza tion(s) No Information Social History Type Description Quantity Date Captured Comments Sex Male Smoking Status No Information Chief Complaint And Reason For Visit No Information Plan Of Treatment Date Type Action Status Goal Special diet education compl eted Goal Tobacco cessation counseling completed Goal Tobacco cessation counseling completed History Of Present Illness Encounter Date Complaint History Of Prese nt Illness Take 1 Pt has chronic v ague [...] failed Topamax, propranolol, Imitrex in the past. constipation1 Pt has been havi ng constipation for several weeks Pt has hard stool. Pt states that he goes to [facility] daily but he has smaller amount and harder stool. Pt denies any blood in stool. PT denies any diarrhea, pt denies any abd pain. Pt feels gassy Hypertension Risk factors inc lude male gender. Additional information: Patient takes hydrochlorothiazide. His BP is borderline. Patient denies any chest pain. HLP Patient has hype rlipidemia. Patient has not changed his diet. Patient not repeat lab work yet. CODP Pt has end stage COPD. Pt is on 24 hour oxygen. pt sees pulmonary. pt is on breo, prednisone, , albuterol/ipratropium neb and ventolin PRN. 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 Pt takes butalbital with codeine daily for headache. Pt denies any head injury Pt denies waking up at night with headache or worsening headache. pt denies any vision change or any nausea, vomiting .etc Pt denies any acute headache vitamin D Pt has extremely low vitamin D. Pt denies any fracture glucose1 Pt has high gluc ose, low KCL and also HLP on recent lab. Pt did not do lab fasting .Pt denies any polyuria polydipsia. Pt has not done repeat lab yet PHysical Pt needs annual physical. pt has [...] or waking up at night with headache. headache1 Pt has chronic t hrobbing headache with nausea and photophobia. Pt takes butalbital and codeine compounds BID Pt states that he has headache daily Pt denies any head injury Pt denies any worsening headache COPD1 Pt has end stage COPD. Pt has over 60 pack year tobacco Pt quit smoking 8 years ago> pt is on oxygen and inhalers. Pt denies any worsening sob. Pt is at his baseline HTN Pt has HTn. Pt t akes HCTZ and his BP is slightly high. Pt denies any chest pain or worsening headache cough1 Pt c/o productiv e [...] his insurance. Instructions Date Instruction Additional Infor bipin Follow a low sodium diet. Relate d to Essential (primary) hypertension Increase activity. Related to Es sential (primary) hypertension Special diet education Related t o Body mass index (BMI) 26.0-26.9, adult Increase physical activity Relat ed to Umbilical [...]
--- OUTSIDE RECORDS SUMMARY | 2025-05-14 14:41 | XMS_ITS | Clinical Summary ---
Author Organization [facility] Address [address] [place] [address] Care Team Providers Care Gas Derrick Operator Name Role Phone Luiz Whipple MD Primary Care Provider [phone] Social History Tobacco Use Types Packs/Day Years Used Date Smoking Tobacco: Never Assessed Sex and Gender Information Value Date Recorded Sex Assigned at Not on file Legal Sex Male 6:21 PM CDT Gender Identity Not on file Sexual Orientation Not on file Plan of Treatment Health Maintenance Due Date Last Done Comments Colorectal Cancer Screening Colonoscopy (10 Years) 1955 Hepatitis C 1974 DTaP, Tdap and Td Vaccines ( 1 - Tdap) 1975 Pneumococcal Vaccine: 50+ Ye ars (1 of 1 - PCV) 2006 Zoster Vaccines (1 of 2) 2006 COVID-19 Vaccine ( - 2023-2 5 season) 2024 RSV Immunization or 60+ Years (1 - 1-dose 75+ series) 2031 Meningococcal B Vaccine Aged Out No l onger eligible based on patient's age to complete this topic Meningococcal Vaccine Aged Out No inna jovtia eligible based on patient's age to complete this topic RSV Immunizations Under 20 Months Aged Out No longer eligible based on patient's age to complete this topic Care Teams Gas Derrick Operator Relationship Specialty Start Date End Date Luiz Whipple MD [address] [place] [id number] PCP - General 12/30/13
[2025-05-14 15:52] LABS: Add Urine Microscopic? YES; Appearance Urine Cloudy (Clear); Glucose Urine UA Negative (Negative); Leukocyte Esterase Ur 3+ LEU/UL (Negative); Need Manual Microscopic Reviewed; Nitrate Urine Positive (Negative); Specific Grav Ur 1.013 (1.001-1.035)
== END 2025-05-14 14:27 | disposition home or self-care (01) ==
PROVIDERS: PCP Family Medicine; Visit Provider Urology
DX: R33.9 Retention of urine, unspecified (principal); Z46.6 Encounter for fitting and adjustment of urinary device; N40.0 Benign prostatic hyperplasia without lower urinary tract symptoms; I10 Essential (primary) hypertension
CPT/HCPCS: 81001; 87086